=== PATIENT | female | born 1945 | race Caucasian/White ===

== ENCOUNTER 2023-07-18 09:20 | Inpatient (IN) | payer MEDICARE, SELFPAY ==
[2023-07-18] VITALS (23 sets, daily range): BP systolic 147–188; BP diastolic 60–97; PULSE 88–136; RESP 18–36; TEMP 36.2–37.2; O2SAT 91–100
--- NOTE | ~2023-07-18 | XR_ITS ---
EXAMINATION: XR chest 2V DATE: 07/18/2023 10:33 INDICATION: 3 days of shortness of breath TECHNIQUE: frontal and lateral views of the chest were obtained. COMPARISON: Chest CT dated 07/18/2023 FINDINGS: Horizontal bandlike opacity at the anterior right midlung zone consistent with atelectasis or pneumon ia stenting along the minor fissure. No other airspace opacities, pulmonary edema, pleural effusion o r pneumothorax. The cardiomediastinal silhouette is normal. Reverse right total shoulder arthroplasty . Partially visualized IVC filter. Calcified nodule projecting over the liver consistent with old gra nulomatous disease. IMPRESSION: 1. Bandlike opacity at the anterior right midlung zone which could represent atelectasis or pneumonia . Reviewed, dictated and finalized at location B. IMPRESSION: 1. Bandlike opacity at the anterior right midlung zone which could represent at electasis or pneumonia.
--- NOTE | ~2023-07-18 | US_ITS ---
EXAMINATION: US venous doppler [facility] DATE: 07/18/2023 12:04 INDICATION: Lower limb pain and swelling. Elevated d-dimer post recent hip replacement. TECHNIQUE: Grayscale ultrasound images without and with compression and Doppler ultrasound images of the bilateral lower extremity veins were obtained. COMPARISON: None. FINDINGS: The visualized portions of right common femoral vein, profunda (deep) femoral vein, femoral vein, pop liteal vein, posterior tibial veins, peroneal veins, gastrocnemius vein and greater saphenous vein ou tflow are patent. The visualized portions of left common femoral vein, profunda femoral vein, femoral vein, popliteal v ein, posterior tibial veins, peroneal veins, gastrocnemius vein and greater saphenous vein outflow ar e patent. IMPRESSION: 1. No deep venous thrombosis in either lower limb. Reviewed, dictated and finalized at location B.
--- NOTE | ~2023-07-18 | XR_ITS ---
EXAMINATION: XR chest 1V portable INDICATION: Tachypnea TECHNIQUE: Portable AP chest at 1850 hours COMPARISON: 07/28/2023 FINDINGS: There are diffuse opacities throughout all lung zones without significant change. No pleura l effusion or pneumothorax. The cardiomediastinal silhouette is stable. Changes of right shoulder art hroplasty are noted. IMPRESSION: 1. Diffuse lung disease without significant change, consistent with pneumonia/or pulmonary edema. Reviewed, dictated and finalized at location F. IMPRESSION: 1. Diffuse lung disease without significant change, consistent with pneumonia/o r pulmonary edema.
--- NOTE | ~2023-07-18 | XR_ITS ---
EXAMINATION: XR lumbar puncture diagnostic DATE: 07/19/2023 15:07 INDICATION: Encephalopathy. TECHNIQUE: The procedure including the risks, benefits, and alternatives was discussed with the patie nt's son. Risks discussed included spinal headache, bleeding, and infection. He understood the risks and agreed to proceed. The skin overlying the lumbar spine level was prepped and draped in usual brandon rile fashion. Subcutaneous 1% lidocaine was used for local anesthesia. A 20 gauge spinal needle was advanced under fluoroscopic guidance at multiple levels. The patient moved throughout the procedure. The needle was removed and the entry site was cleaned and dressed. There were no immediate complica tions. Fluoroscopy exposure time was 0.3 minutes. The total number of images was 1. FINDINGS: Real-time fluoroscopy demonstrates the needle at the L5-S1 level. The opening pressure was not measured. 6 mL of bloody fluid was collected in 3 tubes. IMPRESSION: 1. Successful fluoro-guided lumbar puncture. Reviewed, dictated and finalized at location A.
--- NOTE | ~2023-07-18 | CT_ITS ---
EXAMINATION: CTA chest PE protocol DATE: 07/18/2023 10:26 INDICATION: Shortness of breath. TECHNIQUE: Computed tomography angiography (CTA) of the chest was performed with 100 mL Omnipaque-350 intravenous contrast timed to evaluate the pulmonary arteries. Coronal maximum intensity projection 3D-reconstructions were created by the technologist. Automated exposure control and iterative reconst ruction technique were employed. The dose-length product was 227.40 mGy-cm. COMPARISON: None. FINDINGS: There is moderate emphysema. There are scattered small airspace opacities in the lungs. The re are airspace opacities in anterior segment right upper lobe with air bronchograms. There are scatt ered small nodules in the lungs. No pleural effusion. The heart size is normal. There are coronary ar karina calcifications. No pericardial effusion. There is no pulmonary embolus. Calcified left hilar and mediastinal lymph nodes are consistent with old granulomatous disease. Calcifications in the liver a nd spleen are consistent with old granulomatous disease. There is a 3.9 cm heterogeneous mass with ca lcifications in left adrenal gland. There is a 1.7 cm cyst in left kidney. There is a right shoulder arthroplasty. There is a benign bone island in right second rib. There is mild thoracic spondylosis a nd severe cervical spondylosis. There is a benign bone island in T5 vertebral body. There is mild chr onic anterior wedging of multiple vertebral bodies. IMPRESSION: 1. No pulmonary embolus. 2. Multifocal lung disease, consistent with pneumonia. 3. Moderate emphysema. 4. 3.9 cm left adrenal mass, which may be an adenoma or metastatic disease. PET/CT is recommended if there is no outside prior imaging to confirm stability. Reviewed, dictated and finalized at location A. IMPRESSION: 1. No pulmonary embolus. 2. Multifocal lung disease, consistent with pneumonia. 3. Moderate emphysema. 4. 3.9 cm left adrenal mass, which may be an adenoma or metastatic disease. PET /CT is recommended if there is no outside prior imaging to confirm stability.
--- NOTE | ~2023-07-18 | CT_ITS ---
EXAMINATION: CT brain wo con DATE: 07/24/2023 17:47 INDICATION: headaches . TECHNIQUE: Computed tomography (CT) of the head was performed without intravenous contrast. The mA wa s adjusted according to patient size. Iterative reconstruction technique was employed. The dose-lengt h product was 605.33 mGy-cm. COMPARISON: 07/18/2023. FINDINGS: No acute intracranial hemorrhage or extra-axial fluid collection. No hydrocephalus, mass, or herniation. No acute ischemic infarct. Unremarkable dural venous sinus attenuation. No acute osseous abnormality. The aerated spaces are clear. Moderate atrophy and chronic white matter change. Atherosclerotic intracranial calcification. Bilater al lens replacements. Old right basal ganglia lacunar infarct. IMPRESSION: No acute intracranial process. Reviewed, dictated and finalized at location K.
--- NOTE | ~2023-07-18 | CT_ITS ---
EXAMINATION: CT brain wo con DATE: 07/18/2023 15:36 INDICATION: Obtunded. Confusion TECHNIQUE: Computed tomography (CT) of the head was performed without intravenous contrast. Sagittal and coronal reconstructions were performed. The mA was adjusted according to patient size. Iterative reconstruction technique was employed. The dose-length product was 605.33 mGy-cm. COMPARISON: None FINDINGS: No acute intracranial hemorrhage or acute infarction. There is extensive scattered white matter hypoa ttenuation consistent with chronic small vessel ischemic disease. Symmetric prominence of the sulci c onsistent with mild to moderate age-appropriate diffuse cerebral volume loss. Ventricles are normal a nd symmetric. No mass/mass effect. Changes of bilateral intraocular lens replacement. The orbits and mastoid air cells are normal. Couple mucous retention cyst in the right maxillary sinus. Intracranial calcified cerebral atherosclerosis is noted. IMPRESSION: 1. No acute intracranial process. 2. Age-related changes including mild to moderate diffuse volume loss and extensive scattered white m atter hypoattenuation consistent with chronic small vessel ischemic disease. Reviewed, dictated and finalized at location B. IMPRESSION: 1. No acute intracranial process. 2. Age-related changes including mild to moderate diffuse volume loss and exten sive scattered white matter hypoattenuation consistent with chronic small vesse l ischemic disease.
--- NOTE | ~2023-07-18 | CT_ITS ---
EXAMINATION: CTA brain carotid DATE: 07/18/2023 15:47 INDICATION: Confusion. TECHNIQUE: Computed tomographic angiography (CTA) of the head was performed with 100 mL Omnipaque-350 intravenous contrast. CTA of the neck was performed with intravenous contrast. Automated exposure co ntrol and iterative reconstruction technique were employed. The dose-length product was 1105.70 mGy-c m. Maximum intensity projection and volume rendered 3D-reconstructions were created by the technologi st on a separate workstation. COMPARISON: Head CT 07/18/2023 FINDINGS: HEAD CTA: There are scattered areas of low attenuation in the cerebral white matter. There is no intr acranial hemorrhage, acute infarction, or abnormal intracranial mass lesion. The ventricles are karly l in size. There are likely changes of ocular lens replacement surgeries. There is mucosal thickening in the paranasal sinuses. The mastoid air cells are normal. Left vertebral artery is dominant. There is a severe stenosis of basilar artery or the posterior cerebral arteries. The posterior communicati ng arteries are normal. There is no significant stenosis of the intracranial internal carotid arterie s or anterior or middle cerebral arteries. Anterior communicating artery is normal. There is no aneur ysm. NECK CTA: There is mild emphysema. There are no pathologically enlarged lymph nodes. There is no sign ificant stenosis of the vertebral arteries. There is plaque in the proximal internal carotid arteries . There is 38% stenosis of the proximal right internal carotid artery relative to normal distal arter y lumen diameter (NASCET criteria). There is 40% stenosis of the proximal left internal carotid arter y relative to normal distal artery lumen diameter. IMPRESSION: 1. Extensive nonspecific cerebral white matter disease, which likely represents chronic small vessel ischemic disease. 2. No aneurysm or significant intracranial arterial stenosis. 3. 38% stenosis of the proximal right internal carotid artery relative to normal distal artery lumen diameter (NASCET criteria). 4. 40% stenosis of the proximal left internal carotid artery relative to normal distal artery lumen d iameter. Reviewed, dictated and finalized at location A. IMPRESSION: 1. Extensive nonspecific cerebral white matter disease, which likely represents chronic small vessel ischemic disease. 2. No aneurysm or significant intracranial arterial stenosis. 3. 38% stenosis of the proximal right internal carotid artery relative to karly l distal artery lumen diameter (NASCET criteria). 4. 40% stenosis of the proximal left internal carotid artery relative to normal distal artery lumen diameter.
--- NOTE | ~2023-07-18 | MR_ITS ---
MRI of the brain Clinical History: Encephalopathy Technique: Axial and sagittal T1-weighted images were acquired. These were followed by axial T2-weigh catie, diffusion weighted, gradient, and FLAIR images. Findings: Exam degraded by motion artifact. There is no acute infarct, intracranial hemorrhage or mas s lesion. There is moderate chronic microvascular ischemic change in the periventricular white matter bilaterally. Ventricles and subarachnoid spaces are dilated. Orbits are unremarkable. Retention cysts or polyps ar e present in the right maxillary sinus. Remaining paranasal sinuses and mastoid air cells are clear. Questionable occlusion versus hypoplasia of the distal right vertebral artery. Remaining major intrac ranial flow voids appear intact. Sagittal midline structures are intact. IMPRESSION: Suboptimal exam due to motion artifact. No acute hemorrhage, acute infarct, or mass lesion identified . Moderate chronic microvascular ischemic change and mild to moderate generalized atrophy. Probable occlusion versus hypoplasia of the distal right vertebral artery. Reviewed, dictated and finalized at [facility]. IMPRESSION: Suboptimal exam due to motion artifact. No acute hemorrhage, acute infarct, or mass lesion identified. Moderate chronic microvascular ischemic change and mild to moderate generalized atrophy. Probable occlusion versus hypoplasia of the distal right vertebral artery.
--- NOTE | ~2023-07-18 | XR_ITS ---
EXAMINATION: XR chest 2V Exam Date/Time: 07/23/2023 17:25 CDT HISTORY: multifocal pneumonia Comparison: Chest x-ray and CTPA 07/18/2023. RESULT: Lines, tubes, and devices: Right shoulder arthroplasty hardware. IVC filter. Lungs and pleura: Persistent subsegmental right mid and left posterior lower lobe airspace disease. Prominent pericardial fat pads. Emphysematous change. Minimal posterior costophrenic angle blunting b ilaterally. Cardiomediastinal silhouette: Stable. Other: No acute osseous or upper abdominal finding. IMPRESSION: Unchanged bilateral subsegmental airspace disease may represent atelectasis or consolidation. Possibl e trace pleural effusions. Reviewed, dictated and finalized at location K. IMPRESSION: Unchanged bilateral subsegmental airspace disease may represent atelectasis or consolidation. Possible trace pleural effusions.
--- NOTE | ~2023-07-18 | MR_ITS ---
EXAMINATION: MR abdomen wo/w con DATE: 07/23/2023 18:17 INDICATION: Left adrenal mass TECHNIQUE: Magnetic resonance imaging (MRI) of the abdomen was performed without and with 14 mL Multi jose intravenous contrast. Sequences included coronal and axial T2-weighted SS-FSE, axial FS 2D-FIES TA, coronal and axial dual-echo T1-weighted FSPGR, axial T1-weighted LAVA, and axial STIR FSE. Postco ntrast axial T1-weighted LAVA images were obtained in a time course. Postcontrast coronal T1-weighted LAVA images were obtained. COMPARISON: Chest CT dated 07/18/2023 FINDINGS: There is moderate respiratory motion artifact which most prominently affects the axial and postcontra st imaging. Heart size is normal. No pericardial or pleural effusion. Liver, gallbladder, spleen, mckinney creas and left adrenal gland are normal. 3.9 cm left adrenal mass with signal dropout on opposed phas e images which corresponds to the largest region of the mass demonstrating low density on prior CT co nsistent with an adenoma. There is however heterogeneous attenuation with the more lateral portion of the mass demonstrating a demonstrating higher attenuation versus enhancement on the prior CT and wit h some central coarse calcifications. There are multiple nonenhancing T2 hyperintense cysts in both k idneys the largest measuring up to 1.7 cm and the left kidney. Bowels appear unremarkable with no obs truction. Septated cyst versus pair of abutting cysts together measuring 2.4 cm at the left adnexa. T here is magnetic metallic field artifact at the left hip suggesting a prior hip arthroplasty. Partial ly visualized large fluid collection along the posterolateral margins of the left greater trochanter the visualized portion which measures 7.3 x 5.2 x 6.0 cm which appears to communicate with small amou nt of fluid about the head and neck component of the arthroplasty. Extensive body wall edema and smal l amount of ascites in the pelvis. Mild lumbar levocurvature with mild spondylosis. Bone marrow signa l is normal throughout. IMPRESSION: 1. 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 While reassuring, both the size and heterogeneous attenuation with calcification of portions of the m ass on prior CT however would be atypical which suggests possibility of either secondary hemorrhage o r a collision lesion with combination of both adenoma and metastatic disease. Would continue to recom mend either correlation with prior outside imaging to confirm stability or PET/CT when clinically imp roved. Reviewed, dictated and finalized at location A. IMPRESSION: 1. 3.9 cm left adrenal mass with signal dropout on opposed phase imaging consis tent with an adenoma. While reassuring, both the size and heterogeneous attenua tion with calcification of portions of the mass on prior CT however would be at ypical which suggests possibility of either secondary hemorrhage or a collision lesion with combination of both adenoma and metastatic disease. Would continue to recommend either correlation with prior outside imaging to confirm stabilit y or PET/CT when clinically improved.
--- NOTE | ~2023-07-18 | XR_ITS ---
EXAMINATION: XR chest 1V portable Exam Date/Time: 07/28/2023 19:03 CDT HISTORY: sob Comparison: 07/23/2023. RESULT: Lines, tubes, and devices: Incompletely visualized right shoulder arthroplasty hardware. Lungs and pleura: Emphysematous changes. Decreasing left basilar opacities. Persistent subsegmental right midlung opacity. Minimal bilateral costophrenic angle blunting Cardiomediastinal silhouette: Stable. Other: No acute osseous or upper abdominal finding. IMPRESSION: Improved left basilar aeration. Persistent atelectasis/scar or consolidation in the right midlung. Po ssible trace bilateral effusions. Reviewed, dictated and finalized at location K. IMPRESSION: Improved left basilar aeration. Persistent atelectasis/scar or consolidation in the right midlung. Possible trace bilateral effusions.
--- NOTE | 2023-07-18 09:24 | ECG_ITS ---
Measurements Intervals [place] Rate: 107 P: 65 OR: 134 QRS: 34 QRSD: 76 T: 30 QT: 303 QTc: 406 Interpretive Statements SINUS TACHYCARDIA NONSPECIFIC T-WAVE ABNORMALITY- ANTERIOR LEADS BASELINE ARTIFACT- I, II, III, AVR, AVF, V3-V6 ABNORMAL ECG NO PREVIOUS ECG AVAILABLE FOR COMPARISON Electronically Signed On 07-18-2023 10:04:03 CDT by Leobardo Rodríguez D.O.
--- NOTE | 2023-07-18 09:48 | ED.SOB ---
HPI - SOB/Dyspnea General Chief Complaint: Shortness of Breath/Dyspnea <Eva Pickett PA-C - Last Filed: 07/18/23 12:37> Stated Complaint: SOB <Eva Pickett PA-C - Last Filed: 07/18/23 12:37> Time Seen by Provider: 07/18/23 09:23 <Eva Pickett PA-C - Last Filed: 07/18/23 12:37> Source: patient and family <CLAUDIA Cash Last Filed: 07/18/23 12:37> Mode of arrival: wheelchair <CLAUDIA Cash Last Filed: 07/18/23 12:37> Limitations: no limitations <Eva Pickett PA-C - Last Filed: 07/18/23 12:37> History of Present Illness HPI Narrative: This is a 78 year old female that presents to the ER for shortness of breath. Worsening since last night. Reports recent hip replacement at [facility] 2 weeks ago. She has required oxygen since. She does report some swelling in her lower extremities. Reports a productive cough with history of COPD. Denies fevers or chest pain. <Eva Pickett PA-C - Last Filed: 07/18/23 12:37> Related Data Home Medications: Home Medications Medication Instructions Recorded Confirmed amlodipine 5 mg tablet (Norvasc) 5 mg PO DAILY 07/18/23 07/18/23 budesonide 160 mcg-glycopyr 9 See Rx Instructions .Route .COMPLEX 07/18/23 07/18/23 mcg-formot 4.8 mcg/actuation HFA inhaler (Breztri Aerosphere) calcium cit 315 mg-ergocalciferol See Rx Instructions .Route .COMPLEX 07/18/23 07/18/23 (vitamin D2) 5 mcg (200 unit) tablet escitalopram oxalate 5 mg tablet 5 mg DAILY 07/18/23 07/18/23 folic acid 1 mg tablet 1 mg PO DAILY 07/18/23 07/18/23 hydralazine 100 mg tablet 100 mg PO DAILY 07/18/23 07/18/23 ipratropium 0.5 mg-albuterol 3 mg See Rx Instructions .Route 07/18/23 07/18/23 (2.5 mg base)/3 mL nebulization .COMPLEX PRN wheezing or shortness soln of breath losartan 100 See Rx Instructions .Route .COMPLEX 07/18/23 07/18/23 mg-hydrochlorothiazide 12.5 mg tablet naloxone 4 mg/actuation nasal spray 4 mg intranasal Q3M PRN Opioid 07/18/23 07/18/23 reversal or respiratory depression omeprazole 40 mg capsule,delayed 40 mg PO DAILY 07/18/23 07/18/23 release oxycodone-acetaminophen 5 mg-325 See Rx Instructions .Route 07/18/23 07/18/23 mg tablet (Percocet) .COMPLEX PRN Pain vit C 250 mg-vit E 90 mg-zinc 40 See Rx Instructions .Route .COMPLEX 07/18/23 07/18/23 mg-copper 1 [id number] capsule (PreserVision AREDS-2) <Eva Pickett PA-C - Last Filed: 07/18/23 12:37> Allergies/Adverse Reactions: Allergies Allergy/AdvReac Type Severity Reaction Status Date / Time No Known Allergies Allergy Verified 07/18/23 09:22 <Eva Pickett PA-C - Last Filed: 07/18/23 12:37> Review of Systems Review of Systems: CONSTITUTIONAL: Denies fever ENT: Reports congestion CARDIOVASCULAR: Reports edema. Denies chest pain RESPIRATORY: Reports cough and dyspnea. <Eva Pickett PA-C - Last Filed: 07/18/23 12:37> All systems reviewed & are unremarkable except as noted in HPI and below <Eva Pickett PA-C - Last Filed: 07/18/23 12:37> FORMERLY [facility] Past Medical History Medical History: Medical History (Updated 07/18/23 @ 16:35 by Lexus Kirkland APRN) History of COPD History of hypertension <Eva Pickett PA-C - Last Filed: 07/18/23 12:37> Surgical History Surgical History: Surgical History (Updated 07/18/23 @ 16:06 by Lexus Kirkland APRN) History of hip replacement (07/02/23) done at [facility] <Eva Pickett PA-C - Last Filed: 07/18/23 12:37> Social History Social History: Social History Years smoked: 60 Smoking status: Current every day smoker Tobacco type: cigarettes Alcohol intake: never Substance use: never Do You Feel Safe in your Home?: Yes Lack of Transportation: No Lack of Food: Never True Current Housing: I Have Housing Concerned About Future Housing: No Difficulty P
[2023-07-18] MEDS: IPRATROPIUM 0.5 MG/ALBUTEROL SULFATE 2.5 MG AMPUL.NEB 3 ML INHALATION ×3 (09:52→17:00)
[2023-07-18 09:54] LABS: Basophils Absolute Auto 0.1 K/mm3 (0.0-0.1); Basophils Percent Auto 0.3 % (0.2-1.2); Eosinophils Percent Auto 0.1 % (0-4.4); Hematocrit 31.8 % (37.0-47.0); Hemoglobin 9.1 g/dL (12.0-15.0); Immature Granulocyte Absolute 0.16 K/mm3 (0.00-0.031); Immature Granulocyte Percent A 0.9 % (0-0.5); Immature Platelet Fraction Pct 7.4 % (0.9-11.2); Mean Corpuscular HGB Conc 28.6 g/dl (32-36); Mean Corpuscular Volume 80.5 fl (80-100); Monocytes Absolute Auto 0.6 K/mm3 (0.1-0.6); Monocytes Percent Auto 3.5 % (2.6-8.5); Neutrophils Absolute Auto 15.6 K/mm3 (1.3-6.7); Neutrophils Percent Auto 92.2 % (45.5-73.1); Platelet Count Result 219 k/mm3 (150-375); Red Blood Count 3.95 M/mm3 (4.2-5.4); Red Cell Distribution Width 25.1 % (11.5-14.5); White Blood Count 16.9 K/mm3 (4.5-10.0)
[2023-07-18] MEDS: ACETAMINOPHEN 500 MG TABLET 1000 MG PO (10:00)
[2023-07-18] MEDS: methylPREDNISolone SOD SUCC 125 MG VIAL IV PUSH (10:00)
[2023-07-18 10:03] LABS: Alanine Aminotransferase 19 U/L (6-35); Albumin Level 3.4 g/dL (3.5-5.1); Alkaline Phosphatase 124 U/L (38-126); Anion Gap 4 mmol/L (8-16); Aspartate Amino Transferase 30 U/L (14-36); Blood Urea Nitrogen 18 mg/dL (7-17); Calcium 8.9 mg/dL (8.4-10.2); Carbon Dioxide 32 mmol/L (22-30); Chloride 103 mmol/L (98-107); Estimated CRCL calculation 42 ml/min; Estimated Glomerular Filt Rate > 60; Glucose 140 mg/dL (65-110); Sodium 139 mmol/L (137-145)
[2023-07-18 10:04] LABS: Prothrombin Time 13.6 Seconds (11.1-14.7)
[2023-07-18 10:07] LABS: Lactic Acid Reflex 1.9 mmol/L (0.7-2.0)
[2023-07-18 10:07] LABS: D Dimer 2.02 ug/mL (<0.48)
[2023-07-18 10:10] LABS: Anisocytosis 2+; Hypochromasia 1+; Microcytosis 1+ (NORMAL); Platelet Estimate Adequate (Adequate); Schistocytes None Seen
[2023-07-18 10:17] LABS: NT Pro B Type Natriuretic Pept 1380 pg/mL (19.9-100)
[2023-07-18 10:32] LABS: Influenza A QL RT-PCR Negative (Negative); Influenza B QL RT-PCR Negative (Negative); RSV RNA, RT-PCR Negative (Negative); SARS-CoV-2 RNA PCR Negative (Negative)
[2023-07-18] MEDS: AZITHROMYCIN 500 MG/NS 250 ML 500 MG/250 ML BAG 250 MG IVPB (13:10)
--- NOTE | 2023-07-18 14:15 | PC.NURSE ---
This patient, Marsha Pantoja, was admitted to [facility] Surg Room 321-02 at 1415. Patient/family oriented to hospital policies and general routines including ID bracelet, bed and alarms, visiting hours, pain management, procedures, bathroom and other care routines, personal items, smoking policy, room service/diet, and visiting hours. Information on how to activate the Rapid Response Team has been discussed. Patient/Family are encouraged to report perceived risks to care and to ask questions if they do not understand what they are told or what they should do.
[2023-07-18 14:49] LABS: Glucose Point of Care 205 mg/dl (65-105)
--- NOTE | 2023-07-18 15:06 | ADMGEN ---
This patient, Marsha Pantoja, was admitted to [facility] Surg Room 321-02. Patient/family oriented to hospital policies and general routines including ID bracelet, bed and alarms, visiting hours, pain management, procedures, bathroom and other care routines, personal items, smoking policy, room service/diet, and visiting hours. Information on how to activate the Rapid Response Team has been discussed. Patient/Family are encouraged to report perceived risks to care and to ask questions if they do not understand what they are told or what they should do.
--- NOTE | 2023-07-18 15:10 | PM.IMHP ---
H&P: HPI History of Present Illness Date/Time: 07/18/23 15:10 Chief Complaint: SOB Narrative: 78 y/o F presents here with SOB with PMH of HTN and COPD. Patient presents here with worsening SOB over the last few days, significantly worsened last night. Son at bedside providing majority of HPI due to patient's current mental status. Patient has a new baseline O2 requirement since her hip replacement on 07/02/23. Surgery done at [facility], has follow-up yesterday and sutures were taken out/no complications found per son. Now reporting increased LE swelling and productive cough to ED provider. Denied CP or fevers in the ED. Upon arrival to the inpatient room, it was noted that patient was somnolent, minimally conversant (answering yes and no questions) and able to state her first name. Per son who brought patient to the ED and has been acting as her caregiver since surgery reports that she was able to ambulate with a walker this morning and answering questions/more awake. Last known well around 09:00 today, 07/17. Reports after 10:00 she became tremulous and less responsive/awake. Did receive Solu-Medrol and neb treatment just prior to changes. Now no longer speaking/making attempts at speech, not regarding, and not following commands. No previous hx of CVA. Remains tachypneic. Initial VS at presentation: 98.8 F, HR 114, RR 24, 155/65, and 99% on 2L NC. New requirement post-op on 07/02. ED workup showed: WBC 16.9, Hgb 9.1, D-dimer 2.02, creatinine 0.8, glucose 140, BNP 1380, and viral PCR negative. Chest CTA showed no PE, with multifocal pneumonia, moderate emphysema, and a 3.9 cm left adrenal mass. CXR showed atelectasis v pneumonia. US of BLE negative for DVT. Review of Systems Review of Systems: ROS unobtainable: Yes unobtainable due to mental status PMFSH Past Medical History Medical History History of COPD History of hypertension Surgical History Surgical History History of hip replacement (07/02/23) done at [facility] Social History Social History Years smoked: 60 Smoking status: Current every day smoker Tobacco type: cigarettes Alcohol intake: never Substance use: never Do You Feel Safe in your Home?: Yes Lack of Transportation: No Lack of Food: Never True Current Housing: I Have Housing Concerned About Future Housing: No Difficulty Paying Gas/Electric Bills: No Difficulty Paying for Meds: No Currently Unemployed: No Education: High School Diploma/GED Difficulty w/ Childcare or Family Care: No Spiritual care concerns: No Meds Home Medications and Allergies Home Medications Medication Instructions Recorded Confirmed Type amlodipine 5 mg tablet (Norvasc) 5 mg PO DAILY 07/18/23 07/18/23 History budesonide 160 mcg-glycopyr 9 See Rx Instructions .Route .COMPLEX 07/18/23 07/18/23 History mcg-formot 4.8 mcg/actuation HFA inhaler (Breztri Aerosphere) calcium cit 315 mg-ergocalciferol See Rx Instructions .Route .COMPLEX 07/18/23 07/18/23 History (vitamin D2) 5 mcg (200 unit) tablet escitalopram oxalate 5 mg tablet 5 mg DAILY 07/18/23 07/18/23 History folic acid 1 mg tablet 1 mg PO DAILY 07/18/23 07/18/23 History hydralazine 100 mg tablet 100 mg PO DAILY 07/18/23 07/18/23 History ipratropium 0.5 mg-albuterol 3 mg See Rx Instructions .Route 07/18/23 07/18/23 History (2.5 mg base)/3 mL nebulization .COMPLEX PRN wheezing or shortness soln of breath losartan 100 See Rx Instructions .Route .COMPLEX 07/18/23 07/18/23 History mg-hydrochlorothiazide 12.5 mg tablet naloxone 4 mg/actuation nasal spray 4 mg intranasal Q3M PRN Opioid 07/18/23 07/18/23 History reversal or respiratory depression omeprazole 40 mg capsule,delayed 40 mg PO DAILY 07/18/23 07/18/23 History release oxycodo
[2023-07-18 15:27] LABS: Glucose Point of Care 216 mg/dl (65-105)
--- NOTE | 2023-07-18 16:00 | PC.NURSE ---
Pt arrived to the floor per stretcher at 1415 with son. Pt stated I need to go to the bathroom . 2 boat detailer, 1 RN and this CHIP TESTER attempted to assist pt to BSC. Pt unable to follow commands to grab walker. R arm appeared weak and unable to grasp walker. Assessed pt for stroke. Tongue midline, face symmetrical, Finger to nose SIMONE, Bazan to heel SIMONE, tremors (son states tremors are new). 1436 attempted to call provider but no response. 1459 called provider again notified of change in status. Provider came to bedside and ordered to call Code Stroke. 1517 Code stroke called. 1520 VS Pulse 123, Resp. 32, BP 188/72, O2 91% 2L NC. CT brain wo con and CTA brain carotid ordered. [address] by Code Stroke team. 1546 Pt returned to room and provider spoke to family.
[2023-07-18 16:01] LABS: Alveolar/Arterial O2 Gradient 84.5 mmHg; Base Excess ABG 5.4 mEq/l (+/-2.0); Fractional Inspired Oxygen 28 %; HCO3 ABG 29.9 mEq/l (22.0-26.0); Oxygen Content ABG 12.7 %vol (16.0-22.0); Oxygen Saturation ABG 93.3 % (95.0-100.0); Oxyhemoglobin 91.7 % THb (90.0-100.0); PCO2 ABG 43.4 mmHg (35.0-45.0); PO2 ABG 63.9 mmHg (80.0-100.0); PO2 FiO2 Ratio Arterial Blood 2.28 %; Total Hemoglobin 9.8 g/dL (12.0-18.0); pH ABG 7.456 (7.350-7.450)
[2023-07-18 16:03] LABS: Device NASAL CANNULA; Site Drawn RIGHT BRACHIAL
--- NOTE | 2023-07-18 16:22 | ECG_ITS ---
Measurements Intervals [place] Rate: 136 P: 70 FL: 88 QRS: 49 QRSD: 86 T: 78 QT: 294 QTc: 444 Interpretive Statements SINUS TACHYCARDIA WITH SHORT FL INTERVAL ATRIAL PREMATURE COMPLEX BASELINE ARTIFACT- I, II, III, AVR, AVL, AVF, V1, V3-V6 ABNORMAL ECG COMPARED TO ECG 07/18/2023 09:35:42 HEART RATE HAS INCREASED Electronically Signed On 07-18-2023 19:46:39 CDT by Leobardo Rodríguez D.O.
[2023-07-18] MEDS: METOPROLOL TARTRATE INJ 5 MG/5 ML VIAL IV PUSH ×2 (17:00→18:09)
[2023-07-18 17:44] LABS: Troponin I 0.015 ng/mL (0.000-0.034)
[2023-07-18 18:46] LABS: Amphetamine Screen Urine Negative (Negative); Barbiturate Screen Urine Negative (Negative); Benzodiazepines Screen Urine Negative (Negative); Cannabinoid Screen Urine Negative (Negative); Cocaine Screen Urine Negative (Negative); Methadone Screen Urine Negative (Negative); Opiate Screen Urine Negative (Negative); Phencyclidine Screen Urine Negative (Negative)
[2023-07-18] MEDS: ACETAMINOPHEN 650 MG SUPPOSITORY RECTAL (19:45)
[2023-07-18] MEDS: AMPICILLIN 2 GM/NS 100 ML 2 GM/100 ML BAG IVPB (19:56)
[2023-07-18] MEDS: CEFEPIME 2 GM/NS 50 ML 2 GM/50 ML BAG IVPB (19:57)
[2023-07-18 20:03] LABS: Troponin I 0.032 ng/mL (0.000-0.034)
--- NOTE | 2023-07-18 20:27 | PC.NURSE ---
19:20 Report received from SERVANDO Espinoza. Patient awaiting transfer to IMU. 19:30 Report given to NEW Hill in IMU. All questions regarding transfer answered. Liz awaiting patient arrival to room.
[2023-07-18 20:33] LABS: Ethanol < 10 mg/dL (<10)
--- NOTE | 2023-07-18 20:51 | PC.NURSE ---
Pt transferred to [facility] at 2021
[2023-07-18 20:55] LABS: Glucose Point of Care 230 mg/dl (65-105)
[2023-07-18] MEDS: VANCOMYCIN 1,500 MG/NS 500 ML 1,500 MG/500 ML BAG 250 MG IVPB (21:29)
[2023-07-18 22:10] LABS: Glucose Point of Care 210 mg/dl (65-105)
[2023-07-18] MEDS: INSULIN ASPART (*BKC) 100 UNITS/ML SUB-Q (22:15)
[2023-07-19] VITALS (31 sets, daily range): BP systolic 138–177; BP diastolic 55–78; PULSE 74–138; RESP 16–36; TEMP 36.4–37.6; O2SAT 93–100
--- NOTE | 2023-07-19 | ECHO_ITS ---
Patient Info Name: Marsha Pantoja Age: 78 years : 1945 Gender: Female Ht: 63 in Wt: 141 lbs BSA: 1.70 m2 HR: 100 bpm BP: 177 / 64 mmHg Heart Rhythm: Indeterminant Technical Quality: Good Exam Date: 07/19/2023 10:31 AM Exam Location: Echo Lab Patient Status: Inpatient Admit Date: 07/19/2023 Staff Ordering Physician: Lexus Kirkland APRN [place]: Troy Mariee RDCS Attending Provider: Jasbir Lofton MD Referring Physician: Isael ARNOLD; Exam Type: CA echo dop color flow w con Study Info Indications - elevated bnp, sob Complete two-dimensional, color flow and Doppler transthoracic echocardiogram is performed with contrast to opacify the left ventricle and to improve the deliniation of the left ventricle endocardial borders. Contrast/Agitated Saline Contrast/Ag. Saline: Definity Amount: 3.00 ml Summary 1. Left ventricular chamber dimension is normal. 2. Left ventricular systolic function is normal, estimated at 65-70%. 3. The left ventricular diastolic function is grade I diastolic dysfunction. 4. Right ventricular systolic function is normal. 5. No significant valvular disease. 6. There is small anterior pericardial effusion. Left Ventricle Left ventricular chamber dimension is normal. Left ventricular systolic function is normal, estimated at 65-70%. There is no increased left ventricular wall thickness. The left ventricular diastolic function is grade I diastolic dysfunction. Right Ventricle Right ventricular chamber dimension is normal. Right ventricular systolic function is normal. Left Atria Left atrial chamber dimension is normal. Right Atria Right atrial chamber dimension is normal. Atrial Septum Intact interatrial septum visualized by color flow imaging. Aortic Valve The aortic valve is not well visualized. There is no aortic valve stenosis. There is no aortic valve regurgitation. Pulmonic Valve The pulmonic valve is not well visualized. Mitral Valve There is trace mitral valve regurgitation. The mitral valve annulus is mildly calcified. Tricuspid Valve There is trace tricuspid valve regurgitation. Pericardium/Pleural There is small anterior pericardial effusion. Inferior Vena Cava Normal inferior vena cava with >50% collapse upon inspiration consistent with normal right atrial pressure, 3 mmHg. Aorta The aortic root size at the sinus of Valsalva is normal. Left Ventricular Outflow Tract Name Value Normal LVOT 2D LVOT Diameter 1.95 cm LVOT Doppler LVOT Peak Gradient 6 mmHg LVOT Mean Gradient 4 mmHg LVOT VTI 24.09 cm LVOT VTI/AV VTI Ratio 0.62 LVOT Stroke Volume 71.85 ml LVOT CO 7.68 l/min LVOT CI 4.52 L/min/m2 Pulmonic Valve Name Value Normal RVOT Doppler
[2023-07-19] MEDS: AMPICILLIN 2 GM/NS 100 ML 2 GM/100 ML BAG IVPB ×4 (01:30→19:05)
--- NOTE | 2023-07-19 02:59 | PC.NURSE ---
2300: left eye edema noted. MARINE CONSULTANT aware. 2100: pt arrived to unit nonresponsive. Pupils unequal; left 4, right 3., corneal reflex intact. Pt. withdrawals to pain and spontaneously (not purposefully) flails arms.
[2023-07-19] MEDS: IPRATROPIUM 0.5 MG/ALBUTEROL SULFATE 2.5 MG AMPUL.NEB 3 ML INHALATION ×4 (03:01→20:15)
[2023-07-19] MEDS: CEFEPIME 2 GM/NS 50 ML 2 GM/50 ML BAG IVPB ×3 (03:35→20:29)
[2023-07-19 04:58] LABS: Basophils Percent Auto 0.2 % (0.2-1.2); Eosinophils Absolute Auto 0.1 K/mm3 (0-0.3); Eosinophils Percent Auto 0.2 % (0-4.4); Hematocrit 33.3 % (37.0-47.0); Hemoglobin 9.4 g/dL (12.0-15.0); Immature Granulocyte Absolute 0.13 K/mm3 (0.00-0.031); Immature Granulocyte Percent A 0.6 % (0-0.5); Immature Platelet Fraction Pct 9.9 % (0.9-11.2); Lymphocytes Absolute Auto 0.61 K/mm3 (0.9-3.2); Mean Corpuscular HGB Conc 28.2 g/dl (32-36); Mean Corpuscular Hemoglobin 22.8 pg (26-34); Mean Corpuscular Volume 80.8 fl (80-100); Monocytes Percent Auto 4.7 % (2.6-8.5); Neutrophils Absolute Auto 18.5 K/mm3 (1.3-6.7); Neutrophils Percent Auto 91.3 % (45.5-73.1); Platelet Count Result 189 k/mm3 (150-375); Red Blood Count 4.12 M/mm3 (4.2-5.4); Red Cell Distribution Width 24.7 % (11.5-14.5); White Blood Count 20.3 K/mm3 (4.5-10.0)
[2023-07-19 05:09] LABS: Alanine Aminotransferase 17 U/L (6-35); Albumin Level 3.2 g/dL (3.5-5.1); Alkaline Phosphatase 119 U/L (38-126); Anion Gap 0 mmol/L (8-16); Aspartate Amino Transferase 26 U/L (14-36); Bilirubin,Total 0.8 mg/dL (0.2-1.3); Blood Urea Nitrogen 20 mg/dL (7-17); Calcium 8.7 mg/dL (8.4-10.2); Carbon Dioxide 35 mmol/L (22-30); Chloride 105 mmol/L (98-107); Cholesterol 137 mg/dL (0-200); Estimated CRCL calculation 42 ml/min; Estimated Glomerular Filt Rate > 60; Glucose 176 mg/dL (65-110); HDL Direct 47 mg/dL; Potassium 3.7 mmol/L (3.4-5.0); Sodium 140 mmol/L (137-145); Triglycerides 93 mg/dL (<150)
[2023-07-19 05:20] LABS: LDL Cholesterol Direct 65 mg/dL
[2023-07-19 05:35] LABS: Anisocytosis 1+; Hypochromasia 1+; Platelet Estimate Adequate (Adequate); Schistocytes None Seen; Stomatocytes 1+
--- NOTE | 2023-07-19 08:10 | PM.IMPN ---
Progress Note: A&P Assessment and Plan (1) HTN (hypertension): Code(s): I10 - Essential (primary) hypertension Status: Acute (2) Shortness of breath: Code(s): R06.02 - Shortness of breath Status: Acute (3) Community acquired pneumonia: Qualifiers: Laterality: unspecified laterality Qualified Code(s): J18.9 - Pneumonia, unspecified organism Code(s): J18.9 - Pneumonia, unspecified organism Status: Acute (4) COPD exacerbation: Code(s): J44.1 - Chronic obstructive pulmonary disease with (acute) exacerbation Status: Acute (5) Adrenal mass: Code(s): E27.8 - Other specified disorders of adrenal gland Status: Acute (6) Altered mental status: Code(s): R41.82 - Altered mental status, unspecified Status: Acute Plan 78-year-old female with past medical history hypertension, COPD with chronic respiratory failure, 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 History is taken from the son and rest the family. It is reported she has not been breathing great since her hip replacement. She finally had severe enough shortness of breath she was brought in by family. While in the emergency room the patient was treated for pneumonia and COPD exacerbation however it was noted to be unresponsive/somnolent/non-conversant. Admitted on 07/18/2023 Acute toxic encephalopathy -there have been various reports from the family that the patient came altered at home versus became altered after receiving Solu-Medrol in the ED. steroid induced psychosis is a consideration -in the meantime, treat with antibiotics for hospital-acquired pneumonia and possible meningitis -CT head on admission without intracranial process, age-related changes present consistent with chronic small-vessel ischemic disease -CTA head and neck demonstrating 38% stenosis of proximal right ICA and 40% stenosis proximal left ICA -pCO2 43.4 on ABG, It is possible she is a chronic retainer. Drug screen negative. Family reports the patient is not alcohol drinker. -neurochecks Q 4, NPO, lumbar puncture pending, brain MRI pending, neurology consulted. Severe sepsis without shock Anemia, normocytic -unclear chronicity check iron panel and ferritin Hospital-acquired pneumonia -this is the most likely culprit for her acute toxic encephalopathy. CT chest on admission demonstrating multifocal lung disease consistent with pneumonia. -white count trending up from 16 to 20 -lactic acid on admission 1.9 -ceftriaxone and azithromycin switch to ampicillin vancomycin and cefepime -blood cultures pending, legionella and pneumococcal urinary antigens pending Acute COPD exacerbation -continue DuoNebs scheduled. Holding Solu-Medrol in the light of possible steroid induced psychosis. -she is on 2-3 L O2 supplementation via nasal cannula. Apparently she was supposed to be receiving this at home. Monitor respiratory status as she has shallow breathing Chronic respiratory failure -family reports she was prescribed oxygen at home but was not getting it. She is requiring 2-3 L now. -flu COVID RSV negative. -ABG on admission demonstrating pH is 7.45 pCO2 43.4 PO2 of 63.9 bicarb 29.9. Patient has rapid and shallow breathing yet her pCO2 is on a higher end of normal at 43.4. She may be a chronic retainer and this could be an acute respiratory alkalosis superimposed on chronic respiratory acidosis with metabolic compensation. Hypertension -Currently uncontrolled. At home she takes amlodipine, losartan hydrochlorothiazide, hydralazine. -currently NPO. Received metoprolol 5 mg IV x2 on admission. Giving labetalol p.r.n. considering her tachycardia as well Adrenal mass -incidental finding. Unknown to family. She will need continued outpatient surveillance for this. Monitor for hormone secreting tumor FEN: NPO. Maintenance fluids normal sa
[2023-07-19 08:22] LABS: Glucose Point of Care 157 mg/dl (65-105)
[2023-07-19 08:35] LABS: Hemoglobin A1C 6.5 % (<5.7)
[2023-07-19] MEDS: PANTOPRAZOLE SODIUM IV 40 MG VIAL IV PUSH (10:14)
[2023-07-19] MEDS: SODIUM CHLORIDE 0.9% IV 1,000 ML 83 ML IV CONT (10:14)
[2023-07-19] MEDS: PERFLUTREN LIPID MICROSPHERES 1.5 ML VIAL DILUTED TO 10 ML TOTAL VOLUME IV PUSH (10:40)
[2023-07-19 10:59] LABS: Appearance Urine Clear (Clear); Bacteria Urine None Seen /hpf; Bilirubin Urine Negative (Negative); Blood Urine Negative (Negative); Color Urine Yellow (Yellow); Glucose Urine UA Negative (Negative); Ketones Urine Negative (Negative); Leukocyte Esterase Ur Negative LEU/UL (Negative); Need Manual Microscopic Reviewed; Nitrate Urine Negative (Negative); Non Pathogenic Casts 0-2; Protein Urine 2+ mg/dL (Negative); Squamous Epithelial Cell Urine None Seen /hpf (Few); Urobilinogen Urine 0.2 mg/dL (<2.0); WBC Urine 0-5 /hpf (0-3); pH Urine 5.5 (5.0-9.0)
[2023-07-19 11:04] LABS: Add Urine Microscopic? YES; Specific Grav Ur 1.047 (1.001-1.035)
--- NOTE | 2023-07-19 11:11 | IVDEFINITY ---
Prior to administration of IV Definity the patient was educated on the risks and benefits of the imaging enhancing agent including potential adverse side effects. The patient verbalized understanding. Allergies were verified. No exclusion criteria were identified and at least one of the following inclusion criteria were met: 1) physician request, 2) patient technically difficult to image (per the [place] [employer] guidelines of two or more segments not discernable within the apical view), or 3) questionable left ventricular function. ?
[2023-07-19 12:22] LABS: Glucose Point of Care 136 mg/dl (65-105)
[2023-07-19] MEDS: LORazepam INJ (*CRX) 2 MG/ML VIAL 1 MG IV PUSH (12:53)
[2023-07-19 13:38] LABS: MRSA (PCR) NOT DETECTED (NOT DETECTE)
[2023-07-19 15:29] LABS: Appearance CSF Turbid (Clear); CSF source CSF; Color CSF Red (Colorless)
[2023-07-19 15:30] LABS: Nucleated Cell CSF 11184 /uL (0-5); Red Blood Cell CSF 61000 (0-2)
[2023-07-19 15:36] LABS: Lymphocytes CSF 0 % (40-80); Monocytes CSF 3 % (15-45); Neutrophils CSF 97 % (0-6)
[2023-07-19] MEDS: AZITHROMYCIN 500 MG/NS 250 ML 500 MG/250 ML BAG 250 MG IVPB (15:51)
[2023-07-19 15:53] LABS: Glucose CSF 43 mg/dL (40-70)
[2023-07-19 16:44] LABS: Total Protein CSF 363 mg/dL (12-60)
[2023-07-19 16:52] LABS: Glucose Point of Care 164 mg/dl (65-105)
--- NOTE | 2023-07-19 17:10 | WPDNEURCNPN ---
Assessment and Plan Assessment and plan (1) Altered mental status: Code(s): R41.82 - Altered mental status, unspecified Status: Acute (2) Bacterial meningitis: Code(s): G00.9 - Bacterial meningitis, unspecified Status: Acute Plan Ms. Pantoja is a 78 year old female with a history of HTN, COPD, and recent hip replacement about three weeks ago, who was brought in initially due to concerns for shortness of breath, but developed encephalopathy yesterday morning. LP results with significantly elevated WBC (with neutrophilic predominance), and elevated protein concerning for bacterial meningitis. MRI brain did not show any acute lesions or stroke (done without contrast). Blood cultures appear to be positive for strep. - Continue cefepime, vancomycin, and ampicillin -- hopefully CSF/blood cultures will help narrow down antibiotic coverage - Agree with dexamethasone and acyclovir for now Consult date: 07/19/23 Reason for consult: Encephalopathy HPI: Mrasha Pantoja is a 78 year old female with a history of HTN and COPD who presented due to altered mental status. Grand-daughter was at bedside at the time of my evaluation and provided the history. Patient had not been feeling well on the night of 07/16 but was acting like herself. At baseline she is cognitively intact. On the morning of 07/17 patient was noted to be initially acting normal, but continued to not feel well. She was taken to [place] ED, where there were some concerns for possible pneumonia. She has had new O2 requirement since she had a hip replacement about 3 weeks ago on 07/02. Lab work in the ED was significant for leukocytosis. CXR showed possible atelectasis vs pneumonia. She was started on antibiotics and subsequently admitted. On admission, around 10AM, grand-daughter reported that patient's mental status significant worsened. She was somnolent and minimally responsive. Given the change in mentation, her antibiotics were switched for meningitic coverage -- she was started on cefepime, ampicillin, and vancomycin. Acyclovir has been ordered, but she will be receiving her first dose this evening. CT head did not show any acute changes. CTA brain/carotid read as 38% stenosis of the proximal R ICA and 40% stenosis of the proximal L ICA. MRI brain without contrast done this morning that was suboptimal exam due to motion artifact, but no acute findings. LP done today as well with following CSF results -- cell count [id number], with neutrophilic predominance (97%), elevated protein of 363, CSF cultures pending. Blood cultures from admission so far are growing gram positive cocci in pairs. Review of Systems Review of Systems: ROS unobtainable: Yes unobtainable due to mental status PMFSH Past Medical History Medical History History of COPD History of hypertension Surgical History Surgical History History of hip replacement (07/02/23) done at [facility] Social History Social History Years smoked: 60 Smoking status: Current every day smoker Tobacco type: cigarettes Alcohol intake: never Substance use: never Do You Feel Safe in your Home?: Yes Lack of Transportation: No Lack of Food: Never True Current Housing: I Have Housing Concerned About Future Housing: No Difficulty Paying Gas/Electric Bills: No Difficulty Paying for Meds: No Currently Unemployed: No Education: High School Diploma/GED Difficulty w/ Childcare or Family Care: No Spiritual care concerns: No Meds Home Medications and Allergies Home Medications Medication Instructions Recorded Confirmed Type amlodipine 5 mg tablet (Norvasc) 5 mg PO DAILY 07/18/23 07/18/23 History budesonide 160 mcg-glycopyr 9 See Rx Instructions .Route .COMPLEX 07/18/23 07/18/23 History mcg-formot 4.8 mcg/actuation HFA inha
[2023-07-19] MEDS: dexAMETHasone SOD PHOS INJ 10 MG/ML 1 ML VIAL 6 MG IV PUSH (17:53)
[2023-07-19] MEDS: VANCOMYCIN 1,250 MG/NS 250 ML 1,250 MG/250 ML BAG 166.67 MG IVPB (21:30)
[2023-07-19 23:46] LABS: Glucose Point of Care 159 mg/dl (65-105)
[2023-07-20] VITALS (23 sets, daily range): BP systolic 145–163; BP diastolic 56–67; PULSE 84–109; RESP 18–24; TEMP 36.4–37.2; O2SAT 96–100
[2023-07-20] MEDS: AMPICILLIN 2 GM/NS 100 ML 2 GM/100 ML BAG IVPB ×4 (00:15→21:14)
[2023-07-20] MEDS: dexAMETHasone SOD PHOS INJ 10 MG/ML 1 ML VIAL 6 MG IV PUSH ×4 (00:15→18:50)
[2023-07-20] MEDS: IPRATROPIUM 0.5 MG/ALBUTEROL SULFATE 2.5 MG AMPUL.NEB 3 ML INHALATION ×5 (02:20→21:31)
[2023-07-20] MEDS: CEFEPIME 2 GM/NS 50 ML 2 GM/50 ML BAG IVPB ×3 (05:16→21:32)
[2023-07-20 05:40] LABS: Basophils Percent Auto 0.1 % (0.2-1.2); Hematocrit 28.5 % (37.0-47.0); Immature Granulocyte Absolute 0.07 K/mm3 (0.00-0.031); Immature Granulocyte Percent A 0.6 % (0-0.5); Immature Platelet Fraction Pct 9.3 % (0.9-11.2); Lymphocytes Percent Auto 1.7 % (18.3-44.2); Mean Corpuscular HGB Conc 28.1 g/dl (32-36); Mean Corpuscular Hemoglobin 22.8 pg (26-34); Mean Corpuscular Volume 81.2 fl (80-100); Monocytes Absolute Auto 0.3 K/mm3 (0.1-0.6); Monocytes Percent Auto 2.2 % (2.6-8.5); Neutrophils Absolute Auto 11.4 K/mm3 (1.3-6.7); Neutrophils Percent Auto 95.4 % (45.5-73.1); Platelet Count Result 166 k/mm3 (150-375); Red Blood Count 3.51 M/mm3 (4.2-5.4); Red Cell Distribution Width 24.5 % (11.5-14.5); White Blood Count 11.9 K/mm3 (4.5-10.0)
[2023-07-20 05:51] LABS: Iron 18 ug/dL (37-170)
[2023-07-20 05:54] LABS: Alanine Aminotransferase 14 U/L (6-35); Albumin Level 2.8 g/dL (3.5-5.1); Alkaline Phosphatase 99 U/L (38-126); Anion Gap 2 mmol/L (8-16); Aspartate Amino Transferase 22 U/L (14-36); Bilirubin,Total 0.7 mg/dL (0.2-1.3); Blood Urea Nitrogen 24 mg/dL (7-17); Carbon Dioxide 32 mmol/L (22-30); Chloride 108 mmol/L (98-107); Estimated CRCL calculation 42 ml/min; Estimated Glomerular Filt Rate > 60; Glucose 206 mg/dL (65-110); Magnesium 2.2 mg/dL (1.6-2.3); Potassium 3.4 mmol/L (3.4-5.0); Sodium 142 mmol/L (137-145)
[2023-07-20 06:00] LABS: Percent Iron Saturation 10 % (20-50)
[2023-07-20 06:06] LABS: Anisocytosis 1+; Hypochromasia 1+; Ovalocytes 1+; Platelet Estimate Adequate (Adequate); Schistocytes None Seen
[2023-07-20 06:10] LABS: Procalcitonin 5.9 ng/mL
[2023-07-20] MEDS: INSULIN ASPART (*BKC) 100 UNITS/ML SUB-Q (06:30)
[2023-07-20] MEDS: PANTOPRAZOLE SODIUM IV 40 MG VIAL IV PUSH (09:32)
[2023-07-20] MEDS: ENOXAPARIN 40 MG/0.4 ML SYRINGE SUB-Q (09:33)
[2023-07-20 12:14] LABS: Alveolar/Arterial O2 Gradient 70.9 mmHg; Fractional Inspired Oxygen 32 %; Oxygen Content ABG 11.8 %vol (16.0-22.0); Oxygen Saturation ABG 98.3 % (95.0-100.0); Oxyhemoglobin 97.1 % THb (90.0-100.0); PCO2 ABG 38.6 mmHg (35.0-45.0); PO2 ABG 112.1 mmHg (80.0-100.0); Total Hemoglobin 8.5 g/dL (12.0-18.0); pH ABG 7.462 (7.350-7.450)
[2023-07-20 12:17] LABS: Device NASAL CANNULA; Modified Allen's Test Pass; Site Drawn LEFT RADIAL
[2023-07-20] MEDS: SODIUM CHLORIDE 0.9% IV 1,000 ML 83 ML IV CONT (12:37)
--- NOTE | 2023-07-20 16:19 | PM.IMPN ---
Progress Note: A&P Assessment and Plan (1) HTN (hypertension): Code(s): I10 - Essential (primary) hypertension Status: Acute (2) Shortness of breath: Code(s): R06.02 - Shortness of breath Status: Acute (3) Community acquired pneumonia: Qualifiers: Laterality: unspecified laterality Qualified Code(s): J18.9 - Pneumonia, unspecified organism Code(s): J18.9 - Pneumonia, unspecified organism Status: Acute (4) COPD exacerbation: Code(s): J44.1 - Chronic obstructive pulmonary disease with (acute) exacerbation Status: Acute (5) Adrenal mass: Code(s): E27.8 - Other specified disorders of adrenal gland Status: Acute (6) Altered mental status: Code(s): R41.82 - Altered mental status, unspecified Status: Acute Plan 78-year-old female with past medical history hypertension, COPD with chronic respiratory failure, 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 History is taken from the son and rest the family. It is reported she has not been breathing great since her hip replacement. She finally had severe enough shortness of breath she was brought in by family. While in the emergency room the patient was treated for pneumonia and COPD exacerbation however it was noted to be unresponsive/somnolent/non-conversant. Admitted on 07/18/2023 Acute toxic encephalopathy -there have been various reports from the family that the patient came altered at home versus became altered after receiving Solu-Medrol in the ED. steroid induced psychosis is a consideration -in the meantime, treat with antibiotics for hospital-acquired pneumonia and possible meningitis -CT head on admission without intracranial process, age-related changes present consistent with chronic small-vessel ischemic disease -CTA head and neck demonstrating 38% stenosis of proximal right ICA and 40% stenosis proximal left ICA -pCO2 43.4 on ABG, It is possible she is a chronic retainer. Drug screen negative. Family reports the patient is not alcohol drinker. -neurochecks Q 4, NPO, lumbar puncture pending, brain MRI pending, neurology consulted. 07/20/23: Poor prognosis, continue to monitor Severe sepsis without shock. On Abx Anemia, normocytic -unclear chronicity check iron panel and ferritin Hospital-acquired pneumonia -this is the most likely culprit for her acute toxic encephalopathy. CT chest on admission demonstrating multifocal lung disease consistent with pneumonia. -white count trending up from 16 to 20 -lactic acid on admission 1.9 -ceftriaxone and azithromycin switch to ampicillin vancomycin and cefepime -blood cultures pending, legionella and pneumococcal urinary antigens pending Acute COPD exacerbation -continue DuoNebs scheduled. Holding Solu-Medrol in the light of possible steroid induced psychosis. -she is on 2-3 L O2 supplementation via nasal cannula. Apparently she was supposed to be receiving this at home. Monitor respiratory status as she has shallow breathing Chronic respiratory failure -family reports she was prescribed oxygen at home but was not getting it. She is requiring 2-3 L now. -flu COVID RSV negative. -ABG on admission demonstrating pH is 7.45 pCO2 43.4 PO2 of 63.9 bicarb 29.9. Patient has rapid and shallow breathing yet her pCO2 is on a higher end of normal at 43.4. She may be a chronic retainer and this could be an acute respiratory alkalosis superimposed on chronic respiratory acidosis with metabolic compensation. 07/20/23: Add DuoNebs, continue Abx Hypertension -Currently uncontrolled. At home she takes amlodipine, losartan hydrochlorothiazide, hydralazine. -currently NPO. Received metoprolol 5 mg IV x2 on admission. Giving labetalol p.r.n. considering her tachycardia as well Adrenal mass -incidental finding. Unknown to family. She will need continued outpatient surveillance
[2023-07-20] MEDS: ACETAMINOPHEN 325 MG TABLET 650 MG PO (16:52)
[2023-07-20 16:57] LABS: Glucose Point of Care 154 mg/dl (65-105)
[2023-07-20 16:57] LABS: Glucose Point of Care 161 mg/dl (65-105)
[2023-07-20] MEDS: AZITHROMYCIN 500 MG/NS 250 ML 500 MG/250 ML BAG 250 MG IVPB (17:00)
[2023-07-20 21:26] LABS: Glucose Point of Care 201 mg/dl (65-105)
[2023-07-20] MEDS: VANCOMYCIN 1,000 MG/NS 250 ML 1,000 MG/250 ML BAG 250 MG IVPB (22:06)
[2023-07-21] VITALS (30 sets, daily range): BP systolic 131–156; BP diastolic 57–72; PULSE 76–112; RESP 18–22; TEMP 36.1–37.1; O2SAT 94–100
[2023-07-21] MEDS: dexAMETHasone SOD PHOS INJ 10 MG/ML 1 ML VIAL 6 MG IV PUSH ×4 (00:45→18:43)
[2023-07-21] MEDS: AMPICILLIN 2 GM/NS 100 ML 2 GM/100 ML BAG IVPB ×4 (00:45→18:46)
[2023-07-21] MEDS: IPRATROPIUM 0.5 MG/ALBUTEROL SULFATE 2.5 MG AMPUL.NEB 3 ML INHALATION ×6 (02:07→21:15)
[2023-07-21] MEDS: CEFEPIME 2 GM/NS 50 ML 2 GM/50 ML BAG IVPB ×3 (04:20→21:41)
[2023-07-21] MEDS: ACETAMINOPHEN 325 MG TABLET 650 MG PO ×3 (05:05→21:55)
[2023-07-21 05:15] LABS: Hematocrit 26.8 % (37.0-47.0); Hemoglobin 7.3 g/dL (12.0-15.0); Immature Granulocyte Absolute 0.04 K/mm3 (0.00-0.031); Immature Granulocyte Percent A 0.6 % (0-0.5); Immature Platelet Fraction Pct 10.5 % (0.9-11.2); Lymphocytes Absolute Auto 0.19 K/mm3 (0.9-3.2); Lymphocytes Percent Auto 2.7 % (18.3-44.2); Mean Corpuscular HGB Conc 27.2 g/dl (32-36); Mean Corpuscular Hemoglobin 22.7 pg (26-34); Mean Corpuscular Volume 83.5 fl (80-100); Monocytes Absolute Auto 0.1 K/mm3 (0.1-0.6); Monocytes Percent Auto 1.8 % (2.6-8.5); Neutrophils Absolute Auto 6.7 K/mm3 (1.3-6.7); Neutrophils Percent Auto 94.9 % (45.5-73.1); Platelet Count Result 148 k/mm3 (150-375); Red Blood Count 3.21 M/mm3 (4.2-5.4); Red Cell Distribution Width 24.2 % (11.5-14.5); White Blood Count 7.1 K/mm3 (4.5-10.0)
[2023-07-21] MEDS: SODIUM CHLORIDE 0.9% IV 1,000 ML 83 ML IV CONT (05:16)
[2023-07-21 05:31] LABS: Alanine Aminotransferase 20 U/L (6-35); Albumin Level 2.9 g/dL (3.5-5.1); Alkaline Phosphatase 92 U/L (38-126); Anion Gap 2 mmol/L (8-16); Aspartate Amino Transferase 30 U/L (14-36); Bilirubin,Total 0.6 mg/dL (0.2-1.3); Blood Urea Nitrogen 25 mg/dL (7-17); Calcium 7.7 mg/dL (8.4-10.2); Carbon Dioxide 27 mmol/L (22-30); Chloride 111 mmol/L (98-107); Estimated CRCL calculation 55 ml/min; Estimated Glomerular Filt Rate > 60; Glucose 200 mg/dL (65-110); Potassium 3.3 mmol/L (3.4-5.0); Sodium 140 mmol/L (137-145)
[2023-07-21 05:38] LABS: Anisocytosis 1+; Ovalocytes 1+; Platelet Estimate Adequate (Adequate)
[2023-07-21 05:39] LABS: Schistocytes Rare
[2023-07-21 07:53] LABS: Glucose Point of Care 179 mg/dl (65-105)
--- NOTE | 2023-07-21 08:50 | PC.NURSE ---
POC care reviewed with the pharmacy et changing the IV time according to the order et care coordination. Per the Pharmacist Geo. I am happy with the times they are in now. Requested the Acyclovir be sent due to care coordination et isolation. Per Pharmacy will tube a dose.
[2023-07-21] MEDS: ENOXAPARIN 40 MG/0.4 ML SYRINGE SUB-Q (10:27)
[2023-07-21] MEDS: PANTOPRAZOLE SODIUM IV 40 MG VIAL IV PUSH (10:27)
[2023-07-21] MEDS: VANCOMYCIN 1,000 MG/NS 250 ML 1,000 MG/250 ML BAG 250 MG IVPB ×2 (10:28→21:43)
[2023-07-21 12:21] LABS: Glucose Point of Care 189 mg/dl (65-105)
--- NOTE | 2023-07-21 13:03 | WPDNEUROPN ---
Subjective Date/time seen: 07/21/23 13:03 Interval history: 78 years old with complaints of change in the mental status along with the multiple comorbid conditions particularly hypertension, COPD, and recent hip replacement, admitted for the change in the mental status his spinal fluid studies with increases cell count with left shift and elevated protein and negative MRI of the brain. Initial CBC with 16.9 WBC down to only 7.1, neutrophil 94.9, CSF with 61,000 RBCs but 10653 nucleated cells and 97% neutrophils, MRI with generalize moderate atrophy with questionable finding of the distal right vertebral artery and 38 to 40% stenosis of the proximal internal carotid arteries, blood cultures positive for Streptococcus and CSF culture pending receiving cefepime 2g IV piggyback Q 8hours, ampicillin 2g IV piggyback Q 6hours, Zithromax 500mg IV piggyback Q 24hours and acyclovir 640mg IV piggyback Q 8hours in addition to Decadron 10mg IV push q.6 hours. Discussed with the family patient herself is awake follows instruction and moving the upper and lower extremities on commands. Treatment is being continued as such. Objective Data Vital Signs Vital Signs: Vital Signs - 24 hr 07/20/23 16:07 07/20/23 16:15 07/20/23 16:00 Temperature 37.2 C Pulse Rate 103 H 106 H 98 Respiratory Rate 24 H 24 H 20 Blood Pressure 162/59 H Pulse Oximetry 98 Oxygen Delivery Oxygen Flow Rate Fraction of Inspired Oxygen 07/20/23 16:00 07/20/23 14:00 07/20/23 16:00 Temperature Pulse Rate 99 102 H Respiratory Rate Blood Pressure Pulse Oximetry 99 Oxygen Delivery Nasal Cannula Oxygen Flow Rate 2 Fraction of Inspired Oxygen 07/20/23 18:00 07/20/23 20:00 07/20/23 21:35 Temperature 36.8 C Pulse Rate 103 H 99 94 Respiratory Rate 20 24 H Blood Pressure 145/56 H Pulse Oximetry 98 Oxygen Delivery Oxygen Flow Rate Fraction of Inspired Oxygen 07/20/23 21:45 07/21/23 00:49 07/21/23 02:08 Temperature 36.1 C L Pulse Rate 96 98 97 Respiratory Rate 24 H 20 22 H Blood Pressure 150/58 H Pulse Oximetry 100 Oxygen Delivery Oxygen Flow Rate Fraction of Inspired Oxygen 07/20/23 21:35 07/21/23 02:18 07/20/23 20:00 Temperature Pulse Rate 99 99 Respiratory Rate 22 H Blood Pressure Pulse Oximetry 96 Oxygen Delivery Nasal Cannula Oxygen Flow Rate 2 Fraction of Inspired Oxygen 07/20/23 20:00 07/20/23 22:00 07/21/23 00:00 Temperature Pulse Rate 99 100 76 Respiratory Rate 20 Blood Pressure Pulse Oximetry 98 Oxygen Delivery Nasal Cannula Oxygen Flow Rate 2 Fraction of Inspired Oxygen 07/21/23 00:00 07/21/23 02:00 07/21/23 04:46 Temperature 36.2 C L Pulse Rate 76 91 101 H Respiratory Rate 20 Blood Pressure 150/72 H Pulse Oximetry 100 97 Oxygen Delivery Nasal Cannula Oxygen Flow Rate 2 Fraction of Inspired Oxygen 07/21/23 05:10 07/21/23 05:20 07/21/23 04:00 Temperature Pulse Rate 97 100 83 Respiratory Rate 22 H 22 H Blood Pressure Pulse Oximetry Oxygen Delivery Oxygen Flow Rate Fraction of Inspired Oxygen 07/21/23 04:00 07/21/23 04:30 07/21/23 06:00 Temperature Pulse Rate 83 98 97 Respiratory Rate Blood Pressure Pulse Oximetry 98 94 Oxygen Delivery Nasal Cannula Nasal Cannula Oxygen Flow Rate 2 1 Fraction of Inspired Oxygen 07/21/23 07:48 07/21/23 08:45 07/21/23 08:45 Temperature 36.7 C Pulse Rate 105 H 98 Respiratory Rate 19 22 H Blood Pressure 156/61 H Pulse Oximetry 96 95 Oxygen Delivery Nasal Cannula Oxygen Flow Rate 2 Fraction of Inspired Oxygen 07/21/23 08:57 07/21/23 08:00 07/21/23 11:47 Temperature Pulse Rate 96 103 H Respiratory Rate 22 H 22 H Blood Pressure Pulse Oximetry 95 Oxygen Delivery Nasal Cannula Oxygen Flow Rate 1 Fraction of Inspired Oxygen 28 07/21/23 11:57 07/21/23 12:00 07/21/23 12:00 Temperature
[2023-07-21] MEDS: AZITHROMYCIN 500 MG/NS 250 ML 500 MG/250 ML BAG 250 MG IVPB (15:44)
--- NOTE | 2023-07-21 16:47 | PM.IMPN ---
Progress Note: A&P Assessment and Plan (1) HTN (hypertension): Code(s): I10 - Essential (primary) hypertension Status: Acute (2) Shortness of breath: Code(s): R06.02 - Shortness of breath Status: Acute (3) Community acquired pneumonia: Qualifiers: Laterality: unspecified laterality Qualified Code(s): J18.9 - Pneumonia, unspecified organism Code(s): J18.9 - Pneumonia, unspecified organism Status: Acute (4) COPD exacerbation: Code(s): J44.1 - Chronic obstructive pulmonary disease with (acute) exacerbation Status: Acute (5) Adrenal mass: Code(s): E27.8 - Other specified disorders of adrenal gland Status: Acute (6) Altered mental status: Code(s): R41.82 - Altered mental status, unspecified Status: Acute Plan 78-year-old female with past medical history hypertension, COPD with chronic respiratory failure, 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 History is taken from the son and rest the family. It is reported she has not been breathing great since her hip replacement. She finally had severe enough shortness of breath she was brought in by family. While in the emergency room the patient was treated for pneumonia and COPD exacerbation however it was noted to be unresponsive/somnolent/non-conversant. Admitted on 07/18/2023 Acute toxic encephalopathy -there have been various reports from the family that the patient came altered at home versus became altered after receiving Solu-Medrol in the ED. steroid induced psychosis is a consideration -in the meantime, treat with antibiotics for hospital-acquired pneumonia and possible meningitis -CT head on admission without intracranial process, age-related changes present consistent with chronic small-vessel ischemic disease -CTA head and neck demonstrating 38% stenosis of proximal right ICA and 40% stenosis proximal left ICA -pCO2 43.4 on ABG, It is possible she is a chronic retainer. Drug screen negative. Family reports the patient is not alcohol drinker. -neurochecks Q 4, NPO, lumbar puncture pending, brain MRI pending, neurology consulted. 07/20/23: Poor prognosis, continue to monitor 07/21/23: Improved Severe sepsis without shock. On Abx Anemia, normocytic -unclear chronicity check iron panel and ferritin Hospital-acquired pneumonia -this is the most likely culprit for her acute toxic encephalopathy. CT chest on admission demonstrating multifocal lung disease consistent with pneumonia. -white count trending up from 16 to 20 -lactic acid on admission 1.9 -ceftriaxone and azithromycin switch to ampicillin vancomycin and cefepime -blood cultures pending, legionella and pneumococcal urinary antigens pending Acute COPD exacerbation -continue DuoNebs scheduled. Holding Solu-Medrol in the light of possible steroid induced psychosis. -she is on 2-3 L O2 supplementation via nasal cannula. Apparently she was supposed to be receiving this at home. Monitor respiratory status as she has shallow breathing Chronic respiratory failure -family reports she was prescribed oxygen at home but was not getting it. She is requiring 2-3 L now. -flu COVID RSV negative. -ABG on admission demonstrating pH is 7.45 pCO2 43.4 PO2 of 63.9 bicarb 29.9. Patient has rapid and shallow breathing yet her pCO2 is on a higher end of normal at 43.4. She may be a chronic retainer and this could be an acute respiratory alkalosis superimposed on chronic respiratory acidosis with metabolic compensation. 07/20/23: Add DuoNebs, continue Abx 07/21/23: Improving; IS, Robitussin Hypertension -Currently uncontrolled. At home she takes amlodipine, losartan hydrochlorothiazide, hydralazine. -currently NPO. Received metoprolol 5 mg IV x2 on admission. Giving labetalol p.r.n. considering her tachycardia as well Adrenal mass -incidental finding. Unknown to fa
[2023-07-21 16:59] LABS: Glucose Point of Care 192 mg/dl (65-105)
--- NOTE | 2023-07-21 17:53 | PC.NURSE ---
The declines intervention to ambulate et getting up to the chair. Education given on the need for intervention. ROM completed in the bed with the pt.
[2023-07-21] MEDS: guaiFENesin/DEXTROMETHORPHAN 10 ML UDC PO ×2 (18:43→21:42)
[2023-07-21 20:48] LABS: Glucose Point of Care 246 mg/dl (65-105)
--- NOTE | 2023-07-21 20:53 | PM.EVENT ---
Event Note Event Note Event Note: Cross Coverage: Patient has trace edema to BUE and trace to 1+ pitting edema. Crackles and wet upper airway sounds audible without auscultation. D/c'd NS infusion, cumulative IV fluids at 7.9 L. Furosemide 40 mg IVP x1.
--- NOTE | 2023-07-21 20:57 | PC.NURSE ---
Report given to Lexus CABRERA on the pt edematous BUE, Periorbital edema. Per family the Periorbital edema is baseline but slightly increased. POC reviewed
[2023-07-21] MEDS: FUROSEMIDE INJ 40 MG/4 ML VIAL IV PUSH (21:41)
[2023-07-22] VITALS (29 sets, daily range): BP systolic 135–184; BP diastolic 49–89; PULSE 72–107; RESP 16–24; TEMP 36.5–37.2; O2SAT 95–100
[2023-07-22] MEDS: AMPICILLIN 2 GM/NS 100 ML 2 GM/100 ML BAG IVPB ×4 (00:39→18:25)
[2023-07-22] MEDS: dexAMETHasone SOD PHOS INJ 10 MG/ML 1 ML VIAL 6 MG IV PUSH (00:39)
[2023-07-22] MEDS: IPRATROPIUM 0.5 MG/ALBUTEROL SULFATE 2.5 MG AMPUL.NEB 3 ML INHALATION ×5 (01:39→21:24)
[2023-07-22] MEDS: CEFEPIME 2 GM/NS 50 ML 2 GM/50 ML BAG IVPB ×3 (03:02→22:44)
[2023-07-22] MEDS: guaiFENesin/DEXTROMETHORPHAN 10 ML UDC PO ×3 (06:10→22:43)
[2023-07-22 07:59] LABS: Glucose Point of Care 206 mg/dl (65-105)
[2023-07-22 08:11] LABS: Alanine Aminotransferase 21 U/L (6-35); Alkaline Phosphatase 76 U/L (38-126); Anion Gap 3 mmol/L (8-16); Aspartate Amino Transferase 23 U/L (14-36); Bilirubin,Total 0.8 mg/dL (0.2-1.3); Blood Urea Nitrogen 27 mg/dL (7-17); Carbon Dioxide 27 mmol/L (22-30); Chloride 110 mmol/L (98-107); Estimated CRCL calculation 55 ml/min; Estimated Glomerular Filt Rate > 60; Glucose 221 mg/dL (65-110); Potassium 3.4 mmol/L (3.4-5.0); Sodium 140 mmol/L (137-145)
[2023-07-22 08:18] LABS: Vancomycin Trough 20.5 ug/mL (10.0-20.0)
[2023-07-22 08:30] LABS: Hematocrit 26.3 % (37.0-47.0); Hemoglobin 7.6 g/dL (12.0-15.0); Immature Granulocyte Absolute 0.07 K/mm3 (0.00-0.031); Immature Granulocyte Percent A 1.5 % (0-0.5); Immature Platelet Fraction Pct 8.8 % (0.9-11.2); Lymphocytes Absolute Auto 0.15 K/mm3 (0.9-3.2); Lymphocytes Percent Auto 3.2 % (18.3-44.2); Mean Corpuscular HGB Conc 28.9 g/dl (32-36); Mean Corpuscular Volume 79.7 fl (80-100); Mean Platelet Volume 12.3 fl (7.4-10.4); Monocytes Absolute Auto 0.1 K/mm3 (0.1-0.6); Monocytes Percent Auto 2.6 % (2.6-8.5); Neutrophils Absolute Auto 4.3 K/mm3 (1.3-6.7); Neutrophils Percent Auto 92.7 % (45.5-73.1); Platelet Count Result 148 k/mm3 (150-375); Red Cell Distribution Width 23.9 % (11.5-14.5); White Blood Count 4.7 K/mm3 (4.5-10.0)
[2023-07-22 08:53] LABS: Hypochromasia 2+; Ovalocytes 1+; Platelet Estimate Adequate (Adequate)
[2023-07-22 08:54] LABS: Anisocytosis 1+; Schistocytes None Seen
[2023-07-22] MEDS: ENOXAPARIN 40 MG/0.4 ML SYRINGE SUB-Q (09:29)
[2023-07-22] MEDS: PANTOPRAZOLE SODIUM IV 40 MG VIAL IV PUSH (09:29)
[2023-07-22] MEDS: ACETAMINOPHEN 325 MG TABLET 650 MG PO (09:29)
[2023-07-22] MEDS: INSULIN ASPART (*BKC) 100 UNITS/ML SUB-Q ×3 (09:31→18:23)
[2023-07-22 11:40] LABS: Glucose Point of Care 400 mg/dl (65-105)
[2023-07-22 11:40] LABS: Glucose Point of Care 292 mg/dl (65-105)
--- NOTE | 2023-07-22 13:31 | WPDNEUROPN ---
Subjective Date/time seen: 07/22/23 13:31 Interval history: on follow-up today she is easily arousable follow the instruction by moving her right upper or right lower left upper or left lower extremity on command but otherwise looked generally weak family at the bedside discussed with them and treatment is being continued as such slow but gradual improvement in the mental status. Objective Data Vital Signs Vital Signs: Vital Signs - 24 hr 07/21/23 14:00 07/21/23 16:00 07/21/23 16:25 Temperature 37.1 C Pulse Rate 106 H 98 96 Respiratory Rate 20 20 Blood Pressure 154/60 H Pulse Oximetry 97 Oxygen Delivery Oxygen Flow Rate Fraction of Inspired Oxygen 07/21/23 16:37 07/21/23 16:00 07/21/23 20:00 Temperature 37.0 C Pulse Rate 104 H 98 Respiratory Rate 20 20 Blood Pressure 151/60 H Pulse Oximetry 96 96 Oxygen Delivery Nasal Cannula Oxygen Flow Rate 1 Fraction of Inspired Oxygen 28 07/21/23 16:00 07/21/23 18:00 07/21/23 21:16 Temperature Pulse Rate 98 102 H Respiratory Rate Blood Pressure Pulse Oximetry 97 Oxygen Delivery Nasal Cannula Oxygen Flow Rate 2 Fraction of Inspired Oxygen 07/21/23 23:52 07/21/23 20:00 07/21/23 20:00 Temperature 37.1 C Pulse Rate 82 98 97 Respiratory Rate 18 20 Blood Pressure 135/69 Pulse Oximetry 97 96 Oxygen Delivery Nasal Cannula Oxygen Flow Rate 2 Fraction of Inspired Oxygen 07/21/23 22:00 07/22/23 00:00 07/22/23 00:00 Temperature Pulse Rate 99 82 99 Respiratory Rate 18 Blood Pressure Pulse Oximetry 97 Oxygen Delivery Nasal Cannula Oxygen Flow Rate 1 Fraction of Inspired Oxygen 07/22/23 01:40 07/21/23 21:15 07/22/23 01:49 Temperature Pulse Rate 95 98 95 Respiratory Rate 20 20 Blood Pressure Pulse Oximetry Oxygen Delivery Oxygen Flow Rate Fraction of Inspired Oxygen 07/21/23 21:25 07/22/23 01:50 07/22/23 04:00 Temperature Pulse Rate 100 99 81 Respiratory Rate 20 20 Blood Pressure Pulse Oximetry Oxygen Delivery Oxygen Flow Rate Fraction of Inspired Oxygen 07/22/23 05:00 07/22/23 05:10 07/22/23 04:00 Temperature 37.2 C Pulse Rate 99 101 H 98 Respiratory Rate 20 20 16 Blood Pressure 169/66 H Pulse Oximetry 99 Oxygen Delivery Oxygen Flow Rate Fraction of Inspired Oxygen 07/22/23 04:00 07/22/23 05:15 07/22/23 08:00 Temperature 36.8 C Pulse Rate 98 100 72 Respiratory Rate 16 16 Blood Pressure 135/89 Pulse Oximetry 99 100 Oxygen Delivery Nasal Cannula Oxygen Flow Rate 2 Fraction of Inspired Oxygen 07/22/23 08:38 07/22/23 08:39 07/22/23 08:47 Temperature Pulse Rate 90 100 Respiratory Rate 20 20 Blood Pressure Pulse Oximetry 96 Oxygen Delivery Nasal Cannula Oxygen Flow Rate 2 Fraction of Inspired Oxygen 07/22/23 08:00 07/22/23 11:28 07/22/23 11:38 Temperature Pulse Rate 97 101 H Respiratory Rate 20 20 Blood Pressure Pulse Oximetry 96 Oxygen Delivery Nasal Cannula Oxygen Flow Rate 2 Fraction of Inspired Oxygen 28 07/22/23 11:33 07/22/23 12:00 07/22/23 08:00 Temperature 37.0 C Pulse Rate 95 107 H 100 Respiratory Rate 18 Blood Pressure 177/66 H Pulse Oximetry 100 Oxygen Delivery Oxygen Flow Rate Fraction of Inspired Oxygen 07/22/23 10:00 Temperature Pulse Rate 100 Respiratory Rate Blood Pressure Pulse Oximetry Oxygen Delivery Oxygen Flow Rate Fraction of Inspired Oxygen Intake/Output Intake/Output: Intake & Output 07/19/23 07/20/23 07/21/23 07/22/23 23:59 23:59 23:59 23:59 Intake Total 2312.8 2198.4 4128.4 783.8 Output Total 100 6369 968 4790 Balance 2212.8 948.4 3403.4 -1091.2 Meds/Results Medications: Active Medications Generic Name Dose Route Start Last Admin Trade Name Freq PRN Reason Stop Dose Admin Acetaminophen 650 mg 07/20/23 16:30 07/22/23 09:29 Acetaminophen 325
[2023-07-22] MEDS: AZITHROMYCIN 500 MG/NS 250 ML 500 MG/250 ML BAG 250 MG IVPB (13:56)
--- NOTE | 2023-07-22 14:22 | PM.IMPN ---
Progress Note: A&P Assessment and Plan (1) HTN (hypertension): Code(s): I10 - Essential (primary) hypertension Status: Acute (2) Shortness of breath: Code(s): R06.02 - Shortness of breath Status: Acute (3) Community acquired pneumonia: Qualifiers: Laterality: unspecified laterality Qualified Code(s): J18.9 - Pneumonia, unspecified organism Code(s): J18.9 - Pneumonia, unspecified organism Status: Acute (4) COPD exacerbation: Code(s): J44.1 - Chronic obstructive pulmonary disease with (acute) exacerbation Status: Acute (5) Adrenal mass: Code(s): E27.8 - Other specified disorders of adrenal gland Status: Acute (6) Altered mental status: Code(s): R41.82 - Altered mental status, unspecified Status: Acute Plan 78-year-old female with past medical history hypertension, COPD with chronic respiratory failure, 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 History is taken from the son and rest the family. It is reported she has not been breathing great since her hip replacement. She finally had severe enough shortness of breath she was brought in by family. While in the emergency room the patient was treated for pneumonia and COPD exacerbation however it was noted to be unresponsive/somnolent/non-conversant. Admitted on 07/18/2023 Probable meningitis. No organisms seen on CSF analysis, but many WBCs. CSF culture pending Acute toxic encephalopathy -there have been various reports from the family that the patient came altered at home versus became altered after receiving Solu-Medrol in the ED. steroid induced psychosis is a consideration -in the meantime, treat with antibiotics for hospital-acquired pneumonia and possible meningitis -CT head on admission without intracranial process, age-related changes present consistent with chronic small-vessel ischemic disease -CTA head and neck demonstrating 38% stenosis of proximal right ICA and 40% stenosis proximal left ICA -pCO2 43.4 on ABG, It is possible she is a chronic retainer. Drug screen negative. Family reports the patient is not alcohol drinker. -neurochecks Q 4, NPO, lumbar puncture pending, brain MRI pending, neurology consulted. 07/20/23: Poor prognosis, continue to monitor 07/21/23: Improved outlook 07/22/23: Improved profile, continue to Rx Severe sepsis without shock. On Abx Physical deconditioning. PT/OT eval and Rx Anemia, normocytic -unclear chronicity check iron panel and ferritin Hospital-acquired pneumonia -this is the most likely culprit for her acute toxic encephalopathy. CT chest on admission demonstrating multifocal lung disease consistent with pneumonia. -white count trending up from 16 to 20 -lactic acid on admission 1.9 -ceftriaxone and azithromycin switch to ampicillin vancomycin and cefepime -blood cultures pending, legionella and pneumococcal urinary antigens pending Acute COPD exacerbation -continue DuoNebs scheduled. Holding Solu-Medrol in the light of possible steroid induced psychosis. -she is on 2-3 L O2 supplementation via nasal cannula. Apparently she was supposed to be receiving this at home. Monitor respiratory status as she has shallow breathing Chronic respiratory failure -family reports she was prescribed oxygen at home but was not getting it. She is requiring 2-3 L now. -flu COVID RSV negative. -ABG on admission demonstrating pH is 7.45 pCO2 43.4 PO2 of 63.9 bicarb 29.9. Patient has rapid and shallow breathing yet her pCO2 is on a higher end of normal at 43.4. She may be a chronic retainer and this could be an acute respiratory alkalosis superimposed on chronic respiratory acidosis with metabolic compensation. 07/20/23: Add DuoNebs, continue Abx 07/21/23: Improving; IS, Robitussin Hypertension -Currently uncontrolled. At home she takes amlodipine, losartan hydrochlorothiazide
[2023-07-22 15:33] LABS: Pneumococcal Antigen Urine Not Detected (Not Detected)
[2023-07-22] MEDS: VANCOMYCIN 1,250 MG/NS 250 ML 1,250 MG/250 ML BAG 166.67 MG IVPB (16:10)
[2023-07-22 17:04] LABS: Glucose Point of Care 256 mg/dl (65-105)
[2023-07-22 20:36] LABS: Glucose Point of Care 226 mg/dl (65-105)
[2023-07-23] VITALS (29 sets, daily range): BP systolic 145–165; BP diastolic 54–84; PULSE 73–102; RESP 18–28; TEMP 36.2–36.7; O2SAT 95–100
[2023-07-23] MEDS: IPRATROPIUM 0.5 MG/ALBUTEROL SULFATE 2.5 MG AMPUL.NEB 3 ML INHALATION ×6 (00:05→19:37)
[2023-07-23] MEDS: AMPICILLIN 2 GM/NS 100 ML 2 GM/100 ML BAG IVPB ×3 (01:32→12:13)
[2023-07-23 02:59] LABS: Legionella pneumophila Ag Ur Not Detected (Not Detected)
[2023-07-23] MEDS: CEFEPIME 2 GM/NS 50 ML 2 GM/50 ML BAG IVPB ×2 (03:44→11:52)
[2023-07-23] MEDS: ACETAMINOPHEN 325 MG TABLET 650 MG PO ×2 (03:45→17:06)
[2023-07-23 04:19] LABS: Hematocrit 24.8 % (37.0-47.0); Immature Granulocyte Absolute 0.08 K/mm3 (0.00-0.031); Immature Granulocyte Percent A 1.8 % (0-0.5); Lymphocytes Absolute Auto 0.44 K/mm3 (0.9-3.2); Lymphocytes Percent Auto 9.7 % (18.3-44.2); Mean Corpuscular HGB Conc 28.2 g/dl (32-36); Mean Corpuscular Hemoglobin 22.7 pg (26-34); Mean Corpuscular Volume 80.3 fl (80-100); Monocytes Absolute Auto 0.3 K/mm3 (0.1-0.6); Monocytes Percent Auto 5.9 % (2.6-8.5); Neutrophils Absolute Auto 3.8 K/mm3 (1.3-6.7); Neutrophils Percent Auto 82.6 % (45.5-73.1); Platelet Count Result 154 k/mm3 (150-375); Red Blood Count 3.09 M/mm3 (4.2-5.4); Red Cell Distribution Width 23.8 % (11.5-14.5); White Blood Count 4.5 K/mm3 (4.5-10.0)
[2023-07-23 04:23] LABS: Alanine Aminotransferase 23 U/L (6-35); Albumin Level 2.7 g/dL (3.5-5.1); Alkaline Phosphatase 71 U/L (38-126); Anion Gap 3 mmol/L (8-16); Aspartate Amino Transferase 29 U/L (14-36); Bilirubin,Total 0.8 mg/dL (0.2-1.3); Blood Urea Nitrogen 22 mg/dL (7-17); Calcium 7.8 mg/dL (8.4-10.2); Carbon Dioxide 28 mmol/L (22-30); Chloride 110 mmol/L (98-107); Estimated CRCL calculation 43 ml/min; Estimated Glomerular Filt Rate > 60; Glucose 172 mg/dL (65-110); Potassium 2.9 mmol/L (3.4-5.0); Sodium 141 mmol/L (137-145)
[2023-07-23 04:45] LABS: Platelet Estimate Adequate (Adequate)
[2023-07-23 04:46] LABS: Anisocytosis 2+; Ovalocytes 1+
[2023-07-23 04:47] LABS: Spherocytes 1+; Tear Drop Cells 1+
[2023-07-23 04:48] LABS: Schistocytes None Seen
[2023-07-23] MEDS: guaiFENesin/DEXTROMETHORPHAN 10 ML UDC PO ×3 (06:18→21:49)
[2023-07-23 08:27] LABS: Glucose Point of Care 132 mg/dl (65-105)
[2023-07-23] MEDS: PANTOPRAZOLE SODIUM IV 40 MG VIAL IV PUSH (09:44)
[2023-07-23] MEDS: ENOXAPARIN 40 MG/0.4 ML SYRINGE SUB-Q (09:44)
[2023-07-23] MEDS: IRON SUCROSE COMPLEX 500 MG in SODIUM CHLORIDE 0.9% IV 250 ML 79 MG IVPB (09:44)
[2023-07-23] MEDS: VANCOMYCIN 1,250 MG/NS 250 ML 1,250 MG/250 ML BAG 250 MG IVPB (09:44)
--- NOTE | 2023-07-23 09:47 | PM.CNPUL ---
Assessment and Plan Assessment and plan (1) Bacteremia due to Streptococcus pneumoniae: Code(s): R78.81 - Bacteremia; B95.3 - Streptococcus pneumoniae as the cause of diseases classified elsewhere Status: Acute Assessment and Plan: This patient has invasive pneumococcal disease with pneumonia and meningitis. The blood cultures July 17 show sensitivity to all antibiotics including vancomycin, clindamycin, levofloxacin, and erythromycin. ?She has had 5 days IV vancomycin, started July 17, is also on cefepime. She was loaded with antibiotics 18 hours before LP; csf culture will probably be negative for this reason. Viral studies pending, antiviral Rx starting after the viral studies sent. Plans discussed with Yves; stopping cefepime/vanvo/ampicillin. Will be on acyclovir and ceftriaxone high dose 2 g Q 12 hour. ?? ? (2) Community acquired pneumonia: Qualifiers: Laterality: unspecified laterality Qualified Code(s): J18.9 - Pneumonia, unspecified organism Code(s): J18.9 - Pneumonia, unspecified organism Status: Acute Assessment and Plan: She had multifocal infiltrates on her CTA July. Blood cultures from admission show Strep pneumonia, and this is the most common cause of community-acquired pneumonia. She had an area of bandlike atelectasis on the right mid lung. I am going to add a Cornet valve and 3% saline to help her clear secretions. We will also repeat a chest x-ray PA and lateral today. She is able to stand up and will get better imaging compared to getting a portable film. (3) COPD exacerbation: Code(s): J44.1 - Chronic obstructive pulmonary disease with (acute) exacerbation Status: Acute Assessment and Plan: Son says she has end-stage COPD. She is on Breztri, a triple treatment in trait inhaler at home and a nebulizer with albuterol 1 to 2 times a day on most days. She still smokes 5 cigarettes per day. She has not smoke since being in the hospital which is great. (4) Oxygen dependent: Code(s): Z99.81 - Dependence on supplemental oxygen Status: Acute Assessment and Plan: She has been prescribed oxygen, does not appear to need it at rest. She needs to have a walk study before going home. Her son said that she needed 2 L with exertion and sleep so she leaves 2 L on most of the time instead of switching it down to 1 L at rest which she was told she needed a while back. Currently her saturation is fine off oxygen at rest. (5) Wheezing: Code(s): R06.2 - Wheezing Status: Acute Assessment and Plan: She has significant wheezing, sounds like it was coming from the nasal passages or upper airway. She does not have a history of postnasal drainage, allergies, sneezing, nasal congestion. I will order nasal saline, nasal steroids, see if this helps clear up the wheezy sounds. She is not in distress, tongue size is normal. She is not having angioedema. (6) Tobacco abuse: Code(s): Z72.0 - Tobacco use Status: Acute Assessment and Plan: Smoked over 50 years, currently 5 cigarettes per day prior to this admission. She does not tell me she is having any withdrawal symptoms. She will need increased counseling before discharge. Spending this many days in the hospital is a great start to cessation. Plan * Wean off oxygen; on room air saturation is 94 -95% * Nasal saline to remove dried secretions, see if this helps upper airway and nasal wheezing. & Two view chest x-ray in the department, have the patient stand to get good vi
--- NOTE | 2023-07-23 10:18 | PDONCCN ---
HPI - Date of Consult Date/Time: 07/23/23 16:22 <Dae Beyer - 07/23/23 16:24> 07/23/23 10:18 <Lubna Roque - 07/23/23 10:18> Requesting Physician: Benjamin Lofton MD <Dae Beyer - 07/23/23 16:24> Benjamin Lofton MD <Lubna Roque - 07/23/23 10:18> Primary Care Provider: Steve Nieves, <Dae Beyer - 07/23/23 16:24> Steve Nieves, <Lubna Roque - 07/23/23 10:18> - Consult Narrative Reason for consult: Andrenal mass, anemia <Lubna Roque - 07/23/23 10:18> Narrative: Marsha Pantoja is a 78 year old female <Dae Beyer - 07/23/23 16:24> Marsha Pantoja is a 78 year old female with a past medical history of COPD, asthma, HTN. Son and granddaughter are in the room reporting most of the information. She reported to the ED for worsening SOB and swelling in her lower extremities. She was found to have PNA, and COPD exacerbation. Over time, she had become more somnolent and obtunded. LP was performed. She is being treated for bacterial meningitis. Patient is more awake today and is AOx3, but very weak. She also recently had a hip replacement and was receiving PT for that and has a new O2 requirement since that surgery. She does have a smoking history for 62+ years. Reports an extensive familial oncological history, but no malignancies herself. She reports shortness of breath and weakness. Denies any nights sweats, body aches, frequent infections. Chest CTA found no pulmonary embolus, multifocal lung disease, consistent with pneumonia, moderate emphysema and 3.9 cm left adrenal mass, which may be an adenoma or metastatic disease. PET/CT is recommended if there is no outside prior imaging to confirm stability. <Lubna Roque - 07/23/23 12:36> Review of Systems - Review of Systems All systems reviewed & are unremarkable except as noted in HPI and bel <LonniealeksLubna - 07/23/23 11:24> - Constitutional Reports fatigue, Reports lack of energy, Reports weakness <LonniealeksLubna - 07/23/23 12:36> PMFSH Medical History: Medical History (Last Reviewed 07/19/23 @ 17:20 by Dianna Nick MD) History of COPD History of hypertension <Kayleen,Daedanisha Quintero - 07/23/23 16:24> Medical History (Last Reviewed 07/19/23 @ 17:20 by Dianna Nick MD) History of COPD History of hypertension <LonniealeksLubna - 07/23/23 10:18> Surgical History: Surgical History (Last Reviewed 07/19/23 @ 17:20 by Dianna Nick MD) History of hip replacement Onset Date: 07/02/23 done at [facility] <Dae Beyer - 07/23/23 16:24> Surgical History (Last Reviewed 07/19/23 @ 17:20 by Dianna Nick MD) History of hip replacement Onset Date: 07/02/23 done at [facility] <LonniealeksLuban - 07/23/23 10:18> - Social History Social History: Social History (Last Reviewed 07/19/23 @ 17:20 by Dianna Nick MD) Alcohol Use: Alcohol intake: never Substance Use: Substance use: never Others: Spiritual care concerns: No Smoking Status: Smoking status: Current every day smoker Tobacco type: cigarettes Smoking Pack-years: Smoking cigarettes per day: 5 Years smoked: 60 Smoking pack-years: 15.00 Social Determinants of Health: Do You Feel Safe in your Home?: Yes Has the Lack of Transportation Kept You From Medical Appointments or From Getting Medications?: No Within the Past 12 Months, Were You Worried Whether Your Food Would Run Out Before You Got Money to Buy More?: Never True What is Your Housing Situation Today?: I Have Housing Are You Worried That in the Next 2 Months, You May Not Have Your Own Housing to Live In?: No Do You Have Trouble Paying Your Heating Or Electricity Bill?: No Do You Have Trouble Paying For Medicines?: No Are You Currently Unemployed and Looking for Work?: No [facility]
[2023-07-23 12:06] LABS: Glucose Point of Care 128 mg/dl (65-105)
--- NOTE | 2023-07-23 12:08 | PC.NURSE ---
Spoke with Dr. Clayton regarding pt's MRI. Pt is claustrophobic and it requesting medication so she is able to have the test done. New order for 0.5mg IVP Ativan x1 to be given before MRI.
--- NOTE | 2023-07-23 12:32 | PM.IMPN ---
Progress Note: A&P Assessment and Plan (1) HTN (hypertension): Code(s): I10 - Essential (primary) hypertension Status: Acute Assessment and Plan: Chronic, stable. Will resume Amlodipine (2) Shortness of breath: Code(s): R06.02 - Shortness of breath Status: Acute Assessment and Plan: Wean oxygen as tolerate (3) Community acquired pneumonia: Qualifiers: Laterality: unspecified laterality Qualified Code(s): J18.9 - Pneumonia, unspecified organism Code(s): J18.9 - Pneumonia, unspecified organism Status: Acute Assessment and Plan: Acute, Severe on Cefepime, Vancomycon Will transition to Ceftriaxone (4) COPD exacerbation: Code(s): J44.1 - Chronic obstructive pulmonary disease with (acute) exacerbation Status: Acute Assessment and Plan: Likely 2/2 tobacco dependence DuoNebs, anti-tussives, Steroids, Abx (5) Adrenal mass: Code(s): E27.8 - Other specified disorders of adrenal gland Status: Acute Assessment and Plan: Oncology on board pursuing MRI AP (6) Altered mental status: Code(s): R41.82 - Altered mental status, unspecified Status: Acute Assessment and Plan: Acute, Severe May be 2/2 Sepsis, bacterial meningitis, acute illness. (7) Tobacco abuse: Code(s): Z72.0 - Tobacco use Status: Acute Assessment and Plan: Cessation counseling, 3 minutes on 07/21/23 (8) Wheezing: Code(s): R06.2 - Wheezing Status: Acute Assessment and Plan: Pulmonology on board; Eran f/u recommendations (9) Anemia: Qualifiers: Anemia type: iron deficiency Code(s): D64.9 - Anemia, unspecified Status: Acute Assessment and Plan: Goal Hb >7 Type and screen; FOBT (10) Sepsis: Code(s): A41.9 - Sepsis, unspecified organism Status: Acute Assessment and Plan: Probably 2/2 Strep. 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 History is taken from the son and rest the family. It is reported she has not been breathing great since her hip replacement. She finally had severe enough shortness of breath she was brought in by family. While in the emergency room the patient was treated for pneumonia and COPD exacerbation however it was noted to be unresponsive/somnolent/non-conversant. Admitted on 07/18/2023 Probable meningitis. No organisms seen on CSF analysis, but many WBCs. CSF culture pending Acute toxic encephalopathy -there have been various reports from the family that the patient came altered at home versus became altered after receiving Solu-Medrol in the ED. steroid induced psychosis is a consideration -in the meantime, treat with antibiotics for hospital-acquired pneumonia and possible meningitis -CT head on admission without intracranial process, age-related changes present consistent with chronic small-vessel ischemic disease -CTA head and neck demonstrating 38% stenosis of proximal right ICA and 40% stenosis proximal left ICA -pCO2 43.4 on ABG, It is possible she is a chronic retainer. Drug screen negative. Family reports the patient is not alcohol drinker. -neurochecks Q 4, NPO, lumbar puncture pending, brain MRI pending, neurology consulted. 07/20/23: Poor prognosis, continue to monitor 07/21/23: Improved outlook 07/22/23: Improved profile, continue to Rx Severe sepsis without shock. On Abx Physical deconditioning. PT/OT eval and Rx Anemia, normocytic -unclear chronicity check iron panel and ferritin Probable Hospital-acquired pneumonia -this is the most likely culprit for her acute toxic encephalopathy. CT chest on admission demonstrating multifocal lung disease c
--- NOTE | 2023-07-23 13:15 | PCOTNOTE ---
Patient unavailable, having blood cultures drawn and per RN, needs them done.
[2023-07-23] MEDS: amLODIPine BESYLATE 5 MG TABLET PO (13:24)
[2023-07-23 14:11] LABS: Hematocrit 27.8 % (37.0-47.0); Hemoglobin 7.7 g/dL (12.0-15.0)
[2023-07-23] MEDS: FERROUS SULFATE 325 MG TABLET DR PO (17:06)
[2023-07-23] MEDS: LORazepam INJ (*CRX) 2 MG/ML VIAL 0.5 MG IV PUSH (17:10)
[2023-07-23 18:08] LABS: Varicella IgM Antibody <=0.90 (<=0.90)
[2023-07-23 18:09] LABS: West Nile Virus, IgM <0.90 index (<0.90)
[2023-07-23 19:09] LABS: Glucose Point of Care 137 mg/dl (65-105)
[2023-07-23] MEDS: cefTRIAXone 2 GM/NS 100 ML 2 GM/100 ML BAG IVPB (20:18)
[2023-07-23 20:54] LABS: Glucose Point of Care 139 mg/dl (65-105)
[2023-07-24] VITALS (31 sets, daily range): BP systolic 134–176; BP diastolic 48–78; PULSE 81–104; RESP 16–22; TEMP 36.2–36.9; O2SAT 97–100
[2023-07-24] MEDS: IPRATROPIUM 0.5 MG/ALBUTEROL SULFATE 2.5 MG AMPUL.NEB 3 ML INHALATION ×7 (00:45→23:22)
[2023-07-24] MEDS: SODIUM CHLOR 3% 15 ML NEB (RESPIRATORY THERAPY) 6 ML INHALATION (04:28)
[2023-07-24 07:35] LABS: Basophils Percent Auto 0.2 % (0.2-1.2); Eosinophils Absolute Auto 0.2 K/mm3 (0-0.3); Eosinophils Percent Auto 1.5 % (0-4.4); Hematocrit 30.3 % (37.0-47.0); Hemoglobin 8.5 g/dL (12.0-15.0); Immature Granulocyte Percent A 2.7 % (0-0.5); Immature Platelet Fraction Pct 9.9 % (0.9-11.2); Lymphocytes Absolute Auto 0.66 K/mm3 (0.9-3.2); Mean Corpuscular HGB Conc 28.1 g/dl (32-36); Mean Corpuscular Hemoglobin 22.4 pg (26-34); Mean Corpuscular Volume 79.9 fl (80-100); Mean Platelet Volume 12.3 fl (7.4-10.4); Monocytes Absolute Auto 0.4 K/mm3 (0.1-0.6); Monocytes Percent Auto 3.7 % (2.6-8.5); Neutrophils Absolute Auto 9.5 K/mm3 (1.3-6.7); Neutrophils Percent Auto 85.9 % (45.5-73.1); Nucleated Red Blood Cells Perc 0.2 % (0.0-0.2); Platelet Count Result 198 k/mm3 (150-375); Red Blood Count 3.79 M/mm3 (4.2-5.4); Red Cell Distribution Width 23.4 % (11.5-14.5); White Blood Count 11.1 K/mm3 (4.5-10.0)
[2023-07-24 07:44] LABS: Alanine Aminotransferase 24 U/L (6-35); Alkaline Phosphatase 93 U/L (38-126); Anion Gap -4 mmol/L (8-16); Aspartate Amino Transferase 24 U/L (14-36); Bilirubin,Total 0.8 mg/dL (0.2-1.3); Blood Urea Nitrogen 15 mg/dL (7-17); Calcium 8.5 mg/dL (8.4-10.2); Carbon Dioxide 35 mmol/L (22-30); Chloride 104 mmol/L (98-107); Estimated CRCL calculation 55 ml/min; Estimated Glomerular Filt Rate > 60; Glucose 106 mg/dL (65-110); Potassium 2.8 mmol/L (3.4-5.0); Sodium 135 mmol/L (137-145)
[2023-07-24 08:00] LABS: Anisocytosis 1+; Hypochromasia 2+; Microcytosis 1+ (NORMAL); Platelet Estimate Adequate (Adequate); Schistocytes None Seen
[2023-07-24 08:31] LABS: Glucose Point of Care 112 mg/dl (65-105)
[2023-07-24] MEDS: amLODIPine BESYLATE 5 MG TABLET PO (09:59)
[2023-07-24] MEDS: PANTOPRAZOLE SODIUM IV 40 MG VIAL IV PUSH (10:00)
[2023-07-24] MEDS: FERROUS SULFATE 325 MG TABLET DR PO ×2 (10:00→16:54)
[2023-07-24] MEDS: ENOXAPARIN 40 MG/0.4 ML SYRINGE SUB-Q (10:00)
[2023-07-24] MEDS: POTASSIUM CHLORIDE 20 MEQ ER TABLET 40 MEQ PO ×2 (10:00→16:55)
[2023-07-24] MEDS: cefTRIAXone 2 GM/NS 100 ML 2 GM/100 ML BAG IVPB ×2 (10:01→20:42)
[2023-07-24] MEDS: ACETAMINOPHEN 325 MG TABLET 650 MG PO ×2 (10:12→20:54)
--- NOTE | 2023-07-24 12:10 | PCPTNOTE ---
Patient declined PT this morning stating she was very tired and fatigued. Patient asked PT to return later in the day. PT will continue to follow per plan of care.
[2023-07-24 12:18] LABS: Glucose Point of Care 143 mg/dl (65-105)
[2023-07-24 13:37] LABS: Alveolar/Arterial O2 Gradient 77.6 mmHg; Base Excess ABG 3.4 mEq/l (+/-2.0); Fractional Inspired Oxygen 28 %; HCO3 ABG 27.2 mEq/l (22.0-26.0); Oxygen Content ABG 13.2 %vol (16.0-22.0); Oxygen Saturation ABG 96.1 % (95.0-100.0); PCO2 ABG 38.2 mmHg (35.0-45.0); PO2 FiO2 Ratio Arterial Blood 2.75 %; Total Hemoglobin 9.8 g/dL (12.0-18.0); pH ABG 7.471 (7.350-7.450)
[2023-07-24 13:38] LABS: Device NASAL CANNULA; Modified Allen's Test Pass; Site Drawn RIGHT RADIAL
[2023-07-24] MEDS: guaiFENesin/DEXTROMETHORPHAN 10 ML UDC PO ×2 (13:53→20:42)
[2023-07-24] MEDS: KETOROLAC 15 MG/ML VIAL (*BKC) IV PUSH (13:53)
--- NOTE | 2023-07-24 16:11 | PM.IMPN ---
Progress Note: A&P Assessment and Plan (1) HTN (hypertension): Code(s): I10 - Essential (primary) hypertension Status: Acute Assessment and Plan: Chronic, stable. Will resume Amlodipine (2) Shortness of breath: Code(s): R06.02 - Shortness of breath Status: Acute Assessment and Plan: Wean oxygen as tolerate (3) Community acquired pneumonia: Qualifiers: Laterality: unspecified laterality Qualified Code(s): J18.9 - Pneumonia, unspecified organism Code(s): J18.9 - Pneumonia, unspecified organism Status: Acute Assessment and Plan: Acute, Severe on Cefepime, Vancomycon Will transition to Ceftriaxone (4) COPD exacerbation: Code(s): J44.1 - Chronic obstructive pulmonary disease with (acute) exacerbation Status: Acute Assessment and Plan: Likely 2/2 tobacco dependence DuoNebs, anti-tussives, Steroids, Abx (5) Adrenal mass: Code(s): E27.8 - Other specified disorders of adrenal gland Status: Acute Assessment and Plan: Oncology on board pursuing MRI AP IMPRESSION: 1. 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 While reassuring, both the size and heterogeneous attenuation with calcification of portions of the mass on prior CT however would be atypical which suggests possibility of either secondary hemorrhage or a collision lesion with combination of both adenoma and metastatic disease. Would continue to recommend either correlation with prior outside imaging to confirm stability or PET/CT when clinically improved. 07/24/23: Awaiting Oncology inputs (6) Altered mental status: Code(s): R41.82 - Altered mental status, unspecified Status: Acute Assessment and Plan: Acute, Severe May be 2/2 Sepsis, bacterial meningitis, acute illness. (7) Tobacco abuse: Code(s): Z72.0 - Tobacco use Status: Acute Assessment and Plan: Cessation counseling, 3 minutes on 07/21/23 (8) Wheezing: Code(s): R06.2 - Wheezing Status: Acute Assessment and Plan: Pulmonology on board; Eran f/u recommendations (9) Anemia: Qualifiers: Anemia type: iron deficiency Code(s): D64.9 - Anemia, unspecified Status: Acute Assessment and Plan: Goal Hb >7 Type and screen; FOBT Hb 7 >> 77 >> 8.5 family requesting blood transfusion; informed them of protocol to transfuse <7 (10) Sepsis: Code(s): A41.9 - Sepsis, unspecified organism Status: Acute Assessment and Plan: Probably 2/2 Strep. 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 History is taken from the son and rest the family. It is reported she has not been breathing great since her hip replacement. She finally had severe enough shortness of breath she was brought in by family. While in the emergency room the patient was treated for pneumonia and COPD exacerbation however it was noted to be unresponsive/somnolent/non-conversant. Admitted on 07/18/2023 Probable meningitis. No organisms seen on CSF analysis, but many WBCs. CSF culture pending Acute toxic encephalopathy -there have been various reports from the family that the patient came altered at home versus became altered after receiving Solu-Medrol in the ED. steroid induced psychosis is a consideration -in the meantime, treat with antibiotics for hospital-acquired pneumonia and possible meningitis -CT head on admission without intracranial process, age-related changes present consistent with chronic small-vessel ischemic disease -CTA head and neck demonstrating 38% stenosis of proximal right ICA and 40% stenosis proximal left ICA
[2023-07-24] MEDS: SUMAtriptan SUCCINATE 25 MG TABLET 50 MG PO (16:53)
[2023-07-24 18:05] LABS: Glucose Point of Care 177 mg/dl (65-105)
--- NOTE | 2023-07-24 18:20 | PC.NURSE ---
This patient, Marsha Pantoja, was received from IMU on 07/24/23 at 1820. Patient/family oriented to unit policies and routines
--- NOTE | 2023-07-24 18:29 | PC.NURSE ---
This patient, Marsha Pantoja, was transferred to [[facility] ] after CT scan on 07/24/23 at 1734. Personal belongings sent with patient. Report given to [Clint ]. Appropriate documentation sent with patient.
[2023-07-24 21:28] LABS: Glucose Point of Care 175 mg/dl (65-105)
[2023-07-25] VITALS (20 sets, daily range): BP systolic 154–175; BP diastolic 57–74; PULSE 83–112; RESP 17–22; TEMP 36.8–37.6; O2SAT 96–98
[2023-07-25] MEDS: guaiFENesin/DEXTROMETHORPHAN 10 ML UDC PO ×2 (04:44→20:26)
[2023-07-25] MEDS: ACETAMINOPHEN 325 MG TABLET 650 MG PO ×2 (04:57→20:26)
[2023-07-25] MEDS: IPRATROPIUM 0.5 MG/ALBUTEROL SULFATE 2.5 MG AMPUL.NEB 3 ML INHALATION ×5 (05:00→21:00)
[2023-07-25] MEDS: SODIUM CHLOR 3% 15 ML NEB (RESPIRATORY THERAPY) 6 ML INHALATION (05:07)
[2023-07-25 06:23] LABS: Herpes Simplex Type 1 DNA PCR Not Detected (Not Detected); Herpes Simplex Type 2 DNA PCR Not Detected (Not Detected)
[2023-07-25 06:32] LABS: Basophils Percent Auto 0.2 % (0.2-1.2); Eosinophils Absolute Auto 0.3 K/mm3 (0-0.3); Eosinophils Percent Auto 2.3 % (0-4.4); Hematocrit 25.6 % (37.0-47.0); Hemoglobin 7.4 g/dL (12.0-15.0); Immature Granulocyte Absolute 0.32 K/mm3 (0.00-0.031); Immature Granulocyte Percent A 2.8 % (0-0.5); Immature Platelet Fraction Pct 10.6 % (0.9-11.2); Lymphocytes Absolute Auto 0.91 K/mm3 (0.9-3.2); Lymphocytes Percent Auto 7.9 % (18.3-44.2); Mean Corpuscular HGB Conc 28.9 g/dl (32-36); Mean Corpuscular Hemoglobin 23.3 pg (26-34); Mean Corpuscular Volume 80.5 fl (80-100); Mean Platelet Volume 11.9 fl (7.4-10.4); Monocytes Absolute Auto 0.4 K/mm3 (0.1-0.6); Monocytes Percent Auto 3.3 % (2.6-8.5); Neutrophils Absolute Auto 9.6 K/mm3 (1.3-6.7); Neutrophils Percent Auto 83.5 % (45.5-73.1); Nucleated Red Blood Cells Perc 0.3 % (0.0-0.2); Platelet Count Result 206 k/mm3 (150-375); Red Blood Count 3.18 M/mm3 (4.2-5.4); Red Cell Distribution Width 23.5 % (11.5-14.5); White Blood Count 11.5 K/mm3 (4.5-10.0)
[2023-07-25 06:45] LABS: Alanine Aminotransferase 18 U/L (6-35); Albumin Level 2.6 g/dL (3.5-5.1); Alkaline Phosphatase 84 U/L (38-126); Anion Gap 0 mmol/L (8-16); Aspartate Amino Transferase 21 U/L (14-36); Bilirubin,Total 0.5 mg/dL (0.2-1.3); Blood Urea Nitrogen 12 mg/dL (7-17); Calcium 8.5 mg/dL (8.4-10.2); Carbon Dioxide 32 mmol/L (22-30); Chloride 104 mmol/L (98-107); Estimated CRCL calculation 49 ml/min; Estimated Glomerular Filt Rate > 60; Glucose 172 mg/dL (65-110); Potassium 3.4 mmol/L (3.4-5.0); Sodium 136 mmol/L (137-145)
[2023-07-25 06:46] LABS: Epstein Barr Virus DNA PCR Not Detected (Not Detected); Source Epstein Barr Virus CSF
[2023-07-25 06:52] LABS: Platelet Estimate Adequate (Adequate); Schistocytes None Seen
[2023-07-25 06:53] LABS: Hypochromasia 3+; Ovalocytes 1+; Tear Drop Cells 1+
[2023-07-25 08:21] LABS: Glucose Point of Care 136 mg/dl (65-105)
[2023-07-25] MEDS: ENOXAPARIN 40 MG/0.4 ML SYRINGE SUB-Q (08:49)
[2023-07-25] MEDS: PANTOPRAZOLE SODIUM IV 40 MG VIAL IV PUSH (08:49)
[2023-07-25] MEDS: amLODIPine BESYLATE 5 MG TABLET PO (08:49)
[2023-07-25] MEDS: FERROUS SULFATE 325 MG TABLET DR PO ×2 (08:49→17:55)
[2023-07-25] MEDS: cefTRIAXone 2 GM/NS 100 ML 2 GM/100 ML BAG IVPB ×2 (08:50→20:26)
[2023-07-25] MEDS: SUMAtriptan SUCCINATE 25 MG TABLET 50 MG PO (11:11)
[2023-07-25 12:39] LABS: Glucose Point of Care 144 mg/dl (65-105)
[2023-07-25 14:00] LABS: Cryptococcus Antigen Not Detected (Not Detected); Cryptococcus Specimen Source CSF
[2023-07-25 17:12] LABS: Source CSF
[2023-07-25 17:26] LABS: Glucose Point of Care 157 mg/dl (65-105)
--- NOTE | 2023-07-25 17:36 | PM.IMPN ---
Progress Note: A&P Assessment and Plan (1) HTN (hypertension): Code(s): I10 - Essential (primary) hypertension Status: Acute Assessment and Plan: Chronic, stable. Will resume Amlodipine (2) Shortness of breath: Code(s): R06.02 - Shortness of breath Status: Acute Assessment and Plan: Wean oxygen as tolerate (3) Community acquired pneumonia: Qualifiers: Laterality: unspecified laterality Qualified Code(s): J18.9 - Pneumonia, unspecified organism Code(s): J18.9 - Pneumonia, unspecified organism Status: Acute Assessment and Plan: Acute, Severe on Cefepime, Vancomycon Will transition to IV Ceftriaxone (4) COPD exacerbation: Code(s): J44.1 - Chronic obstructive pulmonary disease with (acute) exacerbation Status: Acute Assessment and Plan: Likely 2/2 tobacco dependence DuoNebs, anti-tussives, Steroids, Abx (5) Adrenal mass: Code(s): E27.8 - Other specified disorders of adrenal gland Status: Acute Assessment and Plan: Oncology on board pursuing MRI AP IMPRESSION: 1. 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 While reassuring, both the size and heterogeneous attenuation with calcification of portions of the mass on prior CT however would be atypical which suggests possibility of either secondary hemorrhage or a collision lesion with combination of both adenoma and metastatic disease. Would continue to recommend either correlation with prior outside imaging to confirm stability or PET/CT when clinically improved. 07/24/23: Awaiting Oncology inputs 07/25/2023: Patient evaluated by Oncology. Will follow-up as an outpatient with PET/CT scan to rule of adrenal adenoma versus metastatic disease. (6) Altered mental status: Code(s): R41.82 - Altered mental status, unspecified Status: Acute Assessment and Plan: 2/2 Sepsis, bacterial meningitis, acute illness ... Rapidly improving and patient approaching baseline status (7) Tobacco abuse: Code(s): Z72.0 - Tobacco use Status: Acute Assessment and Plan: Dependence on nicotine from cigarettes: Tobacco abuse counseling: Patient smokes cigarettes on a chronic basis. Strictly advised patient to cut down on or quit smoking. Nicotine patch offered. ~5 minutes spent on tobacco cessation counseling with the patient. Websites - http://smokefree.gov & http://www.quitnet.com ? Quitlines - 2-677-TQAF-NOW ( ) ? Smokefree Apps - Sal[employer] Pankaj ? Text Messages - SmokefreeTXT ([place] [id number]) (8) Wheezing: Code(s): R06.2 - Wheezing Status: Acute Assessment and Plan: Pulmonology on board; Eran f/u recommendations (9) Anemia: Qualifiers: Anemia type: iron deficiency Code(s): D64.9 - Anemia, unspecified Status: Acute Assessment and Plan: Goal Hb >7 Type and screen; FOBT Hb 7 >> 77 >> 8.5 family requesting blood transfusion; informed them of protocol to transfuse <7 (10) Sepsis: Code(s): A41.9 - Sepsis, unspecified organism Status: Acute Assessment and Plan: Probably 2/2 Strep. 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 presenting with shortness of breath. History is taken from the son and rest the family. It is reported she has not been breathing great since her hip replacement. She finally had severe enough shortness of breath she was brought in by family. While in the emergency room the patient was treated for pneumonia and COPD exacerbation however it was noted to be unresponsive/somnolent/non-conversant. Admitted on 07/18/2023 Probable meningitis. No organi
[2023-07-25 22:35] LABS: Glucose Point of Care 128 mg/dl (65-105)
--- NOTE | 2023-07-25 23:04 | PM.PNPUL ---
Subjective Date/time seen: 07/25/23 23:04 Objective Data Vital Signs Vital Signs: Vital Signs - 24 hr 07/24/23 23:23 07/24/23 23:24 07/24/23 23:29 Temperature Pulse Rate 92 95 Respiratory Rate 20 20 Blood Pressure Pulse Oximetry 99 Oxygen Delivery Nasal Cannula Oxygen Flow Rate 2 07/25/23 00:00 07/25/23 00:00 07/25/23 04:00 Temperature 36.9 C Pulse Rate 98 85 90 Respiratory Rate 18 Blood Pressure 154/57 H Pulse Oximetry 97 Oxygen Delivery Oxygen Flow Rate 07/25/23 05:06 07/25/23 05:21 07/25/23 07:31 Temperature Pulse Rate 97 95 Respiratory Rate 20 20 Blood Pressure Pulse Oximetry 98 Oxygen Delivery Nasal Cannula Oxygen Flow Rate 2 07/25/23 07:25 07/25/23 07:48 07/25/23 08:00 Temperature Pulse Rate 86 83 83 Respiratory Rate 18 Blood Pressure Pulse Oximetry Oxygen Delivery Oxygen Flow Rate 07/25/23 11:43 07/25/23 08:49 07/25/23 11:50 Temperature Pulse Rate 94 89 Respiratory Rate 17 17 Blood Pressure Pulse Oximetry 98 Oxygen Delivery Nasal Cannula Oxygen Flow Rate 1.5 07/25/23 12:00 07/25/23 14:47 07/25/23 15:08 Temperature 36.8 C Pulse Rate 102 H 103 H 96 Respiratory Rate 22 H 18 Blood Pressure 175/66 H Pulse Oximetry 97 Oxygen Delivery Oxygen Flow Rate 07/25/23 15:16 07/25/23 19:39 07/25/23 20:26 Temperature 37.6 C H 37.6 C H Pulse Rate 91 108 H Respiratory Rate 18 18 Blood Pressure 164/74 H Pulse Oximetry 97 Oxygen Delivery Oxygen Flow Rate 07/25/23 21:01 07/25/23 21:01 07/25/23 20:00 Temperature Pulse Rate 111 H 112 H Respiratory Rate 22 H Blood Pressure Pulse Oximetry 96 Oxygen Delivery Nasal Cannula Oxygen Flow Rate 2 07/25/23 20:00 Temperature Pulse Rate Respiratory Rate Blood Pressure Pulse Oximetry 96 Oxygen Delivery Nasal Cannula Oxygen Flow Rate 2 Intake/Output Intake/Output: Intake & Output 07/22/23 07/23/23 07/24/23 07/25/23 23:59 23:59 23:59 23:59 Intake Total 2349.4 2268.4 1163.4 1642.8 Output Total 3875 1400 2750 1800 Balance -1525.6 868.4 -1586.6 -157.2 Meds/Results Medications: Active Medications Generic Name Dose Route Start Last Admin Trade Name Freq PRN Reason Stop Dose Admin Acetaminophen 650 mg 07/20/23 16:30 07/25/23 20:26 Acetaminophen 325 Mg Tablet PO 650 mg Q6H PRN Administration Mild Pain (1-3) or Fever Albuterol/Ipratropium 3 ml 07/21/23 20:00 07/25/23 21:00 Ipratropium 0.5 Mg/Albuterol Sulfate 2.5 Mg Ampul.Neb 3 Ml INHALATION 3 ml Q4HRT LISA Administration Amlodipine Besylate 5 mg 07/23/23 13:00 07/25/23 08:49 Amlodipine Besylate 5 Mg Tablet PO 5 mg DAILY LISA Administration Dextrose 12.5 gm 07/18/23 21:45 Dextrose 50% 25 Gm/50 Ml Syringe IV PUSH PRN PRN Hypoglycemia Protocol Enoxaparin Sodium 40 mg 07/20/23 09:00 07/25/23 08:49 Enoxaparin 40 Mg/0.4 Ml Syringe SUB-Q 40 mg DAILY LISA Administration Ferrous Sulfate 325 mg 07/23/23 17:00 07/25/23 17:55 Ferrous Sulfate [address] PO 325 mg BID LISA Administration Glucagon 1 mg 07/18/23 21:45 Glucagon For Inj 1 Mg Vial IM PRN PRN Hypoglycemia Protocol Glucose 15 gm 07/18/23 21:45 Glucose Oral Gel 15 Gm Of Glucse In 37.5 Gm Tube PO PRN PRN Hypoglycemia Protocol Guaifenesin/Dextromethorphan 10 ml 07/21/23 16:50 07/25/23 20:26 Guaifenesin/Dextromethorphan 10 Ml Udc PO 10 ml Q8HR LISA Administration Dextrose 1,000 mls @ 100 mls/hr 07/18/23 21:45 Dextrose 5% 1,000 Ml IVPB PRN PRN Hypoglycemia Protocol Ceftriaxone Sodium 2 gm in 100 mls @ 200 mls/hr 07/23/23 21:00 07/25/23 20:56 Rocephin 2 Gm/Ns 100 Ml IVPB 07/31/23 23:59 Infused Q12H LISA Infusion Insulin Aspart 2 - 5 units 07/20/23 17:00 07/25/23 17:23 Insulin Aspart (*Bkc) 100 Units/Ml SUB-Q Not Given TIDWM
[2023-07-25 23:07] LABS: Methylmalonic Acid 346 nmol/L (87-318)
[2023-07-26] VITALS (27 sets, daily range): BP systolic 152–180; BP diastolic 56–102; PULSE 83–105; RESP 16–24; TEMP 36.7–37.3; O2SAT 95–99
[2023-07-26] MEDS: IPRATROPIUM 0.5 MG/ALBUTEROL SULFATE 2.5 MG AMPUL.NEB 3 ML INHALATION ×5 (00:08→21:51)
[2023-07-26] MEDS: SODIUM CHLOR 3% 15 ML NEB (RESPIRATORY THERAPY) 6 ML INHALATION (04:42)
[2023-07-26] MEDS: ACETAMINOPHEN 325 MG TABLET 650 MG PO ×3 (05:08→21:04)
[2023-07-26] MEDS: guaiFENesin/DEXTROMETHORPHAN 10 ML UDC PO ×3 (05:08→20:59)
[2023-07-26 05:57] LABS: Basophils Percent Auto 0.1 % (0.2-1.2); Eosinophils Absolute Auto 0.3 K/mm3 (0-0.3); Eosinophils Percent Auto 3.4 % (0-4.4); Hemoglobin 7.5 g/dL (12.0-15.0); Immature Granulocyte Absolute 0.37 K/mm3 (0.00-0.031); Immature Platelet Fraction Pct 8.8 % (0.9-11.2); Lymphocytes Absolute Auto 0.91 K/mm3 (0.9-3.2); Lymphocytes Percent Auto 9.9 % (18.3-44.2); Mean Corpuscular HGB Conc 28.8 g/dl (32-36); Mean Corpuscular Hemoglobin 23.2 pg (26-34); Mean Corpuscular Volume 80.5 fl (80-100); Mean Platelet Volume 11.6 fl (7.4-10.4); Monocytes Absolute Auto 0.4 K/mm3 (0.1-0.6); Monocytes Percent Auto 4.4 % (2.6-8.5); Neutrophils Absolute Auto 7.2 K/mm3 (1.3-6.7); Neutrophils Percent Auto 78.2 % (45.5-73.1); Nucleated Red Blood Cells Perc 0.3 % (0.0-0.2); Platelet Count Result 239 k/mm3 (150-375); Red Blood Count 3.23 M/mm3 (4.2-5.4); Red Cell Distribution Width 23.9 % (11.5-14.5); White Blood Count 9.2 K/mm3 (4.5-10.0)
[2023-07-26 06:09] LABS: Alanine Aminotransferase 22 U/L (6-35); Albumin Level 2.8 g/dL (3.5-5.1); Alkaline Phosphatase 90 U/L (38-126); Anion Gap 1 mmol/L (8-16); Aspartate Amino Transferase 27 U/L (14-36); Bilirubin,Total 0.6 mg/dL (0.2-1.3); Blood Urea Nitrogen 11 mg/dL (7-17); Calcium 8.7 mg/dL (8.4-10.2); Carbon Dioxide 34 mmol/L (22-30); Chloride 102 mmol/L (98-107); Estimated CRCL calculation 55 ml/min; Estimated Glomerular Filt Rate > 60; Glucose 143 mg/dL (65-110); Potassium 3.4 mmol/L (3.4-5.0); Sodium 137 mmol/L (137-145)
[2023-07-26 07:26] LABS: Anisocytosis 2+; Hypochromasia 2+; Ovalocytes 1+; Platelet Estimate Adequate (Adequate); Schistocytes None Seen
[2023-07-26] MEDS: LIDOCAINE HCL 1% LOCAL INJ 2 ML AMPUL 5 ML INFILTRATE (07:50)
[2023-07-26] MEDS: PANTOPRAZOLE SODIUM IV 40 MG VIAL IV PUSH (08:28)
[2023-07-26] MEDS: ENOXAPARIN 40 MG/0.4 ML SYRINGE SUB-Q (08:29)
[2023-07-26] MEDS: amLODIPine BESYLATE 5 MG TABLET PO (08:29)
[2023-07-26] MEDS: FERROUS SULFATE 325 MG TABLET DR PO ×2 (08:29→17:01)
[2023-07-26] MEDS: cefTRIAXone 2 GM/NS 100 ML 2 GM/100 ML BAG IVPB ×2 (08:51→20:59)
[2023-07-26 08:56] LABS: Glucose Point of Care 116 mg/dl (65-105)
--- NOTE | 2023-07-26 10:41 | PCNWS ---
Weekly nutritional screen. Patient is tolerating current diet. Intake has been fair, about 50% of meals. She is refusing diet supplements. No weight loss reported. No nutritional needs at this time.
[2023-07-26 11:51] LABS: VDRL Quantitative CSF Nonreactive (Nonreactive)
[2023-07-26 12:21] LABS: Glucose Point of Care 162 mg/dl (65-105)
--- NOTE | 2023-07-26 13:50 | PM.IMPN ---
Progress Note: A&P Assessment and Plan (1) HTN (hypertension): Code(s): I10 - Essential (primary) hypertension Status: Acute Assessment and Plan: controlled on norvasc (2) Shortness of breath: Code(s): R06.02 - Shortness of breath Status: Acute Assessment and Plan: Wean oxygen as tolerate (3) Community acquired pneumonia: Qualifiers: Laterality: unspecified laterality Qualified Code(s): J18.9 - Pneumonia, unspecified organism Code(s): J18.9 - Pneumonia, unspecified organism Status: Acute Assessment and Plan: HCAP Pt on IV Ceftriaxone until 07/30 (4) COPD exacerbation: Code(s): J44.1 - Chronic obstructive pulmonary disease with (acute) exacerbation Status: Acute Assessment and Plan: Likely 2/2 tobacco dependence DuoNebs, anti-tussives, Steroids, Abx (5) Adrenal mass: Code(s): E27.8 - Other specified disorders of adrenal gland Status: Acute Assessment and Plan: Oncology on board MRI shows 1. 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 While reassuring, both the size and heterogeneous attenuation with calcification of portions of the mass on prior CT however would be atypical which suggests possibility of either secondary hemorrhage or a collision lesion with combination of both adenoma and metastatic disease. Would continue to recommend either correlation with prior outside imaging to confirm stability or PET/CT when clinically improved. 07/24/23: Awaiting Oncology inputs 07/25/2023: Patient evaluated by Oncology. Will follow-up as an outpatient with PET/CT scan to rule of adrenal adenoma versus metastatic disease. (6) Altered mental status: Code(s): R41.82 - Altered mental status, unspecified Status: Acute Assessment and Plan: Secondary to Sepsis, bacterial meningitis, acute illness resolving (7) Tobacco abuse: Code(s): Z72.0 - Tobacco use Status: Acute Assessment and Plan: Dependence on nicotine from cigarettes: Tobacco abuse counseling: Patient smokes cigarettes on a chronic basis. Strictly advised patient to cut down on or quit smoking. Nicotine patch offered. ~5 minutes spent on tobacco cessation counseling with the patient. Websites - http://smokefree.gov & http://www.quitnet.com ? Quitlines - 4-049-UAKA-NOW ( ) ? Smokefree Apps - QuitClickHome Pankaj ? Text Messages - SmokefreeTXT ([place] [address]) (8) Wheezing: Code(s): R06.2 - Wheezing Status: Acute Assessment and Plan: Pulmonology on board; Eran f/u recommendations (9) Anemia: Qualifiers: Anemia type: iron deficiency Code(s): D64.9 - Anemia, unspecified Status: Acute Assessment and Plan: Transfuse one unit of blood pt looks tired and weak (10) Sepsis: Code(s): A41.9 - Sepsis, unspecified organism Status: Acute Assessment and Plan: Probably 2/2 Strep. Pneumoniae On Cefepime >> Ceftriaxone Subjective Date/time seen: 07/26/23 13:50 Interval history: 78 y/o F presents here with SOB with PMH of HTN and COPD, hcap, anemia, probably meningitis and adrenal lesion. Patient presents here with worsening SOB over the last few days, significantly worsened last night. Son at bedside providing majority of HPI due to patient's current mental status. Patient has a new baseline O2 requirement since her hip replacement on 07/02/23. Surgery done at [facility], has follow-up yesterday and sutures were taken out/no complications found per son. Now reporting increased LE swelling and productive cough to ED provider. CSF on 07/18/2023 suggests Probable meningitis. No organisms seen on CSF analysis, but many WBCs. CSF culture pending 07/18/2023:? Blood cultures positive for Streptococcus pneumonia 07/23/2023:? Repeat blood cultures remain negative Continue
[2023-07-26] MEDS: SALINE LOCK FLUSH 10 ML IV PUSH ×2 (15:23→20:59)
[2023-07-26] MEDS: SODIUM CHLORIDE 0.9% IV 250 ML 30 ML IV CONT (16:43)
[2023-07-26 17:00] LABS: Glucose Point of Care 207 mg/dl (65-105)
[2023-07-26] MEDS: INSULIN ASPART (*BKC) 100 UNITS/ML SUB-Q (17:00)
[2023-07-26 22:04] LABS: Hematocrit 30.9 % (37.0-47.0); Hemoglobin 9.3 g/dL (12.0-15.0)
[2023-07-27] VITALS (26 sets, daily range): BP systolic 149–157; BP diastolic 54–64; PULSE 82–108; RESP 18–22; TEMP 36.5–37.3; O2SAT 86–99
[2023-07-27] MEDS: IPRATROPIUM 0.5 MG/ALBUTEROL SULFATE 2.5 MG AMPUL.NEB 3 ML INHALATION ×7 (01:40→23:56)
[2023-07-27] MEDS: ACETAMINOPHEN 325 MG TABLET 650 MG PO ×3 (05:33→21:08)
[2023-07-27] MEDS: SALINE LOCK FLUSH 10 ML IV PUSH ×3 (05:34→21:12)
[2023-07-27] MEDS: guaiFENesin/DEXTROMETHORPHAN 10 ML UDC PO ×2 (05:34→21:08)
[2023-07-27 05:46] LABS: Basophils Percent Auto 0.1 % (0.2-1.2); Eosinophils Absolute Auto 0.3 K/mm3 (0-0.3); Eosinophils Percent Auto 2.6 % (0-4.4); Hematocrit 30.7 % (37.0-47.0); Hemoglobin 9.2 g/dL (12.0-15.0); Immature Granulocyte Absolute 0.19 K/mm3 (0.00-0.031); Immature Granulocyte Percent A 1.9 % (0-0.5); Lymphocytes Absolute Auto 0.96 K/mm3 (0.9-3.2); Lymphocytes Percent Auto 9.6 % (18.3-44.2); Mean Corpuscular Volume 83.4 fl (80-100); Mean Platelet Volume 11.3 fl (7.4-10.4); Monocytes Absolute Auto 0.5 K/mm3 (0.1-0.6); Monocytes Percent Auto 5.1 % (2.6-8.5); Neutrophils Percent Auto 80.7 % (45.5-73.1); Platelet Count Result 222 k/mm3 (150-375); Red Blood Count 3.68 M/mm3 (4.2-5.4); Red Cell Distribution Width 23.6 % (11.5-14.5)
[2023-07-27 06:08] LABS: Anisocytosis 1+; Hypochromasia 1+; Ovalocytes 1+; Platelet Estimate Adequate (Adequate); Schistocytes None Seen
[2023-07-27 06:10] LABS: Alanine Aminotransferase 31 U/L (6-35); Albumin Level 2.9 g/dL (3.5-5.1); Alkaline Phosphatase 101 U/L (38-126); Anion Gap -3 mmol/L (8-16); Aspartate Amino Transferase 36 U/L (14-36); Bilirubin,Total 0.6 mg/dL (0.2-1.3); Blood Urea Nitrogen 12 mg/dL (7-17); Calcium 8.7 mg/dL (8.4-10.2); Carbon Dioxide 36 mmol/L (22-30); Chloride 102 mmol/L (98-107); Estimated CRCL calculation 55 ml/min; Estimated Glomerular Filt Rate > 60; Glucose 129 mg/dL (65-110); Sodium 135 mmol/L (137-145)
[2023-07-27 06:21] LABS: Potassium 3.6 mmol/L (3.4-5.0)
[2023-07-27 08:15] LABS: Glucose Point of Care 147 mg/dl (65-105)
[2023-07-27 08:30] LABS: Glucose Point of Care 120 mg/dl (65-105)
[2023-07-27] MEDS: amLODIPine BESYLATE 5 MG TABLET PO (09:38)
[2023-07-27] MEDS: cefTRIAXone 2 GM/NS 100 ML 2 GM/100 ML BAG IVPB ×2 (09:38→21:08)
[2023-07-27] MEDS: FERROUS SULFATE 325 MG TABLET DR PO ×2 (09:38→17:57)
[2023-07-27] MEDS: ENOXAPARIN 40 MG/0.4 ML SYRINGE SUB-Q (09:39)
[2023-07-27 12:23] LABS: Glucose Point of Care 147 mg/dl (65-105)
--- NOTE | 2023-07-27 14:50 | P.PNIM_ITS ---
Progress Note: A&P Assessment and Plan (1) HTN (hypertension): Code(s): I10 - Essential (primary) hypertension Status: Acute (2) Shortness of breath: Code(s): R06.02 - Shortness of breath Status: Acute (3) Community acquired pneumonia: Qualifiers: Laterality: unspecified laterality Qualified Code(s): J18.9 - Pneumonia, unspecified organism Code(s): J18.9 - Pneumonia, unspecified organism Status: Acute (4) COPD exacerbation: Code(s): J44.1 - Chronic obstructive pulmonary disease with (acute) exacerbation Status: Acute (5) Adrenal mass: Code(s): E27.8 - Other specified disorders of adrenal gland Status: Acute (6) Altered mental status: Code(s): R41.82 - Altered mental status, unspecified Status: Acute (7) Tobacco abuse: Code(s): Z72.0 - Tobacco use Status: Acute (8) Wheezing: Code(s): R06.2 - Wheezing Status: Acute (9) Anemia: Qualifiers: Anemia type: iron deficiency Code(s): D64.9 - Anemia, unspecified Status: Acute (10) Sepsis: Code(s): A41.9 - Sepsis, unspecified organism Status: Acute Plan 78 y/o F who presented here with worsening shortness of basal past few days significantly worsened a night before. She recently had a hip replacement done on 07/02/2023. And since then she has required oxygen. Surgery was done at [facility]. She had a follow-up and sutures were taken out with no complications. She started having increased lower extremity swelling and productive cough. On ED evaluation she was afebrile and nontoxic but tachycardic for which nebulizer treatment and steroid was given. Laboratory evaluation showed leukocytosis 16.9 hemoglobin of 9.1 renal function was normal. Influenza COVID RSV was negative. D-dimer is elevated. Bilateral lower extremity venous duplex was negative for DVT. Incision of the left hip showed no signs of infection. CTA chest PE was done which showed no PE but revealed multifocal pneumonia emphysema and 3.9 cm left adrenal mass. Blood culture was also obtained and started on IV antibiotics. Lactate was normal BNP was 1380. Echo performed on 07/19/2023 with EF 65-70% grade 1 diastolic dysfunction. Small anterior pericardial effusion no valvular abnormality was noted. Patient was also noted to be altered and obtunded shortly after presentation. CT head with no acute intracranial process. CTA and head and neck was performed which showed 30% stenosis of the proximal right ICA and 40% stenosis of the proximal left ICA. ABG with pCO2 43 drug screen was negative. Patient was diagnosis sepsis severe sepsis with underlying pneumonia antibiotic coverage was broadened to cover for bacterial meningitis. Lumbar puncture was obtained along with neurology consultation. LP resolved with significantly elevated WBC with neutrophilic predominance and elevated protein concerning for bacterial meningitis. MRI brain did not show any acute lesions a stroke. Blood culture came back positive for Streptococcus pneumonia. She was covered with cefepime vancomycin and ampicillin along with dexamethasone acyclovir. 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 CSF culture is negative however was already loaded with antibiotics and likely will be negative because of this region. Ceftriaxone high dose 2 g every 12 hour Repeat blood cultures negative on 07/23/2023 Ceftriaxone IV total 2 weeks to cover for meningitis and Streptococcus pneumoniae bacteremia. Concludes ceftriaxone on 07/31/2023 Oncology was also consulted during the hospital sta
[2023-07-27 17:08] LABS: Glucose Point of Care 131 mg/dl (65-105)
[2023-07-27 22:00] LABS: Glucose Point of Care 151 mg/dl (65-105)
[2023-07-27 22:28] LABS: IFOB Positive Control Positive; Immunochemical Fecal Occult Bl Positive (N)
[2023-07-28] VITALS (24 sets, daily range): BP systolic 131–172; BP diastolic 52–70; PULSE 87–113; RESP 18–36; TEMP 36.5–38.8; O2SAT 94–100
[2023-07-28] MEDS: IPRATROPIUM 0.5 MG/ALBUTEROL SULFATE 2.5 MG AMPUL.NEB 3 ML INHALATION ×4 (03:04→20:05)
[2023-07-28] MEDS: guaiFENesin/DEXTROMETHORPHAN 10 ML UDC PO ×3 (05:33→21:23)
[2023-07-28] MEDS: ACETAMINOPHEN 325 MG TABLET 650 MG PO ×2 (05:33→18:56)
[2023-07-28] MEDS: SALINE LOCK FLUSH 10 ML IV PUSH ×3 (05:35→21:23)
[2023-07-28 06:06] LABS: Basophils Percent Auto 0.1 % (0.2-1.2); Eosinophils Absolute Auto 0.3 K/mm3 (0-0.3); Eosinophils Percent Auto 3.3 % (0-4.4); Hematocrit 30.7 % (37.0-47.0); Hemoglobin 9.1 g/dL (12.0-15.0); Immature Granulocyte Absolute 0.12 K/mm3 (0.00-0.031); Immature Granulocyte Percent A 1.4 % (0-0.5); Lymphocytes Absolute Auto 0.64 K/mm3 (0.9-3.2); Lymphocytes Percent Auto 7.6 % (18.3-44.2); Mean Corpuscular HGB Conc 29.6 g/dl (32-36); Mean Corpuscular Hemoglobin 25.2 pg (26-34); Mean Platelet Volume 12.3 fl (7.4-10.4); Monocytes Absolute Auto 0.6 K/mm3 (0.1-0.6); Monocytes Percent Auto 7.5 % (2.6-8.5); Neutrophils Absolute Auto 6.8 K/mm3 (1.3-6.7); Neutrophils Percent Auto 80.1 % (45.5-73.1); Platelet Count Result 231 k/mm3 (150-375); Red Blood Count 3.61 M/mm3 (4.2-5.4); White Blood Count 8.5 K/mm3 (4.5-10.0)
[2023-07-28 06:19] LABS: Alanine Aminotransferase 27 U/L (6-35); Albumin Level 2.9 g/dL (3.5-5.1); Alkaline Phosphatase 103 U/L (38-126); Anion Gap -2 mmol/L (8-16); Aspartate Amino Transferase 28 U/L (14-36); Bilirubin,Total 0.6 mg/dL (0.2-1.3); Blood Urea Nitrogen 11 mg/dL (7-17); Calcium 8.6 mg/dL (8.4-10.2); Carbon Dioxide 34 mmol/L (22-30); Chloride 105 mmol/L (98-107); Estimated CRCL calculation 64 ml/min; Estimated Glomerular Filt Rate > 60; Glucose 112 mg/dL (65-110); Magnesium 1.6 mg/dL (1.6-2.3); Potassium 3.4 mmol/L (3.4-5.0); Sodium 137 mmol/L (137-145)
[2023-07-28 07:02] LABS: Anisocytosis 2+; Hypochromasia 1+; Microcytosis 1+ (NORMAL); Ovalocytes 1+; Platelet Estimate Adequate (Adequate); Schistocytes None Seen
[2023-07-28 08:43] LABS: Glucose Point of Care 127 mg/dl (65-105)
[2023-07-28] MEDS: amLODIPine BESYLATE 5 MG TABLET PO (08:45)
[2023-07-28] MEDS: cefTRIAXone 2 GM/NS 100 ML 2 GM/100 ML BAG IVPB ×2 (08:46→21:21)
[2023-07-28] MEDS: FERROUS SULFATE 325 MG TABLET DR PO ×2 (08:46→17:33)
[2023-07-28] MEDS: ENOXAPARIN 40 MG/0.4 ML SYRINGE SUB-Q (08:47)
[2023-07-28 12:13] LABS: Glucose Point of Care 119 mg/dl (65-105)
--- NOTE | 2023-07-28 14:35 | PM.IMPN ---
Progress Note: A&P Assessment and Plan (1) HTN (hypertension): Code(s): I10 - Essential (primary) hypertension Status: Acute (2) Shortness of breath: Code(s): R06.02 - Shortness of breath Status: Acute (3) Community acquired pneumonia: Qualifiers: Laterality: unspecified laterality Qualified Code(s): J18.9 - Pneumonia, unspecified organism Code(s): J18.9 - Pneumonia, unspecified organism Status: Acute (4) COPD exacerbation: Code(s): J44.1 - Chronic obstructive pulmonary disease with (acute) exacerbation Status: Acute (5) Adrenal mass: Code(s): E27.8 - Other specified disorders of adrenal gland Status: Acute (6) Altered mental status: Code(s): R41.82 - Altered mental status, unspecified Status: Acute (7) Tobacco abuse: Code(s): Z72.0 - Tobacco use Status: Acute (8) Wheezing: Code(s): R06.2 - Wheezing Status: Acute (9) Anemia: Qualifiers: Anemia type: iron deficiency Code(s): D64.9 - Anemia, unspecified Status: Acute (10) Sepsis: Code(s): A41.9 - Sepsis, unspecified organism Status: Acute Plan 78 y/o F who presented here with worsening shortness of breath for past few days significantly worsened a night before. She recently had a hip replacement done on 07/02/2023. And since then she has required oxygen. Surgery was done at [facility]. She had a follow-up and sutures were taken out with no complications. She started having increased lower extremity swelling and productive cough. On ED evaluation she was afebrile and nontoxic but tachycardic for which nebulizer treatment and steroid was given. Laboratory evaluation showed leukocytosis 16.9 hemoglobin of 9.1 renal function was normal. Influenza COVID RSV was negative. D-dimer is elevated. Bilateral lower extremity venous duplex was negative for DVT. Incision of the left hip showed no signs of infection. CTA chest PE was done which showed no PE but revealed multifocal pneumonia emphysema and 3.9 cm left adrenal mass. Blood culture was also obtained and started on IV antibiotics. Lactate was normal BNP was 1380. Echo performed on 07/19/2023 with EF 65-70% grade 1 diastolic dysfunction. Small anterior pericardial effusion no valvular abnormality was noted. Patient was also noted to be altered and obtunded shortly after presentation. CT head with no acute intracranial process. CTA and head and neck was performed which showed 30% stenosis of the proximal right ICA and 40% stenosis of the proximal left ICA. ABG with pCO2 43 drug screen was negative. Patient was diagnosis sepsis severe sepsis with underlying pneumonia antibiotic coverage was broadened to cover for bacterial meningitis. Lumbar puncture was obtained along with neurology consultation. LP resolved with significantly elevated WBC with neutrophilic predominance and elevated protein concerning for bacterial meningitis. MRI brain did not show any acute lesions a stroke. Blood culture came back positive for Streptococcus pneumonia. She was covered with cefepime vancomycin and ampicillin along with dexamethasone acyclovir. 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 CSF culture is negative however was already loaded with antibiotics and likely will be negative because of this region. Ceftriaxone high dose 2 g every 12 hour Repeat blood cultures negative on 07/23/2023 Ceftriaxone IV total 2 weeks to cover for meningitis and Streptococcus pneumoniae bacteremia. Concludes ceftriaxone on 07/31/2023 Oncology was also consulted during the hospital stay for evaluation of left adrenal mass 3. 9 cm which may be an adenoma or metastatic disease. PET-CT is recommended. MRI abdomen was ordered for further recommendation since PET-CT cannot be done and patient. MRI of the abdomen showed 3.9 cm left adrenal mass with signal dropout opposed phase
[2023-07-28 17:09] LABS: Glucose Point of Care 108 mg/dl (65-105)
[2023-07-28] MEDS: POTASSIUM CHLORIDE 20 MEQ ER TABLET 40 MEQ PO (17:34)
[2023-07-28] MEDS: PANTOPRAZOLE 40 MG TABLET PO (21:20)
[2023-07-28 22:02] LABS: Bacteria Urine None Seen /hpf; Budding Yeast Urine Present /hpf; Need Manual Microscopic Reviewed; Non Pathogenic Casts 0-2; RBC Urine >100 /hpf (0-2); Squamous Epithelial Cell Urine None Seen /hpf (Few); WBC Urine 51-100 /hpf (0-3)
[2023-07-28 22:07] LABS: Appearance Urine Clear (Clear); Bilirubin Urine Negative (Negative); Blood Urine 3+ (Negative); Color Urine Yellow (Yellow); Glucose Urine UA Negative (Negative); Ketones Urine Negative (Negative); Leukocyte Esterase Ur 1+ LEU/UL (Negative); Nitrate Urine Negative (Negative); Protein Urine 2+ mg/dL (Negative); Specific Grav Ur 1.015 (1.001-1.035); Urobilinogen Urine 0.2 mg/dL (<2.0)
[2023-07-28 22:08] LABS: Add Urine Microscopic? YES
[2023-07-29] VITALS (21 sets, daily range): BP systolic 137–151; BP diastolic 54–70; PULSE 87–106; RESP 18–30; TEMP 36.7–36.8; O2SAT 94–100
[2023-07-29] MEDS: IPRATROPIUM 0.5 MG/ALBUTEROL SULFATE 2.5 MG AMPUL.NEB 3 ML INHALATION ×5 (03:01→20:33)
[2023-07-29] MEDS: SALINE LOCK FLUSH 20 ML IV PUSH (04:26)
[2023-07-29] MEDS: guaiFENesin/DEXTROMETHORPHAN 10 ML UDC PO ×2 (04:27→21:38)
[2023-07-29 04:29] LABS: Basophils Percent Auto 0.2 % (0.2-1.2); Eosinophils Absolute Auto 0.3 K/mm3 (0-0.3); Eosinophils Percent Auto 3.4 % (0-4.4); Hematocrit 29.4 % (37.0-47.0); Hemoglobin 8.7 g/dL (12.0-15.0); Immature Granulocyte Absolute 0.07 K/mm3 (0.00-0.031); Immature Granulocyte Percent A 0.8 % (0-0.5); Lymphocytes Percent Auto 9.1 % (18.3-44.2); Mean Corpuscular HGB Conc 29.6 g/dl (32-36); Mean Corpuscular Hemoglobin 25.4 pg (26-34); Mean Corpuscular Volume 85.7 fl (80-100); Mean Platelet Volume 11.4 fl (7.4-10.4); Monocytes Absolute Auto 0.7 K/mm3 (0.1-0.6); Monocytes Percent Auto 7.5 % (2.6-8.5); Platelet Count Result 223 k/mm3 (150-375); Red Blood Count 3.43 M/mm3 (4.2-5.4); Red Cell Distribution Width 25.5 % (11.5-14.5); White Blood Count 8.8 K/mm3 (4.5-10.0)
[2023-07-29 04:40] LABS: Alanine Aminotransferase 26 U/L (6-35); Albumin Level 2.9 g/dL (3.5-5.1); Alkaline Phosphatase 108 U/L (38-126); Anion Gap 0 mmol/L (8-16); Aspartate Amino Transferase 27 U/L (14-36); Bilirubin,Total 0.6 mg/dL (0.2-1.3); Blood Urea Nitrogen 10 mg/dL (7-17); Calcium 8.6 mg/dL (8.4-10.2); Carbon Dioxide 35 mmol/L (22-30); Chloride 102 mmol/L (98-107); Estimated CRCL calculation 64 ml/min; Estimated Glomerular Filt Rate > 60; Glucose 113 mg/dL (65-110); Magnesium 1.5 mg/dL (1.6-2.3); Sodium 137 mmol/L (137-145)
[2023-07-29 04:42] LABS: Anisocytosis 1+; Hypochromasia 1+; Microcytosis 1+ (NORMAL); Ovalocytes 1+; Platelet Estimate Adequate (Adequate); Schistocytes None Seen; Stomatocytes 1+
[2023-07-29 05:17] LABS: Glucose Point of Care 188 mg/dl (65-105)
[2023-07-29] MEDS: ACETAMINOPHEN 325 MG TABLET 650 MG PO ×2 (06:49→17:39)
[2023-07-29 08:34] LABS: Glucose Point of Care 120 mg/dl (65-105)
--- NOTE | 2023-07-29 09:59 | PM.IMPN ---
Progress Note: A&P Assessment and Plan (1) HTN (hypertension): Code(s): I10 - Essential (primary) hypertension Status: Acute (2) Shortness of breath: Code(s): R06.02 - Shortness of breath Status: Acute (3) Community acquired pneumonia: Qualifiers: Laterality: unspecified laterality Qualified Code(s): J18.9 - Pneumonia, unspecified organism Code(s): J18.9 - Pneumonia, unspecified organism Status: Acute (4) COPD exacerbation: Code(s): J44.1 - Chronic obstructive pulmonary disease with (acute) exacerbation Status: Acute (5) Adrenal mass: Code(s): E27.8 - Other specified disorders of adrenal gland Status: Acute (6) Altered mental status: Code(s): R41.82 - Altered mental status, unspecified Status: Acute (7) Tobacco abuse: Code(s): Z72.0 - Tobacco use Status: Acute (8) Wheezing: Code(s): R06.2 - Wheezing Status: Acute (9) Anemia: Qualifiers: Anemia type: iron deficiency Code(s): D64.9 - Anemia, unspecified Status: Acute (10) Sepsis: Code(s): A41.9 - Sepsis, unspecified organism Status: Acute Plan 78 y/o F who presented here with worsening shortness of breath for past few days significantly worsened a night before. She recently had a hip replacement done on 07/02/2023. And since then she has required oxygen. Surgery was done at [facility]. She had a follow-up and sutures were taken out with no complications. She started having increased lower extremity swelling and productive cough. On ED evaluation she was afebrile and nontoxic but tachycardic for which nebulizer treatment and steroid was given. Laboratory evaluation showed leukocytosis 16.9 hemoglobin of 9.1 renal function was normal. Influenza COVID RSV was negative. D-dimer is elevated. Bilateral lower extremity venous duplex was negative for DVT. Incision of the left hip showed no signs of infection. CTA chest PE was done which showed no PE but revealed multifocal pneumonia emphysema and 3.9 cm left adrenal mass. Blood culture was also obtained and started on IV antibiotics. Lactate was normal BNP was 1380. Echo performed on 07/19/2023 with EF 65-70% grade 1 diastolic dysfunction. Small anterior pericardial effusion no valvular abnormality was noted. Patient was also noted to be altered and obtunded shortly after presentation. CT head with no acute intracranial process. CTA and head and neck was performed which showed 30% stenosis of the proximal right ICA and 40% stenosis of the proximal left ICA. ABG with pCO2 43 drug screen was negative. Patient was diagnosis sepsis severe sepsis with underlying pneumonia antibiotic coverage was broadened to cover for bacterial meningitis. Lumbar puncture was obtained along with neurology consultation. LP resolved with significantly elevated WBC with neutrophilic predominance and elevated protein concerning for bacterial meningitis. MRI brain did not show any acute lesions a stroke. Blood culture came back positive for Streptococcus pneumonia. She was covered with cefepime vancomycin and ampicillin along with dexamethasone acyclovir. 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 CSF culture is negative however was already loaded with antibiotics and likely will be negative because of this region. Ceftriaxone high dose 2 g every 12 hour Repeat blood cultures negative on 07/23/2023 Ceftriaxone IV total 2 weeks to cover for meningitis and Streptococcus pneumoniae bacteremia. Concludes ceftriaxone on 07/31/2023 Fever spike 07/28/2023 re-cultured. Chest x-ray with improved aeration. UA positive for UTI with budding yeast. Culture sent. Will remove Garland catheter. Oncology was also consulted during the hospital stay for evaluation of left adrenal mass 3. 9 cm which may be an adenoma or metastatic disease. PET-CT is recommended. MRI abdomen was orde
[2023-07-29] MEDS: FERROUS SULFATE 325 MG TABLET DR PO ×2 (10:21→17:39)
[2023-07-29] MEDS: cefTRIAXone 2 GM/NS 100 ML 2 GM/100 ML BAG IVPB ×2 (10:21→21:39)
[2023-07-29] MEDS: amLODIPine BESYLATE 5 MG TABLET PO (10:21)
[2023-07-29] MEDS: ENOXAPARIN 40 MG/0.4 ML SYRINGE SUB-Q (10:21)
[2023-07-29] MEDS: PANTOPRAZOLE 40 MG TABLET PO ×2 (10:21→21:39)
[2023-07-29] MEDS: MAGNESIUM SULF 2 GM/WATER 50ML 2 GM/50 ML BAG IVPB (12:02)
[2023-07-29 12:45] LABS: Glucose Point of Care 137 mg/dl (65-105)
[2023-07-29] MEDS: SALINE LOCK FLUSH 10 ML IV PUSH (15:20)
[2023-07-29 17:18] LABS: Glucose Point of Care 112 mg/dl (65-105)
[2023-07-29] MEDS: IBUPROFEN 400 MG TABLET PO (21:38)
[2023-07-29] MEDS: FLUTICASONE PROPIONATE 0.05% NA SPR 16 GM BTL (*BKC) 1 SPRAY NASAL (21:39)
[2023-07-30] VITALS (22 sets, daily range): BP systolic 131–165; BP diastolic 59–75; PULSE 80–128; RESP 18–40; TEMP 36.6–38.9; O2SAT 94–99
[2023-07-30] MEDS: IPRATROPIUM 0.5 MG/ALBUTEROL SULFATE 2.5 MG AMPUL.NEB 3 ML INHALATION ×7 (00:15→23:21)
[2023-07-30] MEDS: SALINE LOCK FLUSH 10 ML IV PUSH ×3 (02:49→15:45)
[2023-07-30] MEDS: guaiFENesin/DEXTROMETHORPHAN 10 ML UDC PO ×3 (05:55→20:35)
[2023-07-30 06:05] LABS: Eosinophils Absolute Auto 0.2 K/mm3 (0-0.3); Eosinophils Percent Auto 3.3 % (0-4.4); Hematocrit 28.2 % (37.0-47.0); Immature Granulocyte Absolute 0.05 K/mm3 (0.00-0.031); Immature Granulocyte Percent A 0.8 % (0-0.5); Lymphocytes Absolute Auto 0.48 K/mm3 (0.9-3.2); Lymphocytes Percent Auto 7.5 % (18.3-44.2); Mean Corpuscular HGB Conc 28.4 g/dl (32-36); Mean Corpuscular Hemoglobin 25.1 pg (26-34); Mean Corpuscular Volume 88.4 fl (80-100); Mean Platelet Volume 11.3 fl (7.4-10.4); Monocytes Absolute Auto 0.5 K/mm3 (0.1-0.6); Monocytes Percent Auto 7.6 % (2.6-8.5); Neutrophils Absolute Auto 5.2 K/mm3 (1.3-6.7); Neutrophils Percent Auto 80.8 % (45.5-73.1); Platelet Count Result 191 k/mm3 (150-375); Red Blood Count 3.19 M/mm3 (4.2-5.4); Red Cell Distribution Width 25.7 % (11.5-14.5); White Blood Count 6.4 K/mm3 (4.5-10.0)
[2023-07-30 06:15] LABS: Alanine Aminotransferase 26 U/L (6-35); Albumin Level 2.7 g/dL (3.5-5.1); Alkaline Phosphatase 100 U/L (38-126); Anion Gap 0 mmol/L (8-16); Aspartate Amino Transferase 25 U/L (14-36); Bilirubin,Total 0.5 mg/dL (0.2-1.3); Blood Urea Nitrogen 12 mg/dL (7-17); Calcium 8.5 mg/dL (8.4-10.2); Carbon Dioxide 33 mmol/L (22-30); Chloride 105 mmol/L (98-107); Estimated CRCL calculation 63 ml/min; Estimated Glomerular Filt Rate > 60; Glucose 114 mg/dL (65-110); Potassium 3.8 mmol/L (3.4-5.0); Sodium 138 mmol/L (137-145)
[2023-07-30 07:35] LABS: Anisocytosis 1+; Hypochromasia 1+; Macrocytosis 1+ (NORMAL); Platelet Estimate Adequate (Adequate); Schistocytes None Seen
[2023-07-30 08:35] LABS: Glucose Point of Care 193 mg/dl (65-105)
[2023-07-30 08:45] LABS: Glucose Point of Care 121 mg/dl (65-105)
[2023-07-30] MEDS: FERROUS SULFATE 325 MG TABLET DR PO ×2 (10:12→18:05)
[2023-07-30] MEDS: ACETAMINOPHEN 325 MG TABLET 650 MG PO ×2 (10:12→18:13)
[2023-07-30] MEDS: amLODIPine BESYLATE 5 MG TABLET PO (10:12)
[2023-07-30] MEDS: PANTOPRAZOLE 40 MG TABLET PO ×2 (10:12→20:35)
[2023-07-30] MEDS: cefTRIAXone 2 GM/NS 100 ML 2 GM/100 ML BAG IVPB ×2 (10:13→20:34)
[2023-07-30] MEDS: FLUTICASONE PROPIONATE 0.05% NA SPR 16 GM BTL (*BKC) 1 SPRAY NASAL ×2 (10:13→20:35)
[2023-07-30] MEDS: ENOXAPARIN 40 MG/0.4 ML SYRINGE SUB-Q (10:13)
[2023-07-30 12:15] LABS: Glucose Point of Care 124 mg/dl (65-105)
--- NOTE | 2023-07-30 13:39 | P.PNIM_ITS ---
Progress Note: A&P Assessment and Plan (1) HTN (hypertension): Code(s): I10 - Essential (primary) hypertension Status: Acute (2) Shortness of breath: Code(s): R06.02 - Shortness of breath Status: Acute (3) Community acquired pneumonia: Qualifiers: Laterality: unspecified laterality Qualified Code(s): J18.9 - Pneumonia, unspecified organism Code(s): J18.9 - Pneumonia, unspecified organism Status: Acute (4) COPD exacerbation: Code(s): J44.1 - Chronic obstructive pulmonary disease with (acute) exacerbation Status: Acute (5) Adrenal mass: Code(s): E27.8 - Other specified disorders of adrenal gland Status: Acute (6) Altered mental status: Code(s): R41.82 - Altered mental status, unspecified Status: Acute (7) Tobacco abuse: Code(s): Z72.0 - Tobacco use Status: Acute (8) Wheezing: Code(s): R06.2 - Wheezing Status: Acute (9) Anemia: Qualifiers: Anemia type: iron deficiency Code(s): D64.9 - Anemia, unspecified Status: Acute (10) Sepsis: Code(s): A41.9 - Sepsis, unspecified organism Status: Acute Plan 78 y/o F who presented here with worsening shortness of breath for past few days significantly worsened a night before. She recently had a hip replacement done on 07/02/2023. And since then she has required oxygen. Surgery was done at [facility]. She had a follow-up and sutures were taken out with no complications. She started having increased lower extremity swelling and productive cough. On ED evaluation she was afebrile and nontoxic but tachycardic for which nebulizer treatment and steroid was given. Laboratory evaluation showed leukocytosis 16.9 hemoglobin of 9.1 renal function was normal. Influenza COVID RSV was negative. D-dimer is elevated. Bilateral lower extremity venous duplex was negative for DVT. Incision of the left hip showed no signs of infection. CTA chest PE was done which showed no PE but revealed multifocal pneumonia emphysema and 3.9 cm left adrenal mass. Blood culture was also obtained and started on IV antibiotics. Lactate was normal BNP was 1380. Echo performed on 07/19/2023 with EF 65-70% grade 1 diastolic dysfunction. Small anterior pericardial effusion no valvular abnormality was noted. Patient was also noted to be altered and obtunded shortly after presentation. CT head with no acute intracranial process. CTA and head and neck was performed which showed 30% stenosis of the proximal right ICA and 40% stenosis of the proximal left ICA. ABG with pCO2 43 drug screen was negative. Patient was diagnosis sepsis severe sepsis with underlying pneumonia antibiotic coverage was broadened to cover for bacterial meningitis. Lumbar puncture was obtained along with neurology consultation. LP resolved with significantly elevated WBC with neutrophilic predominance and elevated protein concerning for bacterial meningitis. MRI brain did not show any acute lesions a stroke. Blood culture came back positive for Streptococcus pneumonia. She was covered with cefepime vancomycin and ampicillin along with dexamethasone acyclovir. 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 CSF culture is negative however was already loaded with antibiotics and likely will be negative because of this region. Ceftriaxone high dose 2 g every 12 hour Repeat blood cultures negative on 07/23/2023 Ceftriaxone IV total 2 weeks to cover for meningitis and Streptococcus pneumoniae bacteremia. Concludes ceftriaxone on 07/31/2023 Fever spike 07/28/2023 re-cultured. Chest x-ra
--- NOTE | 2023-07-30 14:55 | PCOTNOTE ---
Attempted to see Patient this P.M. Therapist unable to arouse Patient. RN notified and aware. Patient's family present and RN contacting the MD.
--- NOTE | 2023-07-30 15:30 | PCOTNOTE ---
Patient declined to participate, states having increased shortness of breath and RN verbalized she is going to get a medication that will assist with the fluid.
[2023-07-30] MEDS: FUROSEMIDE INJ 40 MG/4 ML VIAL 20 MG IV PUSH (15:44)
--- NOTE | 2023-07-30 15:47 | WPDGICN ---
Assessment and Plan Assessment and plan (1) Chronic anemia: Code(s): D64.9 - Anemia, unspecified Status: Acute Assessment and Plan: anemia probably due to hip surgery, sepsis with bacteremia and meningitis already treated she denies overt gib occult blood + stool but she is still recovering from sepsis and left hip surgery, this is not appropriate time to offer colonoscopy if willing to have one then she can come to office after she is fully recovered in few weeks, she was given my office information (2) Occult blood in stools: Code(s): R19.5 - Other fecal abnormalities Status: Acute Assessment and Plan: no overt gib (3) Bacterial meningitis: Code(s): G00.9 - Bacterial meningitis, unspecified Status: Acute Assessment and Plan: treated (4) Bacteremia due to Streptococcus pneumoniae: Code(s): R78.81 - Bacteremia; B95.3 - Streptococcus pneumoniae as the cause of diseases classified elsewhere Status: Acute (5) Sepsis: Code(s): A41.9 - Sepsis, unspecified organism Status: Acute (6) Community acquired pneumonia: Qualifiers: Laterality: unspecified laterality Qualified Code(s): J18.9 - Pneumonia, unspecified organism Code(s): J18.9 - Pneumonia, unspecified organism Status: Acute (7) History of hip replacement: Onset Date: 07/02/23 Code(s): Z96.649 - Presence of unspecified artificial hip joint Status: Acute GI Consult Note Consult date/time: 07/30/23 15:47 Reason for consult: acute chronic anemia, FOBT HPI: Marsha Pantoja is a 78 year old female who had hip replacement on 07/02/23 at [facility] and discharged then she was found to have dyspnea and sepsis. She was brought initially to ER 07/18/2023 due to concerns for shortness of breath, but developed encephalopathy.. LP results with significantly elevated WBC (with neutrophilic predominance), and elevated protein concerning for bacterial meningitis. MRI brain did not show any acute lesions or stroke (done without contrast). Blood cultures positive for strep and treated with antibiotics accordingly. She has chronic anemia and part of work up included stool that was positive for trace blood but she denies any overt gib, she has normal bowel movement, no abdominal discomfort. She thinks that had colonoscopy but it has been few years ago. She has been recovering and doing much better since prolonged hospitalization. Review of Systems Constitutional: Constitutional: Reports weakness Eyes: Eyes: Denies blurry vision ENT: Reports Normal hearing present Cardiovascular: Cardiovascular: Denies chest pain Respiratory: Respiratory: Denies cough Gastrointestinal: Gastrointestinal: Denies abdominal pain Musculoskeletal: Comments: recent hip surgery Neurologic: Comments: confusion resolved still with headache Psychiatric: Psychiatric: Denies behavioral changes [facility] Past Medical History Medical History (Updated 07/30/23 @ 15:52 by Pratik Grant MD) Chronic anemia History of COPD History of hypertension Occult blood in stools Surgical History Surgical History (Updated 07/30/23 @ 15:52 by Pratik Grant MD) History of hip replacement (07/02/23) done at [facility] Social History Social History Years smoked: 60 Smoking status: Current every day smoker Tobacco type: cigarettes Alcohol intake: never Substance use: never Do You Feel Safe in your Home?: Yes Lack of Transportation: No Lack of Food: Never True Current Housing: I Have Housing Concerned About Future Housing: No Difficulty Paying Gas/Electric Bills: No Difficulty Paying for Meds: No Currently Unemployed: No Education: High School Diploma/GED Difficulty w/ Childcare or Family Care: No Spiritual care concerns: No Meds Home Medications a
[2023-07-30 17:08] LABS: Glucose Point of Care 126 mg/dl (65-105)
[2023-07-30 18:51] LABS: Alveolar/Arterial O2 Gradient 95.1 mmHg; Fractional Inspired Oxygen 28 %; HCO3 ABG 31.8 mEq/l (22.0-26.0); Oxygen Content ABG 13.5 %vol (16.0-22.0); Oxygen Saturation ABG 91.8 % (95.0-100.0); Oxyhemoglobin 90.4 % THb (90.0-100.0); PCO2 ABG 40.8 mmHg (35.0-45.0); PO2 ABG 56.4 mmHg (80.0-100.0); PO2 FiO2 Ratio Arterial Blood 2.01 %; Total Hemoglobin 10.6 g/dL (12.0-18.0)
[2023-07-30 18:54] LABS: Device NASAL CANNULA; Modified Allen's Test Pass; Site Drawn LEFT RADIAL; pH ABG 7.509 (7.350-7.450)
[2023-07-30 19:02] LABS: Lactic Acid Reflex 0.9 mmol/L (0.7-2.0)
[2023-07-30 19:07] LABS: Basophils Percent Auto 0.2 % (0.2-1.2); Eosinophils Absolute Auto 0.2 K/mm3 (0-0.3); Eosinophils Percent Auto 2.1 % (0-4.4); Hematocrit 31.6 % (37.0-47.0); Hemoglobin 9.4 g/dL (12.0-15.0); Immature Granulocyte Absolute 0.05 K/mm3 (0.00-0.031); Immature Granulocyte Percent A 0.5 % (0-0.5); Immature Platelet Fraction Pct 7.2 % (0.9-11.2); Lymphocytes Absolute Auto 0.48 K/mm3 (0.9-3.2); Lymphocytes Percent Auto 4.6 % (18.3-44.2); Mean Corpuscular HGB Conc 29.7 g/dl (32-36); Mean Corpuscular Hemoglobin 25.3 pg (26-34); Mean Corpuscular Volume 84.9 fl (80-100); Mean Platelet Volume 12.4 fl (7.4-10.4); Monocytes Absolute Auto 0.5 K/mm3 (0.1-0.6); Monocytes Percent Auto 5.2 % (2.6-8.5); Neutrophils Absolute Auto 9.1 K/mm3 (1.3-6.7); Neutrophils Percent Auto 87.4 % (45.5-73.1); Platelet Count Result 233 k/mm3 (150-375); Red Blood Count 3.72 M/mm3 (4.2-5.4); Red Cell Distribution Width 25.8 % (11.5-14.5); White Blood Count 10.4 K/mm3 (4.5-10.0)
[2023-07-30 19:17] LABS: Alanine Aminotransferase 29 U/L (6-35); Albumin Level 3.4 g/dL (3.5-5.1); Alkaline Phosphatase 133 U/L (38-126); Anion Gap 2 mmol/L (8-16); Aspartate Amino Transferase 28 U/L (14-36); Bilirubin,Total 0.7 mg/dL (0.2-1.3); Blood Urea Nitrogen 13 mg/dL (7-17); Carbon Dioxide 34 mmol/L (22-30); Chloride 100 mmol/L (98-107); Estimated CRCL calculation 48 ml/min; Estimated Glomerular Filt Rate > 60; Glucose 123 mg/dL (65-110); Potassium 4.1 mmol/L (3.4-5.0); Sodium 136 mmol/L (137-145)
[2023-07-30 20:21] LABS: Platelet Estimate Adequate (Adequate); Schistocytes None Seen
[2023-07-30 20:22] LABS: Anisocytosis 3+; Hypochromasia 1+
[2023-07-30] MEDS: MICAFUNGIN SODIUM 100 MG in SODIUM CHLORIDE 0.9% IV 100 ML IVPB (20:33)
[2023-07-30] MEDS: SODIUM CHLORIDE 0.9% IV 250 ML IV CONT (20:34)
[2023-07-30] MEDS: IBUPROFEN 400 MG TABLET PO (20:35)
[2023-07-31] VITALS (24 sets, daily range): BP systolic 143–153; BP diastolic 53–63; PULSE 83–106; RESP 18–30; TEMP 36.3–37.2; O2SAT 92–100
[2023-07-31] MEDS: IPRATROPIUM 0.5 MG/ALBUTEROL SULFATE 2.5 MG AMPUL.NEB 3 ML INHALATION ×6 (03:00→23:22)
[2023-07-31] MEDS: guaiFENesin/DEXTROMETHORPHAN 10 ML UDC PO ×3 (05:44→20:36)
[2023-07-31] MEDS: SALINE LOCK FLUSH 10 ML IV PUSH ×4 (05:44→20:37)
[2023-07-31] MEDS: ACETAMINOPHEN 325 MG TABLET 650 MG PO ×2 (05:49→14:55)
[2023-07-31 06:17] LABS: Basophils Percent Auto 0.3 % (0.2-1.2); Eosinophils Absolute Auto 0.2 K/mm3 (0-0.3); Eosinophils Percent Auto 2.8 % (0-4.4); Hematocrit 28.3 % (37.0-47.0); Hemoglobin 8.2 g/dL (12.0-15.0); Immature Granulocyte Absolute 0.04 K/mm3 (0.00-0.031); Immature Granulocyte Percent A 0.6 % (0-0.5); Lymphocytes Absolute Auto 0.47 K/mm3 (0.9-3.2); Lymphocytes Percent Auto 7.2 % (18.3-44.2); Mean Corpuscular Hemoglobin 25.5 pg (26-34); Mean Corpuscular Volume 87.9 fl (80-100); Mean Platelet Volume 11.9 fl (7.4-10.4); Monocytes Absolute Auto 0.4 K/mm3 (0.1-0.6); Monocytes Percent Auto 6.3 % (2.6-8.5); Neutrophils Absolute Auto 5.4 K/mm3 (1.3-6.7); Neutrophils Percent Auto 82.8 % (45.5-73.1); Platelet Count Result 232 k/mm3 (150-375); Red Blood Count 3.22 M/mm3 (4.2-5.4); Red Cell Distribution Width 26.1 % (11.5-14.5); White Blood Count 6.5 K/mm3 (4.5-10.0)
[2023-07-31 06:31] LABS: Alanine Aminotransferase 22 U/L (6-35); Albumin Level 2.9 g/dL (3.5-5.1); Alkaline Phosphatase 105 U/L (38-126); Anion Gap 1 mmol/L (8-16); Aspartate Amino Transferase 20 U/L (14-36); Bilirubin,Total 0.5 mg/dL (0.2-1.3); Blood Urea Nitrogen 13 mg/dL (7-17); Calcium 8.5 mg/dL (8.4-10.2); Carbon Dioxide 35 mmol/L (22-30); Chloride 103 mmol/L (98-107); Estimated CRCL calculation 54 ml/min; Estimated Glomerular Filt Rate > 60; Glucose 104 mg/dL (65-110); Magnesium 1.9 mg/dL (1.6-2.3); Potassium 3.5 mmol/L (3.4-5.0); Sodium 139 mmol/L (137-145)
[2023-07-31 08:35] LABS: Glucose Point of Care 135 mg/dl (65-105)
[2023-07-31 08:43] LABS: Glucose Point of Care 102 mg/dl (65-105)
[2023-07-31] MEDS: amLODIPine BESYLATE 5 MG TABLET PO (09:41)
[2023-07-31] MEDS: FERROUS SULFATE 325 MG TABLET DR PO ×2 (09:41→16:50)
[2023-07-31] MEDS: PANTOPRAZOLE 40 MG TABLET PO ×2 (09:41→20:37)
[2023-07-31] MEDS: cefTRIAXone 2 GM/NS 100 ML 2 GM/100 ML BAG IVPB ×2 (09:42→20:36)
[2023-07-31] MEDS: FLUTICASONE PROPIONATE 0.05% NA SPR 16 GM BTL (*BKC) 1 SPRAY NASAL ×2 (09:42→20:37)
[2023-07-31 12:23] LABS: Glucose Point of Care 149 mg/dl (65-105)
--- NOTE | 2023-07-31 12:53 | PM.IMPN ---
Progress Note: A&P Assessment and Plan (1) HTN (hypertension): Code(s): I10 - Essential (primary) hypertension Status: Acute (2) Shortness of breath: Code(s): R06.02 - Shortness of breath Status: Acute (3) Community acquired pneumonia: Qualifiers: Laterality: unspecified laterality Qualified Code(s): J18.9 - Pneumonia, unspecified organism Code(s): J18.9 - Pneumonia, unspecified organism Status: Acute (4) COPD exacerbation: Code(s): J44.1 - Chronic obstructive pulmonary disease with (acute) exacerbation Status: Acute (5) Adrenal mass: Code(s): E27.8 - Other specified disorders of adrenal gland Status: Acute (6) Altered mental status: Code(s): R41.82 - Altered mental status, unspecified Status: Acute (7) Tobacco abuse: Code(s): Z72.0 - Tobacco use Status: Acute (8) Wheezing: Code(s): R06.2 - Wheezing Status: Acute (9) Anemia: Qualifiers: Anemia type: iron deficiency Code(s): D64.9 - Anemia, unspecified Status: Acute (10) Sepsis: Code(s): A41.9 - Sepsis, unspecified organism Status: Acute Plan 78 y/o F who presented here with worsening shortness of breath for past few days significantly worsened a night before. She recently had a hip replacement done on 07/02/2023. And since then she has required oxygen. Surgery was done at [facility]. She had a follow-up and sutures were taken out with no complications. She started having increased lower extremity swelling and productive cough. On ED evaluation she was afebrile and nontoxic but tachycardic for which nebulizer treatment and steroid was given. Laboratory evaluation showed leukocytosis 16.9 hemoglobin of 9.1 renal function was normal. Influenza COVID RSV was negative. D-dimer is elevated. Bilateral lower extremity venous duplex was negative for DVT. Incision of the left hip showed no signs of infection. CTA chest PE was done which showed no PE but revealed multifocal pneumonia emphysema and 3.9 cm left adrenal mass. Blood culture was also obtained and started on IV antibiotics. Lactate was normal BNP was 1380. Echo performed on 07/19/2023 with EF 65-70% grade 1 diastolic dysfunction. Small anterior pericardial effusion no valvular abnormality was noted. Patient was also noted to be altered and obtunded shortly after presentation. CT head with no acute intracranial process. CTA and head and neck was performed which showed 30% stenosis of the proximal right ICA and 40% stenosis of the proximal left ICA. ABG with pCO2 43 drug screen was negative. Patient was diagnosis sepsis severe sepsis with underlying pneumonia antibiotic coverage was broadened to cover for bacterial meningitis. Lumbar puncture was obtained along with neurology consultation. LP resolved with significantly elevated WBC with neutrophilic predominance and elevated protein concerning for bacterial meningitis. MRI brain did not show any acute lesions a stroke. Blood culture came back positive for Streptococcus pneumonia. She was covered with cefepime vancomycin and ampicillin along with dexamethasone acyclovir. 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 CSF culture is negative however was already loaded with antibiotics and likely will be negative because of this region. Ceftriaxone high dose 2 g every 12 hour Repeat blood cultures negative on 07/23/2023 Ceftriaxone IV total 2 weeks to cover for meningitis and Streptococcus pneumoniae bacteremia. Concludes ceftriaxone on 07/31/2023 Fever spike 07/28/2023 re-cultured. Chest x-ray with improved aeration. UA positive for UTI with budding yeast. Culture sent. sequeira catheter removed. Fever spiked again 07/30/2023. Chest x-ray unchanged likely related to candiduria. Will start micafungin blood culture pending. Oncology was also consulted during the hospital stay for eval
--- NOTE | 2023-07-31 16:02 | PCOTNOTE ---
Attempted to see Patient at this time. Patient was up in the chair and had several family members present at this time. Patient and her granddaughter verbalized she had done a lot of PT thia date and is worn out. Patient stated she is due to for more pain medication due to her horrible headaches. Patient declined to participate this afternoon and stated she will attempt tomorrow. Therapist educated Patient on increasing her endurance for activity tolerance for progression. Patient states she understands.
[2023-07-31 17:20] LABS: Glucose Point of Care 171 mg/dl (65-105)
[2023-07-31] MEDS: FLUCONAZOLE 100 MG TABLET 200 MG PO (20:36)
[2023-08-01] VITALS (20 sets, daily range): BP systolic 145–150; BP diastolic 58–89; PULSE 88–112; RESP 18–28; TEMP 36.3–37.9; O2SAT 94–98
[2023-08-01] MEDS: ACETAMINOPHEN 325 MG TABLET 650 MG PO ×2 (04:04→13:54)
[2023-08-01] MEDS: IPRATROPIUM 0.5 MG/ALBUTEROL SULFATE 2.5 MG AMPUL.NEB 3 ML INHALATION ×4 (04:05→19:52)
[2023-08-01 04:18] LABS: Basophils Percent Auto 0.3 % (0.2-1.2); Eosinophils Absolute Auto 0.2 K/mm3 (0-0.3); Eosinophils Percent Auto 2.5 % (0-4.4); Hematocrit 27.8 % (37.0-47.0); Hemoglobin 8.2 g/dL (12.0-15.0); Immature Granulocyte Absolute 0.02 K/mm3 (0.00-0.031); Immature Granulocyte Percent A 0.3 % (0-0.5); Lymphocytes Absolute Auto 0.49 K/mm3 (0.9-3.2); Lymphocytes Percent Auto 7.1 % (18.3-44.2); Mean Corpuscular HGB Conc 29.5 g/dl (32-36); Mean Corpuscular Hemoglobin 25.5 pg (26-34); Mean Corpuscular Volume 86.3 fl (80-100); Mean Platelet Volume 11.3 fl (7.4-10.4); Monocytes Absolute Auto 0.5 K/mm3 (0.1-0.6); Monocytes Percent Auto 6.5 % (2.6-8.5); Neutrophils Absolute Auto 5.8 K/mm3 (1.3-6.7); Neutrophils Percent Auto 83.3 % (45.5-73.1); Platelet Count Result 235 k/mm3 (150-375); Red Blood Count 3.22 M/mm3 (4.2-5.4); Red Cell Distribution Width 25.1 % (11.5-14.5); White Blood Count 6.9 K/mm3 (4.5-10.0)
[2023-08-01 04:28] LABS: Alanine Aminotransferase 21 U/L (6-35); Alkaline Phosphatase 114 U/L (38-126); Anion Gap 2 mmol/L (4-12); Aspartate Amino Transferase 22 U/L (14-36); Bilirubin,Total 0.5 mg/dL (0.2-1.3); Blood Urea Nitrogen 12 mg/dL (7-17); Calcium 8.8 mg/dL (8.4-10.2); Carbon Dioxide 31 mmol/L (22-30); Chloride 103 mmol/L (98-107); Estimated CRCL calculation 62 ml/min; Estimated Glomerular Filt Rate > 60; Glucose 111 mg/dL (65-110); Magnesium 1.8 mg/dL (1.6-2.3); Potassium 3.8 mmol/L (3.4-5.0); Sodium 136 mmol/L (137-145)
[2023-08-01 04:33] LABS: Glucose Point of Care 153 mg/dl (65-105)
[2023-08-01 04:49] LABS: Anisocytosis 2+; Hypochromasia 1+; Ovalocytes 1+; Platelet Estimate Adequate (Adequate); Schistocytes None Seen
[2023-08-01] MEDS: guaiFENesin/DEXTROMETHORPHAN 10 ML UDC PO (05:55)
[2023-08-01] MEDS: SALINE LOCK FLUSH 10 ML IV PUSH ×2 (06:44→13:55)
[2023-08-01] MEDS: FERROUS SULFATE 325 MG TABLET DR PO ×2 (08:13→16:13)
[2023-08-01] MEDS: FLUTICASONE PROPIONATE 0.05% NA SPR 16 GM BTL (*BKC) 1 SPRAY NASAL ×2 (08:13→20:39)
[2023-08-01] MEDS: amLODIPine BESYLATE 5 MG TABLET PO (08:13)
[2023-08-01] MEDS: PANTOPRAZOLE 40 MG TABLET PO ×2 (08:13→20:39)
[2023-08-01 08:29] LABS: Glucose Point of Care 123 mg/dl (65-105)
[2023-08-01 12:40] LABS: Glucose Point of Care 135 mg/dl (65-105)
--- NOTE | 2023-08-01 16:05 | PM.DS ---
DS: Admitting Diagnosis Discharge Date 08/02/23 Admitting Diagnosis Shortness of breath DS: Discharge Diagnosis Discharge Diagnosis (1) Sepsis: Code(s): A41.9 - Sepsis, unspecified organism Status: Acute (2) Bacterial meningitis: Code(s): G00.9 - Bacterial meningitis, unspecified Status: Acute (3) Altered mental status: Code(s): R41.82 - Altered mental status, unspecified Status: Acute (4) Community acquired pneumonia: Qualifiers: Laterality: unspecified laterality Qualified Code(s): J18.9 - Pneumonia, unspecified organism Code(s): J18.9 - Pneumonia, unspecified organism Status: Acute (5) COPD exacerbation: Code(s): J44.1 - Chronic obstructive pulmonary disease with (acute) exacerbation Status: Acute (6) HTN (hypertension): Code(s): I10 - Essential (primary) hypertension Status: Acute (7) Adrenal mass: Code(s): E27.8 - Other specified disorders of adrenal gland Status: Acute (8) Anemia: Qualifiers: Anemia type: iron deficiency Code(s): D64.9 - Anemia, unspecified Status: Acute (9) Tobacco abuse: Code(s): Z72.0 - Tobacco use Status: Acute (10) History of hip replacement: Onset Date: 07/02/23 Code(s): Z96.649 - Presence of unspecified artificial hip joint Status: Acute DS: Summary Hospital Course Reason for hospitalization: 78yo female with recent hip fracture repair here for shortness of breath. Please see H&P for details. Hospital Course: Patient presented with worsening shortness of breath for past few days significantly worsened the night before admission. She recently had a hip replacement done on 07/02/2023 and since then she has required oxygen. Surgery was done at [facility]. She started having increased lower extremity swelling and productive cough. On ED evaluation she was afebrile and nontoxic but tachycardic for which nebulizer treatment and steroid was given. Leukocytosis 16.9, Hgb 9.1 and renal function was normal. Influenza, COVID and RSV PCR was negative. D-dimer was elevated. Bilateral lower extremity venous duplex was negative for DVT. Incision of the left hip showed no signs of infection. CTA chest showed no PE but revealed multifocal pneumonia, emphysema and 3.9 cm left adrenal mass. Blood culture obtained and started on IV antibiotics. Lactate was normal and BNP was 1380. Echo performed on 07/19/2023 with EF 65-70% grade 1 diastolic dysfunction. Small anterior pericardial effusion but no valvular abnormality was noted. Patient was also noted to be altered and obtunded shortly after presentation. CT head with no acute intracranial process. CTA head and neck showed 30% stenosis of the proximal right ICA and 40% stenosis of the proximal left ICA. ABG with pCO2 43. Urine drug screen was negative. Patient was diagnosis with severe sepsis from underlying pneumonia. Antibiotic coverage was broadened to cover for bacterial meningitis as well given the AMS. Lumbar puncture was obtained along with neurology consultation. LP with significantly elevated WBC with neutrophilic predominance and elevated protein concerning for bacterial meningitis. MRI brain did not show any acute lesions or stroke. Blood culture came back positive for Streptococcus pneumonia. She was covered with cefepime, vancomycin and ampicillin along with dexamethasone and acyclovir. 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 CSF culture is negative but was already on antibiotics and likely will be negative because of this reason. Ceftriaxone high dose 2 g every 12 hour. MRSA nasal swab was negative. Repeat blood cultures negative on 07/23/2023. HSV PCR negative so acyclovir stopped. Fever spike 07/28/23 so patient was re-cultured. Chest x-ray with improved aeration. UA positive for UTI with budding yeast. Cultures sent. Garland cat
--- NOTE | 2023-08-01 16:32 | PM.IMPN ---
Progress Note: A&P Assessment and Plan (1) Sepsis: Code(s): A41.9 - Sepsis, unspecified organism Status: Acute (2) Bacterial meningitis: Code(s): G00.9 - Bacterial meningitis, unspecified Status: Acute (3) Altered mental status: Code(s): R41.82 - Altered mental status, unspecified Status: Acute (4) Community acquired pneumonia: Qualifiers: Laterality: unspecified laterality Qualified Code(s): J18.9 - Pneumonia, unspecified organism Code(s): J18.9 - Pneumonia, unspecified organism Status: Acute (5) COPD exacerbation: Code(s): J44.1 - Chronic obstructive pulmonary disease with (acute) exacerbation Status: Acute (6) HTN (hypertension): Code(s): I10 - Essential (primary) hypertension Status: Acute (7) Adrenal mass: Code(s): E27.8 - Other specified disorders of adrenal gland Status: Acute (8) Anemia: Qualifiers: Anemia type: iron deficiency Code(s): D64.9 - Anemia, unspecified Status: Acute (9) Tobacco abuse: Code(s): Z72.0 - Tobacco use Status: Acute (10) History of hip replacement: Onset Date: 07/02/23 Code(s): Z96.649 - Presence of unspecified artificial hip joint Status: Acute Plan Patient presented with worsening shortness of breath for past few days significantly worsened a night before. She recently had a hip replacement done on 07/02/2023 and since then she has required oxygen. Surgery was done at [facility]. She started having increased lower extremity swelling and productive cough. On ED evaluation she was afebrile and nontoxic but tachycardic for which nebulizer treatment and steroid was given. Leukocytosis 16.9, Hgb 9.1 and renal function was normal. Influenza, COVID and RSV PCR was negative. D-dimer was elevated. Bilateral lower extremity venous duplex was negative for DVT. Incision of the left hip showed no signs of infection. CTA chest PE showed no PE but revealed multifocal pneumonia, emphysema and 3.9 cm left adrenal mass. Blood culture obtained and started on IV antibiotics. Lactate was normal and BNP was 1380. Echo performed on 07/19/2023 with EF 65-70% grade 1 diastolic dysfunction. Small anterior pericardial effusion but no valvular abnormality was noted. Patient was also noted to be altered and obtunded shortly after presentation. CT head with no acute intracranial process. CTA head and neck showed 30% stenosis of the proximal right ICA and 40% stenosis of the proximal left ICA. ABG with pCO2 43. Urine drug screen was negative. Patient was diagnosis sepsis severe sepsis with underlying pneumonia. Antibiotic coverage was broadened to cover for bacterial meningitis. Lumbar puncture was obtained along with neurology consultation. LP with significantly elevated WBC with neutrophilic predominance and elevated protein concerning for bacterial meningitis. MRI brain did not show any acute lesions or stroke. Blood culture came back positive for Streptococcus pneumonia. She was covered with cefepime vancomycin and ampicillin along with dexamethasone and acyclovir. 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 CSF culture is negative but was already on antibiotics and likely will be negative because of this reason. Ceftriaxone high dose 2 g every 12 hour. MRSA nasal seab was negative. Repeat blood cultures negative on 07/23/2023. HSV PCR negative so acyclovir stopped. Repeat BCx negative. Fever spike 07/28/2023 so patient was re-cultured. Chest x-ray with improved aeration. UA positive for UTI with budding yeast. Culture sent. Garland catheter removed. Fever spiked again 07/30/2023. Chest x-ray unchanged and showing diffuse lung disease c/w PNA vs edema. Given her presentation, still felt resolving PNA. Repeat BCx (07/27) remained negative. Fever likely related to candiduria and started on Diflucan. Concluded ceftriaxone on
[2023-08-01 17:28] LABS: Glucose Point of Care 156 mg/dl (65-105)
[2023-08-01] MEDS: NEOMYCIN/POLYMYXIN/BACITRACIN OINTMENT PACKET 1 PACKET TOPICAL (18:15)
[2023-08-01] MEDS: MELATONIN 3 MG TABLET PO (20:39)
[2023-08-01] MEDS: FLUCONAZOLE 100 MG TABLET 200 MG PO (20:39)
[2023-08-02] VITALS (13 sets, daily range): BP systolic 153–158; BP diastolic 53–59; PULSE 84–112; RESP 16–20; TEMP 36.8–36.9; O2SAT 94–95
[2023-08-02 00:03] LABS: Glucose Point of Care 182 mg/dl (65-105)
[2023-08-02] MEDS: IPRATROPIUM 0.5 MG/ALBUTEROL SULFATE 2.5 MG AMPUL.NEB 3 ML INHALATION ×3 (01:58→13:35)
[2023-08-02 06:21] LABS: Basophils Percent Auto 0.3 % (0.2-1.2); Eosinophils Absolute Auto 0.2 K/mm3 (0-0.3); Eosinophils Percent Auto 2.5 % (0-4.4); Hematocrit 27.5 % (37.0-47.0); Hemoglobin 7.9 g/dL (12.0-15.0); Immature Granulocyte Absolute 0.04 K/mm3 (0.00-0.031); Immature Granulocyte Percent A 0.6 % (0-0.5); Lymphocytes Absolute Auto 0.65 K/mm3 (0.9-3.2); Lymphocytes Percent Auto 9.6 % (18.3-44.2); Mean Corpuscular HGB Conc 28.7 g/dl (32-36); Mean Corpuscular Hemoglobin 25.2 pg (26-34); Mean Corpuscular Volume 87.6 fl (80-100); Mean Platelet Volume 11.9 fl (7.4-10.4); Monocytes Absolute Auto 0.4 K/mm3 (0.1-0.6); Monocytes Percent Auto 6.2 % (2.6-8.5); Neutrophils Absolute Auto 5.5 K/mm3 (1.3-6.7); Neutrophils Percent Auto 80.8 % (45.5-73.1); Platelet Count Result 253 k/mm3 (150-375); Red Blood Count 3.14 M/mm3 (4.2-5.4); White Blood Count 6.8 K/mm3 (4.5-10.0)
[2023-08-02 06:40] LABS: Anion Gap 1 mmol/L (4-12); Blood Urea Nitrogen 13 mg/dL (7-17); Calcium 8.9 mg/dL (8.4-10.2); Carbon Dioxide 31 mmol/L (22-30); Chloride 105 mmol/L (98-107); Estimated CRCL calculation 62 ml/min; Estimated Glomerular Filt Rate > 60; Glucose 129 mg/dL (65-110); Potassium 3.7 mmol/L (3.4-5.0); Sodium 137 mmol/L (137-145)
[2023-08-02] MEDS: ACETAMINOPHEN 325 MG TABLET 650 MG PO (06:49)
[2023-08-02 07:04] LABS: Anisocytosis 1+; Hypochromasia 2+; Ovalocytes 1+; Platelet Estimate Adequate (Adequate); Poikilocytosis 1+
[2023-08-02 07:05] LABS: Schistocytes None Seen
[2023-08-02 07:58] LABS: Glucose Point of Care 138 mg/dl (65-105)
[2023-08-02] MEDS: FERROUS SULFATE 325 MG TABLET DR PO ×2 (09:02→17:16)
[2023-08-02] MEDS: FLUTICASONE PROPIONATE 0.05% NA SPR 16 GM BTL (*BKC) 1 SPRAY NASAL (09:02)
[2023-08-02] MEDS: amLODIPine BESYLATE 5 MG TABLET PO (09:02)
[2023-08-02] MEDS: PANTOPRAZOLE 40 MG TABLET PO (09:02)
[2023-08-02 11:13] LABS: Hematocrit 28.2 % (37.0-47.0)
[2023-08-02 11:52] LABS: Glucose Point of Care 165 mg/dl (65-105)
--- NOTE | 2023-08-02 14:34 | P.DS_ITS ---
DS: Admitting Diagnosis Discharge Date 08/02/23 Admitting Diagnosis Shortness of breath DS: Discharge Diagnosis Discharge Diagnosis (1) Sepsis: Code(s): A41.9 - Sepsis, unspecified organism Status: Acute (2) Bacterial meningitis: Code(s): G00.9 - Bacterial meningitis, unspecified Status: Acute (3) Altered mental status: Code(s): R41.82 - Altered mental status, unspecified Status: Acute (4) Community acquired pneumonia: Qualifiers: Laterality: unspecified laterality Qualified Code(s): J18.9 - Pneumonia, unspecified organism Code(s): J18.9 - Pneumonia, unspecified organism Status: Acute (5) COPD exacerbation: Code(s): J44.1 - Chronic obstructive pulmonary disease with (acute) exacerbation Status: Acute (6) HTN (hypertension): Code(s): I10 - Essential (primary) hypertension Status: Acute (7) Adrenal mass: Code(s): E27.8 - Other specified disorders of adrenal gland Status: Acute (8) Anemia: Qualifiers: Anemia type: iron deficiency Code(s): D64.9 - Anemia, unspecified Status: Acute (9) Tobacco abuse: Code(s): Z72.0 - Tobacco use Status: Acute (10) History of hip replacement: Onset Date: 07/02/23 Code(s): Z96.649 - Presence of unspecified artificial hip joint Status: Acute DS: Summary Hospital Course Reason for hospitalization: 78yo female with recent hip fracture repair here for shortness of breath. Please see H&P for details. Hospital Course: Patient presented with worsening shortness of breath for past few days significantly worsened the night before admission. She recently had a hip replacement done on 07/02/2023 and since then she has required oxygen. Surgery was done at [facility]. She started having increased lower extremity swelling and productive cough. On ED evaluation she was afebrile and nontoxic but tachycardic for which nebulizer treatment and steroid was given. Leukocytosis 16.9, Hgb 9.1 and renal function was normal. Influenza, COVID and RSV PCR was negative. D-dimer was elevated. Bilateral lower extremity venous duplex was negative for DVT. Incision of the left hip showed no signs of infection. CTA chest showed no PE but revealed multifocal pneumonia, emphysema and 3.9 cm left adrenal mass. Blood culture obtained and started on IV antibiotics. Lactate was normal and BNP was 1380. Echo performed on 07/19/2023 with EF 65-70% grade 1 diastolic dysfunction. Small anterior pericardial effusion but no valvular abnormality was noted. Patient was also noted to be altered and obtunded shortly after presentation. CT head with no acute intracranial process. CTA head and neck showed 30% stenosis of the proximal right ICA and 40% stenosis of the proximal left ICA. ABG with pCO2 43. Urine drug screen was negative. Patient was diagnosis with severe sepsis from underlying pneumonia. Antibiotic coverage was broadened to cover for bacterial meningitis as well given the AMS. Lumbar puncture was obtained along with neurology consultation. LP with significantly elevated WBC with neutrophilic predominance and elevated protein concerning for bacterial meningitis. MRI brain did not show any acute lesions or stroke. Blood culture came back positive for Streptococcus pneumonia. She was covered with cefepime, vancomycin and ampicillin along with dexamethasone and acyclovir. 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 CSF culture is negative but was already on antibiotics and likely
[2023-08-02 16:49] LABS: Glucose Point of Care 147 mg/dl (65-105)
[2023-08-03 15:27] LABS: Serotonin 30 ng/mL (56-244)
== END 2023-08-02 17:45 | DRG 871 ==
LOC: ANHED 12:37 → ANH3MEDSUR 13:42 → ANHIMU 21:16 → ANH3MED 07-24 17:35
PROVIDERS: Family Medicine; General Practice; Internal Medicine; Nurse Practitioner Family; Student in an Organized Health Care Education/Training Program; Admitting Provider Internal Medicine; Emergency Provider Physician Assistant; PCP Internal Medicine; Visit Provider Family Medicine
DX: A40.3 Sepsis due to Streptococcus pneumoniae (principal); G00.9 Bacterial meningitis, unspecified; J18.9 Pneumonia, unspecified organism; R65.20 Severe sepsis without septic shock; G92.8 Other toxic encephalopathy; B37.49 Other urogenital candidiasis; I67.89 Other cerebrovascular disease; J44.1 Chronic obstructive pulmonary disease with (acute) exacerbation; J96.10 Chronic respiratory failure, unspecified whether with hypoxia or hypercapnia; D63.8 Anemia in other chronic diseases classified elsewhere; D50.9 Iron deficiency anemia, unspecified; E27.9 Disorder of adrenal gland, unspecified; F17.210 Nicotine dependence, cigarettes, uncomplicated; I10 Essential (primary) hypertension; J43.9 Emphysema, unspecified; R60.9 Edema, unspecified; Z86.711 Personal history of pulmonary embolism; Z86.718 Personal history of other venous thrombosis and embolism; Z79.01 Long term (current) use of anticoagulants; Z95.828 Presence of other vascular implants and grafts; Z99.81 Dependence on supplemental oxygen; Z96.642 Presence of left artificial hip joint; Z20.822 Contact with and (suspected) exposure to COVID-19
CPT/HCPCS: 36415; 36430; 36569; 36600; 62328; 70450; 70496; 70498; 70551; 71045; 71046; 71275; 74183; 80048; 80053; 80061; 80202; 80307; 81001; 82274; 82607; 82728; 82746; 82805; 82945; 82948; 83036; 83540; 83550; 83605; 83735; 83880; 83921; 84145; 84157; 84238; 84260; 84484; 85014; 85018; 85025; 85055; 85380; 85610; 85730; 86316; 86403; 86592; 86617; 86787; 86788; 86850; 86900; 86901; 86923; 87040; 87070; 87077; 87086; 87088; 87102; 87106; 87181; 87206; 87255; 87449; 87529; 87637; 87641; 87798; 87899; 89051; 93005; 93970; 94640; 94667; 94668; 96365; 96367; 96375; 96376; 97110; 97116; 97162; 97166; 97530; 97535; 99285; A9270; A9577; C8929; C9113; G0378; J0133; J0290; J0456; J0692; J0696; J1100; J1650; J1756; J1815; J1885; J1940; J2060; J2248; J2930; J3370; J3475; J7030; J7050; J7060; P9016; Q9957; Q9967

== ENCOUNTER 2024-07-03 08:23 | Outpatient (CLI) | payer MEDICARE, SELFPAY | END 2024-07-03 08:24 | disposition home or self-care (01) | LOC: MICIMG 08:25 | PROVIDERS: PCP Internal Medicine; Visit Provider Internal Medicine | DX: M54.41 Lumbago with sciatica, right side (principal); M43.06 Spondylolysis, lumbar region | CPT/HCPCS: 72148 ==

== ENCOUNTER 2024-09-10 11:25 | Emergency (ER) | payer MEDICARE, SELFPAY ==
[2024-09-10 11:40] VITALS: BP 169/76; PULSE 74; RESP 17; TEMP 36.6; O2SAT 96
--- NOTE | 2024-09-10 11:43 | ED_ITS ---
HPI - Skin/Abscess/Foreign Bdy General Chief complaint: Skin/Abscess/Foreign Body Stated complaint: wound laceration Time Seen by Provider: 09/10/24 11:43 Source: patient Mode of arrival: ambulatory Limitations: no limitations History of Present Illness HPI narrative: 79-year-old female presents with complaint of abrasion to right lower extremity for 2 weeks. Tripped going up stairs and hit concrete stairs. Has been applying Neosporin and hydrogen peroxide to wound. Over the past 3 days has had increased swelling with redness and tenderness. Concern for infection. All systems reviewed and negative except as noted above. Related Data Home Medications ?Medication ?Instructions ?Recorded ?Confirmed ?Last Taken ?Type amlodipine 5 mg tablet (Norvasc) 5 mg PO DAILY 07/18/23 07/18/23 Unknown History budesonide 160 mcg-glycopyr 9 See Rx Instructions .Route .COMPLEX 07/18/23 07/18/23 Unknown History mcg-formot 4.8 mcg/actuation HFA inhaler (Breztri Cloudy.frphere) calcium 315 mg (as See Rx Instructions .Route .COMPLEX 07/18/23 07/18/23 Unknown History citrate)-ergocalciferol 5 mcg (200 unit) tablet escitalopram oxalate 5 mg tablet 5 mg DAILY 07/18/23 07/18/23 Unknown History folic acid 1 mg tablet 1 mg PO DAILY 07/18/23 07/18/23 Unknown History hydralazine 100 mg tablet 100 mg PO DAILY 07/18/23 07/18/23 Unknown History ipratropium 0.5 mg-albuterol 3 mg See Rx Instructions .Route 07/18/23 07/18/23 Unknown History (2.5 mg base)/3 mL nebulization .COMPLEX PRN wheezing or shortness soln of breath losartan 100 See Rx Instructions .Route .COMPLEX 07/18/23 07/18/23 Unknown History mg-hydrochlorothiazide 12.5 mg tablet omeprazole 40 mg capsule,delayed 40 mg PO DAILY 07/18/23 07/18/23 Unknown History release vit C 250 mg-vit E 90 mg-zinc 40 See Rx Instructions .Route .COMPLEX 07/18/23 07/18/23 Unknown History mg-copper 1 [id number] capsule (PreserVision AREDS-2) melatonin 5 mg tablet 5 mg PO HS 08/02/23 08/02/23 Unknown History alendronate 70 mg tablet mg PO 09/10/24 Unknown History apixaban 5 mg tablet (Eliquis) mg 09/10/24 Unknown History Allergies Allergy/AdvReac Type Severity Reaction Status Date / Time No Known Allergies Allergy Verified 09/10/24 11:28 Review of Systems Review of Systems: CONSTITUTIONAL: Denies fever, chills, or sweats. EYES: Denies visual changes, redness, or discharge. ENT: Denies rhinorrhea, congestion, sore throat, or otalgia. CARDIOVASCULAR: Denies chest pain, palpitations, or edema. RESPIRATORY: Denies cough or dyspnea. GASTROINTESTINAL: Denies abdominal pain, nausea, vomiting, or diarrhea. GENITOURINARY: Denies dysuria or hematuria. SKIN: Denies rash or itching. Reports infected abrasion to right lower extremities. MUSCULOSKELETAL: Denies back pain, joint pain, or myalgia. NEUROLOGIC: Denies headache, numbness, or weakness. PSYCHIATRIC: Denies anxiety or depression. All other systems reviewed are negative, except as documented in HPI. [facility] Past Medical History Medical History (Updated 09/10/24 @ 11:53 by Leatha Silva NP) Occult blood in stools Chronic anemia History of hypertension History of COPD Surgical History Surgical History (Updated 07/30/23 @ 15:52 by Pratik Grant MD) History of hip replacement (07/02/23) done at [facility] Social History Social History Years smoked: 60 Smoking status: Current every day smoker Tobacco type: cigarettes Alcohol intake: never Substance use: never Do You Feel Safe in your Home?: Yes Lack of Transportation: No Lack of Food: Never True Current Housing: I Have Housing Concerned About Future Housing: No Difficulty Paying Gas/Electric Bills: No Difficulty Paying for Meds: No Currently Unemployed: No Education: High School Diploma/GED Difficulty w/ Childcare or Family Care: No Spiritual care concerns: No Comments At time of signature, agree with nursing past medical, surgical, social and family history. There is no relevant family history pertinent to the presenting complaint. Exam Narrative: GENERAL: This is a well-nourished, well-developed patient, in no apparent distress. HEAD: normocephalic, atraumatic. EYES: PERRL. Sclera clear/white. Vision is grossly intact. EARS: External ears normal NOSE: External nose normal NECK: Neck supple, non-tender without lymphadenopathy, masses or thyromegaly. CARDIOVASCULAR: Regular rate and rhythm without murmurs, gallops, or rubs. RESPIRATORY: Clear to auscultation. Breath sounds equal bilaterally. No wheezes, rales, or rhonchi. SKIN: warm, Dry, intact with no suspicious lesions or rash, good texture and turgor. Abrasion to right lower extremity, mid junior, approximate 5 x 2 cm. Erythematous and swollen canal with scant purulent drainage. No odor. No necrosis noted. NEURO: awake, alert, and oriented to person, place and time. There were no obvious focal neurologic abnormalities. EXTREMITIES: No joint tenderness, effusion, or edema noted. Course Course Level of Care: Express Care Visit Vital Signs Vital signs: Vital Signs Temperature 36.6 C 09/10/24 11:40 Pulse Rate 74 09/10/24 11:40 Respiratory Rate 17 09/10/24 11:40 Blood Pressure 169/76 H 09/10/24 11:40 Pulse Oximetry 96 09/10/24 11:40 Oxygen Delivery Room Air 09/10/24 11:40 Temperature 36.6 C 09/10/24 11:40 Pulse Rate 74 09/10/24 11:40 Respiratory Rate 17 09/10/24 11:40 Blood Pressure 169/76 H 09/10/24 11:40 Pulse Oximetry 96 09/10/24 11:40 Oxygen Delivery Room Air 09/10/24 11:40 Reviewed MDM - Skin/Abscess/Foreign Bdy MDM Narrative Medical decision making narrative: will treat wound infection with cephalexin and Bactroban ointment. Neurovascularly intact. No history of diabetes. Afebrile. Exam findings show no acute concerns or changes; patient is non-toxic appearing and is in no distress. Patient is appropriate for outpatient treatment and follow-up. Discharge Plan Discharge Clinical Impression: Abrasion of right lower leg with infection Qualifiers: Encounter type: initial encounter Qualified Code(s): S80.811A - Abrasion, right lower leg, initial encounter Patient Disposition: Home Condition: Stable Instructions: Antibiotic Form, Wound Infection (ED) Additional Instructions: Keep wound clean and dry. Wash with soap and water, pat dry with towel. Take antibiotics as prescribed until gone. Apply antibiotic ointment sparingly to affected area, 2 to 3 times a day. Follow-up with your primary care physician if wound is not improving. Patient Language: Uz[place] Prescriptions: New cephalexin 500 mg capsule 500 mg PO QID 7 Days Qty: 28 0RF mupirocin [Centany] 2 % ointment 1 applic topical BID 7 Days Qty: 15 0RF No Action alendronate 70 mg tablet PO Eliquis 5 mg tablet ipratropium-albuterol 0.5 mg-3 mg(2.5 mg base)/3 mL solution for nebulization See Rx Instructions .ROUTE .COMPLEX PRN (Reason: wheezing or shortness of breath) Rx Instructions: Take 3ml by neb 4 times a day PRN omeprazole 40 mg capsule,delayed release(DR/EC) 40 mg PO DAILY escitalopram oxalate 5 mg tablet 5 mg DAILY losartan-hydrochlorothiazide 100-12.5 mg tablet See Rx Instructions .ROUTE .COMPLEX Rx Instructions: Take 1/2 by mouth daily. Breztri Aerosphere 160-9-4.8 mcg/actuation HFA aerosol inhaler See Rx Instructions .ROUTE .COMPLEX Rx Instructions: Inhale 160mcg BID amlodipine [Norvasc] 5 mg tablet 5 mg PO DAILY hydralazine 100 mg Tablet 100 mg PO DAILY folic acid 1 mg Tablet 1 mg PO DAILY calcium citrate-vitamin D2 315 mg-5 mcg (200 unit) Tablet See Rx Instructions .ROUTE .COMPLEX Rx Instructions: Take 1 tablet by mouth daily PreserVision AREDS-2 250-90-40-1 mg Capsule See Rx Instructions .ROUTE .COMPLEX Rx Instructions: Take 2 tablets PO daily melatonin 5 mg Tablet 5 mg PO HS ferrous sulfate 325 mg (65 mg iron) Tablet,Delayed Release (Dr/Ec) 325 mg PO BID Qty: 60 0RF acetaminophen 325 mg Tablet 650 mg PO Q6H PRN (Reason: Mild Pain (1-3) Or Fever) Qty: 10 0RF fluconazole [Diflucan] 100 mg Tablet 200 mg PO QHS Qty: 12 0RF fluticasone propionate 50 mcg/actuation [place],Suspension 1 spray intranasal Q12HR Qty: 16 0RF Saline Mist 0.65 % Aerosol,[place] 1 spray intranasal Q1-2H PRN (Reason: Congestion) Qty: 44 0RF Follow-up/Referrals: UNKNOWN,DOCTOR [Primary Care Provider] - Time of Disposition: 11:53
--- OUTSIDE RECORDS SUMMARY | 2024-09-10 12:07 | XMS_ITS | Referral Summary ---
Author Organization [facility] Address [address] [place] [address] Phone Care Team Providers Care Blood And Plasma Laboratory Assistant Name Role Phone Steve Nieves MD Primary Care Provider [phone] Shawn Sousa DO Unavailable [phone] Lizet Persaud MD Unavailable [phone] Elisha Wright MD Unavailable [phone] Encounters Date Type Department Care Team Description 09/09/2024 Results Follow-Up [facility] Medical [facility] Internal Medicine [address] [place] [phone] Steve Nieves MD 09/04/2024 2:15 PM CDT Office Visit [facility] Internal Medicine [address] [place] [address] [place] [phone] Steve Nieves MD Chronic anemia (Primary Dx); Chronic bronchitis with COPD (chronic obstructive pulmonary disease) (HCC); Stage 3a chronic kidney disease (HCC); Dyslipidemia; Hypertensive kidney disease with stage 2 chronic kidney disease; Recurrent major depressive disorder, in full remission; Senile osteoporosis; Autoimmune hemolytic anemia (HCC); History of pulmonary embolism; Simple chronic bronchitis (HCC); BMI 27.0-27.9,adult; Postmenopausal; Pulmonary nodule; Chronic bilateral back pain, unspecified back location 08/28/2024 Results Follow-Up [facility] Medical [facility] Internal Medicine [address] [place] [phone] Steve Nieves MD Stage 3a chronic kidney disease (HCC) (Primary Dx) 08/27/2024 12:15 PM CDT Lab [facility] [address] [place] [address] Iron deficiency anemia, unspecified iron deficiency anemia type; Autoimmune hemolytic anemia (HCC); Anemia, unspecified type; Chronic anemia; Malignant neoplasm of upper-outer quadrant of left breast in female, estrogen receptor positive (HCC) 08/27/2024 12:45 PM CDT Office Visit [facility] [address] [place] [phone] Shawn Sousa DO Autoimmune hemolytic anemia (HCC) (Primary Dx); Iron deficiency anemia, unspecified iron deficiency anemia type; Anemia, unspecified type 07/04/2024 Telephone [facility] Internal Medicine [address] [place] [phone] Steve Nieves MD 07/03/2024 Orders Only [facility] Information Management [address] [place] [phone] Steve Nieves MD 07/02/2024 Telephone [facility] Medical [facility] Internal Medicine [address] [place] [phone] Steve Nieves MD Medical Question/Miscellaneous 07/01/2024 2:35 PM SCORER HELPER - 07/01/2024 11:59 PM SCORER HELPER Hospital Encounter [facility] Diagnostic Imaging [address] [place] [phone] Acute right-sided low back pain with right-sided sciatica Discharge Disposition: Discharge to home or self care 07/01/2024 1:30 PM SCORER HELPER Office Visit [facility] Internal Medicine [address] [place] [phone] Steve Nieves MD Acute right-sided low back pain with right-sided sciatica (Primary Dx); BMI 27.0-27.9,adult 07/01/2024 Nurse Triage [facility] Internal Medicine [facility] [address] [place] [address] Steve Nieves MD 06/18/2024 8:00 AM SCORER HELPER Office Visit [facility] Orthopedics and Sports Medicine [facility] [address] [place] [address] Jose Caraballo MD Trochanteric bursitis of right hip (Primary Dx); Primary osteoarthritis of right hip; Status post hip replacement, left 06/17/2024 Telephone [facility] Internal Medicine [address] [place] [address] [address] [place] [phone] Steve Nieves MD Medication Request 06/13/2024 9:00 AM SCORER HELPER Infusion [facility] at [address] [place] [phone] Iron deficiency anemia, unspecified iron deficiency anemia type (Primary Dx) from Last 3 Months Allergies No known active allergies Medications CALCIUM CITRATE-VITAMIN D2 ORAL Take 1 tablet by mouth daily 018 Active folic acid (FOLVITE) 1 mg tablet Take 1 tablet (1 mg total) by mouth daily. 30 tablet 3 018 Active vit C/E/Zn/coppr/lut ein/zeaxan (PRESERVISION AREDS-2 ORAL) Take 2 tablets by mouth daily Active aspirin 81 mg enteric coated tablet Take 1 tablet (81 mg total) by mouth daily Active ipratropium-albu teroL (DUO-NEB) 0.5-2.5 mg/3 mL nebulizer solutionIndicati ons:Chronic Obstructive Pulmonary Disease with Bronchospasms Take 3 mL by nebulization 4 (four) times a day as needed for wheezing or shortness of breath 90 mL 5 024 2024 Active apixaban (ELIQUIS) 5 mg tablet Take 1 tablet (5 mg total) by mouth 2 (two) times a day 180 tablet 1 Active melatonin 5 mg tablet,disintegr ating Take 5 mg by mouth nightly Active traMADoL (ULTRAM) 50 mg tablet Take 1 tablet (50 mg total) by mouth daily as needed for pain 30 tablet 2 Active hydrALAZINE (APRESOLINE) 100 mg tablet Take 1 tablet (100 mg total) by mouth 2 (two) times a day 180 tablet 1 Active nebivoloL (BYSTOLIC) 5 mg tablet Take 1 tablet (5 mg total) by mouth daily Active furosemide (LASIX) 20 mg tablet Take 1 tablet (20 mg total) by mouth daily as needed (Edema) Active traZODone (DESYREL) 50 mg tabletIndication s:insomnia Take 1 tablet (50 mg total) by mouth nightly as needed for sleep May repeat once during night if cannot fall back to sleep easily 30 tablet Active amLODIPine (NORVASC) 2.5 mg tablet Take 1 tablet (2.5 mg total) by mouth daily Active albuterol HFA (PROVENTIL HFA,VENTOLIN HFA,PROAIR HFA) 90 mcg/actuation inhaler INHALE 2 PUFFS EVERY 6 HOURS NEEDED FOR WHEEZING OR SHORTNESS OF BREATH 3 each 3 Active alendronate (FOSAMAX) 70 mg tablet TAKE 1 TAB EVERY 7 DAYS IN MORNING W/FULL GLASS WATER ON EMPTY STOMACH. NOTHING BY MOUTH OR DO NOT LIE DOWN X 30 MIN 12 tablet 3 Active omeprazole (PriLOSEC) 40 mg capsule TAKE 1 CAPSULE EVERY DAY 90 capsule 3 Active budesonide-glyco pyr-formoterol (Breztri Aerosphere) 160-9-4.8 mcg/actuation inhaler Inhale 2 puffs 2 (two) times a day 30 g 1 Active losartan (COZAAR) 100 mg tablet Take 1 tablet (100 mg total) by mouth daily 30 tablet 5 Active escitalopram (LEXAPRO) 5 mg tablet TAKE 1 TABLET EVERY DAY 90 tablet 1 025 Active budesonide-glyco pyr-formoterol (Breztri Aerosphere) 160-9-4.8 mcg/actuation HFA aerosol inhaler Inhale 160 mcg 2 (two) times a day 30 g 1 024 2024 Discontinued(R eorder) senna-docusate (PERICOLACE) 8.6-50 mg Take 1 tablet by mouth 2 (two) times a day 2024 Discontinued(T herapy completed) losartan-hydroCH LOROthiazide (HYZAAR) 100-12.5 mg per tablet Take 1 tablet by mouth daily 2024 Discontinued(A lternate therapy) escitalopram (LEXAPRO) 5 mg tablet TAKE 1 TABLET EVERY DAY 90 tablet 1 024 2024 Discontinued scopolamine 1 mg over 3 days patch [address] 1 patch on the skin every third day as needed (nausea) 5 patch 025 2024 Discontinued(T herapy completed) alendronate (FOSAMAX) 70 mg tablet TAKE 1 TAB EVERY 7 DAYS IN MORNING W/FULL GLASS WATER ON EMPTY STOMACH. NOTHING BY MOUTH OR DO NOT LIE DOWN X 30 MIN 12 tablet 025 2024 Discontinued omeprazole (PriLOSEC) 40 mg capsule TAKE 1 CAPSULE EVERY DAY 90 capsule 025 2024 Discontinued Active Problems Problem Noted Date Diagnosed Date Acute right-sided low back pain with right-sided sciatica 07/01/2024 Assessment & Plan (07/01/2024 3:30 PM SCORER HELPER): Patient with right lower back pain and right hip pain. She has severe arthritis of the right hip. She had recent steroid injection by her orthopedic doctor. I recommended that she contact her orthopedic doctor for the hip pain. Regarding the back pain we will get x-ray of the lumbar spine. She will continue tramadol as needed. She will use lidocaine patch 12 hours on and 12 hours off. Will obtain MRI of the lumbar spine as well for further evaluation. Patient was advised to use a walker for ambulation. Primary osteoarthritis of hips, bilateral 2023 Assessment & Plan (01/17/2024 10:42 AM CDT): Patient has severe arthritis of the hips. She had left total hip replacement. She complains of severe pain in the right hip. She is followed by the orthopedic doctor. He gave her recent steroid injections. She takes tramadol as needed. Patient said that she is not interested in hip Iron deficiency anemia 12/28/2023 Bilateral leg edema 10/16/2023 Assessment & Plan (10/16/2023 10:21 AM CDT): Patient with bilateral leg edema. Will stop amlodipine and start her on Lasix 20 mg daily. She will call for persistent swelling. Depression 10/07/2023 Elevated d-dimer 10/07/2023 Elevated troponin 10/07/2023 Elevated brain natriuretic peptide (BNP) level 0 10/07/2023 Vertigo 09/24/2023 Assessment & Plan (09/24/2023 11:31 AM CDT): Patient with vertigo in the last few weeks. It is mainly with standing up and changing position. Patient had couple of falls. She has healed bruising on the left side of the face. Patient denied any headache or loss of consciousness. She has no hearing loss. No tinnitus. We will make a referral for occupational therapy for vertigo. Patient will call us back if she has persistent symptoms and we will consider ENT evaluation Screening for lung cancer 09/24/2023 Assessment & Plan (01/17/2024 10:48 AM CDT): Patient smoked 1 pack daily for over 45 years. Patient quit smoking about 5 months ago. Lung scan was ordered Assessment & Plan (09/24/2023 11:30 AM CDT): CT of the lungs was ordered Status post hip replacement, left 07/03/2023 Dyslipidemia 06/25/2023 Assessment & Plan (09/04/2024 7:58 AM CDT): Continue low-fat diet Assessment & Plan (01/17/2024 7:36 AM CDT): Continue low-fat diet Assessment & Plan (10/16/2023 7:31 AM CDT): Continue low-fat diet Assessment & Plan (06/26/2023 12:32 PM SCORER HELPER): Continue low-fat diet CKD (chronic kidney disease) stage 3, GFR 30-59 ml/min 01/17/2023 Assessment & Plan (09/04/2024 3:26 PM CDT): Chronic kidney disease secondary to health problems and medications. Renal function was worse recently. We stopped hydrochlorothiazide. Patient takes Lasix as needed for bilateral leg edema. Repeat kidney function next week Assessment & Plan (04/11/2024 7:39 AM SCORER HELPER): Chronic kidney disease secondary to health problems and medications. Renal function is stable. Avoid NSAIDs. Assessment & Plan (01/17/2024 7:36 AM CDT): Chronic kidney disease secondary to health problems and medications. Renal function is stable. Avoid NSAIDs. Assessment & Plan (09/24/2023 7:56 AM CDT): Chronic kidney disease secondary to health problems and medications. Renal function is stable. Avoid NSAIDs. BMI 26.0-26.9,adult 10/12/2022 Smoking 09/27/2022 Pulmonary hypertension 09/27/2022 Assessment & Plan (04/11/2024 7:40 AM SCORER HELPER): Patient with pulmonary hypertension secondary to COPD Acute respiratory failure with hypoxia Overview (12/26/2022): Last Assessment & Plan: Patient was placed on oxygen during her hospitalization. She was tapered off oxygen and was discharged home without oxygen. Her oxygen sat is 93% on room air Assessment & Plan (04/11/2024 7:39 AM SCORER HELPER): Patient was admitted to the hospital with acute respiratory failure secondary to COVID infection and COPD. She was treated with oxygen and nebulizer treatment and steroids with improvement in her symptoms. She is currently stable on room air Assessment & Plan (08/22/2023 11:25 AM CDT): Patient with acute respiratory failure during her hospitalization. She was managed with oxygen and she was able to be tapered off the oxygen. She is currently stable on room air Assessment & Plan (01/17/2023 10:57 AM CDT): Patient was treated with oxygen by nasal cannula with resolution of her symptoms. Patient is currently stable and her oxygen sat is normal without oxygen Assessment & Plan (05/18/2022 4:38 PM SCORER HELPER): Patient was placed on oxygen during her hospitalization. She was tapered off oxygen and was discharged home without oxygen. Her oxygen sat is 93% on room air Assessment & Plan (04/26/2022 11:20 AM SCORER HELPER): Patient developed acute respiratory failure secondary to COPD exacerbation and COVID infection and she was treated with oxygen with improvement in her oxygenation and she was able to be discharged home without the need for home oxygen SOB (shortness of breath) 06/06/2022 COVID 04/17/2022 Overview (12/26/2022): Last Assessment & Plan: Patient was treated for COVID infection and currently asymptomatic Assessment & Plan (04/11/2024 7:40 AM SCORER HELPER): Patient was found to have COVID infection and she was treated with remdesivir with resolution of her symptoms Assessment & Plan (04/26/2022 11:21 AM SCORER HELPER): Patient was treated for COVID infection and currently asymptomatic Chronic bilateral back pain 10/17/2021 Assessment & Plan (09/04/2024 3:25 PM CDT): Patient is followed by pain management. She had recent epidural injections. The 1st injection did not help. She has an appointment for the next 10 injection in 1 week Assessment & Plan (10/17/2021 12:12 PM CDT): Patient will continue tramadol as needed. Patient cannot take NSAIDs because of age and she is on Eliquis. Senile osteoporosis 10/13/2021 Assessment & Plan (01/17/2024 7:37 AM CDT): Continue Fosamax with calcium and vitamin-D Assessment & Plan (10/16/2023 7:32 AM CDT): Continue Fosamax with calcium and vitamin-D Assessment & Plan (06/26/2023 12:33 PM SCORER HELPER): Continue Fosamax with calcium and vitamin-D Assessment & Plan (03/19/2023 10:40 AM SCORER HELPER): Continue Fosamax with calcium and vitamin-D Assessment & Plan (10/25/2022 7:56 AM CDT): Continue Fosamax with calcium and vitamin-D Assessment & Plan (07/25/2022 8:03 AM CDT): Continue Fosamax with calcium and vitamin-D. Assessment & Plan (01/18/2022 7:56 AM CDT): Continue calcium and vitamin-D. Continue Fosamax. Discussed fall precautions Assessment & Plan (10/17/2021 12:09 PM CDT): Continue Fosamax and calcium and vitamin-D Pulmonary nodule 10/13/2021 Assessment & Plan (09/04/2024 3:27 PM CDT): Repeat lung scan Assessment & Plan (04/11/2024 7:40 AM SCORER HELPER): CT of the chest in March 2024 showed stable pulmonary nodule Assessment & Plan (06/26/2023 12:32 PM SCORER HELPER): CT scan of the lungs in January 2023 was negative for nodules and she is followed by drier take off tender Assessment & Plan (07/25/2022 8:03 AM CDT): CT of the chest in December 2021 showed benign pulmonary nodules and repeat in 1 year Assessment & Plan (01/18/2022 7:56 AM CDT): CT of the chest in December 2021 showed benign pulmonary nodules and repeat in 1 year Assessment & Plan (10/17/2021 12:10 PM CDT): Patient had repeated CT of the lungs in October 2021 that showed resolution of previous nodule and a new right pulmonary nodule. Repeat CT in 3 months. Discussed with the patient History of smoking 07/13/2021 Assessment & Plan (07/13/2021 12:25 PM SCORER HELPER): Discussed CT lung screen with low-dose iodine with benefits and risks and the patient wants to proceed with the test History of DVT (deep vein thrombosis) 05/03/2021 Recurrent major depressive disorder, in full rem ission 08/24/2020 Assessment & Plan (01/17/2024 7:37 AM CDT): Controlled on Lexapro Assessment & Plan (10/16/2023 7:31 AM CDT): Controlled on Lexapro Assessment & Plan (06/26/2023 12:33 PM SCORER HELPER): Controlled on Lexapro Assessment & Plan (04/13/2021 9:10 AM SCORER HELPER): Controlled on Lexapro Assessment & Plan (01/12/2021 1:14 PM CDT): Controlled on Lexapro. No suicidal ideations Assessment & Plan (08/24/2020 8:09 AM CDT): Controlled on Lexapro Hypertensive kidney disease with stage 2 chronic kidney disease 08/23/2020 Overview (12/26/2022): Last Assessment & Plan: Continue current medications. Discussed low-salt diet. Discussed exercise on regular basis. Will continue to monitor Assessment & Plan (09/04/2024 7:59 AM CDT): Continue current medications. Discussed low-salt diet. Discussed exercise on regular basis. Will continue to monitor Assessment & Plan (04/11/2024 10:10 AM SCORER HELPER): Continue current medications. Discussed low-salt diet. Discussed exercise on regular basis. Will continue to monitor Assessment & Plan (01/17/2024 10:47 AM CDT): Systolic blood pressure is high. We will increase hydralazine from 100 mg daily to 100 mg b.i.d.. She will continue the other medications. Continue low-salt diet. Assessment & Plan (10/16/2023 10:20 AM CDT): Blood pressure is stable. Patient complains of bilateral leg edema. We will stop amlodipine specially the blood pressure runs on the low side. Assessment & Plan (09/24/2023 7:56 AM CDT): Blood pressure is stable Assessment & Plan (08/22/2023 11:15 AM CDT): Blood pressure is stable. Stop hydrochlorothiazide Assessment & Plan (06/26/2023 12:32 PM SCORER HELPER): Continue current medications. Discussed low-salt diet. Discussed exercise on regular basis. Will continue to monitor Assessment & Plan (03/19/2023 7:48 AM SCORER HELPER): Continue current medications. Discussed low-salt diet. Discussed exercise on regular basis. Will continue to monitor Assessment & Plan (01/17/2023 10:58 AM CDT): Take losartan 50 mg b.i.d. and hydralazine 100 mg b.i.d. Assessment & Plan (10/25/2022 11:18 AM CDT): Patient complains of bilateral leg edema since she was started on amlodipine. Will stop amlodipine and start her on hydralazine 50 mg b.i.d. and she will continue losartan. Continue low-salt diet. Assessment & Plan (09/22/2022 10:08 AM CDT): Continue current medications. Discussed low-salt diet. Discussed exercise on regular basis. Will continue to monitor Assessment & Plan (01/18/2022 7:56 AM CDT): Continue current medications. Discussed low-salt diet. Discussed exercise on regular basis. Will continue to monitor Assessment & Plan (10/17/2021 12:09 PM CDT): Continue current medications. Discussed low-salt diet. Discussed exercise on regular basis. Will continue to monitor Assessment & Plan (07/13/2021 12:24 PM SCORER HELPER): Continue current medications. Discussed low-salt diet. Discussed exercise on regular basis. Will continue to monitor Assessment & Plan (04/13/2021 9:11 AM SCORER HELPER): Continue current medications. Discussed low-salt diet. Discussed exercise on regular basis. Will continue to monitor Assessment & Plan (01/12/2021 1:14 PM CDT): Continue current medications. Discussed low-salt diet. Discussed exercise on regular basis. Will continue to monitor Assessment & Plan (10/20/2020 11:31 AM CDT): Continue current medications. Discussed low-salt diet. Discussed exercise on regular basis. Will continue to monitor Assessment & Plan (08/24/2020 8:07 AM CDT): Continue current medications. Discussed low-salt diet. Discussed exercise on regular basis. Will continue to monitor Anxiety 05/11/2020 Overview (12/26/2022): Last Assessment & Plan: Patient with anxiety secondary to family conditions. We discussed options of treatment and she likes to try medications. We will start her on Lexapro 5 mg daily and side effects were explained and will adjust the does as needed. Assessment & Plan (09/24/2023 11:33 AM CDT): Controlled on Lexapro 5 mg daily Assessment & Plan (05/11/2020 9:09 AM SCORER HELPER): Patient with anxiety secondary to family conditions. We discussed options of treatment and she likes to try medications. We will start her on Lexapro 5 mg daily and side effects were explained and will adjust the does as needed. Chronic anemia 09/10/2018 Overview (12/26/2022): Last Assessment & Plan: Managed by the Hematology Assessment & Plan (09/04/2024 7:58 AM CDT): Managed by the [facility] Assessment & Plan (04/11/2024 10:09 AM SCORER HELPER): Managed by the [facility] Assessment & Plan (08/22/2023 11:13 AM CDT): Will obtain CBC and advised to follow-up with her [facility] Assessment & Plan (07/13/2021 12:22 PM SCORER HELPER): Managed by the Hematology Assessment & Plan (01/12/2021 1:13 PM CDT): Managed by the [facility] Assessment & Plan (03/19/2019 11:51 AM SCORER HELPER): Last hemoglobin is normal and followed by the [facility] Assessment & Plan (12/11/2018 12:19 PM CDT): Stable and followed by the Hematology 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 Overview (12/26/2022): Last Assessment & Plan: Managed by the [facility] Assessment & Plan (09/04/2024 7:57 AM CDT): Managed by the [facility] Assessment & Plan (04/11/2024 7:39 AM SCORER HELPER): Managed by the [facility] Assessment & Plan (10/16/2023 7:30 AM CDT): Managed by the [facility] Assessment & Plan (09/24/2023 7:55 AM CDT): Managed by the [facility] Assessment & Plan (08/22/2023 11:24 AM CDT): Managed by the [facility] Assessment & Plan (06/26/2023 12:33 PM SCORER HELPER): Managed by the [facility] Assessment & Plan (03/19/2023 7:47 AM SCORER HELPER): Managed by the [facility] Assessment & Plan (10/25/2022 7:55 AM CDT): Managed by the [facility] Assessment & Plan (09/22/2022 7:57 AM CDT): Managed by the [facility] Assessment & Plan (07/25/2022 8:01 AM CDT): Managed by the [facility] Assessment & Plan (10/17/2021 12:08 PM CDT): Managed by the [facility] Assessment & Plan (10/12/2020 2:25 PM CDT): Patient been diagnosed and treated for hemolytic anemia with Dr. Sousa for the last month. She was getting Rituxan on weekly basis. Last dose was last Sunday Upon admission her hemoglobin was 8.5 been dropping gradually this morning is 7.5 She is already on folic acid daily. She is already on IV steroids for her COPD exacerbation. Her hemoglobin 2 weeks ago was around 10 Plan Hematology team consulted, Dr. Jackson our informed. Repeat hemolytic profile, haptoglobin, LDH and direct Vasquez test Continue to monitor hemoglobin Transfuse for hemoglobin less than 7 Assessment & Plan (08/24/2020 8:06 AM CDT): Asymptomatic and followed by the Hematology Assessment & Plan (05/11/2020 8:34 AM SCORER HELPER): Patient is in remission and followed by the Hematology Assessment & Plan (01/28/2020 8:03 AM CDT): Asymptomatic and followed by the Hematology Assessment & Plan (10/29/2019 8:50 AM CDT): Patient is stable with no bleeding and normal hemoglobin Assessment & Plan (07/02/2019 12:17 PM SCORER HELPER): Last hemoglobin 2 months ago was normal and she is followed by the Hematology Assessment & Plan (03/19/2019 11:51 AM SCORER HELPER): The patient is stable and last CBC in January 2019 was normal. She is followed by the [facility] Assessment & Plan (12/11/2018 12:19 PM CDT): Hemoglobin is stable and the patient is asymptomatic and followed by [facility] Assessment & Plan (09/10/2018 3:54 PM CDT): Followed by the [facility] and last hemoglobin was 11.1 History of pulmonary embolism 10/11/2017 Overview (09/10/2018): Patient was hospitalized in August 2017 at [place] and treated for left upper lobe pulmonary embolism and bilateral DVT. She had negative thrombophilia workup. Patient has history of autoimmune hemolytic anemia and has received Rituxan which is Assessment & Plan (09/04/2024 7:58 AM CDT): Patient is maintained on Eliquis and followed by the [facility] Assessment & Plan (09/24/2023 7:56 AM CDT): Patient is maintained on Eliquis and followed by the [facility] Assessment & Plan (08/22/2023 11:15 AM CDT): Patient is maintained on Eliquis and followed by the [facility] Assessment & Plan (06/26/2023 12:32 PM SCORER HELPER): Patient is maintained on Eliquis and followed by the [facility] Assessment & Plan (09/22/2022 10:07 AM CDT): Patient is maintained on Eliquis Assessment & Plan (01/12/2021 1:15 PM CDT): Patient is maintained on Eliquis and followed by the [facility] Assessment & Plan (08/24/2020 8:07 AM CDT): Managed by the [facility] Assessment & Plan (05/11/2020 9:09 AM SCORER HELPER): Patient is maintained on Eliquis for history of PE and followed by the [facility] Assessment & Plan (03/19/2019 11:52 AM SCORER HELPER): The patient is maintained on Eliquis and followed by the [facility] Assessment & Plan (12/11/2018 12:20 PM CDT): The patient is maintained on Eliquis for over a year now. She likes to stop the medication if possible and we will consult with the [facility] and see if he approves of that Assessment & Plan (09/10/2018 3:55 PM CDT): The patient is maintained on Eliquis Chronic bronchitis with COPD (chronic obstructive pulmonary disease) 09/14/2017 Overview (12/26/2022): Patient has been treated for emphysema/COPD. Continue Symbicort b.i.d. and p.r.n. albuterol Patient has been treated for emphysema/COPD. Continue Symbicort b.i.d. and p.r.n. albuterol Last Assessment & Plan: Controlled on breztri Assessment & Plan (09/04/2024 7:58 AM CDT): Assessment & Plan (04/11/2024 7:39 AM SCORER HELPER): Continue breztri and nebulizer treatment Assessment & Plan (01/17/2024 7:36 AM CDT): Continue breztri and nebulizer treatment Assessment & Plan (10/16/2023 7:31 AM CDT): Continue breztri and nebulizer treatment Assessment & Plan (09/24/2023 11:28 AM CDT): Continue breztri and nebulizer treatment Assessment & Plan (08/22/2023 11:14 AM CDT): Continue breztri Assessment & Plan (06/26/2023 12:31 PM SCORER HELPER): Continue breztri. She uses albuterol nebulizer as needed Assessment & Plan (03/19/2023 10:40 AM SCORER HELPER): Continue breztri. She uses albuterol nebulizer as needed Assessment & Plan (01/17/2023 10:58 AM CDT): Patient was treated for COPD exacerbation. Patient is on prednisone in a tapering does. She will continue with breztri on regular basis. Assessment & Plan (01/04/2023 4:42 PM CDT): Patient encouraged to use her albuterol inhaler, and nebulizer up to 4 times a day p.r.n, during this timeframe when it hurts to cough. Patient with wheezing on exam. Assessment & Plan (12/26/2022 12:58 PM CDT): Patient is controlled on Breztri. Patient has some inspiratory wheezing on exam today. She reports the humidity today has has worsened symptoms. She will use her nebulizer when she returns home. She requests samples of Breztri. Assessment & Plan (10/25/2022 11:16 AM CDT): Continue breztri daily and albuterol nebulizer p.r.n. patient complains of chronic shortness breath. Will obtain 6 minute walking test and find out if she qualifies for home oxygen Assessment & Plan (09/22/2022 10:07 AM CDT): Continue breztri daily and albuterol nebulizer p.r.n. Assessment & Plan (07/25/2022 8:02 AM CDT): Controlled on breztri Assessment & Plan (04/26/2022 11:21 AM SCORER HELPER): We will stop Symbicort and start her on breztri 2 puffs b.i.d. and rinse the mouth after each use Assessment & Plan (01/18/2022 7:57 AM CDT): Continue Symbicort. Continue nebulizer treatment as needed. Patient quit smoking. Assessment & Plan (10/17/2021 12:08 PM CDT): Controlled on Symbicort 10 she uses nebulizer treatment as needed with good relief Assessment & Plan (07/13/2021 12:22 PM SCORER HELPER): Controlled on Symbicort Assessment & Plan (01/12/2021 1:14 PM CDT): Controlled on Symbicort daily and albuterol inhaler p.r.n. Assessment & Plan (08/24/2020 8:07 AM CDT): Controlled symptoms on Symbicort. She quit smoking Assessment & Plan (05/11/2020 8:34 AM SCORER HELPER): Asymptomatic. Controlled on Symbicort. Patient quit smoking Assessment & Plan (01/28/2020 8:03 AM CDT): Controlled on Symbicort Assessment & Plan (10/29/2019 8:51 AM CDT): Controlled on current inhalers Assessment & Plan (07/02/2019 12:18 PM SCORER HELPER): Controlled on Symbicort Assessment & Plan (03/19/2019 11:51 AM SCORER HELPER): The patient is controlled on Symbicort Assessment & Plan (12/11/2018 12:19 PM CDT): Controlled on current inhalers and the patient quit smoking and she is followed by the pulmonology Assessment & Plan (09/10/2018 3:54 PM CDT): The patient is stable on current inhalers and will continue to monitor Diastolic dysfunction 08/28/2017 Adenoma of left adrenal gland 03/28/2017 Assessment & Plan (09/24/2023 7:55 AM CDT): Patient has chronic left adrenal adenoma and she had hormonal testing done in the past that was negative Assessment & Plan (08/22/2023 11:28 AM CDT): Patient has chronic left adrenal adenoma and she had hormonal testing done in the past that was negative Assessment & Plan (07/13/2021 12:25 PM SCORER HELPER): No change in adrenal adenoma. Hormonal tests were normal recently Assessment & Plan (02/15/2021 1:12 PM CDT): Patient has adrenal adenoma with no change for number of years Assessment & Plan (08/24/2020 8:06 AM CDT): Incidental adrenal adrenal patient is asymptomatic Assessment & Plan (10/29/2019 8:51 AM CDT): Patient has incidental adrenal adenoma. Assessment & Plan (03/19/2019 11:51 AM SCORER HELPER): Benign adrenal adenoma with no change Assessment & Plan (12/11/2018 12:19 PM CDT): Benign adrenal adenoma Assessment & Plan (09/10/2018 3:54 PM CDT): No change in the size of the adenoma Gastro-esophageal reflux disease without esophag itis 10/26/2003 Overview (12/26/2022): Last Assessment & Plan: Controlled on Prilosec Assessment & Plan (10/17/2021 12:08 PM CDT): Controlled on Prilosec Assessment & Plan (01/28/2020 8:04 AM CDT): Controlled on omeprazole Assessment & Plan (10/29/2019 8:51 AM CDT): Controlled on Prilosec Assessment & Plan (07/02/2019 12:18 PM SCORER HELPER): Controlled on Prilosec Assessment & Plan (03/19/2019 11:52 AM SCORER HELPER): Controlled on Prilosec Assessment & Plan (12/11/2018 12:19 PM CDT): Controlled on Prilosec Assessment & Plan (09/10/2018 3:55 PM CDT): Controlled on Prilosec COPD (chronic obstructive pulmonary disease) Assessment & Plan (09/04/2024 7:59 AM CDT): Continue Breztri twice daily. Continue albuterol inhaler PRN. Assessment & Plan (09/22/2022 7:59 AM CDT): Patient was treated with IV antibiotics and oxygen and steroids with improvement in her symptoms. She was discharged home in stable condition. Patient will continue with albuterol inhaler as needed and breztri inhaler daily Assessment & Plan (05/18/2022 4:37 PM SCORER HELPER): Patient was treated for COPD exacerbation and currently stable Assessment & Plan (04/26/2022 11:20 AM SCORER HELPER): Patient was treated for COPD exacerbation with nebulizer treatment and steroids with improvement in her symptoms. Hypoxia Resolved Problems Problem Noted Date Diagnosed Date Resolved Date Subconjunctival hemorrhage of left eye 01/17/2024 03/26/2024 Assessment & Plan (01/17/2024 10:45 AM CDT): The patient has left subconjunctival hemorrhage secondary to aspirin and Plavix. She was assured that the symptoms will get better in few weeks Sepsis 10/07/2023 03/26/2024 Hypomagnesemia 10/07/2023 03/26/2024 Bacterial meningitis 08/22/2023 024 Assessment & Plan (08/22/2023 11:14 AM CDT): Patient was treated with wide-spectrum antibiotics. Patient is asymptomatic with no headache and her mental status is at baseline. Preoperative clearance 06/26/202303/26 Assessment & Plan (06/26/2023 12:35 PM SCORER HELPER): Patient is cleared for left total hip replacement. She needs to stop aspirin 5 days before the procedure and Eliquis 3 days before the procedure. She needs Hematology and Pulmonary clearance as well. Neck pain, acute 01/04/2023 03/26/2024 Upper back pain 01/04/2023 03/26/2024 Assessment & Plan (01/04/2023 4:41 PM CDT): Pain and neck and upper back. Described as muscular in nature feeling tight. We will try baclofen 5 mg b.i.d. and tramadol 50 mg b.i.d. as needed. Discussed side effects with patient. If pain isn't improved by Sunday then patient will have x-ray done when she gets her lung scan done. Leg swelling 12/26/2022 03/26/2024 Assessment & Plan (12/26/2022 1:00 PM CDT): Patient had leg swelling during RV road trip. This resolved upon returning home and resuming normal activities. Patient advised to wear compression stockings if traveling for long distances especially if she will be sitting. Patient advised to maintain low-sodium diet while traveling. [place] hose order placed. Acute renal insufficiency 10/12/2022 Assessment & Plan (10/12/2022 12:14 PM CDT): Patient with acute renal insufficiency secondary to obstructive kidney stone. Patient was able to pass the kidney stone. Advised to increase fluid intake. We will check kidney function today Right kidney stone 10/11/2022 Assessment & Plan (10/25/2022 7:56 AM CDT): Patient was able to passed a kidney stone in her own. She is currently asymptomatic. Advised to increase fluid intake and cut down on the salt. Assessment & Plan (10/12/2022 12:15 PM CDT): Patient has right kidney stone with hydronephrosis. Patient was able to passed a kidney stone. Patient is currently stable and asymptomatic. Advised to increase fluid intake to over 64 oz daily. Cut down on the salt intake. Patient brought the kidney stone with her. Will try to obtain kidney stone analysis. Patient to call for recurrent symptoms. BMI 25.0-25.9,adult 07/25/2022 12/27/19 23 Primary osteoarthritis of left hip 07/25/2022 03/26/2024 Assessment & Plan (03/19/2023 11:40 AM SCORER HELPER): Patient with severe arthritis of left hip. She had steroid injection in the past. She takes tramadol as needed. Patient is followed by orthopedic doctor. Patient wants to proceed with hip replacement. She will discuss that with the specialist. Assessment & Plan (07/25/2022 10:49 AM CDT): Patient is followed by the orthopedic doctor. She takes tramadol as needed for relief. Influenza 05/18/2022 03/26/2024 Assessment & Plan (05/18/2022 4:37 PM SCORER HELPER): Patient received Tamiflu for influenza pneumonia with resolution of her symptoms Hip pain, acute, left 01/18/20222023 Assessment & Plan (01/18/2022 12:24 PM CDT): Patient complains of left lower back pain and left hip pain for the last few weeks after a fall. Will obtain x-rays of the left hip and lumbosacral area. She will continue with tramadol as needed. She will try Biofreeze cream twice daily and will make further recommendations after the x-rays CAP (community acquired pneumonia) 03/26/2024 Assessment & Plan (08/22/2023 11:16 AM CDT): Patient was treated for pneumonia during her hospitalization. Patient is currently stable and asymptomatic. Patient needs home physical therapy Assessment & Plan (01/17/2023 10:57 AM CDT): Patient was treated with antibiotics. She is currently asymptomatic Immunizations Immunization Administration Dates Next Due Hep A, Adult 09/04/1989 Hep B Vaccine 09/04/1989 Influenza, Quadrivalent, Hig h Dose, Preservative Free, Intrr 01/20/2023,01/18/2022,03/22/2021,01/19 Influenza, Quadrivalent, Spl it, Intramuscular 02/16/2014 Influenza, Quadrivalent, Spl it, Preservative Free, Intramuscular 06/19/2016,04/28/2015 Influenza, Trivalent, High D ose, Split, Preservative Free, Intramuscular 03/30/2024,02/17/2019,01/31/2018 Influenza, Trivalent, IM (MDV) 02/12/2013,2011,02/17/2003 Influenza, Trivalent, Preser vative Free, Intramuscular 01/30/2018 Influenza, Unspecified 03/22/2021,02/02/2020, Pfizer SARS-CoV-2 Monovalent Vaccination (12+ Yrs) PURPLE 07/16/2020,06/24/2020 Pneumococcal Conjugate PCV 13 02/16/2014 Pneumococcal Polysaccharide PPV23 05/07/2016 Pneumococcal, Unspecified 02/12/2019 Tdap 12/06/2022,04/28/2015 Social History Tobacco Use Types Packs/Day Years Used Date Smoking Tobacco: Former Cigarettes 1 45 1 970 - 2014 Smokeless Tobacco: Never Tobacco Cessation:Counseling Given: Not Answered Alcohol Use Standard Drinks/Week Comments Not Currently 0 (1 standard drink = 0.6 oz pur e alcohol) [facility] [email or web address] Answer Date Recorded In the past 12 months has Ev[employer], gas, oil, or water [employer] threatened to shut off services in your home? No 03/27/2024 Social Connection and Isolation Panel [NHANES] A nswer Date Recorded In a typical week, how many times do you talk on the phone with family, friends, or neighbors? Three times a week 03/27/2024 How often do you get togethe r with friends or relatives? Three times a week 03/27/2024 How often do you attend chur ch or yazdanism services? Never 03/27/2024 Do you belong to any clubs o r organizations such as congregation groups, unions, fraternal or athletic groups, or school groups? No 03/27/2024 How often do you attend meet ings of the clubs or organizations you belong to? Never 03/27/2024 Are you , , di vorced, , never , or living with a partner? 03/27/2024 AUDIT-C Answer Date Recorded Q1: How often do you have a drink containing alcohol? Never 09/04/2024 Q2: How many drinks containi ng alcohol do you have on a typical day when you are drinking? Patient does not drink Q3: How often do you have si x or more drinks on one occasion? Never 09/04/2024 Overall Financial Resource Strain (CARDIA) Answe r Date Recorded How hard is it for you to pa y for the very basics like food, housing, medical care, and heating? Not hard at all 03/27/2024 PHQ-2 Answer Date Recorded PHQ-2 Total Score (If total score is 3 or more points, staff should administer the PHQ-9) 0 09/04/2024 Hunger Vital Sign Answer Date Recorded Within the past 12 months, y ou worried that your food would run out before you got the money to buy more. Never true 03/27/20 24 Within the past 12 months, t he food you bought just didn't last and you didn't have money to get more. Never true 03/27/2024 PRAPARE - Transportation Answer Date Re corded In the past 12 months, has l ack of transportation kept you from medical appointments or from getting medications? No 03/08 In the past 12 months, has l ack of transportation kept you from meetings, work, or from getting things needed for daily living? No 03/27/2024 Housing Stability Vital Sign Answer Reji e Recorded In the last 12 months, was t here a time when you were not able to pay the mortgage or rent on time? No 08/21/2023 In the last 12 months, how many places have you lived? 1 08/21/2023 In the last 12 months, was t here a time when you did not have a steady place to sleep or slept in a penitentiary (including now)? No 08/21/2023 Housing Stability Vital Sign Answer Reji e Recorded In the last 12 months, was t here a time when you were not able to pay the mortgage or rent on time? No 03/27/2024 In the past 12 months, how m any times have you moved where you were living? 1 03/27/2024 At any time in the past 12 m [facility], were you homeless or living in a penitentiary (including now)? No 03/27/2024 Personal Safety Answer Date Recorded Have you ever been in or are you currently in a harmful physical or emotional relationship or is someone making you feel afraid or unsafe? Denies 03/26/2024 Comments No Sex and Gender Information Value Date Recorded Sex Assigned at Not on file Legal Sex Female 10:45 PM SCORER HELPER Gender Identity Female 02/06/2021 2:36 PM CDT Sexual Orientation Not on file Last Filed Vital Signs Vital Sign Reading Time Taken Comments Blood Pressure 152/68 09/04/2024 2:19 PM CDT Pulse 65 09/04/2024 2:19 PM CDT Temperature 36.1 C (97 F) 09/04/2024 2:19 PM CDT Respiratory Rate 18 09/04/2024 2:19 PM CDT Oxygen Saturation 93% 09/04/2024 2:19 PM CDT Inhaled Oxygen Concentration - - Weight 71.2 kg (157 lb) 09/04/2024 2:19 PM CDT Height 160 cm (5' 3 ) 09/04/2024 2:19 PM CDT Body Mass Index 27.81 09/04/2024 2:19 PM CDT Plan of Treatment Not on file Medical Devices Implanted Type Area Communications Director Device Identifier Shelf Expiration Date Model / Serial / Lot [employer]/ Ortho Cover Hole Hip Reflection Titanium [id number] - [id number] Implanted:Qty: 1 on 07/02/2023 by Jose Caraballo MD at [facility] Left: Hip [employer]/Or tho [id number] 08/14/2032 [id number] / / [id number] [employer]/ Ortho Reflection R3 Contour 6.5mm 25mm Spherical Head Hip Acetabular [id number] - [id number] Implanted:Qty: 1 on 07/02/2023 by Jose Caraballo MD at [facility] Left: Hip [employer]/Or tho [id number] 01/19/2033 [id number] / / [id number] [employer]/ Ortho R3 50mm 3 Hole Hip Shell Acetabular [id number] - [id number] Implanted:Qty: 1 on 07/02/2023 by Jose Caraballo MD at [facility] Left: Hip [employer]/Or tho [id number] 04/05/2033 [id number] / / [id number] [employer]/ Ortho Synergy 13mm 155mm Standard Offset Hip Stem Femoral Titanium [id number] - [id number] Implanted:Qty: 1 on 07/02/2023 by Jose Caraballo MD at [facility] Left: Hip [employer]/Or tho [id number] 02/03/2033 [id number] / / [id number] [employer]/ Ortho 36mm Hip +0mm 12/14 Head Femoral Oxinium [id number] - [id number] Implanted:Qty: 1 on 07/02/2023 by Jose Caraballo MD at [facility] Left: Hip [employer]/Or tho [id number] 02/10/2033 [id number] / / [id number] [employer]/ Ortho Liner Acetabular Hip R3 Xlpe 20 Degree 95t55mf Sterile Lf [id number] - [id number] Implanted:Qty: 1 on 07/02/2023 by Jose Caraballo MD at [facility] Left: Hip [employer]/Or tho [id number] / / Explanted Type Area Communications Director Device Identifier Shelf Expiration Date Model / Serial / Lot [employer] [id number] Universa 6fr 26cm Radiopaque Positioner Monofilament Tether 2 - [id number] Implanted:Qty: 1 on 02/07/2021 by Brendan Mejia MD at [facility] Explanted:Qty: 1 on 03/15/2021 Left: [employer] [id number] 11/13/2023 [id number] / / [id number] Procedures Procedure Name Priority Date/Time Associated Diagnosis Comments LIPID PANEL Routine 09/08/2024 10:38 AM CDT Dyslipidemia BASIC METABOLIC PANEL Routine 09/08/2024 10:38 AM CDT Stage 3a chronic kidney disease (HCC) EGFR Routine 08/27/2024 12:07 PM CDT Iron deficiency anemia, unspecified iron deficiency anemia type Autoimmune hemolytic anemia (HCC) Anemia, unspecified type Malignant neoplasm of upper-outer quadrant of left breast in female, estrogen receptor positive (HCC) BLOOD SMEAR REVIEW Routine 08/27/2024 12 :07 PM CDT Iron deficiency anemia, unspecified iron deficiency anemia type Autoimmune hemolytic anemia (HCC) Anemia, unspecified type Malignant neoplasm of upper-outer quadrant of left breast in female, estrogen receptor positive (HCC) DIFFERENTIAL AUTO Routine 08/27/2024 12: 07 PM CDT Iron deficiency anemia, unspecified iron deficiency anemia type Autoimmune hemolytic anemia (HCC) Anemia, unspecified type Malignant neoplasm of upper-outer quadrant of left breast in female, estrogen receptor positive (HCC) CBC WITH AUTO DIFFERENTIAL Routine 08/27/2024 12:07 PM CDT Iron deficiency anemia, unspecified iron deficiency anemia type Autoimmune hemolytic anemia (HCC) Anemia, unspecified type Malignant neoplasm of upper-outer quadrant of left breast in female, estrogen receptor positive (HCC) COMPREHENSIVE METABOLIC PANEL Routine 08/27/2024 12:07 PM CDT Iron deficiency anemia, unspecified iron deficiency anemia type Autoimmune hemolytic anemia (HCC) Anemia, unspecified type Malignant neoplasm of upper-outer quadrant of left breast in female, estrogen receptor positive (HCC) RETICULOCYTES Routine 08/27/2024 12:07 PM CDT Iron deficiency anemia, unspecified iron deficiency anemia type Autoimmune hemolytic anemia (HCC) Anemia, unspecified type Malignant neoplasm of upper-outer quadrant of left breast in female, estrogen receptor positive (HCC) LACTATE DEHYDROGENASE Routine 08/27/2024 12:07 PM CDT Iron deficiency anemia, unspecified iron deficiency anemia type Autoimmune hemolytic anemia (HCC) Anemia, unspecified type Malignant neoplasm of upper-outer quadrant of left breast in female, estrogen receptor positive (HCC) VITAMIN B12 Routine 08/27/2024 12:07 PM CDT Iron deficiency anemia, unspecified iron deficiency anemia type Autoimmune hemolytic anemia (HCC) Anemia, unspecified type Malignant neoplasm of upper-outer quadrant of left breast in female, estrogen receptor positive (HCC) Chronic anemia FOLATE Routine 08/27/2024 12:07 PM CDT Iron deficiency anemia, unspecified iron deficiency anemia type Autoimmune hemolytic anemia (HCC) Anemia, unspecified type Malignant neoplasm of upper-outer quadrant of left breast in female, estrogen receptor positive (HCC) Chronic anemia IRON PROFILE W/ IBC Routine 08/27/2024 1 2:07 PM CDT Iron deficiency anemia, unspecified iron deficiency anemia type Autoimmune hemolytic anemia (HCC) Anemia, unspecified type Chronic anemia FERRITIN Routine 08/27/2024 12:07 PM CDT Iron deficiency anemia, unspecified iron deficiency anemia type Autoimmune hemolytic anemia (HCC) Anemia, unspecified type Chronic anemia SCAN - RADIOLOGY/IMAGING 07/03/2024 XR SPINE LUMBAR COMPLETE 4 OR MORE VIEWS Schedule Routine, Read Routine (OP Routine) 07/01/2024 3:03 PM SCORER HELPER Acute right-sided low back pain with right-sided sciatica SD ARTHROCENTESIS ASPIR&/INJ MAJOR JT/BURSA W/O US Routine 06/18/2024 8:00 AM SCORER HELPER Trochanteric bursitis of right hip CT CHEST WO CONTRAST F/U LUNG SCREEN PROTOCOL Schedule Routine, Read Routine (OP Routine) 12/28/2021 10:24 AM CDT Pulmonary nodules HEPATITIS C ANTIBODY Routine 09/07/2020 9:32 AM CDT Need for hepatitis C screening test DEXA AXIAL SKELETON BONE DENSITY 1 OR MORE SITES 06/16/2020 8:58 AM SCORER HELPER SCREENING MAMMOGRAM BILATERAL W DUSTY 06/16/2020 8:58 AM SCORER HELPER HM COLONOSCOPY Routine 04/12/2017 from Last 3 Months or Most Recently Relevant to Health Maintenance Results * (ABNORMAL) Lipid panel (09/08/2024 10:38 AM CDT) Cholesterol 147 100 - 199 mg/dL [facility] - 01 Triglycerides 172(H) 0 - 149 mg/dL [facility] - 01 HDL Cholesterol 40 >39 mg/dL [facility] - 01 VLDL 29 5 - 40 mg/dL [facility] - 01 LDL, calculated 78 0 - 99 mg/dL [facility] - 01 Blood 09/08/2024 10:3 8 AM CDT 09/08/2024 Narrative [facility] - 09/09/2024 7:09 AM CDT Performed at: [address] [id number] Forest Ecologist: Tk Miguel PhD, Phone: [phone] Steve Nieves MD LAB BLOOD ORDERABLES Final Result [facility] - 01 * (ABNORMAL) Basic metabolic panel (09/08/2024 10:38 AM CDT) Glucose 102(H) 70 - 99 mg/dL [facility] - 01 BUN 22 8 - 27 mg/dL [facility] - 01 Creatinine, Serum 1.25(H) 0.57 - 1.00 mg/dL [facility] - 01 eGFR 44(L) >59 mL/min/1.7 3 [facility] - 01 BUN/creat ratio 18 12 - 28 [facility] - 01 Sodium 147(H) 134 - 144 mmol/L [facility] - 01 Potassium, sr 3.9 3.5 - 5.2 mmol/L [facility] - 01 Chloride 108(H) 96 - 106 mmol/L [facility] - 01 CO2 25 20 - 29 mmol/L [facility] - 01 Calcium 9.4 8.7 - 10.3 mg/dL [facility] - 01 Blood 09/08/2024 10:3 8 AM CDT 09/08/2024 Narrative [facility] - 09/09/2024 7:09 AM CDT Performed at: 01 - [facility] [address] [id number] Forest Ecologist: Tk Miguel PhD, Phone: [phone] Steve Nieves MD LAB BLOOD ORDERABLES Final Result [facility] - 01 * Blood smear review (08/27/2024 12:07 PM CDT) RBC morphology Consistent with RBC Indicies Comment:Testing performed by : [facility], [address] [place] [address]., [id number] Platelet estimate Adequate CURT Comment:Testing performed by : [facility], [address] [place] [address]., [id number] Blood 08/27/2024 12:0 7 PM CDT 08/27/2024 12:08 PM CDT Jannet Orantes NP LAB BLOOD ORDERABLES Final Result Performing Organization Address City/[facility]/ZIP Co de Phone Number [place] [phone] [facility] Department [place] [address] * (ABNORMAL) eGFR (08/27/2024 12:07 PM CDT) eGFR 30(L) >=60 mL/min/1. 73 m2 Comment: Interpretive Data Reference Interval Normal >/= 90 mL/min/1.73m2 Mildly decreased* 60 - 89 mL/min/1.73m2 Mildly to moderately decreased 45 - 59 mL/min/1.73m2 Moderately to severely decreased 30 - 44 mL/min/1.73m2 Severely decreased 15 - 29 mL/min/1.73m2 Kidney Failure < 15 mL/min/1.73m2 *Relative to young adult level Estimated glomerular filtration rate is determined by the 2020 CKD-EPI equation recommended by the National Kid[employer] (A Unifying Approach to GFR Estimation: Recommendations of the NKF-ASK Task Force on Reassessing the Inclusion of Race in Diagnosing Kidney Disease, JASN 2020). The CKD-EPI equation should not be used for patients with unstable renal function and has not been validated in children and those over 70. Current interpretive data was last reviewed 2021. Testing performed by: [address] [address] Blood 08/27/2024 12:0 7 PM CDT 08/27/2024 12:08 PM CDT Jannet Orantes NP LAB BLOOD ORDERABLES Final Result [facility] [address] [facility] [place] [address] * Differential, auto (08/27/2024 12:07 PM CDT) Neutrophil abs 6.18 1.50 - 6.50 K/cumm Comment:Testing performed by : [address] [address] Imm gran abs 0.06 0.00 - 0.10 K/cumm CURT Comment:Testing performed by : [address] [address] Lymphocyte abs 1.27 0.80 - 3.30 K/cumm CURT Comment:Testing performed by : [address] [address] Monocyte abs 0.59 0.20 - 0.80 K/cumm CURT Comment:Testing performed by : [address] [address] Eosinophil abs 0.16 0.00 - 0.50 K/cumm CURT Comment:Testing performed by : [address] [address] Basophil abs 0.07 0.00 - 0.10 K/cumm CURT Comment:Testing performed by : [address] [address] Neutrophil pct 74.3 % CURT Comment: Interpretive Data Percent cell count reference ranges are not reported, since discordance with absolute values may lead to misinterpretation of CBC data. Current Interpretive Data was last revised on 2017. Testing performed by: [address] [place]., [address] Imm gran pct 0.7 % [facility] Comment: Interpretive Data Percent cell count reference ranges are not reported, since discordance with absolute values may lead to misinterpretation of CBC data. Current Interpretive Data was last revised on 2017. Testing performed by: [address] [address] Lymphocyte pct 15.2 % [facility] Comment: Interpretive Data Percent cell count reference ranges are not reported, since discordance with absolute values may lead to misinterpretation of CBC data. Current Interpretive Data was last revised on 2017. Testing performed by: [address] [address] Monocyte pct 7.1 % [facility] Comment: Interpretive Data Percent cell count reference ranges are not reported, since discordance with absolute values may lead to misinterpretation of CBC data. Current Interpretive Data was last revised on 2017. Testing performed by: [address] [address] Eosinophil pct 1.9 % [facility] Comment: Interpretive Data Percent cell count reference ranges are not reported, since discordance with absolute values may lead to misinterpretation of CBC data. Current Interpretive Data was last revised on 2017. Testing performed by: [address] [address] Basophil pct 0.8 % [facility] Comment: Interpretive Data Percent cell count reference ranges are not reported, since discordance with absolute values may lead to misinterpretation of CBC data. Current Interpretive Data was last revised on 2017. Testing performed by: [address] [address] Blood 08/27/2024 12:0 7 PM CDT 08/27/2024 12:08 PM CDT us Jannet Orantes ROLLER PAINTER LAB BLOOD ORDERABLES Final Result [facility] [address] [facility] Department of Laboratories [place], [place] [id number] * (ABNORMAL) Iron profile w/ IBC (08/27/2024 12:07 PM CDT) Iron 46 35 - 145 mcg/dL Comment:Testing performed by : [address] [address] TIBC 259 250 - 400 mcg/dL [facility]T URENA Comment:Testing performed by : [address] [address] Transferrin saturation 18(L) 20 - 50 % [facility] URENA Comment:Testing performed by : [address] [address] Blood 08/27/2024 12:0 7 PM CDT 08/27/2024 1:44 PM CDT Jannet Orantes ROLLER PAINTER LAB BLOOD ORDERABLES Final Result [facility] Department [place] [address] * (ABNORMAL) CBC with auto differential (08/27/2024 12:07 PM CDT) WBC 8.33 3.80 - 9.90 K/cumm Comment:Testing performed by : [address] [address] Hgb 12.2 11.9 - 15.5 g/dL [facility] URENA Comment:Testing performed by : [address] [address] Hct 40.0 35.6 - 45.5 % [facility] URENA Comment:Testing performed by : [address] [address] Plt 214 150 - 400 K/cumm CURT URENA Comment:Testing performed by : [address] [address] MPV Not Measured 9.1 - 12.3 fL [facility] URENA Comment:Testing performed by : [address] [address] RBC 4.77 3.90 - 5.20 M/cumm [facility]T URENA Comment:Testing performed by : [address] [address] MCV 83.9 81.3 - 96.4 fL CURT Comment:Testing performed by : [address] [address] MCH 25.6(L) 27.1 - 33.3 pg CURT URENA Comment:Testing performed by : [address] [address] MCHC 30.5(L) 32.3 - 35.7 g/dL CURT Comment:Testing performed by : [address] [address] RDW CV 19.4(H) 11.1 - 14.9 % CURT Comment:Testing performed by : [address] [address] RDW SD 59.4(H) 35.7 - 48.1 fL CURT Comment:Testing performed by : [address] [address] NRBC abs 0.00 0.00 - 0.01 K/cumm CURT Comment:Testing performed by : [address] [address] ANC Prelim 6.18 1.50 - 6.50 K/cumm CURT Comment: Interpretive Data The rapid ANC is a preliminary automated count and may vary from the final ANC (Neut Abs) reported in the WBC differential that follows. Current interpretive data was last revised 2024. Testing performed by: [address] [address] Blood 08/27/2024 12:0 7 PM CDT 08/27/2024 12:08 PM CDT us Jannet Orantes NP LAB BLOOD ORDERABLES Final Result [facility] [address] [facility] Department [place] [address] * (ABNORMAL) Reticulocyte Count (08/27/2024 12:07 PM CDT) Retics, absolute 49 20 - 87 K/cumm Comment:Testing performed by : [facility], [address] [place] [address]., [address] Retics 1.0 0.4 - 2.9 % CURT URENA Comment:Testing performed by : [address] [address] Reticulocyte Hgb 28.7(L) 30.5 - 38.0 pg CURT URENA Comment:Testing performed by : [address] [address] Blood 08/27/2024 12:0 7 PM CDT 08/27/2024 12:08 PM CDT Jannet Orantes NP LAB BLOOD ORDERABLES Final Result Performing Organization Address [facility] Co de Phone Number [address] [place] [address] * Lactate dehydrogenase (LD) (08/27/2024 12:07 PM CDT) [facility] Lactate dehydrogenase (LDH) 195 100 - 250 Units/L Comment:Testing performed by : [address], [address] Blood 08/27/2024 12:0 7 PM CDT 08/27/2024 12:08 PM CDT Jannet Orantes NP LAB BLOOD ORDERABLES Final Result Performing Organization Address City/[facility]/ZIP Co de Phone Number [address] [address] * Folate (08/27/2024 12:07 PM CDT) [facility] Folic acid >20.0 >=5.0 ng/mL Comment:Testing performed by : [address] [address] Blood 08/27/2024 12:0 7 PM CDT 08/27/2024 1:44 PM CDT Jannet Orantes NP LAB BLOOD ORDERABLES Final Result Performing Organization Address City/[facility]/ZIP Co de Phone Number CURT [address] [address] * (ABNORMAL) Ferritin (08/27/2024 12:07 PM CDT) Pathologist [facility] Ferritin 693(H) 15 - 150 ng/mL Comment:Testing performed by : [address] [address] Blood 08/27/2024 12:0 7 PM CDT 08/27/2024 1:44 PM CDT Jannet Orantes NP LAB BLOOD ORDERABLES Final Result Performing Organization Address [facility] Co de Phone Number LANDEN[address] [place] [address] * Vitamin B12 (08/27/2024 12:07 PM CDT) Pathologist [facility] Vitamin B12 380 230 - 1,250 pg/mL Comment:Testing performed by : [address] [address] Blood 08/27/2024 12:0 7 PM CDT 08/27/2024 1:44 PM CDT Jannet Orantes NP LAB BLOOD ORDERABLES Final Result Performing Organization Address City/[facility] Co de Phone Number CURT [address] [address] * (ABNORMAL) Comprehensive metabolic panel (08/27/2024 12:07 PM CDT) [facility] Sodium 144 135 - 145 mmol/L Comment:Testing performed by : [address] [address] Potassium, pl 4.1 3.3 - 4.9 mmol/L CURT Comment:Testing performed by : [address] [address] Chloride 103 97 - 110 mmol/L CURT Comment:Testing performed by : [address] [address] CO2 29 22 - 32 mmol/L CURT Comment:Testing performed by : [address] [address] Anion gap 12 2 - 15 mmol/L CURT Comment:Testing performed by : [address] [address] BUN 39(H) 6 - 25 mg/dL [facility] Comment:Testing performed by : [address] [address] Creatinine 1.70(H) 0.60 - 1.10 mg/dL CURT Comment:Testing performed by : [address] [address] Glucose 101 70 - 199 mg/dL CURT Comment: Interpretive Data Fasting glucose >/= 126 mg/dl is diagnostic for diabetes. Fasting is defined as no caloric intake for at least 8 hours. Fasting glucose between 100 mg/dl to 125 mg/dl is diagnostic of prediabetes. In a patient with classic symptoms of hyperglycemia or hyperglycemic crisis, a random glucose >/= 200 mg/dl is diagnostic for diabetes. In the absence of unequivocal hyperglycemia, results should be confirmed by repeat testing. The classification and Diagnosis of Diabetes Diabetes Care 202; 46: S19-S40. Current interpretive data was last revised 2022. Testing performed by: [address] [address] Calcium 9.7 8.5 - 10.3 mg/dL CURT Comment:Testing performed by : [address] [address] Bilirubin, total 0.7 0.1 - 1.2 mg/dL CURT Comment:Testing performed by : [address] [address] Protein, pl 6.4(L) 6.5 - 8.5 g/dL CURT Comment:Testing performed by : [address] [address] Albumin 4.1 3.5 - 5.0 g/dL CURT Comment:Testing performed by : [address] [address] Alk phos 82 40 - 130 Units/L CURT Comment:Testing performed by : [address] [address] ALT 12 7 - 45 Units/L CURT Comment:Testing performed by : [address] [address] AST 17 10 - 45 Units/L CURT Comment:Testing performed by : [address] [address] Blood 08/27/2024 12:0 7 PM CDT 08/27/2024 12:08 PM CDT Jannet Orantes NP LAB BLOOD ORDERABLES Final Result Performing Organization Address City/State/[facility] Co de Phone Number CURT [facility]0 [facility] [place] [address] * SCAN - RADIOLOGY/IMAGING (07/03/2024) Anatomical Region Laterality Modality Other Steve Nieves MD Final Resul t * XR Spine Lumbar Complete 4 Or More (07/01/2024 3:03 PM SCORER HELPER) Anatomical Region Laterality Modality Spine N/A Computed Radiogr aphy 07/04/2024 11:4 8 AM SCORER HELPER Narrative 07/04/2024 2:18 PM SCORER HELPER EXAM DESCRIPTION: XR SPINE LUMBAR 4 OR MORE VIEWS REASON FOR STUDY: pain Pt states radiating pain into the right leg x 2wks and is not able to walk when it happens. States numbness from the right buttock to the knee when walking. When standing, pt stated she loses her balance. FINDINGS: Five views of the lumbar spine are submitted for interpretation and compared to prior 05/17/2023. Mild dextroscoliosis at the thoracolumbar junction and mild levoscoliosis at L5. No compression fracture. Mild multilevel lumbar spine degenerative disc disease. Mild retrolisthesis at L1-L2. The aorta is atherosclerotic. Left total hip arthroplasty is present. Moderate right hip osteoarthritis. Inferior vena cava filter is present. IMPRESSION: Mild multilevel lumbar spine degenerative disc disease. Bilateral multilevel facet osteoarthritis is present. THIS IS AN ELECTRONICALLY VERIFIED FINAL REPORT 07/04/2024 2:18 PM - Electronically signed by Slava Rutledge M.D. T: Report ID: [id number] Reading Location: [id number] Procedure Note Slava Rutledge MD - 07/04/2024 EXAM DESCRIPTION: XR SPINE LUMBAR 4 OR MORE VIEWS REASON FOR STUDY: pain Pt states radiating pain into the right leg x 2wks and is not able to walk when it happens. States numbness from the right buttock to the knee when walking. When standing, pt stated she loses her balance. FINDINGS: Five views of the lumbar spine are submitted for interpretationand compared to prior 05/17/2023. Mild dextroscoliosis at the thoracolumbar junction and mild levoscoliosisat L5. No compression fracture. Mild multilevel lumbar spine degenerativedisc disease. Mild retrolisthesis at L1-L2. The aorta is atherosclerotic.Left total hip arthroplasty is present. Moderate right hip osteoarthritis. Inferior vena cava filter is present. IMPRESSION: Mild multilevel lumbar spine degenerative disc disease. Bilateral multilevel facet osteoarthritis is present. THIS IS AN ELECTRONICALLY VERIFIED FINAL REPORT 07/04/2024 2:18 PM - Electronically signed by Slava Rutledge M.D. T: Report ID: [id number] Reading Location: [id number] us Steve Nieves MD IMG XR PROCEDURES Final Res ult * SD ARTHROCENTESIS ASPIR&/INJ MAJOR JT/BURSA W/O US (06/18/2024 8:00 AM SCORER HELPER) Narrative Jose Caraballo MD - 06/18/2024 8:00 AM SCORER HELPER Jose Caraballo MD 06/18/2024 8:05 AM Large Joint (Hip, Knee, Shoulder) Injection: R greater trochanteric bursa Performed by: Jose Caraballo MD Authorized by: Jose Caraballo MD Large Joint Injection/Aspiration: Consent Given by: Patient Site marked: the procedure site was marked Timeout: prior to procedure the correct patient, procedure, and site was verified Verbal consent obtained: Yes Supporting Documentation: Indications: Pain Procedure Details: Location: Hip Site: R greater trochanteric bursa Prep: patient was prepped and draped in usual sterile fashion Needle Size: 22 G Approach: Lateral Ultrasound guided: No Medications: 40 mg triamcinolone 40 mg/mL; 2 mL lidocaine 10 mg/mL (1 %) Patient tolerance: Patient tolerated the procedure well with no immediate complications us Jose Caraballo MD IN CLINIC/BEDSIDE ORDERABLES Final Result * CT Chest WO Contrast F/U Lung Screen Protocol (12/28/2021 10:24 AM CDT) Anatomical Region Laterality Modality Chest N/A Computed Tomogra phy 12/30/2021 9:28 AM CDT Narrative 12/30/2021 9:40 AM CDT EXAM DESCRIPTION: CT CHEST WO CONTRAST F/U LUNG SCREEN PROTOCOL REASON FOR STUDY: Screening CT of the chest in a current smoker with a 37.5 pack year smoking history. Additional history: Hypertension, COPD. Exposure to diesel fumes. Category 4 examination 09/14/2021. TECHNIQUE: Low dose CT scan of the chest was performed without intravenous contrast using helical scanning technique. The exam extends from the lung apices through the lung bases. Automatic exposure control was used as a dose optimization technique. NOTE: This study was performed for the specific purposes of lung cancer screening and is not an alternative to diagnostic chest CT. RADIATION DOSE: CT dose index volume (CTDIvol) = 4.02 mGy COMPARISON: 09/14/2021 FINDINGS: SMOKING RELATED LUNG DISEASE: Mild centrilobular and paraseptal emphysema. LUNG NODULES: Grossly stable solid and ground-glass nodules within the right upper lobe. For reference is a 5 mm solid nodule (17). A 4 mm right middle lobe nodule appears slightly increased in size compared to the prior examination where measured 3 mm but is decreased in density. An adjacent 4 mm nodule appears slightly more prominent as well (48). Other nodules within the right middle lobe are grossly stable. An 8.5 mm cavitary right lower lobe nodule, previously measured approximately 7.5 mm (73). Small nodules within the left apex measuring up to 3 mm are grossly stable. Stable 5 mm right middle lobe nodule (52). New 2.0 x 1.2 cm subpleural left lower lobe ground-glass nodule (75). The previously seen new 3 mm left lower lobe pulmonary nodule has resolved in the interim. OTHER: Chronic mild subpleural ground-glass within the lingula and lower lobes, likely scarring. No pleural effusion or pneumothorax is seen. No mediastinal hilar lymphadenopathy. The heart is normal in size. The aorta is normal in caliber. No axillary lymphadenopathy or chest wall mass. Images of the upper abdomen a demonstrated a chronic 4.3 cm left adrenal gland adenoma. This is not require specific follow-up. IVC filter is noted. Bone windows demonstrate a right shoulder arthroplasty. Is grossly stable subcentimeter sclerotic lesion within the upper thoracic spine. IMPRESSION: 1. New 2 cm left lower lobe ground-glass nodule. Grossly stable other pulmonary nodules. Lung-RADS v1.1 category 2: Benign appearance or behavior. Recommendation: Continue annual screening low-dose chest CT in 12 months. THIS IS AN ELECTRONICALLY VERIFIED FINAL REPORT 12/30/2021 9:40 AM - Electronically signed by Dagoberto Aawd M.D. AG: AWA Report ID: [id number] Reading Location: [place] [address] Procedure Note Dagoberto Awad MD - 12/30/2021 EXAM DESCRIPTION: CT CHEST WO CONTRAST F/U LUNG SCREEN PROTOCOL REASON FOR STUDY: Screening CT of the chest in a current smoker with a 37.5 pack year smoking history. Additional history: Hypertension, COPD. Exposure to diesel fumes. Category 4 examination 09/14/2021. TECHNIQUE: Low dose CT scan of the chest was performed without intravenous contrast using helical scanning technique. The exam extends from the lung apices through the lung bases. Automatic exposure control was used as adose optimization technique. NOTE: This study was performed for the specific purposes of lung cancer screening and is not an alternative to diagnostic chest CT. RADIATION DOSE: CT dose index volume (CTDIvol) = 4.02 mGy COMPARISON: 09/14/2021 FINDINGS: SMOKING RELATED LUNG DISEASE: Mild centrilobular andparaseptal emphysema. LUNG NODULES: Grossly stable solid and ground-glass nodules within theright upper lobe. For reference is a 5 mm solid nodule (17). A 4 mm rightmiddle lobe nodule appears slightly increased in size compared to the prior examination where measured 3 mm but is decreased in density. An adjacent4 mm nodule appears slightly more prominent as well (48). Other nodules withinthe right middle lobe are grossly stable. An 8.5 mm cavitary right lower lobe nodule, previously measured approximately 7.5 mm (73). Small noduleswithin the left apex measuring up to 3 mm are grossly stable. Stable 5 mm right middle lobe nodule (52). New 2.0 x 1.2 cm subpleural left lower lobe ground-glass nodule (75). The previously seen new 3 mm left lower lobe pulmonary nodule has resolved in the interim. OTHER: Chronic mild subpleural ground-glass within the lingula and lower lobes, likely scarring. No pleural effusion or pneumothorax is seen. No mediastinal hilar lymphadenopathy. The heart is normal in size. Theaorta is normal in caliber. No axillary lymphadenopathy or chest wall mass.Images of the upper abdomen a demonstrated a chronic 4.3 cm left adrenal glandadenoma. This is not require specific follow-up. IVC filter is noted. Bonewindows demonstrate a right shoulder arthroplasty. Is grossly stablesubcentimeter sclerotic lesion within the upper thoracic spine. IMPRESSION: 1. New 2 cm left lower lobe ground-glass nodule. Grossly stable other pulmonary nodules. Lung-RADS v1.1 category 2: Benign appearance or behavior. Recommendation: Continue annual screening low-dose chest CT in 12 months. THIS IS AN ELECTRONICALLY VERIFIED FINAL REPORT 12/30/2021 9:40 AM - Electronically signed by Dagoberto Awad M.D. AG: AWA Report ID: [id number] Reading Location: [place] [address] Steve Nieves MD IM CT PROCEDURES Final Res ult * Hepatitis C antibody (09/07/2020 9:32 AM CDT) Hep C Ab NONREACT NONREACTIVE [facility] Comment: Siemens CentaurXP using JIMMY (chemiluminescent immunoassay) technology. NONREACTIVE: Antibodies to Hepatitis C not detected. This does not exclude early acute Hepatitis C infection, possibility of exposure to Hepatitis C, antibodies below detection limit, or to lack of antibody reactivity to the antigen used in this assay. EQUIVOCAL: Antibodies to Hepatitis C may or may not be present. Sample to be confirmed by real-time PCR method. REACTIVE: Antibodies to Hepatitis C detected.Sample to be confirmed by real-time PCR method. Blood specimen (specimen) 09/07/2020 9:32 AM CDT 09/07/2020 9:37 AM CDT Narrative Resulting Agency Comment RCR us Jannet Orantes NP LAB MICROBIOLOGY - G ENERAL ORDERABLES Final Result [address] [phone] * Screening Mammogram Bilateral W Dusty (06/16/2020 8:58 AM SCORER HELPER) Anatomical Region Laterality Modality Breast Bilateral Mammography 06/16/2020 9:02 AM SCORER HELPER Narrative 06/16/2020 11:06 AM SCORER HELPER Patient Name: MARSHA VASQUEZ Ordering Dr: Steve Nieves MD D.O.B: 1945 Exam Date: 06/16/2058 Age: 75 Sex: Female MR#: [id number] Loc: RADIOLOGY REPORT Order #[id number] [facility] Bilat Screening 3D Signed - MG BILATERAL DIGITAL SCREENING MAMMOGRAM 3D/2D WITH MEDIOLATERAL OBLIQUE CRANIOCAUDAL: 06/16/2020 The study was acquired using full field digital technology and interpreted from soft copy. 2D digital mammographic views, as well as 3D digital tomosynthesis were performed in the CC and MLO projections. CLINICAL: Routine mammogram. Denies any problems today. No personal history of breast cancer. No family history of breast cancer. COMPARISONS: Comparison is made to exams dated: 01/02/2019 mammogram, 11/08/2017 mammogram, and 11/02/2017 mammogram - [facility]. BREAST TISSUE: There are scattered areas of fibroglandular density. FINDINGS: No significant masses, calcifications, or other findings are seen in either breast. There has been no significant interval change. IMPRESSION: BI-RAD 1 NEGATIVE There is no mammographic evidence of malignancy. A 1 year screening mammogram is recommended. The patient has been or will be contacted. We recommend annual screening mammography for women at average risk of breast cancer beginning at age 40, based on guidelines of the [place] [employer] (ACR Practice Parameter for the Performance of Screening and Diagnostic Mammography) and [place] [employer]. For women with an elevated risk of breast cancer, please refer to the ACR Practice Parameter for specific screening recommendations. The patient will be entered into a reminder system with a target due date of 1 year for her next screening exam. Electronically signed by: Emeterio devine/rome:06/16/2020 11:06:52 Diesel Pile Driver Operator: Zaida VILLALBA)(Michael), [facility] letter sent: Normal Exam Reading location: BI-RADS: 1 Negative REPORT ELECTRONICALLY SIGNED IN OTHER VENDOR SYSTEM Resulting Agency Comment O Procedure Note Emeterio Pena MD - 06/16/2020 Patient Name: FREDDIE VASQUEZYCE Mariella Dr: Steve Nieves MD D.O.B: 1945 Exam Date: 06/16/2058 Age: 75 Sex: Female MR#: [id number] Loc: RADIOLOGY REPORT Order #[id number] [facility] Bilat Screening 3D Signed - MG BILATERAL DIGITAL SCREENING MAMMOGRAM 3D/2D WITH MEDIOLATERAL OBLIQUE CRANIOCAUDAL: 06/16/2020 The study was acquired using full field digital technology andinterpreted from soft copy. 2D digital mammographic views, as well as 3D digital tomosynthesis were performed in the CC and MLO projections. CLINICAL: Routine mammogram. Denies any problems today. No personalhistory of breast cancer. No family history of breast cancer. COMPARISONS: Comparison is made to exams dated: 01/02/2019 mammogram,11/08/2017 mammogram, and 11/02/2017 mammogram - [facility]. BREAST TISSUE: There are scattered areas of fibroglandular density. FINDINGS: No significant masses, calcifications, or other findings areseen in either breast. There has been no significant interval change. IMPRESSION: BI-RAD 1 NEGATIVE There is no mammographic evidence of malignancy. A 1 year screeningmammogram is recommended. The patient has been or will be contacted. We recommend annual screening mammography for women at average risk ofbreast cancer beginning at age 40, based on guidelines of the [place] [employer] (ACR Practice Parameter for the Performance of Screening and Diagnostic Mammography) and [place] [employer]. For women with an elevated risk of breast cancer, pleaserefer to the ACR Practice Parameter for specific screening recommendations. The patient will be entered into a reminder system with a target due dateof 1 year for her next screening exam. Electronically signed by: Emeterio Smith rl/rome:06/16/2020 11:06:52 Diesel Pile Driver Operator: Zaida GLOVER(Geo)(Michael), [facility] letter sent: Normal Exam Reading location: BI-RADS: 1 Negative REPORT ELECTRONICALLY SIGNED IN OTHER VENDOR SYSTEM Steve Nieves MD IMG MAMMO PROCEDURES Final Result * Dexa Axial Skeleton Bone Density 1 or 2 Site (06/16/2020 8:58 AM SCORER HELPER) Anatomical Region Laterality Modality Body N/A Radiographic Nellie ging 06/16/2020 9:47 AM SCORER HELPER Narrative 06/16/2020 9:49 AM SCORER HELPER Patient Name: MARSHA VASQUEZ Ordering Dr: Steve Nieves MD D.O.B: 1945 Exam Date: 06/16/20857 Age: 75 Sex: Female MR#: [id number] Loc: RADIOLOGY REPORT Order #[id number] Bone Density Bone Density Hip/Spine (STD) Signed EXAM DESCRIPTION: Bone Density Hip/Spine (STD) REASON FOR STUDY: 75 year old female with given history of postmenopausal status. 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 Reported use of vitamin-D. COMPARISON: 06/26/2016 FINDINGS: AP LUMBAR SPINE L1-L4: Total BMD is 0.963 g/cm2 T-score is -0.8 Most recent prior BMD was 0.947 g/cm2 Dissimilar scan types or analysis methods precludes assessment for calculating a significant change. LEFT HIP: Current Total BMD is 0.698 g/cm2 T-score is -2.0 Most recent prior Total BMD was 0.797 g/cm2 Dissimilar scan types or analysis methods precludes assessment for calculating a significant change. Current femoral neck BMD is 0.564 g/cm2 T-score is -2.6 IMPRESSION: Osteoporosis. REFERENCE: Bone mineral density: Normal (T-score above or = -1.0) Low bone mass (T-score between -1.0 and -2.5) replaces the previously used term osteopenia Osteoporosis (T-score = or below -2.5) Medical evaluation for secondary causes of low bone mineral density may be appropriate. FRAX is a World Health Organization validated fracture risk assessment tool that calculates a person's 10 year probability of a major osteoporosis related fracture and hip fracture. According to the National Osteoporosis Foundation guidelines, postmenopausal women and men age 50 or older with low bone mass and a 10 year probability of a major osteoporosis related fracture = or greater than 20% or a 10 year probability of a hip fracture = or greater than 3% should be considered for treatment. For further information, including treatment recommendations, please refer to the 2013 ISCD Official Positions (http://www.iscd.org) and the NOF's Clinician's Guide to Prevention and Treatment of Osteoporosis (http://www.nof.org/professionals/clinical-guidelines) THIS IS AN ELECTRONICALLY VERIFIED FINAL REPORT 06/16/2020 9:49 AM - Electronically signed by Jag Payne M.D. MD: Report ID: [id number] Reading Location: [id number] REPORT ELECTRONICALLY SIGNED IN OTHER VENDOR SYSTEM Resulting Agency Comment O Procedure Note Jag Payne MD - 06/16/2020 Patient Name: MARSHA VASQUEZ Dr: Steve Nieves MD DSajanO.B: 1945 Exam Date: 06/16/20857 Age: 75 Sex: Female MR#: [id number] Loc: RADIOLOGY REPORT Order #[id number] Bone Density Bone Density Hip/Spine (STD) Signed EXAM DESCRIPTION: Bone Density Hip/Spine (STD) REASON FOR STUDY: 75 year old female with given history ofpostmenopausal status. 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 Reported use of vitamin-D. COMPARISON: 06/26/2016 FINDINGS: AP LUMBAR SPINE L1-L4: Total BMD is 0.963 g/cm2 T-score is -0.8 Most recent prior BMD was 0.947 g/cm2 Dissimilar scan types or analysis methods precludes assessment for calculating a significant change. LEFT HIP: Current Total BMD is 0.698 g/cm2 T-score is -2.0 Most recent prior Total BMD was 0.797 g/cm2 Dissimilar scan types or analysis methods precludes assessment for calculating a significant change. Current femoral neck BMD is 0.564 g/cm2 T-score is -2.6 IMPRESSION: Osteoporosis. REFERENCE: Bone mineral density: Normal (T-score above or = -1.0) Low bone mass (T-score between -1.0 and -2.5) replaces thepreviously used term osteopenia Osteoporosis (T-score = or below -2.5) Medical evaluation for secondary causes of low bone mineral density maybe appropriate. FRAX is a World Health Organization validated fracture risk assessmenttool that calculates a person's 10 year probability of a major osteoporosisrelated fracture and hip fracture. According to the National OsteoporosisFoundation guidelines, postmenopausal women and men age 50 or older with low bonemass and a 10 year probability of a major osteoporosis related fracture = or greater than 20% or a 10 year probability of a hip fracture = or greaterthan 3% should be considered for treatment. For further information, including treatment recommendations, pleaserefer to the 2013 ISCD Official Positions (http://www.iscd.org) and the NOF's Clinician's Guide to Prevention and Treatment of Osteoporosis (http://www.nof.org/professionals/clinical-guidelines) THIS IS AN ELECTRONICALLY VERIFIED FINAL REPORT 06/16/2020 9:49 AM - Electronically signed by Jag Payne M.D. MD: Report ID: [id number] Reading Location: [place] [address] REPORT ELECTRONICALLY SIGNED IN OTHER VENDOR SYSTEM Steve Nieves MD IMG DXA PROCEDURES Final Re sult * COLONOSCOPY (04/12/2017) Colonoscopy Abnormal Comment:Per Patient Dr. Fani hanley diverticulitis Historical Provider HEALTH MAINTENANCE Final Result from Last 3 Months or Most Recently Relevant to Health Maintenance Insurance [employer] CHOICE MEDICARE PPO [employer]ICE MEDICARE PPO Advance Directives For more information, please contact: [phone] Documents on File Type Date Recorded Patient Clamshell Engineer Expl anation ADVANCE DIRECTIVE 10/12/2020 12:27 PM Power of Suture Gauger-Medical ADVANCE DIRECTIVE 08/19/2018 12:00 AM TIFFANY R OF V BELT INSPECTOR FINANCIAL/MEDICAL * Full Code (Latest Code Status on File) Date Activated Date Inactivated Comments 03/26/2024 4:48 AM 03/30/2024 3:48 PM * Full Code Date Activated Date Inactivated Comments 10/07/2023 3:28 PM 10/09/2023 4:55 PM * Full Code Date Activated Date Inactivated Comments 07/02/2023 3:20 PM 07/04/2023 6:49 PM * Full Code Date Activated Date Inactivated Comments 01/07/2023 8:29 PM 01/11/2023 8:13 PM * Full Code Date Activated Date Inactivated Comments 09/11/2022 2:50 PM 09/14/2022 7:27 PM Healthcare Agents on File Name Relationship Healthcare Agent Relationshi p Communication Rodrigo Vasquez Son Second Alternate Health Care Agent Care Teams Blood And Plasma Laboratory Assistant Relationship Specialty Start Date End Date Steve Nieves MD [address] [facility] [place] [address] PCP - General 09/18/17 Shawn Sousa DO [address] [address] Medical Oncologist/Hematologis t Hematology and Oncology 12/10/17 Lizet Persaud MD [facility] [address] Consulting Physician Pulmonary Disease 06/19/23 [place] [address] [place] [address] Referring Physician Interventional Cardiology 06/22/23
--- OUTSIDE RECORDS SUMMARY | 2024-09-10 12:07 | XMS_ITS | Encounter Summary ---
Author Organization [facility] Healthcare Address [address] [place] [address] Care Team Providers Care Major Donor Coordinator Name Role Phone Steve Nieves MD Primary Care Provider [phone] Shawn Sousa DO Unavailable [phone] Lizet Persaud MD Unavailable + [phone] Elisha Wright MD Unavailable [phone] Encounter Details Date Type Department Care Team (Late st Contact Info) Description 09/09/2024 Results Follow-Up [facility] Medical Group Internal Medicine [facility] [address] [phone] Steve Nieves MD [address] [place] [address] Social History Tobacco Use Types Packs/Day Years Used Date Smoking Tobacco: Former Cigarettes 1 45 1 970 - 2015 Smokeless Tobacco: Never Alcohol Use Standard Drinks/Week Comments Not Currently 0 (1 standard drink = 0.6 oz pur e alcohol) [facility] Utilities Answer Date Recorded In the past 12 months has e electric, gas, oil, or water company threatened to shut off services in your [...] often do you attend chur ch or cheondoism services? Never 03/27/2024 Do you belong to any clubs o r organizations such as mandaeism groups, unions, fraternal or athletic groups, or [...] any time in the past 12 m [facility], were you homeless or living in a [...] on file Legal Sex Female 10:45 PM GAUGE OPERATOR Gender Identity Female 02/06/2021 2:36 PM CDT Sexual Orientation Not on file documented as of this encounter Plan of Treatment Not on file documented as of this encounter Visit Diagnoses Not on filedocumented in this encounter Care Teams Major Donor Coordinator Relationship Specialty Start Date End Date Steve Nieves MD [address] [address] PCP - General 09/18/17 Shawn Sousa DO [address] [place] [address] [phone] Medical Oncologist/Hematologis t Hematology and Oncology 12/10/17 Lizet Persaud MD [address] [place] [address] Consulting Physician Pulmonary Disease 06/19/23 Elisha Wright MD [address] [place] [address] Referring Physician Interventional Cardiology 06/22/23 documented as of this encounter
--- OUTSIDE RECORDS SUMMARY | 2024-09-10 12:07 | XMS_ITS | Encounter Summary ---
Author Organization [facility] Facility Care Team Providers Care General Matcher Name Role Phone Steve Nieves MD Primary Care Provider Shawn Sousa DO Unavailable [phone] Mirela Huang RN Unavailable [phone] Denice Harley LPN Unavailable [phone] Brendan Mejia MD Unavailable [phone] Lulu Anand RN Unavailable [phone] Lizet Persaud MD Unavailable Elisha Wright MD Unavailable [phone] Denice Harley LPN Unavailable [phone] Encounter Details Date Type Department Care Team (Latest Contact Info) Description 05/29/2018 Orders Only [facility] CLINCONV ProviderMichael MD [address] [place] [address] Social History Tobacco Use Types Packs/Day Years Used Date Smoking Tobacco: Former Smokeless Tobacco: Never Alcohol Use Standard Drinks/Week Comments No 0 (1 standard drink = 0.6 oz pur e alcohol) Comments Unknown Sex and Gender Information Value Date Recorded Sex Assigned at Not on file Legal Sex Female 10:45 PM BLOWER BLAST FURNACE Gender Identity Female 02/06/2021 2:36 PM CDT Sexual Orientation Not on file documented as of this encounter Plan of Treatment Not on file documented as of this encounter Procedures Procedure Name Priority Date/Time Associated Diagnosis Comments PROCEDURE - RESULT 05/29/2018 12 :00 AM BLOWER BLAST FURNACE documented in this encounter Results * PROCEDURE - RESULT (05/29/2018 12:00 AM BLOWER BLAST FURNACE) Narrative 05/29/2018 12:00 AM BLOWER BLAST FURNACE Ordered by an unspecified provider. Historical Provider Final Res ult documented in this encounter Visit Diagnoses Not on filedocumented in this encounter Additional Health Concerns Infection Onset Date Last Indicated Resolved Time COVID: Suspected 10/10/2020 10/10/2020 10/10/2020 6:25 PM CDT COVID: Suspected 05/02/2021 05/02/2021 05/02/2021 11:59 AM BLOWER BLAST FURNACE COVID19 05/02/2021 05/02/2021 05/20/2021 3:05 AM BLOWER BLAST FURNACE COVID: Recovered Comment:Added based on recent COVID infection. 05/20/2021 05/20/2021 09/17/2021 3:05 AM C DT COVID: Suspected 04/17/2022 04/17/2022 04/17/2022 12:21 PM BLOWER BLAST FURNACE COVID19 04/17/2022 04/17/2022 05/01/2022 3:05 AM BLOWER BLAST FURNACE COVID: Recovered Comment:Added based on recent COVID infection. 05/01/2022 05/03/2022 07/30/2022 3:05 AM C DT COVID: Suspected 05/07/2022 05/07/2022 05/07/2022 12:53 PM BLOWER BLAST FURNACE Influenza, adult 05/07/2022 05/07/2022 05/14/2022 3:05 AM BLOWER BLAST FURNACE COVID: Suspected 09/11/2022 09/11/2022 09/11/2022 11:35 AM CDT COVID: Suspected 10/06/2022 10/06/2022 10/06/2022 6:04 PM CDT COVID: Suspected 01/07/2023 01/07/2023 01/07/2023 3:53 PM CDT COVID: Suspected 01/25/2023 01/25/2023 01/25/2023 12:08 PM CDT COVID: Suspected 10/07/2023 10/07/2023 10/07/2023 11:55 AM CDT Rhino/Enterovirus 10/08/2023 10/08/2023 10/15/2023 3:05 AM CDT COVID: Suspected 03/25/2024 03/25/2024 03/25/2024 2:30 PM BLOWER BLAST FURNACE COVID19 Comment:Airborne + Contact precautions. Gown, Gloves, N95, eye protection or goggles. Precautions 04/09/24. Contact Cartridge Feeder if patient worsens. - Dameon PULIDO, RN 03/31/24 03/25/2024 03/25/2024 04/09/2024 3:[address] COVID: Recovered Comment:Added based on recent COVID infection. 04/09/2024 04/10/2024 07/08/2024 3:[address] documented as of this encounter Care Teams General Matcher Relationship Specialty Start Date End Date Steve Nieves MD [address] [address] PCP - General 09/18/17 Shawn Sousa DO [address] [phone] Medical Oncologist/Hematologis t Hematology and Oncology 12/10/17 Mirela Huang, NEW [address] [phone] Placement Officer 09/03/18 09/03/18 Denice Harley LPN [address] [phone] Placement Officer 02/09/21 02/09/21 [place] [address] [place] [address] Urologist Urology 03/01/21 08/26/24 Lulu Anand RN [address] [place] [address] Placement Officer 02/20/23 11/14/23 Lizet Persaud MD [address] [place] [address] Consulting Physician Pulmonary Disease 06/19/23 Elisha Wright MD [address] [place] [address] [phone] Referring Physician Interventional Cardiology 06/22/23 Denice Harley LPN [address] [place] [address] [address] [place] [address] Placement Officer 04/01/24 04/01/24 documented as of this encounter
--- OUTSIDE RECORDS SUMMARY | 2024-09-10 12:07 | XMS_ITS | Encounter Summary ---
Author Organization [facility] Facility Care Team Providers Care Shipping Services Sales Representative Name Role Phone Steve Nieves MD Primary Care Provider Shawn Sousa DO Unavailable [phone] Mirela Huang RN Unavailable [phone] Denice Harley LPN Unavailable [phone] Brendan Mejia MD Unavailable [phone] Lulu Anand RN Unavailable Lizet Persaud MD Unavailable Elisha Wright MD Unavailable [phone] Denice Harley LPN Unavailable [phone] Encounter Details Date Type Department Care Team (Latest Contact Info) Description 02/15/2018 Orders Only [facility] CLINCONV ProviderMichael MD [address] [place] [address] Social History Tobacco Use Types Packs/Day Years Used Date Smoking Tobacco: Former Smokeless Tobacco: Never Alcohol Use Standard Drinks/Week Comments No 0 (1 standard drink = 0.6 oz pur e alcohol) Comments Unknown Sex and Gender Information Value Date Recorded Sex Assigned at Not on file Legal Sex Female 10:45 PM GLUE JOINTER OPERATOR Gender Identity Female 02/06/2021 2:36 PM CDT Sexual Orientation Not on file documented as of this encounter Plan of Treatment Not on file documented as of this encounter Procedures Procedure Name Priority Date/Time Associated Diagnosis Comments PROCEDURE - RESULT 02/15/2018 12 :00 AM CDT documented in this encounter Results * PROCEDURE - RESULT (02/15/2018 12:00 AM CDT) Narrative 02/15/2018 12:00 AM CDT Ordered by an unspecified provider. Historical Provider Final Res ult documented in this encounter Visit Diagnoses Not on filedocumented in this encounter Additional Health Concerns Infection Onset Date Last Indicated Resolved Time COVID: Suspected 10/10/2020 10/10/2020 10/10/2020 6:25 PM CDT COVID: Suspected 05/02/2021 05/02/2021 05/02/2021 11:59 AM GLUE JOINTER OPERATOR COVID19 05/02/2021 05/02/2021 05/20/2021 3:05 AM GLUE JOINTER OPERATOR COVID: Recovered Comment:Added based on recent COVID infection. 05/20/2021 05/20/2021 09/17/2021 3:05 AM C DT COVID: Suspected 04/17/2022 04/17/2022 04/17/2022 12:21 PM GLUE JOINTER OPERATOR COVID19 04/17/2022 04/17/2022 05/01/2022 3:05 AM GLUE JOINTER OPERATOR COVID: Recovered Comment:Added based on recent COVID infection. 05/01/2022 05/03/2022 07/30/2022 3:05 AM C DT COVID: Suspected 05/07/2022 05/07/2022 05/07/2022 12:53 PM GLUE JOINTER OPERATOR Influenza, adult 05/07/2022 05/07/2022 05/14/2022 3:05 AM GLUE JOINTER OPERATOR COVID: Suspected 09/11/2022 09/11/2022 09/11/2022 11:35 AM CDT COVID: Suspected 10/06/2022 10/06/2022 10/06/2022 6:04 PM CDT COVID: Suspected 01/07/2023 01/07/2023 01/07/2023 3:53 PM CDT COVID: Suspected 01/25/2023 01/25/2023 01/25/2023 12:08 PM CDT COVID: Suspected 10/07/2023 10/07/2023 10/07/2023 11:55 AM CDT Rhino/Enterovirus 10/08/2023 10/08/2023 10/15/2023 3:05 AM CDT COVID: Suspected 03/25/2024 03/25/2024 03/25/2024 2:30 PM GLUE JOINTER OPERATOR COVID19 Comment:Airborne + Contact precautions. Gown, Gloves, N95, eye protection or goggles. Precautions 04/09/24. Contact Van Loader if patient worsens. - Dameon PULIDO, RN 03/31/24 03/25/2024 03/25/2024 04/09/2024 3:[address] COVID: Recovered Comment:Added based on recent COVID infection. 04/09/2024 04/10/2024 07/08/2024 3:[address] documented as of this encounter Care Teams Shipping Services Sales Representative Relationship Specialty Start Date End Date Steve Nieves MD 46[address] [facility] [address] [address] PCP - General 09/18/17 Shawn Sousa DO [address] [address] Medical Oncologist/Hematologis t Hematology and Oncology 12/10/17 Mirela Huang, NEW [address] [phone] Package Lift Operator 09/03/18 09/03/18 Denice Harley LPN [address] [phone] Package Lift Operator 02/09/21 02/09/21 Brendan Mejia MD [address] [place] [address] Urologist Urology 03/01/21 08/26/24 Lulu Anand, RN [address] [place] [address] Package Lift Operator 02/20/23 11/14/23 Lizet Persaud MD [address] [place] [address] Consulting Physician Pulmonary Disease 06/19/23 Elisha Wright MD [address] [place] [address] Referring Physician Interventional Cardiology 06/22/23 Denice Harley LPN [address] [place] [address] Package Lift Operator 04/01/24 04/01/24 documented as of this encounter
--- OUTSIDE RECORDS SUMMARY | 2024-09-10 12:07 | XMS_ITS | Encounter Summary ---
Author Organization [facility] Facility Care Team Providers Care Tower Erector Helper Name Role Phone Steve Nieves MD Primary Care Provider Shawn Sousa DO Unavailable [phone] Mirela Huang RN Unavailable [phone] Denice Harley LPN Unavailable [phone] Brendan Mejia MD Unavailable [phone] Lulu Anand RN Unavailable Lizet Persaud MD Unavailable Elisha Wright MD Unavailable [phone] Denice Harley LPN Unavailable [phone] Encounter Details Date Type Department Care Team (Latest Contact Info) Description 02/12/2018 Orders Only [facility] CLINCONV ProviderMichael MD [address] [place] [address] Social History Tobacco Use Types Packs/Day Years Used Date Smoking Tobacco: Former Smokeless Tobacco: Never Alcohol Use Standard Drinks/Week Comments No 0 (1 standard drink = 0.6 oz pur e alcohol) Comments Unknown Sex and Gender Information Value Date Recorded Sex Assigned at Not on file Legal Sex Female 10:45 PM SWITCH TENDER Gender Identity Female 02/06/2021 2:36 PM CDT Sexual Orientation Not on file documented as of this encounter Plan of Treatment Not on file documented as of this encounter Procedures Procedure Name Priority Date/Time Associated Diagnosis Comments SCAN - LABS 02/12/2018 12:00 AM CDT documented in this encounter Results * SCAN - LABS (02/12/2018 12:00 AM CDT) Narrative 02/12/2018 12:00 AM CDT Ordered by an unspecified provider. Historical Provider MD Final Res ult documented in this encounter Visit Diagnoses Not on filedocumented in this encounter Additional Health Concerns Infection Onset Date Last Indicated Resolved Time COVID: Suspected 10/10/2020 10/10/2020 10/10/2020 6:25 PM CDT COVID: Suspected 05/02/2021 05/02/2021 05/02/2021 11:59 AM SWITCH TENDER COVID19 05/02/2021 05/02/2021 05/20/2021 3:05 AM SWITCH TENDER COVID: Recovered Comment:Added based on recent COVID infection. 05/20/2021 05/20/2021 09/17/2021 3:05 AM C DT COVID: Suspected 04/17/2022 04/17/2022 04/17/2022 12:21 PM SWITCH TENDER COVID19 04/17/2022 04/17/2022 05/01/2022 3:05 AM SWITCH TENDER COVID: Recovered Comment:Added based on recent COVID infection. 05/01/2022 05/03/2022 07/30/2022 3:05 AM C DT COVID: Suspected 05/07/2022 05/07/2022 05/07/2022 12:53 PM SWITCH TENDER Influenza, adult 05/07/2022 05/07/2022 05/14/2022 3:05 AM SWITCH TENDER COVID: Suspected 09/11/2022 09/11/2022 09/11/2022 11:35 AM CDT COVID: Suspected 10/06/2022 10/06/2022 10/06/2022 6:04 PM CDT COVID: Suspected 01/07/2023 01/07/2023 01/07/2023 3:53 PM CDT COVID: Suspected 01/25/2023 01/25/2023 01/25/2023 12:08 PM CDT COVID: Suspected 10/07/2023 10/07/2023 10/07/2023 11:55 AM CDT Rhino/Enterovirus 10/08/2023 10/08/2023 10/15/2023 3:05 AM CDT COVID: Suspected 03/25/2024 03/25/2024 03/25/2024 2:30 PM SWITCH TENDER COVID19 Comment:Airborne + Contact precautions. Gown, Gloves, N95, eye protection or goggles. Precautions 04/09/24. Contact Face Cleaner if patient worsens. - Dameon PULIDO, RN 03/31/24 03/25/2024 03/25/2024 04/09/2024 3:[address] COVID: Recovered Comment:Added based on recent COVID infection. 04/09/2024 04/10/2024 07/08/2024 3:[address] documented as of this encounter Care Teams Tower Erector Helper Relationship Specialty Start Date End Date Steve Nieves MD 4600 [facility] [address] [address] PCP - General 09/18/17 Shawn Sousa DO [address] [phone] Medical Oncologist/Hematologis t Hematology and Oncology 12/10/17 Mirela Huang, NEW [address] [phone] Eclectic Doctor 09/03/18 09/03/18 Denice Harley LPN [address] [phone] Eclectic Doctor 02/09/21 02/09/21 Brendan Mejia MD [address] [place] [address] Urologist Urology 03/01/21 08/26/24 Lulu Annad, RN [address] [place] [address] Eclectic Doctor 02/20/23 11/14/23 Lizet Persaud MD [address] [place] [address] Consulting Physician Pulmonary Disease 06/19/23 Elisha Wright MD [address] [place] [address] Referring Physician Interventional Cardiology 06/22/23 Denice Harley LPN [address] [place] [address] Eclectic Doctor 04/01/24 04/01/24 documented as of this encounter
--- OUTSIDE RECORDS SUMMARY | 2024-09-10 12:07 | XMS_ITS | Encounter Summary ---
Author Organization [facility] Address [address] [place] [address] Care Team Providers Care Casket Assembler Metal Name Role Phone Unavailable Primary Care Provider Unavailabl e Prior Encounters Date Type Department Care Team Description 08/24/2022 Travel 08/24/2022 10:15 AM CDT Office Visit [facility] [address] [place] [address] Leticia Easton DDS Last Filed Vital Signs Vital Sign Reading Time Taken Comments Blood Pressure 148/56 08/24/2022 10:35 AM CDT Pulse - - Temperature - - Respiratory Rate - - Oxygen Saturation - - Inhaled Oxygen Concentration - - Weight 64.9 kg (143 lb) 08/24/2022 10:35 AM CDT Height 160 cm (5' 3 ) 08/24/2022 10:35 AM CDT Body Mass Index 25.33 08/24/2022 10:35 AM CDT Plan of Treatment Not on file Procedures Procedure Name Priority Date/Time Associated Diagnosis Comments 22 PLACEMENT OF INTRA-SOCKET BIOLOGICAL DRESSING TO AID IN HEMOSTASIS OR CLOT STABILIZATION, PER SITE Routine 08/24/2022 10:15 AM CDT 21 PLACEMENT OF INTRA-SOCKET BIOLOGICAL DRESSING TO AID IN HEMOSTASIS OR CLOT STABILIZATION, PER SITE Routine 08/24/2022 10:15 AM CDT 21 LL ALVEOLOPLASTY IN CONJUNCTION WITH EXTRACTIONS - FOUR OR MORE TEETH OR TOOTH SPACES, PER QUADRANT Routine 08/24/2022 10:15 AM CDT 24 PLACEMENT OF INTRA-SOCKET BIOLOGICAL DRESSING TO AID IN HEMOSTASIS OR CLOT STABILIZATION, PER SITE Routine 08/24/2022 10:15 AM CDT 23 PLACEMENT OF INTRA-SOCKET BIOLOGICAL DRESSING TO AID IN HEMOSTASIS OR CLOT STABILIZATION, PER SITE Routine 08/24/2022 10:15 AM CDT 20 PLACEMENT OF INTRA-SOCKET BIOLOGICAL DRESSING TO AID IN HEMOSTASIS OR CLOT STABILIZATION, PER SITE Routine 08/24/2022 10:15 AM CDT ORAL SURG CONSULT Routine 08/24/2022 10: 15 AM CDT 24 EXTRACTION, ERUPTED TOOTH REQUIRING REMOVAL OF BONE AND/OR SECTIONING OF TOOTH Routine 08/24/2022 10:15 AM CDT 20 EXTRACTION, ERUPTED TOOTH REQUIRING REMOVAL OF BONE AND/OR SECTIONING OF TOOTH Routine 08/24/2022 10:15 AM CDT 22 EXTRACTION, ERUPTED TOOTH REQUIRING REMOVAL OF BONE AND/OR SECTIONING OF TOOTH Routine 08/24/2022 10:15 AM CDT 23 EXTRACTION, ERUPTED TOOTH REQUIRING REMOVAL OF BONE AND/OR SECTIONING OF TOOTH Routine 08/24/2022 10:15 AM CDT 21 EXTRACTION, ERUPTED TOOTH REQUIRING REMOVAL OF BONE AND/OR SECTIONING OF TOOTH Routine 08/24/2022 10:15 AM CDT Visit Diagnoses Not on file Insurance [employer]
--- OUTSIDE RECORDS SUMMARY | 2024-09-10 12:07 | XMS_ITS | Clinical Summary ---
Author Organization [facility] Address [address] [place] [address] Care Team Providers Care Supervisor Volunteer Services Name Role Phone Shane Rayo DO Primary Care Provider Social History Tobacco Use Types Packs/Day Years Used Date Smoking Tobacco: Never Assessed Comments Unknown Sex and Gender Information Value Date Recorded Sex Assigned at Not on file Legal Sex Female 7:26 PM CDT Gender Identity Not on file Sexual Orientation Not on file Last Filed Vital Signs Vital Sign Reading Time Taken Comments Blood Pressure 126/68 11/09/2016 4:17 PM CDT Pulse 87 11/09/2016 4:17 PM CDT Temperature - - Respiratory Rate - - Oxygen Saturation - - Inhaled Oxygen Concentration - - Weight 68 kg (150 lb) 11/09/2016 4:17 PM CDT Height 160 cm (5' 3 ) 11/09/2016 4:17 PM CDT Body Mass Index 26.57 11/09/2016 4:17 PM CDT Plan of Treatment Health Maintenance Due Date Last Done Comments DTaP, Tdap and Td Vaccines ( 1 - Tdap) 1965 Pneumococcal Vaccine: 50+ Years (1 of 1 - PCV) 1996 Zoster Vaccines (1 of 2) 1996 Dexa Scan (General) 2011 RSV Immunization or 60+ Years (1 - 1-dose 75+ series) 2021 COVID-19 Vaccine ( - 2023-2 5 season) 2024 Colorectal Cancer Screening Colonoscopy (10 Years) Discontinued 05/07/2013 Hepatitis C Completed 08/15/2016, 08/15/2016 Meningococcal B Vaccine Aged Out No l onger eligible based on patient's age to complete this topic Meningococcal Vaccine Aged Out No diana josé miguel eligible based on patient's age to complete this topic RSV Immunizations Under 20 Months Aged Out No longer eligible based on patient's age to complete this topic Procedures Procedure Name Priority Date/Time Associated Diagnosis Comments HEPATITIS C ANTIBODY Routine 08/15/2016 10:09 AM CDT COLONOSCOPY Routine 05/07/2013 12:00 AM GOLF SUPERINTENDENT from Last 3 Months or Most Recently Relevant to Health Maintenance Results * HEPATITIS C ANTIBODY (08/15/2016 10:09 AM CDT) HEPATITIS C AB NON-REACTI VE NON-REACTI VE 08/15/2016 5:00 PM CDT [facility] Comment: TESTING [place] [address] SERUM OR PLASMA SPECIMEN / Unknown 08/15/2016 10:09 AM CDT 08/15/2016 10:22 AM CDT us Generic Conversion [facility] Final R esult [facility] [address] [place] [id number], [place] [phone] * Colonoscopy (05/07/2013 12:00 AM GOLF SUPERINTENDENT) 05/07/2013 05/07/2013 Narrative [facility] TO EPIC CONVERSION - 05/07/2013 12:00 AM GOLF SUPERINTENDENT Documented hx of procedure Procedure Note Roman Jean MD - 03/10/2018 Documented hx of procedure us Generic Conversion Md [facility] GI PROCEDURE ORDERABLES Final Result [facility] CONVERSION from Last 3 Months or Most Recently Relevant to Health Maintenance Care Teams Supervisor Volunteer Services Relationship Specialty Start Date End Date Shane Rayo DO PCP - General 11/10/16
--- OUTSIDE RECORDS SUMMARY | 2024-09-10 12:07 | XMS_ITS | Encounter Summary ---
Author Organization [facility] Facility Care Team Providers Care Motor Equipment Sergeant Name Role Phone Steve Nieves MD Primary Care Provider [phone] Shawn Sousa DO Unavailable [phone] Mirela Huang RN Unavailable [phone] Denice Harley LPN Unavailable [phone] Brendan Mejia MD Unavailable [phone] Lulu Anand RN Unavailable Lizet Persaud MD Unavailable [phone] Elisha Wright MD Unavailable [phone] Denice Harley LPN Unavailable [phone] Encounter Details Date Type Department Care Team (Latest Contact Info) Description 02/14/2018 Orders Only [facility] CLINCONV ProviderMichael MD [address] [place] [address] Social History Tobacco Use Types Packs/Day Years Used Date Smoking Tobacco: Former Smokeless Tobacco: Never Alcohol Use Standard Drinks/Week Comments No 0 (1 standard drink = 0.6 oz pur e alcohol) Comments Unknown Sex and Gender Information Value Date Recorded Sex Assigned at Not on file Legal Sex Female 10:45 PM AWNING MAKER Gender Identity Female 02/06/2021 2:36 PM CDT Sexual Orientation Not on file documented as of this encounter Plan of Treatment Not on file documented as of this encounter Procedures Procedure Name Priority Date/Time Associated Diagnosis Comments PROCEDURE - RESULT 02/14/2018 12 :00 AM CDT documented in this encounter Results * PROCEDURE - RESULT (02/14/2018 12:00 AM CDT) Narrative 02/14/2018 12:00 AM CDT Ordered by an unspecified provider. Historical Provider Final Res ult documented in this encounter Visit Diagnoses Not on filedocumented in this encounter Additional Health Concerns Infection Onset Date Last Indicated Resolved Time COVID: Suspected 10/10/2020 10/10/2020 10/10/2020 6:25 PM CDT COVID: Suspected 05/02/2021 05/02/2021 05/02/2021 11:59 AM AWNING MAKER COVID19 05/02/2021 05/02/2021 05/20/2021 3:05 AM AWNING MAKER COVID: Recovered Comment:Added based on recent COVID infection. 05/20/2021 05/20/2021 09/17/2021 3:05 AM C DT COVID: Suspected 04/17/2022 04/17/2022 04/17/2022 12:21 PM AWNING MAKER COVID19 04/17/2022 04/17/2022 05/01/2022 3:05 AM AWNING MAKER COVID: Recovered Comment:Added based on recent COVID infection. 05/01/2022 05/03/2022 07/30/2022 3:05 AM C DT COVID: Suspected 05/07/2022 05/07/2022 05/07/2022 12:53 PM AWNING MAKER Influenza, adult 05/07/2022 05/07/2022 05/14/2022 3:05 AM AWNING MAKER COVID: Suspected 09/11/2022 09/11/2022 09/11/2022 11:35 AM CDT COVID: Suspected 10/06/2022 10/06/2022 10/06/2022 6:04 PM CDT COVID: Suspected 01/07/2023 01/07/2023 01/07/2023 3:53 PM CDT COVID: Suspected 01/25/2023 01/25/2023 01/25/2023 12:08 PM CDT COVID: Suspected 10/07/2023 10/07/2023 10/07/2023 11:55 AM CDT Rhino/Enterovirus 10/08/2023 10/08/2023 10/15/2023 3:05 AM CDT COVID: Suspected 03/25/2024 03/25/2024 03/25/2024 2:30 PM AWNING MAKER COVID19 Comment:Airborne + Contact precautions. Gown, Gloves, N95, eye protection or goggles. Precautions 04/09/24. Contact Wet End Supervisor if patient worsens. - Dameon PULIDO, RN 03/31/24 03/25/2024 03/25/2024 04/09/2024 3:[address] COVID: Recovered Comment:Added based on recent COVID infection. 04/09/2024 04/10/2024 07/08/2024 3:[address] documented as of this encounter Care Teams Motor Equipment Sergeant Relationship Specialty Start Date End Date Steve Nieves MD [address] [facility] [address] [address] PCP - General 09/18/17 Shawn Sousa DO [address] [phone] Medical Oncologist/Hematologis t Hematology and Oncology 12/10/17 Mirela Huang, NEW [address] [phone] Installment Account Checker 09/03/18 09/03/18 Denice Harley LPN [address] [phone] Installment Account Checker 02/09/21 02/09/21 Brendan Mejia MD [address] [place] [address] Urologist Urology 03/01/21 08/26/24 Lulu Anand, RN [address] [place] [phone] Installment Account Checker 02/20/23 11/14/23 Lizet Persaud MD [address] [place] [address] Consulting Physician Pulmonary Disease 06/19/23 Elisha Wright MD [address] [place] [address] Referring Physician Interventional Cardiology 06/22/23 Denice Harley LPN [address] [place] [address] Installment Account Checker 04/01/24 04/01/24 documented as of this encounter
--- OUTSIDE RECORDS SUMMARY | 2024-09-10 12:07 | XMS_ITS | Encounter Summary ---
Author Organization [facility] Facility Care Team Providers Care Healthcare Customer Service Name Role Phone Steve Nieves MD Primary Care Provider Shawn Sousa DO Unavailable [phone] Mirela Huang RN Unavailable [phone] Denice Harley LPN Unavailable [phone] Brendan Mejia MD Unavailable [phone] Lulu Anand RN Unavailable Lizet Persaud MD Unavailable Elisha Wright MD Unavailable [phone] Denice Harley LPN Unavailable [phone] Encounter Details Date Type Department Care Team (Latest Contact Info) Description 08/02/2018 Orders Only [facility] CLINCONV ProviderMichael MD [address] [place] [address] Social History Tobacco Use Types Packs/Day Years Used Date Smoking Tobacco: Former Smokeless Tobacco: Never Alcohol Use Standard Drinks/Week Comments No 0 (1 standard drink = 0.6 oz pur e alcohol) Comments Unknown Sex and Gender Information Value Date Recorded Sex Assigned at Not on file Legal Sex Female 10:45 PM WET PROCESS TECHNICIAN Gender Identity Female 02/06/2021 2:36 PM CDT Sexual Orientation Not on file documented as of this encounter Plan of Treatment Not on file documented as of this encounter Procedures Procedure Name Priority Date/Time Associated Diagnosis Comments PROCEDURE - RESULT 08/02/2018 12 :00 AM CDT documented in this encounter Results * PROCEDURE - RESULT (08/02/2018 12:00 AM CDT) Narrative 08/02/2018 12:00 AM CDT Ordered by an unspecified provider. Historical Provider Final Res ult documented in this encounter Visit Diagnoses Not on filedocumented in this encounter Additional Health Concerns Infection Onset Date Last Indicated Resolved Time COVID: Suspected 10/10/2020 10/10/2020 10/10/2020 6:25 PM CDT COVID: Suspected 05/02/2021 05/02/2021 05/02/2021 11:59 AM WET PROCESS TECHNICIAN COVID19 05/02/2021 05/02/2021 05/20/2021 3:05 AM WET PROCESS TECHNICIAN COVID: Recovered Comment:Added based on recent COVID infection. 05/20/2021 05/20/2021 09/17/2021 3:05 AM C DT COVID: Suspected 04/17/2022 04/17/2022 04/17/2022 12:21 PM WET PROCESS TECHNICIAN COVID19 04/17/2022 04/17/2022 05/01/2022 3:05 AM WET PROCESS TECHNICIAN COVID: Recovered Comment:Added based on recent COVID infection. 05/01/2022 05/03/2022 07/30/2022 3:05 AM C DT COVID: Suspected 05/07/2022 05/07/2022 05/07/2022 12:53 PM WET PROCESS TECHNICIAN Influenza, adult 05/07/2022 05/07/2022 05/14/2022 3:05 AM WET PROCESS TECHNICIAN COVID: Suspected 09/11/2022 09/11/2022 09/11/2022 11:35 AM CDT COVID: Suspected 10/06/2022 10/06/2022 10/06/2022 6:04 PM CDT COVID: Suspected 01/07/2023 01/07/2023 01/07/2023 3:53 PM CDT COVID: Suspected 01/25/2023 01/25/2023 01/25/2023 12:08 PM CDT COVID: Suspected 10/07/2023 10/07/2023 10/07/2023 11:55 AM CDT Rhino/Enterovirus 10/08/2023 10/08/2023 10/15/2023 3:05 AM CDT COVID: Suspected 03/25/2024 03/25/2024 03/25/2024 2:30 PM WET PROCESS TECHNICIAN COVID19 Comment:Airborne + Contact precautions. Gown, Gloves, N95, eye protection or goggles. Precautions 04/09/24. Contact Independent Driver if patient worsens. - Dameon PULIDO, RN 03/31/24 03/25/2024 03/25/2024 04/09/2024 3:[address] COVID: Recovered Comment:Added based on recent COVID infection. 04/09/2024 04/10/2024 07/08/2024 3:[address] documented as of this encounter Care Teams Healthcare Customer Service Relationship Specialty Start Date End Date Steve Nieves MD [address] [facility] [address] [address] PCP - General 09/18/17 Shawn Sousa DO [address] [phone] Medical Oncologist/Hematologis t Hematology and Oncology 12/10/17 Mirela Huang, NEW [address] [phone] Surgical Forceps Fabricator 09/03/18 09/03/18 Denice Harley LPN [address] [phone] Surgical Forceps Fabricator 02/09/21 02/09/21 Brendan Mejia MD [address] [place] [address] Urologist Urology 03/01/21 08/26/24 Lulu Anand, RN [address] [place] [address] Surgical Forceps Fabricator 02/20/23 11/14/23 Lizet Persaud MD [address] [place] [address] Consulting Physician Pulmonary Disease 06/19/23 Elisha Wright MD [address] [place] [address] Referring Physician Interventional Cardiology 06/22/23 Denice Harley LPN [address] [place] [address] Surgical Forceps Fabricator 04/01/24 04/01/24 documented as of this encounter
--- OUTSIDE RECORDS SUMMARY | 2024-09-10 12:07 | XMS_ITS | Clinical Summary ---
Author Organization [facility] Address [address] [place] [address] Phone Care Team Providers Care Land Degradation Analyst Name Role Phone Steve Nieves MD Primary Care Provider [phone] Shawn Sousa DO Unavailable [phone] Lizet Persaud MD Unavailable + [phone] Elisha Wright MD Unavailable [phone] Allergies No known active allergies Medications CALCIUM [...] 2 (two) times a day 30 g Active losartan (COZAAR) 100 mg tablet Take 1 tablet (100 mg total) by mouth daily 30 tablet 5 Active escitalopram (LEXAPRO) 5 mg tablet TAKE 1 TABLET EVERY DAY 90 tablet 1 04/28/2 025 Active budesonide-glyco pyr-formoterol (Breztri Aerosphere) 160-9-4.8 [...] 07/01/2024 Assessment & Plan (07/01/2024 3:30 PM FOUNTAIN SUPERVISOR): Patient with right lower back pain and [...] diet Assessment & Plan (06/26/2023 12:32 PM FOUNTAIN SUPERVISOR): Continue low-fat diet CKD (chronic kidney disease) stage 3, GFR 30-59 ml/min 01/17/2023 Assessment & Plan (09/04/2024 3:26 PM CDT): Chronic kidney disease secondary to health problems and medications. Renal function was worse recently. We stopped hydrochlorothiazide. Patient takes Lasix as needed for bilateral leg edema. Repeat kidney function next week Assessment & Plan (04/11/2024 7:39 AM FOUNTAIN SUPERVISOR): Chronic kidney disease secondary to health problems [...] 09/27/2022 Assessment & Plan (04/11/2024 7:40 AM FOUNTAIN SUPERVISOR): Patient with pulmonary hypertension secondary to COPD Acute respiratory failure with hypoxia Overview (12/26/2022): Last Assessment & Plan: Patient was placed on oxygen during her hospitalization. She was tapered off oxygen and was discharged home without oxygen. Her oxygen sat is 93% on room air Assessment & Plan (04/11/2024 7:39 AM FOUNTAIN SUPERVISOR): Patient was admitted to the hospital with [...] oxygen Assessment & Plan (05/18/2022 4:38 PM FOUNTAIN SUPERVISOR): Patient was placed on oxygen during her hospitalization. She was tapered off oxygen and was discharged home without oxygen. Her oxygen sat is 93% on room air Assessment & Plan (04/26/2022 11:20 AM FOUNTAIN SUPERVISOR): Patient developed acute respiratory failure secondary to [...] asymptomatic Assessment & Plan (04/11/2024 7:40 AM FOUNTAIN SUPERVISOR): Patient was found to have COVID infection and she was treated with remdesivir with resolution of her symptoms Assessment & Plan (04/26/2022 11:21 AM FOUNTAIN SUPERVISOR): Patient was treated for COVID infection and [...] vitamin-D Assessment & Plan (06/26/2023 12:33 PM FOUNTAIN SUPERVISOR): Continue Fosamax with calcium and vitamin-D Assessment & Plan (03/19/2023 10:40 AM FOUNTAIN SUPERVISOR): Continue Fosamax with calcium and vitamin-D Assessment [...] scan Assessment & Plan (04/11/2024 7:40 AM FOUNTAIN SUPERVISOR): CT of the chest in March 2024 showed stable pulmonary nodule Assessment & Plan (06/26/2023 12:32 PM FOUNTAIN SUPERVISOR): CT scan of the lungs in January 2023 was negative for nodules and she is followed by mobile home set up person Assessment & Plan (07/25/2022 8:03 AM CDT): [...] 07/13/2021 Assessment & Plan (07/13/2021 12:25 PM FOUNTAIN SUPERVISOR): Discussed CT lung screen with low-dose iodine with benefits and risks and the patient wants to proceed with the test History of DVT (deep vein thrombosis) 05/03/2021 Recurrent major depressive disorder, in full rem ission 08/24/2020 Assessment & Plan (01/17/2024 7:37 AM CDT): Controlled on Lexapro Assessment & Plan (10/16/2023 7:31 AM CDT): Controlled on Lexapro Assessment & Plan (06/26/2023 12:33 PM FOUNTAIN SUPERVISOR): Controlled on Lexapro Assessment & Plan (04/13/2021 9:10 AM FOUNTAIN SUPERVISOR): Controlled on Lexapro Assessment & Plan (01/12/2021 [...] monitor Assessment & Plan (04/11/2024 10:10 AM FOUNTAIN SUPERVISOR): Continue current medications. Discussed low-salt diet. Discussed [...] hydrochlorothiazide Assessment & Plan (06/26/2023 12:32 PM FOUNTAIN SUPERVISOR): Continue current medications. Discussed low-salt diet. Discussed exercise on regular basis. Will continue to monitor Assessment & Plan (03/19/2023 7:48 AM FOUNTAIN SUPERVISOR): Continue current medications. Discussed low-salt diet. Discussed [...] monitor Assessment & Plan (07/13/2021 12:24 PM FOUNTAIN SUPERVISOR): Continue current medications. Discussed low-salt diet. Discussed exercise on regular basis. Will continue to monitor Assessment & Plan (04/13/2021 9:11 AM FOUNTAIN SUPERVISOR): Continue current medications. Discussed low-salt diet. Discussed [...] daily Assessment & Plan (05/11/2020 9:09 AM FOUNTAIN SUPERVISOR): Patient with anxiety secondary to family conditions. We discussed options of treatment and she likes to try medications. We will start her on Lexapro 5 mg daily and side effects were explained and will adjust the does as needed. Chronic anemia 09/10/2018 Overview (12/26/2022): Last Assessment & Plan: Managed by the Hematology Assessment & Plan (09/04/2024 7:58 AM CDT): Managed by the cloth layer Assessment & Plan (04/11/2024 10:09 AM FOUNTAIN SUPERVISOR): Managed by the cloth layer Assessment & Plan (08/22/2023 11:13 AM CDT): Will obtain CBC and advised to follow-up with her cloth layer Assessment & Plan (07/13/2021 12:22 PM FOUNTAIN SUPERVISOR): Managed by the Hematology Assessment & Plan (01/12/2021 1:13 PM CDT): Managed by the cloth layer Assessment & Plan (03/19/2019 11:51 AM FOUNTAIN SUPERVISOR): Last hemoglobin is normal and followed by the cloth layer Assessment & Plan (12/11/2018 12:19 PM CDT): Stable and followed by the Hematology 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 Overview (12/26/2022): Last Assessment & Plan: Managed by the cloth layer Assessment & Plan (09/04/2024 7:57 AM CDT): Managed by the cloth layer Assessment & Plan (04/11/2024 7:39 AM FOUNTAIN SUPERVISOR): Managed by the cloth layer Assessment & Plan (10/16/2023 7:30 AM CDT): Managed by the cloth layer Assessment & Plan (09/24/2023 7:55 AM CDT): Managed by the cloth layer Assessment & Plan (08/22/2023 11:24 AM CDT): Managed by the cloth layer Assessment & Plan (06/26/2023 12:33 PM FOUNTAIN SUPERVISOR): Managed by the cloth layer Assessment & Plan (03/19/2023 7:47 AM FOUNTAIN SUPERVISOR): Managed by the cloth layer Assessment & Plan (10/25/2022 7:55 AM CDT): Managed by the cloth layer Assessment & Plan (09/22/2022 7:57 AM CDT): Managed by the cloth layer Assessment & Plan (07/25/2022 8:01 AM CDT): Managed by the cloth layer Assessment & Plan (10/17/2021 12:08 PM CDT): Managed by the cloth layer Assessment & Plan (10/12/2020 2:25 PM CDT): [...] Hematology Assessment & Plan (05/11/2020 8:34 AM FOUNTAIN SUPERVISOR): Patient is in remission and followed by the Hematology Assessment & Plan (01/28/2020 8:03 AM CDT): Asymptomatic and followed by the Hematology Assessment & Plan (10/29/2019 8:50 AM CDT): Patient is stable with no bleeding and normal hemoglobin Assessment & Plan (07/02/2019 12:17 PM FOUNTAIN SUPERVISOR): Last hemoglobin 2 months ago was normal and she is followed by the Hematology Assessment & Plan (03/19/2019 11:51 AM FOUNTAIN SUPERVISOR): The patient is stable and last CBC in January 2019 was normal. She is followed by the cloth layer Assessment & Plan (12/11/2018 12:19 PM CDT): Hemoglobin is stable and the patient is asymptomatic and followed by cloth layer Assessment & Plan (09/10/2018 3:54 PM CDT): Followed by the cloth layer and last hemoglobin was 11.1 History of pulmonary embolism 10/11/2017 Overview (09/10/2018): Patient was hospitalized in August 2017 at [facility] and treated for left upper lobe pulmonary embolism and bilateral DVT. She had negative thrombophilia workup. Patient has history of autoimmune hemolytic anemia and has received Rituxan which is Assessment & Plan (09/04/2024 7:58 AM CDT): Patient is maintained on Eliquis and followed by the cloth layer Assessment & Plan (09/24/2023 7:56 AM CDT): Patient is maintained on Eliquis and followed by the cloth layer Assessment & Plan (08/22/2023 11:15 AM CDT): Patient is maintained on Eliquis and followed by the cloth layer Assessment & Plan (06/26/2023 12:32 PM FOUNTAIN SUPERVISOR): Patient is maintained on Eliquis and followed by the cloth layer Assessment & Plan (09/22/2022 10:07 AM CDT): Patient is maintained on Eliquis Assessment & Plan (01/12/2021 1:15 PM CDT): Patient is maintained on Eliquis and followed by the cloth layer Assessment & Plan (08/24/2020 8:07 AM CDT): Managed by the cloth layer Assessment & Plan (05/11/2020 9:09 AM FOUNTAIN SUPERVISOR): Patient is maintained on Eliquis for history of PE and followed by the cloth layer Assessment & Plan (03/19/2019 11:52 AM FOUNTAIN SUPERVISOR): The patient is maintained on Eliquis and followed by the cloth layer Assessment & Plan (12/11/2018 12:20 PM CDT): The patient is maintained on Eliquis for over a year now. She likes to stop the medication if possible and we will consult with the cloth layer and see if he approves of that [...] CDT): Assessment & Plan (04/11/2024 7:39 AM FOUNTAIN SUPERVISOR): Continue breztri and nebulizer treatment Assessment & Plan (01/17/2024 7:36 AM CDT): Continue breztri and nebulizer treatment Assessment & Plan (10/16/2023 7:31 AM CDT): Continue breztri and nebulizer treatment Assessment & Plan (09/24/2023 11:28 AM CDT): Continue breztri and nebulizer treatment Assessment & Plan (08/22/2023 11:14 AM CDT): Continue breztri Assessment & Plan (06/26/2023 12:31 PM FOUNTAIN SUPERVISOR): Continue breztri. She uses albuterol nebulizer as needed Assessment & Plan (03/19/2023 10:40 AM FOUNTAIN SUPERVISOR): Continue breztri. She uses albuterol nebulizer as [...] breztri Assessment & Plan (04/26/2022 11:21 AM FOUNTAIN SUPERVISOR): We will stop Symbicort and start her on breztri 2 puffs b.i.d. and rinse the mouth after each use Assessment & Plan (01/18/2022 7:57 AM CDT): Continue Symbicort. Continue nebulizer treatment as needed. Patient quit smoking. Assessment & Plan (10/17/2021 12:08 PM CDT): Controlled on Symbicort 10 she uses nebulizer treatment as needed with good relief Assessment & Plan (07/13/2021 12:22 PM FOUNTAIN SUPERVISOR): Controlled on Symbicort Assessment & Plan (01/12/2021 1:14 PM CDT): Controlled on Symbicort daily and albuterol inhaler p.r.n. Assessment & Plan (08/24/2020 8:07 AM CDT): Controlled symptoms on Symbicort. She quit smoking Assessment & Plan (05/11/2020 8:34 AM FOUNTAIN SUPERVISOR): Asymptomatic. Controlled on Symbicort. Patient quit smoking Assessment & Plan (01/28/2020 8:03 AM CDT): Controlled on Symbicort Assessment & Plan (10/29/2019 8:51 AM CDT): Controlled on current inhalers Assessment & Plan (07/02/2019 12:18 PM FOUNTAIN SUPERVISOR): Controlled on Symbicort Assessment & Plan (03/19/2019 11:51 AM FOUNTAIN SUPERVISOR): The patient is controlled on Symbicort Assessment [...] negative Assessment & Plan (07/13/2021 12:25 PM FOUNTAIN SUPERVISOR): No change in adrenal adenoma. Hormonal tests were normal recently Assessment & Plan (02/15/2021 1:12 PM CDT): Patient has adrenal adenoma with no change for number of years Assessment & Plan (08/24/2020 8:06 AM CDT): Incidental adrenal adrenal patient is asymptomatic Assessment & Plan (10/29/2019 8:51 AM CDT): Patient has incidental adrenal adenoma. Assessment & Plan (03/19/2019 11:51 AM FOUNTAIN SUPERVISOR): Benign adrenal adenoma with no change Assessment [...] Prilosec Assessment & Plan (07/02/2019 12:18 PM FOUNTAIN SUPERVISOR): Controlled on Prilosec Assessment & Plan (03/19/2019 11:52 AM FOUNTAIN SUPERVISOR): Controlled on Prilosec Assessment & Plan (12/11/2018 [...] daily Assessment & Plan (05/18/2022 4:37 PM FOUNTAIN SUPERVISOR): Patient was treated for COPD exacerbation and currently stable Assessment & Plan (04/26/2022 11:20 AM FOUNTAIN SUPERVISOR): Patient was treated for COPD exacerbation with [...] 06/26/202303/26 Assessment & Plan (06/26/2023 12:35 PM FOUNTAIN SUPERVISOR): Patient is cleared for left total hip [...] 03/26/2024 Assessment & Plan (03/19/2023 11:40 AM FOUNTAIN SUPERVISOR): Patient with severe arthritis of left hip. [...] 03/26/2024 Assessment & Plan (05/18/2022 4:37 PM FOUNTAIN SUPERVISOR): Patient received Tamiflu for influenza pneumonia with [...] treated with antibiotics. She is currently asymptomatic Encounters Date Type Department Care Team Description 09/09/2024 Results Follow-Up [facility] Medical [facility] Internal Medicine [address] [place] [phone] Steve Nieves MD 09/04/2024 2:15 PM CDT Office Visit [facility] Medical [facility] Internal Medicine [address] [place] [phone] Steve Nieves MD Chronic anemia (Primary Dx); [...] pain, unspecified back location 08/28/2024 Results Follow-Up [facility] Internal Medicine [address] [place] [phone] Steve Nieves MD Stage 3a chronic kidney disease (HCC) (Primary Dx) 08/27/2024 12:45 PM CDT Office Visit [facility] Oncology [address] [place] [phone] Shawn Sousa DO Autoimmune hemolytic anemia (HCC) (Primary Dx); Iron deficiency anemia, unspecified iron deficiency anemia type; Anemia, unspecified type 08/27/2024 12:15 PM CDT Lab [facility] at [address] [address] Iron deficiency anemia, unspecified iron deficiency anemia type; Autoimmune hemolytic anemia (HCC); Anemia, unspecified type; Chronic anemia; Malignant neoplasm of upper-outer quadrant of left breast in female, estrogen receptor positive (HCC) 07/04/2024 Telephone [facility] Internal Medicine [address] [place] [phone] Steve Nieves MD 07/03/2024 Orders Only [facility] Health Information Management [address] [place] [phone] Steve Nieves MD 07/02/2024 Telephone [facility] Internal Medicine [address] [place] [phone] Steve Nieves MD Medical Question/Miscellaneous 07/01/2024 2:35 PM FOUNTAIN SUPERVISOR - 07/01/2024 11:59 PM FOUNTAIN SUPERVISOR Hospital Encounter [facility] [address] [place] [address] Acute right-sided low back pain with right-sided sciatica Discharge Disposition: Discharge to home or self care 07/01/2024 1:30 PM FOUNTAIN SUPERVISOR Office Visit [facility] Medical [facility] Internal Medicine [address] [place] [phone] Steve Nieves MD Acute right-sided low back pain with right-sided sciatica (Primary Dx); BMI 27.0-27.9,adult 07/01/2024 Nurse Triage [facility] Internal Medicine [facility] [place] [phone] Steve Nieves MD 06/18/2024 8:00 AM FOUNTAIN SUPERVISOR Office Visit [facility] [address] [place] [phone] Jose Caraballo MD Trochanteric bursitis of right hip (Primary Dx); Primary osteoarthritis of right hip; Status post hip replacement, left 06/17/2024 Telephone [facility] [address] [place] [phone] Steve Nieves MD Medication Request 06/13/2024 9:00 AM FOUNTAIN SUPERVISOR Infusion [facility] at [address] [place] [phone] Iron deficiency anemia, unspecified iron deficiency anemia type (Primary Dx) from Last 3 Months Immunizations Immunization Administration Dates Next Due Hep [...] PPV23 05/07/2016 Pneumococcal, Unspecified 02/12/2019 Tdap 12/06/2022,04/28/2015 Surgical History Surgery Date Site/Laterality Comments COLONOSCOPY 05/07/2013 CT GUIDED DRAINAGE PERITONEAL OR RETROPERITONEAL FLUID COLLECTION 05/24/2018 N/A BREAST LUMPECTOMY 05/07/1978 - 05/06/1979 Right CATARACT EXTRACTION W/ INTRAOCULAR LENS IMPLANT 12/05/2017 - 01/04/2018 Bilateral JOINT REPLACEMENT 02/28/2018 Right Reverse Total Shoulder TUBAL LIGATION 05/07/1978 - 05/06/1979 EXPLORATORY LAPAROTOMY W/ BOWEL RESECTION 05/29/2018 Lower Anterior Resection with EEA Anastomosis ILEOSTOMY 05/29/2018 Diverting Loop Ileostomy ILEOSTOMY CLOSURE 08/29/2018 CYSTOSCOPY W/ URETERAL STENT PLACEMENT 05/29/2018 Bilateral CYSTOSCOPY W/ URETERAL STENT PLACEMENT 02/07/2021 Left VENA CAVA FILTER PLACEMENT 02/28/2018 FL FLUORO GUIDED INJECTION HIP LEFT 03/08/2022 Left FL FLUORO GUIDED INJECTION HIP LEFT 06/12/2022 Left FL FLUORO GUIDED INJECTION HIP LEFT 09/19/2022 Left FL FLUORO GUIDED INJECTION HIP LEFT 01/29/2023 Left FL FLUORO GUIDED INJECTION HIP LEFT 06/07/2023 Left ROTATOR CUFF REPAIR Right JOINT REPLACEMENT 07/02/2023 Left total hip Medical History Medical History Date Comments Hypertension Acid reflux Hydronephrosis of left kidney 02/06/2021 Kidney cysts 02/06/2021 Bilateral Autoimmune hemolytic anemia (HCC) 11/2016 Chronic bronchitis with COPD (chronic obstructive pulmonary disease) (HCC) Edema of both feet Deep vein thrombosis of bilateral lower extremit ies (HCC) 02/2018 Sepsis due to urinary tract infection (HCC) 07/2020 Mycoplasma pneumonia 05/29/2017 Diverticulitis 05/2018 Hepatic steatosis 02/06/2021 Coronary artery calcification seen on CAT scan 1 Concentric left ventricular hypertrophy 08/29/19 18 Mitral valve regurgitation 08/28/2017 Tricuspid valve regurgitation 08/28/2017 Pulmonary valve regurgitation 08/28/2017 Grade I diastolic dysfunction 08/28/2017 BMI 25.0-25.9,adult 07/25/2022 History of pulmonary embolus (PE) CKD (chronic kidney disease), stage III (HCC) Depression Anxiety Kidney stone COPD (chronic obstructive pulmonary disease) (HC C) Pulmonary nodule Chronic pain disorder LOWER BACK History of chicken pox Bulging lumbar disc Family History Medical History Relation Name Comments Heart disease Father Hypertension Father Heart disease Mother Hypertension Mother Relation Name Status Comments Father Mother Social History Tobacco Use Types Packs/Day Years Used Date Smoking Tobacco: Former Cigarettes 1 45 1 970 - 2014 Smokeless Tobacco: Never Tobacco Cessation:Counseling Given: Not Answered Alcohol Use Standard Drinks/Week Comments Not Currently 0 (1 standard drink = 0.6 oz pur e alcohol) [facility] Utilities Answer Date Recorded In the past [...] often do you attend chur ch or baptism services? Never 03/27/2024 Do you belong to any clubs o r organizations such as latter-day groups, unions, fraternal or athletic groups, or [...] any time in the past 12 [facility], were you homeless or living in [...] on file Legal Sex Female 10:45 PM FOUNTAIN SUPERVISOR Gender Identity Female 02/06/2021 2:36 PM CDT Sexual Orientation Not on file Obstetrics History Last Filed Vital Signs Vital Sign Reading [...] 09/04/2024 2:19 PM CDT Plan of Treatment Health Maintenance Due Date Last Done Comments Zoster Vaccine (1 of 2) 1996 Osteoporosis Screening-Bone Density Scan 06/16/2022 06/16/2020, 06/26/2016, 07/22/2013 Lung Cancer Screening 12/29/2022 12/28/2021 , 09/14/2021, 08/02/2021 Covid-19 Vaccine (3 - 2023-2 5 season) 2024 07/16/2020, 06/24/2020 Depression Screening 09/04/2025 09/04/2024, 04/11/2024, 01/17/2024, Additional history exists Fall Risk Assessment 09/04/2025 09/04/2024, 04/11/2024, 03/30/2024, Additional history exists Well Visit 65+ 09/04/2025 09/04/2024 DTaP/Tdap/Td Vaccine (3 - Td or Tdap) 12/06/2032 12/06/2022, 04/28/2015 Hepatitis B Screening Completed 09/04/1989 Colon Cancer Screening-CT Colonography Discontinued 04/12/2017 Colon Cancer Screening-Colonoscopy Discontinued 04/12/2017 Colon Cancer Screening-DNA Stool Discontinued 04/12/20 17 Colon Cancer Screening-FIT Discontinued 04/12/2017 Colon Cancer Screening-FOBT Discontinued 04/12/2017 Colon Cancer Screening-Sigmoidoscopy Discontinued 04/12/2017 Colorectal Cancer Screening Discontinued Pneumococcal vaccine 65+ Completed 019, 05/07/2016, 02/16/2014 Breast Cancer Screening-Mammogram Discontinued 06/16/2020, 01/02/2019, 11/02/2017, Additional history exists Hepatitis C Screening Completed 09/07/2020, 018 Influenza Vaccine Completed 03/30/2024, , 01/18/2022, Additional history exists Medical Devices Implanted Type Area Outreach Manager Device Identifier Shelf Expiration Date Model / Serial / Lot [employer]/ Ortho Cover Hole Hip Reflection Titanium [id number] - [id number] Implanted:Qty: 1 on 07/02/2023 by Jose Caraballo MD at [facility] Left: Hip [employer]/Or tho [id number] 08/14/2032 [id number] / / [id number] [employer]/ Ortho Reflection R3 Contour 6.5mm 25mm Spherical Head Hip Acetabular [id number] - [id number] Implanted:Qty: 1 on 07/02/2023 by Jose Caraballo MD at [facility] Left: Hip [employer]/Or tho [id number] 01/19/2033 [id number] / / [id number] [employer]/ Ortho R3 50mm 3 Hole Hip Shell Acetabular [id number] - [id number] Implanted:Qty: 1 on 07/02/2023 by Jose Caraballo MD at [facility] Left: Hip [employer]/Or tho [id number] 04/05/2033 [id number] / / [id number] [employer]/ Ortho Synergy 13mm 155mm Standard Offset Hip Stem Femoral Titanium [id number] - [id number] Implanted:Qty: 1 on 07/02/2023 by Jose Caraballo MD at [facility] Left: Hip [employer]/Or tho [id number] 02/03/2033 [id number] / / [id number] [employer]/ Ortho 36mm Hip +0mm 12/14 Head Femoral Oxinium [id number] - [id number] Implanted:Qty: 1 on 07/02/2023 by Jose Caraballo MD at [facility] Left: Hip [employer]/Or tho [id number] 02/10/2033 [id number] / / [id number] [employer]/ Ortho Liner Acetabular Hip R3 Xlpe 20 Degree [id number] Sterile Lf [id number] - [id number] Implanted:Qty: 1 on 07/02/2023 by Jose Caraballo MD at [facility] Left: Hip [employer]/Or tho [id number] / / Explanted Type Area Outreach Manager Device Identifier Shelf Expiration Date Model / Serial / Lot [employer] [id number] Universa 6fr 26cm Radiopaque Positioner Monofilament Tether 2 - [id number] Implanted:Qty: 1 on 02/07/2021 by Brendan Mejia MD at [facility] Explanted:Qty: 1 on 03/15/2021 Left: Ureter [employer] [id number] 11/13/2023 [id number] / / [id number] Procedures Procedure Name Priority Date/Time Associated Diagnosis [...] Read Routine (OP Routine) 07/01/2024 3:03 PM FOUNTAIN SUPERVISOR Acute right-sided low back pain with right-sided sciatica VA ARTHROCENTESIS ASPIR&/INJ MAJOR JT/BURSA W/O US Routine 06/18/2024 8:00 AM FOUNTAIN SUPERVISOR Trochanteric bursitis of right hip CT CHEST WO CONTRAST F/U LUNG SCREEN PROTOCOL Schedule Routine, Read Routine (OP Routine) 12/28/2021 10:24 AM CDT Pulmonary nodules HEPATITIS C ANTIBODY Routine 09/07/2020 9:32 AM CDT Need for hepatitis C screening test DEXA AXIAL SKELETON BONE DENSITY 1 OR MORE SITES 06/16/2020 8:58 AM FOUNTAIN SUPERVISOR SCREENING MAMMOGRAM BILATERAL W DUSTY 06/16/2020 8:58 AM FOUNTAIN SUPERVISOR HM COLONOSCOPY Routine 04/12/2017 from Last 3 [...] - 09/09/2024 7:09 AM CDT Performed at: [address] [place] [id number] [place]: Tk Miguel PhD, Phone: [phone] Steve Nieves MD LAB BLOOD ORDERABLES Final Result Performing Organization Address City/[facility]/ZIP Co de Phone Number [facility] - 01 * (ABNORMAL) Basic metabolic panel (09/08/2024 10:38 AM CDT) [facility] Glucose 102(H) 70 - 99 mg/dL [facility] [...] - 09/09/2024 7:09 AM CDT Performed at: [address] [place] [id number] [place]: Tk Miguel PhD, Phone: [phone] Steve Nieves MD LAB BLOOD ORDERABLES Final Result Performing Organization Address City/[facility]/ZIP Co de Phone Number [facility] - 01 * Blood smear review (08/27/2024 12:07 PM CDT) RBC morphology Consistent with RBC Indicies Comment:Testing performed by : [place] [facility], [address] [place] [address]., [address] Platelet estimate Adequate CURT URENA Comment:Testing performed by : [facility], [address] [place] [address]., [address] Blood 08/27/2024 12:0 7 PM CDT 08/27/2024 12:08 PM CDT us Jannet Orantes OPHTHALMIC LENS INSPECTOR LAB BLOOD ORDERABLES Final Result CURT URENA [address] [facility] Department [place] [address] * (ABNORMAL) eGFR (08/27/2024 12:07 PM CDT) [...] was last reviewed 2021. Testing performed by: [facility], [address] [place] [address]., [address] Blood 08/27/2024 12:0 7 PM CDT 08/27/2024 12:08 PM CDT us Jannet Orantes OPHTHALMIC LENS INSPECTOR LAB BLOOD ORDERABLES Final Result CURT [address] [facility] Department of Laboratories [place], [place] [id number] * Differential, auto (08/27/2024 12:07 PM CDT) Neutrophil abs 6.18 1.50 - 6.50 K/cumm Comment:Testing performed by : [address] [address] Imm gran abs 0.06 0.00 - 0.10 K/cumm CURT Comment:Testing performed by : [address] [address] Lymphocyte abs 1.27 0.80 - 3.30 K/cumm CURT Comment:Testing performed by : [address] [address] Monocyte abs 0.59 0.20 - 0.80 K/cumm CURT Comment:Testing performed by : [address] [address] Eosinophil abs 0.16 0.00 - 0.50 K/cumm [facility] performed by : [address] [address] Basophil abs 0.07 0.00 - 0.10 K/cumm CURT Comment:Testing performed by : [address] [address] Neutrophil pct 74.3 % [facility] Comment: Interpretive Data Percent cell count reference ranges are not reported, since discordance with absolute values may lead to misinterpretation of CBC data. Current Interpretive Data was last revised on 2017. Testing performed by: [address] [address] Imm gran pct 0.7 % CURT Comment: Interpretive Data Percent cell count reference ranges are not reported, since discordance with absolute values may lead to misinterpretation of CBC data. Current Interpretive Data was last revised on 2017. Testing performed by: [address] [address] Lymphocyte pct 15.2 % CURT Comment: Interpretive Data Percent cell count reference ranges are not reported, since discordance with absolute values may lead to misinterpretation of CBC data. Current Interpretive Data was last revised on 2017. Testing performed by: [address] [address] Monocyte pct 7.1 % CURT Comment: Interpretive Data Percent cell count reference ranges are not reported, since discordance with absolute values may lead to misinterpretation of CBC data. Current Interpretive Data was last revised on 2017. Testing performed by: [address] [address] Eosinophil pct 1.9 % CURT Comment: Interpretive Data Percent cell count reference ranges are not reported, since discordance with absolute values may lead to misinterpretation of CBC data. Current Interpretive Data was last revised on 2017. Testing performed by: [address] [address] Basophil pct 0.8 % CURT Comment: Interpretive Data Percent cell count reference ranges are not reported, since discordance with absolute values may lead to misinterpretation of CBC data. Current Interpretive Data was last revised on 2017. Testing performed by: [address] [address] Blood 08/27/2024 12:0 7 PM CDT 08/27/2024 12:08 PM CDT Jannet Orantes OPHTHALMIC LENS INSPECTOR LAB BLOOD ORDERABLES Final Result [facility] Department [place] [address] * (ABNORMAL) Iron profile w/ IBC (08/27/2024 12:07 PM CDT) Iron 46 35 - 145 mcg/dL Comment:Testing performed by : [address] [address] TIBC 259 250 - 400 mcg/dL CURT Comment:Testing performed by : [address] [address] Transferrin saturation 18(L) 20 - 50 % CURT Comment:Testing performed by : [address] [address] Blood 08/27/2024 12:0 7 PM CDT 08/27/2024 1:44 PM CDT Jannet Orantes NP LAB BLOOD ORDERABLES Final Result CURT [address] [facility] Department [place] [address] * (ABNORMAL) CBC with auto differential (08/27/2024 12:07 PM CDT) WBC 8.33 3.80 - 9.90 K/cumm Comment:Testing performed by : [address] [address] Hgb 12.2 11.9 - 15.5 g/dL CURT Comment:Testing performed by : [address] [address] Hct 40.0 35.6 - 45.5 % CURT Comment:Testing performed by : [address] [address] Plt 214 150 - 400 K/cumm CURT Comment:Testing performed by : [address] [address] MPV Not Measured 9.1 - 12.3 fL CURT Comment:Testing performed by : [address] [address] RBC 4.77 3.90 - 5.20 M/cumm CURT Comment:Testing performed by : [address] [address] MCV 83.9 81.3 - 96.4 fL CURT Comment:Testing performed by : [address] [address] MCH 25.6(L) 27.1 - 33.3 pg CURT Comment:Testing performed by : [address], [address] MCHC 30.5(L) 32.3 - 35.7 g/dL CURT Comment:Testing performed by : [address] [address] RDW CV 19.4(H) 11.1 - 14.9 % CURT URENA Comment:Testing performed by : [address] [address] RDW SD 59.4(H) 35.7 - 48.1 fL CURT Comment:Testing performed by : [address] [address] NRBC abs 0.00 0.00 - 0.01 K/cumm CURT Comment:Testing performed by : [address] [address] ANC Prelim 6.18 1.50 - 6.50 K/cumm CURT Comment: Interpretive Data The rapid ANC is a preliminary automated count and may vary from the final ANC (Neut Abs) reported in the WBC differential that follows. Current interpretive data was last revised 2024. Testing performed by: [address] [address] Blood 08/27/2024 12:0 7 PM CDT 08/27/2024 12:08 PM CDT Jannet Orantes OPHTHALMIC LENS INSPECTOR LAB BLOOD ORDERABLES Final Result CURT 40[address] [facility] Department of Laboratories [place], [place] [id number] * (ABNORMAL) Reticulocyte Count (08/27/2024 12:07 PM CDT) Retics, absolute 49 20 - 87 K/cumm Comment:Testing performed by : [address] [address] Retics 1.0 0.4 - 2.9 % CURT Comment:Testing performed by : [address] [address] Reticulocyte Hgb 28.7(L) 30.5 - 38.0 pg CURT Comment:Testing performed by : [address] [address] Blood 08/27/2024 12:0 7 PM CDT 08/27/2024 12:08 PM CDT Jannet Orantes NP LAB BLOOD ORDERABLES Final Result [facility] [place] [address] * Lactate dehydrogenase (LD) (08/27/2024 12:07 PM CDT) Lactate dehydrogenase (LDH) 195 100 - 250 Units/L Comment:Testing performed by : [address] [address] Blood 08/27/2024 12:0 7 PM CDT 08/27/2024 12:08 PM CDT Jannet Orantes NP LAB BLOOD ORDERABLES Final Result Performing Organization Address [facility] Co de Phone Number [address] [address] * Folate (08/27/2024 12:07 PM CDT) Folic acid >20.0 >=5.0 ng/mL Comment:Testing performed by : [address] [address] Blood 08/27/2024 12:0 7 PM CDT 08/27/2024 1:44 PM CDT Jannet Orantes NP LAB BLOOD ORDERABLES Final Result Performing Organization Address City/[facility]/ZIP Co de Phone Number [address] [place] [address] * (ABNORMAL) Ferritin (08/27/2024 12:07 PM CDT) [facility] Ferritin 693(H) 15 - 150 ng/mL Comment:Testing performed by : [address] [address] Blood 08/27/2024 12:0 7 PM CDT 08/27/2024 1:44 PM CDT Jannet Orantes NP LAB BLOOD ORDERABLES Final Result Performing Organization Address [facility] Co de Phone Number [address] [place] [address] * Vitamin B12 (08/27/2024 12:07 PM CDT) [facility] Vitamin B12 380 230 - 1,250 pg/mL Comment:Testing performed by : [address] [address] Blood 08/27/2024 12:0 7 PM CDT 08/27/2024 1:44 PM CDT Jannet Orantes OPHTHALMIC LENS INSPECTOR LAB BLOOD ORDERABLES Final Result Performing Organization Address [facility] de Phone Number [address] [place] [address] * (ABNORMAL) Comprehensive metabolic panel (08/27/2024 12:07 PM CDT) [facility] Sodium 144 135 - 145 mmol/L Comment:Testing performed by : [address] [address] Potassium, pl 4.1 3.3 - 4.9 mmol/L CURT Comment:Testing performed by : [address] [address] Chloride 103 97 - 110 mmol/L CURT Comment:Testing performed by : [address] [address] CO2 29 22 - 32 mmol/L CURT Comment:Testing performed by : [address] [address] Anion gap 12 2 - 15 mmol/L CURT Comment:Testing performed by : [address] [address] BUN 39(H) 6 - 25 mg/dL [facility] Comment:Testing performed by : [address] [address] Creatinine 1.70(H) 0.60 - 1.10 mg/dL CURT Comment:Testing performed by : [address] [address] Glucose 101 70 - 199 mg/dL [facility] Comment: Interpretive Data Fasting glucose >/= 126 [...] classification and Diagnosis of Diabetes Diabetes Care 2021; 46: S19-S40. Current interpretive data was last revised 2022. Testing performed by: [address] [address] Calcium 9.7 8.5 - 10.3 mg/dL [facility] Comment:Testing performed by : [address] [address] Bilirubin, total 0.7 0.1 - 1.2 mg/dL [facility] Comment:Testing performed by : [address] [address] Protein, pl 6.4(L) 6.5 - 8.5 g/dL [facility] Comment:Testing performed by : [address] [address] Albumin 4.1 3.5 - 5.0 g/dL [facility] Comment:Testing performed by : [address] [address] Alk phos 82 40 - 130 Units/L [facility] Comment:Testing performed by : [address] [address] ALT 12 7 - 45 Units/L CURT Comment:Testing performed by : [facility], [address] [place] [address]., [address] AST 17 10 - 45 Units/L CURT Comment:Testing performed by : [facility], [address] [place] [address]., [address] Blood 08/27/2024 12:0 7 PM CDT 08/27/2024 12:08 PM CDT us Jannet Orantes OPHTHALMIC LENS INSPECTOR LAB BLOOD ORDERABLES Final Result CURT [address] [facility] Department [place] [address] * SCAN - RADIOLOGY/IMAGING (07/03/2024) Anatomical Region Laterality Modality Other Steve Nieves MD Final Resul t * XR Spine Lumbar Complete 4 Or More (07/01/2024 3:03 PM FOUNTAIN SUPERVISOR) Anatomical Region Laterality Modality Spine N/A Computed Radiogr aphy 07/04/2024 11:4 8 AM FOUNTAIN SUPERVISOR Narrative 07/04/2024 2:18 PM FOUNTAIN SUPERVISOR EXAM DESCRIPTION: XR SPINE LUMBAR 4 OR [...] 2:18 PM - Electronically signed by Slava Rodriguez.D. T: Report ID: [id number] Reading Location: [id number] Procedure Note Slava Rutledge MD - 07/04/2024 [...] by Slava Rutledge M.D. T: Report ID: [id number] Reading Location: [id number] us Steve Nieves MD IMG XR PROCEDURES Final Res ult * VA ARTHROCENTESIS ASPIR&/INJ MAJOR JT/BURSA W/O US (06/18/2024 8:00 AM FOUNTAIN SUPERVISOR) Narrative Joes Caraballo MD - 06/18/2024 8:00 AM FOUNTAIN SUPERVISOR Jose Caraballo MD 06/18/2024 8:05 AM Large [...] Dagoberto Awad M.D. AG: AWA Report ID: [id number] Reading Location: [id number] Procedure Note Dagoberto Awad MD - 12/30/2021 [...] Dagoberto Awad M.D. AG: AWA Report ID: [id number] Reading Location: [id number] Steve Nieves MD IM CT PROCEDURES Final Res ult * Hepatitis C antibody (09/07/2020 9:32 AM CDT) Hep C Ab NONREACT NONREACTIVE [facility] Comment: Siemens CentaurXP using JIMMY (chemiluminescent immunoassay) [...] Resulting Agency Comment RCR us Jannet Orantes OPHTHALMIC LENS INSPECTOR LAB MICROBIOLOGY - G ENERAL ORDERABLES Final Result [facility] [employer] [facility] [place] [address], [facility] [phone] * Screening Mammogram Bilateral W Dusty (06/16/2020 8:58 AM FOUNTAIN SUPERVISOR) Anatomical Region Laterality Modality Breast Bilateral Mammography 06/16/2020 9:02 AM FOUNTAIN SUPERVISOR Narrative 06/16/2020 11:06 AM FOUNTAIN SUPERVISOR Patient Name: MARSHA VASQUEZ Dr: Steve Nieves MD D.O.B: 1945 Exam Date: 06/16/20857 Age: 75 Sex: Female MR#: [id number] Loc: RADIOLOGY REPORT Order #[id number] [facility] [place] Bilat Screening 3D Signed - MG [...] mammogram, 11/08/2017 mammogram, and 11/02/2017 mammogram - [facility]. BREAST TISSUE: There are scattered areas [...] age 41, based on guidelines of the [place] [employer] (ACR Practice Parameter for the Performance of Screening and Diagnostic Mammography) and [place] [employer]. For women with an elevated risk of breast cancer, please refer to the ACR Practice Parameter for specific screening recommendations. The patient will be entered into a reminder system with a target due date of 1 year for her next screening exam. Electronically signed by: Emeterio devine/rome:06/16/2020 11:06:52 Long Term Care Phlebotomist: Zaida VILLALBA)(Michael), [facility] letter sent: Normal Exam Reading location: BI-RADS: 1 Negative REPORT ELECTRONICALLY SIGNED IN OTHER VENDOR SYSTEM Resulting Agency Comment O Procedure Note Emeterio Pena MD - 06/16/2020 Patient Name: MARSHA VASQUEZ Dr: Steve Nieves MD, D.O.B: 1945 Exam Date: 06/16/20 0858 Age: 75 Sex: Female MR#: [id number] Loc: RADIOLOGY REPORT Order #[id number] [facility] [place] Bilat Screening 3D Signed - MG [...] 01/02/2019 mammogram,11/08/2017 mammogram, and 11/02/2017 mammogram - [facility]. BREAST TISSUE: There are scattered areas [...] age 41, based on guidelines of the [place] [employer] (ACR Practice Parameter for the Performance of Screening and Diagnostic Mammography) and [place] [employer]. For women with an elevated risk of breast cancer, pleaserefer to the ACR Practice Parameter for specific screening recommendations. The patient will be entered into a reminder system with a target due dateof 1 year for her next screening exam. Electronically signed by: Emeterio Smith rl/penrad:06/16/2020 11:06:52 Long Term Care Phlebotomist: Zaida VILLALBA)(Michael), [facility] letter sent: Normal Exam Reading location: BI-RADS: 1 Negative REPORT ELECTRONICALLY SIGNED IN OTHER VENDOR SYSTEM Steve Nieves MD IMG MAMMO PROCEDURES Final Result * Dexa Axial Skeleton Bone Density 1 or 2 Site (06/16/2020 8:58 AM FOUNTAIN SUPERVISOR) Anatomical Region Laterality Modality Body N/A Radiographic Nellie ging 06/16/2020 9:47 AM FOUNTAIN SUPERVISOR Narrative 06/16/2020 9:49 AM FOUNTAIN SUPERVISOR Patient Name: MARSHA VASQUEZ Ordering Dr: Steve Nieves MD D.O.B: 1945 Exam Date: 06/16/2058 Age: 75 Sex: Female MR#: [id number] Loc: RADIOLOGY REPORT Order #[id number] Bone Density Bone Density Hip/Spine (STD) Signed EXAM DESCRIPTION: Bone Density Hip/Spine (STD) REASON FOR STUDY: 75 year old female with given history of postmenopausal status. Outreach Manager/Model: [employer] A ([id number]) CLINICAL INFORMATION: Current height: 63.5 inches Maximum [...] by Jag Payne M.D. MD: Report ID: [id number] Reading Location: [place] [address] REPORT ELECTRONICALLY SIGNED IN OTHER VENDOR SYSTEM Resulting Agency Comment O Procedure Note Jag Payne MD - 06/16/2020 Patient Name: MARSHA VASQUEZ Dr: Steve Nieves MD D.O.B: 1945 Exam Date: 06/16/2058 Age: 75 Sex: Female MR#: [id number] Loc: RADIOLOGY REPORT Order #[id number] Bone Density Bone Density Hip/Spine (STD) Signed EXAM DESCRIPTION: Bone Density Hip/Spine (STD) REASON FOR STUDY: 75 year old female with given history ofpostmenopausal status. Outreach Manager/Model: [employer] A ([id number]) CLINICAL INFORMATION: Current height: 63.5 inches Maximum [...] by Jag Payne M.D. MD: Report ID: [id number] Reading Location: [id number] REPORT ELECTRONICALLY SIGNED IN OTHER VENDOR SYSTEM Steve Nieves MD IMG DXA PROCEDURES Final Re sult * COLONOSCOPY (04/12/2017) Colonoscopy Abnormal Comment:Per Patient Dr. Fani hanley diverticulitis Historical Provider HEALTH MAINTENANCE Final Result from Last 3 Months or Most Recently Relevant to Health Maintenance Insurance [employer] MEDICARE PPO Advance Directives For more information, please contact: [phone] Documents on File Type Date Recorded Patient Group Underwriter Expl anation ADVANCE DIRECTIVE 10/12/2020 12:27 PM Power of Locomotive Mechanic Apprentice-Medical ADVANCE DIRECTIVE 08/19/2018 12:00 AM TIFFANY R OF ENVIRONMENTAL COMMUNICATIONS SPECIALIST FINANCIAL/MEDICAL * Full Code (Latest Code Status [...] Agents on File Name Relationship Healthcare Agent [facility] Communication Rodrigo Vasquez Son Second Alternate Health Care Agent Care Teams Land Degradation Analyst Relationship Specialty Start Date End Date Steve Nieves MD [address] [place] [address] DR LARA [address] [place] [address] PCP - General 09/18/17 Shawn Sousa DO [address] [place] [address] Medical Oncologist/Hematologis t Hematology and Oncology 12/10/17 Lizet Persaud MD [address] [address] Consulting Physician Pulmonary Disease 06/19/23 Elisha Wright MD [address] [id number] Referring Physician Interventional Cardiology 06/22/23
--- OUTSIDE RECORDS SUMMARY | 2024-09-10 12:07 | XMS_ITS | Encounter Summary ---
Author Organization [facility] Facility Care Team Providers Care Head Bellhop Captain Name Role Phone Scottjessica Lizet RICK Primary Care Provider [phone] Steve Nieves MD Primary Care Provider Shawn Sousa DO Unavailable [phone] Mirela Huang RN Unavailable [phone] Denice Harley LPN Unavailable [phone] Brendan Mejia MD Unavailable [phone] Lulu Anand RN Unavailable Lizet Persaud MD Unavailable Elisha Wright MD Unavailable [phone] Denice Harley LPN Unavailable [phone] Encounter Details Date Type Department Care Team (Latest Contact Info) Description 08/28/2017 Orders Only [facility] CLINCONV ProviderMichael MD [address] [place] [id number] Social History Tobacco Use Types Packs/Day Years Used Date Smoking Tobacco: Never Assessed Comments Unknown Sex and Gender Information Value Date Recorded Sex Assigned at Not on file Legal Sex Female 10:45 PM TIE SAWYER Gender Identity Female 02/06/2021 2:36 PM CDT Sexual Orientation Not on file documented as of this encounter Plan of Treatment Not on file documented as of this encounter Procedures Procedure Name Priority Date/Time Associated Diagnosis Comments CARDIOLOGY REPORT 09/14/2017 12: 00 AM CDT CARDIOLOGY REPORT 09/14/2017 12: 00 AM CDT documented in this encounter Results * CARDIOLOGY REPORT (09/14/2017 12:00 AM CDT) Anatomical Region Laterality Modality Other Narrative 09/14/2017 12:00 AM CDT Ordered by an unspecified provider. us Historical Provider [facility] CARDIAC SERVICES PROCE DURES Final Result * CARDIOLOGY REPORT (09/14/2017 12:00 AM CDT) Anatomical Region Laterality Modality Other Narrative 09/14/2017 12:00 AM CDT Ordered by an unspecified provider. us Historical Provider CV CARDIAC SERVICES PROCE DURES Final Result documented in this encounter Visit Diagnoses Not on filedocumented in this encounter Additional Health Concerns Infection Onset Date Last Indicated Resolved Time COVID: Suspected 10/10/2020 10/10/2020 10/10/2020 6:25 PM CDT COVID: Suspected 05/02/2021 05/02/2021 05/02/2021 11:59 AM TIE SAWYER COVID19 05/02/2021 05/02/2021 05/20/2021 3:05 AM TIE SAWYER COVID: Recovered Comment:Added based on recent COVID infection. 05/20/2021 05/20/2021 09/17/2021 3:05 AM C DT COVID: Suspected 04/17/2022 04/17/2022 04/17/2022 12:21 PM TIE SAWYER COVID19 04/17/2022 04/17/2022 05/01/2022 3:05 AM TIE SAWYER COVID: Recovered Comment:Added based on recent COVID infection. 05/01/2022 05/03/2022 07/30/2022 3:05 AM C DT COVID: Suspected 05/07/2022 05/07/2022 05/07/2022 12:53 PM TIE SAWYER Influenza, adult 05/07/2022 05/07/2022 05/14/2022 3:05 AM TIE SAWYER COVID: Suspected 09/11/2022 09/11/2022 09/11/2022 11:35 AM CDT COVID: Suspected 10/06/2022 10/06/2022 10/06/2022 6:04 PM CDT COVID: Suspected 01/07/2023 01/07/2023 01/07/2023 3:53 PM CDT COVID: Suspected 01/25/2023 01/25/2023 01/25/2023 12:08 PM CDT COVID: Suspected 10/07/2023 10/07/2023 10/07/2023 11:55 AM CDT Rhino/Enterovirus 10/08/2023 10/08/2023 10/15/2023 3:05 AM CDT COVID: Suspected 03/25/2024 03/25/2024 03/25/2024 2:30 PM TIE SAWYER COVID19 Comment:Airborne + Contact precautions. Gown, Gloves, N95, eye protection or goggles. Precautions 04/09/24. Contact Incident Handler if patient worsens. - Dameon Dowd BSN, RN 03/31/24 03/25/2024 03/25/2024 04/09/2024 3:[address] COVID: Recovered Comment:Added based on recent COVID infection. 04/09/2024 04/10/2024 07/08/2024 3:[address] documented as of this encounter Care Teams Head Bellhop Captain Relationship Specialty Start Date End Date Lizet Ledesma NP [address] [place] [address] PCP - General 07/03/17 09/17/17 Steve Nieves MD [address] [address] PCP - General 09/18/17 Shawn Sousa DO [address] [address] Medical Oncologist/Hematologis t Hematology and Oncology 12/10/17 Mirela Huang, RN [address] [address] Inventory Control Assistant 09/03/18 09/03/18 Denice Harley LPN [address] [address] Inventory Control Assistant 02/09/21 02/09/21 Brendan Mejia MD [facility] [address] Urologist Urology 03/01/21 08/26/24 Lulu Anand RN [address] [place] [address] Inventory Control Assistant 02/20/23 11/14/23 Lizet Persaud MD [address] [place] [address] Consulting Physician Pulmonary Disease 06/19/23 Elisha Wright MD [address] [place] [address] Referring Physician Interventional Cardiology 06/22/23 Denice Harley LPN [address] [place] [address] Inventory Control Assistant 04/01/24 04/01/24 documented as of this encounter
--- OUTSIDE RECORDS SUMMARY | 2024-09-10 12:07 | XMS_ITS | Encounter Summary ---
Author Organization [facility] Facility Care Team Providers Care Public Address System Operator Name Role Phone Steve Nieves MD Primary Care Provider Shawn Sousa DO Unavailable [phone] Mirela Huang RN Unavailable [phone] Denice Harley LPN Unavailable [phone] Brendan Mejia MD Unavailable [phone] Lulu Anand RN Unavailable [phone] Lizet Persaud MD Unavailable [phone] Elisha Wright MD Unavailable [phone] Denice Harley LPN Unavailable [phone] Encounter Details Date Type Department Care Team (Latest Contact Info) Description 01/23/2018 Orders Only [facility] CLINCONV ProviderMichael MD [address] [place] [address] Social History Tobacco Use Types Packs/Day Years Used Date Smoking Tobacco: Former Smokeless Tobacco: Never Alcohol Use Standard Drinks/Week Comments No 0 (1 standard drink = 0.6 oz pur e alcohol) Comments Unknown Sex and Gender Information Value Date Recorded Sex Assigned at Not on file Legal Sex Female 10:45 PM PLASTICS SCIENTIST Gender Identity Female 02/06/2021 2:36 PM CDT Sexual Orientation Not on file documented as of this encounter Plan of Treatment Not on file documented as of this encounter Procedures Procedure Name Priority Date/Time Associated Diagnosis Comments PROCEDURE - RESULT 01/23/2018 12 :00 AM CDT documented in this encounter Results * PROCEDURE - RESULT (01/23/2018 12:00 AM CDT) Narrative 01/23/2018 12:00 AM CDT Ordered by an unspecified provider. Historical Provider Final Res ult documented in this encounter Visit Diagnoses Not on filedocumented in this encounter Additional Health Concerns Infection Onset Date Last Indicated Resolved Time COVID: Suspected 10/10/2020 10/10/2020 10/10/2020 6:25 PM CDT COVID: Suspected 05/02/2021 05/02/2021 05/02/2021 11:59 AM PLASTICS SCIENTIST COVID19 05/02/2021 05/02/2021 05/20/2021 3:05 AM PLASTICS SCIENTIST COVID: Recovered Comment:Added based on recent COVID infection. 05/20/2021 05/20/2021 09/17/2021 3:05 AM C DT COVID: Suspected 04/17/2022 04/17/2022 04/17/2022 12:21 PM PLASTICS SCIENTIST COVID19 04/17/2022 04/17/2022 05/01/2022 3:05 AM PLASTICS SCIENTIST COVID: Recovered Comment:Added based on recent COVID infection. 05/01/2022 05/03/2022 07/30/2022 3:05 AM C DT COVID: Suspected 05/07/2022 05/07/2022 05/07/2022 12:53 PM PLASTICS SCIENTIST Influenza, adult 05/07/2022 05/07/2022 05/14/2022 3:05 AM PLASTICS SCIENTIST COVID: Suspected 09/11/2022 09/11/2022 09/11/2022 11:35 AM CDT COVID: Suspected 10/06/2022 10/06/2022 10/06/2022 6:04 PM CDT COVID: Suspected 01/07/2023 01/07/2023 01/07/2023 3:53 PM CDT COVID: Suspected 01/25/2023 01/25/2023 01/25/2023 12:08 PM CDT COVID: Suspected 10/07/2023 10/07/2023 10/07/2023 11:55 AM CDT Rhino/Enterovirus 10/08/2023 10/08/2023 10/15/2023 3:05 AM CDT COVID: Suspected 03/25/2024 03/25/2024 03/25/2024 2:30 PM PLASTICS SCIENTIST COVID19 Comment:Airborne + Contact precautions. Gown, Gloves, N95, eye protection or goggles. Precautions 04/09/24. Contact Adoption Social Worker if patient worsens. - Dameon PULIDO, RN 03/31/24 03/25/2024 03/25/2024 04/09/2024 3:[address] COVID: Recovered Comment:Added based on recent COVID infection. 04/09/2024 04/10/2024 07/08/2024 3:[address] documented as of this encounter Care Teams Public Address System Operator Relationship Specialty Start Date End Date Steve Nieves MD [address] [facility] [address] [address] PCP - General 09/18/17 Shawn Sousa DO [address] [phone] Medical Oncologist/Hematologis t Hematology and Oncology 12/10/17 Mirela Huang, NEW [address] [phone] Causticiser 09/03/18 09/03/18 Denice Harley LPN [address] [phone] Causticiser 02/09/21 02/09/21 Brendan Mejia MD [address] [place] [address] Urologist Urology 03/01/21 08/26/24 Lulu Anand, RN [address] [place] [address] Causticiser 02/20/23 11/14/23 Lizet Persaud MD [address] [place] [address] Consulting Physician Pulmonary Disease 06/19/23 Elisha Wright MD [address] [place] [address] Referring Physician Interventional Cardiology 06/22/23 Denice Harley LPN [address] [place] [address] Causticiser 04/01/24 04/01/24 documented as of this encounter
--- OUTSIDE RECORDS SUMMARY | 2024-09-10 12:07 | XMS_ITS | Clinical Summary ---
Author Organization [facility] [place] [address] [place] [address] Care Team Providers Care Chart Writer Name Role Phone Unavailable Primary Care Provider Unavailabl e Medications chlorhexidine (PERIDEX) 0.12 % solution Use 15 mL in the mouth or throat in the morning and 15 mL in the evening. Swish and spit with 15 mL twice daily after brushing (do not use for more than two consecutive weeks). 473 mL 3 Active albuterol 2.5 mg /3 mL (0.083 %) nebulizer solution Inhale 2.5 mg in the morning and 2.5 mg at noon and 2.5 mg in the evening and 2.5 mg before bedtime. 3 Active alendronate (FOSAMAX) 70 mg tablet TAKE 1 TABLET WEEKLY DIRECTED. SEE PACKAGE FOR ADDITIONAL INSTRUCTIONS 3 Active amLODIPine (NORVASC) 10 mg tablet Take 10 mg by mouth 1 (one) time each day. 3 Active Breztri Aerosphere 160-9-4.8 mcg/actuation HFA aerosol inhaler Inhale 160 mcg in the morning and 160 mcg in the evening. 3 Active escitalopram (LEXAPRO) 5 mg tablet Take 1 tablet by mouth 1 (one) time each day. 3 Active losartan-hydroc hlorothiazide (HYZAAR) 100-25 mg tablet Take 1 tablet by mouth 1 (one) time each day. 2 Active omeprazole (PriLOSEC) [address] capsule Take 1 capsule by mouth 1 (one) time each day. 3 Active traMADoL (ULTRAM) 50 mg tablet Take 50 mg by mouth. 3 Active Active Problems Problem Noted Date Diagnosed Date Acute respiratory failure with hypoxia 3 Overview (08/24/2022): Last Assessment & Plan: Patient was placed on oxygen during her hospitalization. She was tapered off oxygen and was discharged home without oxygen. Her oxygen sat is 93% on room air BMI 26.0-26.9,adult 07/25/2022 Primary osteoarthritis of left hip 07/25/2022 Overview (08/24/2022): Last Assessment & Plan: Patient is followed by the orthopedic doctor. She takes tramadol as needed for relief. Dyspnea on exertion 06/06/2022 Elevated troponin 06/06/2022 Essential hypertension 06/06/2022 COVID 04/17/2022 Overview (08/24/2022): Last Assessment & Plan: Patient was treated for COVID infection and currently asymptomatic Senile osteoporosis 10/13/2021 Overview (08/24/2022): Last Assessment & Plan: Continue Fosamax with calcium and vitamin-D. History of smoking 07/13/2021 Overview (08/24/2022): Last Assessment & Plan: Discussed CT lung screen with low-dose iodine with benefits and risks and the patient wants to proceed with the test History of DVT (deep vein thrombosis) 05/03/2021 Recurrent major depressive disorder, in full rem ission 08/24/2020 Overview (08/24/2022): Last Assessment & Plan: Controlled on Lexapro Hypertensive kidney disease with stage 2 chronic kidney disease 08/23/2020 Overview (08/24/2022): Last Assessment & Plan: Continue current medications. Discussed low-salt diet. Discussed exercise on regular basis. Will continue to monitor Anxiety 05/11/2020 Overview (08/24/2022): Last Assessment & Plan: Patient with anxiety secondary to family conditions. We discussed options of treatment and she likes to try medications. We will start her on Lexapro 5 mg daily and side effects were explained and will adjust the does as needed. 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 She had negative thrombophilia workup. Patient has history of autoimmune hemolytic anemia and has received Rituxan which is Last Assessment & Plan: Patient is maintained on Eliquis and followed by the land leveler Chronic bronchitis with COPD (chronic obstructive pulmonary disease) 09/14/2017 Overview (08/24/2022): Patient has been treated for emphysema/COPD. Continue Symbicort b.i.d. and p.r.n. albuterol Last Assessment & Plan: Controlled on breztri Diastolic dysfunction 08/28/2017 Pure hypertriglyceridemia 08/05/2009 Overview (08/24/2022): Last Assessment & Plan: Continue low-fat diet Gastro-esophageal reflux disease without esophag itis 10/26/2003 Overview (08/24/2022): Last Assessment & Plan: Controlled on Prilosec Social History Tobacco Use Types Packs/Day Years Used Date Smoking Tobacco: Never Assessed Comments Unknown Sex and Gender Information Value Date Recorded Sex Assigned at Not on file Legal Sex Female 12:44 PM PDT Gender Identity Not on file Sexual Orientation [...] 08/24/2022 10:35 AM CDT Plan of Treatment Health Maintenance Due Date Last Done Comments Dental Oral Exam 1945 Dental Prophylaxis 1945 Dental X-Ray: Bitewings 1945 Dental X-Ray: Full Mouth 1945 Dental X-Ray: Panoramic 08/26/2025 08/25/2022 Meningococcal B Vaccine Aged Out No l onger eligible based on patient's age to complete this topic Insurance [employer]
--- OUTSIDE RECORDS SUMMARY | 2024-09-10 12:07 | XMS_ITS | Encounter Summary ---
Author Organization [facility] Facility Care Team Providers Care Painter Shipyard Name Role Phone Steve Nieves MD Primary Care Provider Shawn Sousa DO Unavailable [phone] Mirela Huang RN Unavailable [phone] Denice Harley LPN Unavailable [phone] Brendan Mejia MD Unavailable [phone] Lulu Anand RN Unavailable Lizet Persaud MD Unavailable Elisha Wright MD Unavailable [phone] Denice Harley LPN Unavailable [phone] Encounter Details Date Type Department Care Team (Latest Contact Info) Description 05/23/2018 Orders Only [facility] CLINCONV ProviderMichael MD [address] [place] [address] Social History Tobacco Use Types Packs/Day Years Used Date Smoking Tobacco: Former Smokeless Tobacco: Never Alcohol Use Standard Drinks/Week Comments No 0 (1 standard drink = 0.6 oz pur e alcohol) Comments Unknown Sex and Gender Information Value Date Recorded Sex Assigned at Not on file Legal Sex Female 10:45 PM LOCKSTITCH BINDER Gender Identity Female 02/06/2021 2:36 PM CDT Sexual Orientation Not on file documented as of this encounter Plan of Treatment Not on file documented as of this encounter Procedures Procedure Name Priority Date/Time Associated Diagnosis Comments SCAN - LABS 06/18/2018 12:00 AM LOCKSTITCH BINDER documented in this encounter Results * SCAN - LABS (06/18/2018 12:00 AM LOCKSTITCH BINDER) Narrative 06/18/2018 12:00 AM LOCKSTITCH BINDER Ordered by an unspecified provider. us Historical Provider Final Res ult documented in this encounter Visit Diagnoses Not on filedocumented in this encounter Additional Health Concerns Infection Onset Date Last Indicated Resolved Time COVID: Suspected 10/10/2020 10/10/2020 10/10/2020 6:25 PM CDT COVID: Suspected 05/02/2021 05/02/2021 05/02/2021 11:59 AM LOCKSTITCH BINDER COVID19 05/02/2021 05/02/2021 05/20/2021 3:05 AM LOCKSTITCH BINDER COVID: Recovered Comment:Added based on recent COVID infection. 05/20/2021 05/20/2021 09/17/2021 3:05 AM C DT COVID: Suspected 04/17/2022 04/17/2022 04/17/2022 12:21 PM LOCKSTITCH BINDER COVID19 04/17/2022 04/17/2022 05/01/2022 3:05 AM LOCKSTITCH BINDER COVID: Recovered Comment:Added based on recent COVID infection. 05/01/2022 05/03/2022 07/30/2022 3:05 AM C DT COVID: Suspected 05/07/2022 05/07/2022 05/07/2022 12:53 PM LOCKSTITCH BINDER Influenza, adult 05/07/2022 05/07/2022 05/14/2022 3:05 AM LOCKSTITCH BINDER COVID: Suspected 09/11/2022 09/11/2022 09/11/2022 11:35 AM CDT COVID: Suspected 10/06/2022 10/06/2022 10/06/2022 6:04 PM CDT COVID: Suspected 01/07/2023 01/07/2023 01/07/2023 3:53 PM CDT COVID: Suspected 01/25/2023 01/25/2023 01/25/2023 12:08 PM CDT COVID: Suspected 10/07/2023 10/07/2023 10/07/2023 11:55 AM CDT Rhino/Enterovirus 10/08/2023 10/08/2023 10/15/2023 3:05 AM CDT COVID: Suspected 03/25/2024 03/25/2024 03/25/2024 2:30 PM LOCKSTITCH BINDER COVID19 Comment:Airborne + Contact precautions. Gown, Gloves, N95, eye protection or goggles. Precautions 04/09/24. Contact Interactive Web Developer if patient worsens. - Dameon PULIDO, RN 03/31/24 03/25/2024 03/25/2024 04/09/2024 3:[address] COVID: Recovered Comment:Added based on recent COVID infection. 04/09/2024 04/10/2024 07/08/2024 3:[address] documented as of this encounter Care Teams Painter Shipyard Relationship Specialty Start Date End Date Steve Nieves MD [address] [address] PCP - General 09/18/17 Shawn Sousa DO [address] 146989 Medical Oncologist/Hematologis t Hematology and Oncology 12/10/17 Mirela Huang, NEW [address] [phone] Rn Integrity 09/03/18 09/03/18 Denice Harley LPN [address] [phone] Rn Integrity 02/09/21 02/09/21 [place] [address] [place] [address] Urologist Urology 03/01/21 08/26/24 Lulu Anand RN [address] [place] [address] Rn Integrity 02/20/23 11/14/23 Lizet Persaud MD [address] [place] [address] Consulting Physician Pulmonary Disease 06/19/23 Elisha Wright MD [address] [place] [address] [phone] Referring Physician Interventional Cardiology 06/22/23 Denice Harley LPN [address] [place] [address] [address] [place] [address] Rn Integrity 04/01/24 04/01/24 documented as of this encounter
--- OUTSIDE RECORDS SUMMARY | 2024-09-10 12:07 | XMS_ITS | Encounter Summary ---
Author Organization [facility] Facility Care Team Providers Care Director Peoplesoft Name Role Phone Scottjessica Lizet RICK Primary Care Provider [phone] Steve Nieves MD Primary Care Provider Shawn Sousa DO Unavailable [phone] Mirela Huang RN Unavailable [phone] Denice Harley LPN Unavailable [phone] Brendan Mejia MD Unavailable [phone] Lulu Anand RN Unavailable Lizet Persaud MD Unavailable Elisha Wright MD Unavailable [phone] Denice Harley LPN Unavailable [phone] Encounter Details Date Type Department Care Team (Latest Contact Info) Description 09/01/2017 Orders Only [facility]G CLINCONV ProviderMichael MD [address] [place] [address] Social History Tobacco Use Types Packs/Day Years Used Date Smoking Tobacco: Never Assessed Comments Unknown Sex and Gender Information Value Date Recorded Sex Assigned at Not on file Legal Sex Female 10:45 PM NUTRITION MANAGER Gender Identity Female 02/06/2021 2:36 PM CDT Sexual Orientation Not on file documented as of this encounter Plan of Treatment Not on file documented as of this encounter Procedures Procedure Name Priority Date/Time Associated Diagnosis Comments SCAN - LABS 09/14/2017 12:00 AM CDT documented in this encounter Results * SCAN - LABS (09/14/2017 12:00 AM CDT) Narrative 09/14/2017 12:00 AM CDT Ordered by an unspecified provider. us Historical Provider Final Res ult documented in this encounter Visit Diagnoses Not on filedocumented in this encounter Additional Health Concerns Infection Onset Date Last Indicated Resolved Time COVID: Suspected 10/10/2020 10/10/2020 10/10/2020 6:25 PM CDT COVID: Suspected 05/02/2021 05/02/2021 05/02/2021 11:59 AM NUTRITION MANAGER COVID19 05/02/2021 05/02/2021 05/20/2021 3:05 AM NUTRITION MANAGER COVID: Recovered Comment:Added based on recent COVID infection. 05/20/2021 05/20/2021 09/17/2021 3:05 AM C DT COVID: Suspected 04/17/2022 04/17/2022 04/17/2022 12:21 PM NUTRITION MANAGER COVID19 04/17/2022 04/17/2022 05/01/2022 3:05 AM NUTRITION MANAGER COVID: Recovered Comment:Added based on recent COVID infection. 05/01/2022 05/03/2022 07/30/2022 3:05 AM C DT COVID: Suspected 05/07/2022 05/07/2022 05/07/2022 12:53 PM NUTRITION MANAGER Influenza, adult 05/07/2022 05/07/2022 05/14/2022 3:05 AM NUTRITION MANAGER COVID: Suspected 09/11/2022 09/11/2022 09/11/2022 11:35 AM CDT COVID: Suspected 10/06/2022 10/06/2022 10/06/2022 6:04 PM CDT COVID: Suspected 01/07/2023 01/07/2023 01/07/2023 3:53 PM CDT COVID: Suspected 01/25/2023 01/25/2023 01/25/2023 12:08 PM CDT COVID: Suspected 10/07/2023 10/07/2023 10/07/2023 11:55 AM CDT Rhino/Enterovirus 10/08/2023 10/08/2023 10/15/2023 3:05 AM CDT COVID: Suspected 03/25/2024 03/25/2024 03/25/2024 2:30 PM NUTRITION MANAGER COVID19 Comment:Airborne + Contact precautions. Gown, Gloves, N95, eye protection or goggles. Precautions 04/09/24. Contact Mechanical Maintenance Foreman if patient worsens. - Dameon PULIDO, RN 03/31/24 03/25/2024 03/25/2024 04/09/2024 3:[address] COVID: Recovered Comment:Added based on recent COVID infection. 04/09/2024 04/10/2024 07/08/2024 3:[address] documented as of this encounter Care Teams Director Peoplesoft Relationship Specialty Start Date End Date Lizet Ledesma NP [address] [place] [address] PCP - General 07/03/17 09/17/17 Steve Nieves MD [address] [address] PCP - General 09/18/17 Shawn Sousa DO [address] [phone] Medical Oncologist/Hematologis t Hematology and Oncology 12/10/17 Mirela Huang, NEW [address] [phone] Bill Hiker 09/03/18 09/03/18 Denice Har[place]PN [address] [place] [address] Bill Hiker 02/09/21 02/09/21 Brendan Mejia MD [address] [place] [address] Urologist Urology 03/01/21 08/26/24 Lulu Anand RN [address] [place] [address] Bill Hiker 02/20/23 11/14/23 Lizet Persaud MD [address] [place] [address] Consulting Physician Pulmonary Disease 06/19/23 Elisha Wright MD [address] [place] [address] Referring Physician Interventional Cardiology 06/22/23 Denice Harley LPN [address] [place] [address] Bill Hiker 04/01/24 04/01/24 documented as of this encounter
--- OUTSIDE RECORDS SUMMARY | 2024-09-10 12:07 | XMS_ITS | Encounter Summary ---
Author Organization [facility] Facility Care Team Providers Care Marble Finisher Name Role Phone Steve Nieves MD Primary Care Provider Shawn Sousa DO Unavailable [phone] Mirela Huang RN Unavailable [phone] Denice Harley LPN Unavailable [phone] Brendan Mejia MD Unavailable [phone] Lulu Anand RN Unavailable Lizet Persaud MD Unavailable Elisha Wright MD Unavailable [phone] Denice Harley LPN Unavailable [phone] Encounter Details Date Type Department Care Team (Latest Contact Info) Description 01/04/2018 Orders Only [facility] CLINCONV ProviderMichael MD [address] [place] [address] Social History Tobacco Use Types Packs/Day Years Used Date Smoking Tobacco: Former Smokeless Tobacco: Never Alcohol Use Standard Drinks/Week Comments No 0 (1 standard drink = 0.6 oz pur e alcohol) Comments Unknown Sex and Gender Information Value Date Recorded Sex Assigned at Not on file Legal Sex Female 10:45 PM RATE EXAMINER Gender Identity Female 02/06/2021 2:36 PM CDT Sexual Orientation Not on file documented as of this encounter Plan of Treatment Not on file documented as of this encounter Procedures Procedure Name Priority Date/Time Associated Diagnosis Comments PROCEDURE - RESULT 01/03/2018 12 :00 AM CDT documented in this encounter Results * PROCEDURE - RESULT (01/03/2018 12:00 AM CDT) Narrative 01/03/2018 12:00 AM CDT Ordered by an unspecified provider. Historical Provider Final Res ult documented in this encounter Visit Diagnoses Not on filedocumented in this encounter Additional Health Concerns Infection Onset Date Last Indicated Resolved Time COVID: Suspected 10/10/2020 10/10/2020 10/10/2020 6:25 PM CDT COVID: Suspected 05/02/2021 05/02/2021 05/02/2021 11:59 AM RATE EXAMINER COVID19 05/02/2021 05/02/2021 05/20/2021 3:05 AM RATE EXAMINER COVID: Recovered Comment:Added based on recent COVID infection. 05/20/2021 05/20/2021 09/17/2021 3:05 AM C DT COVID: Suspected 04/17/2022 04/17/2022 04/17/2022 12:21 PM RATE EXAMINER COVID19 04/17/2022 04/17/2022 05/01/2022 3:05 AM RATE EXAMINER COVID: Recovered Comment:Added based on recent COVID infection. 05/01/2022 05/03/2022 07/30/2022 3:05 AM C DT COVID: Suspected 05/07/2022 05/07/2022 05/07/2022 12:53 PM RATE EXAMINER Influenza, adult 05/07/2022 05/07/2022 05/14/2022 3:05 AM RATE EXAMINER COVID: Suspected 09/11/2022 09/11/2022 09/11/2022 11:35 AM CDT COVID: Suspected 10/06/2022 10/06/2022 10/06/2022 6:04 PM CDT COVID: Suspected 01/07/2023 01/07/2023 01/07/2023 3:53 PM CDT COVID: Suspected 01/25/2023 01/25/2023 01/25/2023 12:08 PM CDT COVID: Suspected 10/07/2023 10/07/2023 10/07/2023 11:55 AM CDT Rhino/Enterovirus 10/08/2023 10/08/2023 10/15/2023 3:05 AM CDT COVID: Suspected 03/25/2024 03/25/2024 03/25/2024 2:30 PM RATE EXAMINER COVID19 Comment:Airborne + Contact precautions. Gown, Gloves, N95, eye protection or goggles. Precautions 04/09/24. Contact Flight Information Expediter if patient worsens. - Dameon PULIDO, RN 03/31/24 03/25/2024 03/25/2024 04/09/2024 3:[address] COVID: Recovered Comment:Added based on recent COVID infection. 04/09/2024 04/10/2024 07/08/2024 3:[address] documented as of this encounter Care Teams Marble Finisher Relationship Specialty Start Date End Date Steve Nieves MD 4600 [facility] [address] [address] PCP - General 09/18/17 Shawn Sousa DO [address] [phone] Medical Oncologist/Hematologis t Hematology and Oncology 12/10/17 Mirela Huang, NEW [address] [phone] Safety Aide 09/03/18 09/03/18 Denice Harley LPN [address] [phone] Safety Aide 02/09/21 02/09/21 Brendan Mejia MD [address] [place] [address] Urologist Urology 03/01/21 08/26/24 Lulu Anand, RN [address] [place] [address] Safety Aide 02/20/23 11/14/23 Lizet Persaud MD [address] [place] [address] Consulting Physician Pulmonary Disease 06/19/23 Elisha Wright MD [address] [place] [address] Referring Physician Interventional Cardiology 06/22/23 Denice Harley LPN [address] [place] [address] Safety Aide 04/01/24 04/01/24 documented as of this encounter
--- OUTSIDE RECORDS SUMMARY | 2024-09-10 12:07 | XMS_ITS | Encounter Summary ---
Author Organization [facility] Facility Care Team Providers Care Kosher Butcher Name Role Phone Steve Nieves MD Primary Care Provider Shawn Sousa DO Unavailable [phone] Mirela Huang RN Unavailable [phone] Denice Harley LPN Unavailable [phone] Brendan Mejia MD Unavailable [phone] Lulu Anand RN Unavailable Lizet Persaud MD Unavailable Elisha Wright MD Unavailable [phone] Denice Harley LPN Unavailable [phone] Encounter Details Date Type Department Care Team (Latest Contact Info) Description 02/28/2018 Orders Only [facility] ProviderMichael MD [address] [place] [id number] Social History Tobacco Use Types Packs/Day Years Used Date Smoking Tobacco: Former Smokeless Tobacco: Never Alcohol Use Standard Drinks/Week Comments No 0 (1 standard drink = 0.6 oz pur e alcohol) Comments Unknown Sex and Gender Information Value Date Recorded Sex Assigned at Not on file Legal Sex Female 10:45 PM COLLECTIONS AND ARCHIVES DIRECTOR Gender Identity Female 02/06/2021 2:36 PM CDT Sexual Orientation Not on file documented as of this encounter Plan of Treatment Not on file documented as of this encounter Procedures Procedure Name Priority Date/Time Associated Diagnosis Comments PROCEDURE - RESULT 03/02/2018 12 :00 AM CDT PROCEDURE - RESULT 02/28/2018 12 :00 AM CDT PROCEDURE - RESULT 02/20/2018 12 :00 AM CDT documented in this encounter Results * PROCEDURE - RESULT (03/02/2018 12:00 AM CDT) Narrative 03/02/2018 12:00 AM CDT Ordered by an unspecified provider. Historical Provider Final Res ult * PROCEDURE - RESULT (02/28/2018 12:00 AM CDT) Narrative 02/28/2018 12:00 AM CDT Ordered by an unspecified provider. Historical Provider Final Res ult * PROCEDURE - RESULT (02/20/2018 12:00 AM CDT) Narrative 02/20/2018 12:00 AM CDT Ordered by an unspecified provider. Historical Provider Final Res ult documented in this encounter Visit Diagnoses Not on filedocumented in this encounter Additional Health Concerns Infection Onset Date Last Indicated Resolved Time COVID: Suspected 10/10/2020 10/10/2020 10/10/2020 6:25 PM CDT COVID: Suspected 05/02/2021 05/02/2021 05/02/2021 11:59 AM COLLECTIONS AND ARCHIVES DIRECTOR COVID19 05/02/2021 05/02/2021 05/20/2021 3:05 AM COLLECTIONS AND ARCHIVES DIRECTOR COVID: Recovered Comment:Added based on recent COVID infection. 05/20/2021 05/20/2021 09/17/2021 3:05 AM C DT COVID: Suspected 04/17/2022 04/17/2022 04/17/2022 12:21 PM COLLECTIONS AND ARCHIVES DIRECTOR COVID19 04/17/2022 04/17/2022 05/01/2022 3:05 AM COLLECTIONS AND ARCHIVES DIRECTOR COVID: Recovered Comment:Added based on recent COVID infection. 05/01/2022 05/03/2022 07/30/2022 3:05 AM C DT COVID: Suspected 05/07/2022 05/07/2022 05/07/2022 12:53 PM COLLECTIONS AND ARCHIVES DIRECTOR Influenza, adult 05/07/2022 05/07/2022 05/14/2022 3:05 AM COLLECTIONS AND ARCHIVES DIRECTOR COVID: Suspected 09/11/2022 09/11/2022 09/11/2022 11:35 AM CDT COVID: Suspected 10/06/2022 10/06/2022 10/06/2022 6:04 PM CDT COVID: Suspected 01/07/2023 01/07/2023 01/07/2023 3:53 PM CDT COVID: Suspected 01/25/2023 01/25/2023 01/25/2023 12:08 PM CDT COVID: Suspected 10/07/2023 10/07/2023 10/07/2023 11:55 AM CDT Rhino/Enterovirus 10/08/2023 10/08/2023 10/15/2023 3:05 AM CDT COVID: Suspected 03/25/2024 03/25/2024 03/25/2024 2:30 PM COLLECTIONS AND ARCHIVES DIRECTOR COVID19 Comment:Airborne + Contact precautions. Gown, Gloves, N95, eye protection or goggles. Precautions 04/09/24. Contact Sample Worker if patient worsens. - Dameon Dowd BSN, RN 03/31/24 03/25/2024 03/25/2024 04/09/2024 3:[address] COVID: Recovered Comment:Added based on recent COVID infection. 04/09/2024 04/10/2024 07/08/2024 3:[address] documented as of this encounter Care Teams Kosher Butcher Relationship Specialty Start Date End Date Steve Nieves MD [address] [facility] [address] PCP - General 09/18/17 Shawn Sousa DO [address] [place] [id number] Medical Oncologist/Hematologis t Hematology and Oncology 12/10/17 Mriela Huang, RN [address] [address] Antique Furniture Repairer 09/03/18 09/03/18 Denice Harley LPN [address] [address] Antique Furniture Repairer 02/09/21 02/09/21 Brendan Mejia MD [address] [place] [id number] Urologist Urology 03/01/21 08/26/24 Lulu Anand RN [address] [place] [id number] Antique Furniture Repairer 02/20/23 11/14/23 Lizet Persaud MD [address] [place] [address] [phone] Consulting Physician Pulmonary Disease 06/19/23 Elisha Wright MD [address] [place] [id number] Referring Physician Interventional Cardiology 06/22/23 Denice Harley LPN [address] [place] [id number] Antique Furniture Repairer 04/01/24 04/01/24 documented as of this encounter
== END 2024-09-10 11:58 | disposition home or self-care (01) ==
PROVIDERS: Emergency Provider Nurse Practitioner Family
DX: S80.811A Abrasion, right lower leg, initial encounter (principal); W10.9XXA Fall (on) (from) unspecified stairs and steps, initial encounter; F17.210 Nicotine dependence, cigarettes, uncomplicated; I10 Essential (primary) hypertension; J44.9 Chronic obstructive pulmonary disease, unspecified; D64.9 Anemia, unspecified
CPT/HCPCS: 99213; G0463